=== PATIENT | male | born 1965 | race Caucasian/White ===

== ENCOUNTER 2016-02-05 10:47 | Inpatient (IN) | payer SELFPAY ==
[2016-02-05] VITALS (11 sets, daily range): BP systolic 125; BP diastolic 84; PULSE 79–94; RESP 16; TEMP 99.9; O2SAT 90–100
[~2016-02-05] VITALS: Ht 182.9 cm; Wt 100.5 kg
[2016-02-05] MEDS ORDERED: LORazepam 2 MG/ML VIAL ONE (10:49)
[2016-02-05] MEDS ORDERED: DIPHTH/TETANUS/ACEL PERTUSSIS (BOOSTER) 0.5 ML VIAL/PFS IM ONE (10:49)
[2016-02-05] MEDS ORDERED: ceFAZolin 2 GM PREMIX 50 ML ONE (10:50)
[2016-02-05] MEDS ORDERED: LIDOCAINE HCL 2% 100 MG/5 ML SYRINGE IV PUSH ONE (11:11)
[2016-02-05] MEDS ORDERED: ETOMIDATE 20 MG/10 ML VIAL IV PUSH ONE ×2 (11:11)
[2016-02-05] MEDS ORDERED: SUCCINYLCHOLINE CHLORIDE 200 MG/10 ML VIAL IVP ONE (11:11)
[2016-02-05 11:17] LABS: I-STAT POTASSIUM 3.9 MMOL/L (3.5-4.9); I-STAT SODIUM 141 MMOL/L (138-146)
[2016-02-05 11:19] LABS: AUTOMATED NEUTROPHIL # 12.1 TH/MM3 (1.8-7.7); BASOPHIL # 0.1 TH/MM3 (0-0.2); BASOPHIL % 0.4 % (0.0-2.0); EOSINOPHIL # 0.4 TH/MM3 (0-0.4); EOSINOPHIL % 2.4 % (0.0-4.0); HEMATOCRIT 40.2 % (39.0-51.0); HEMO FLAGS DIFF FINAL; LYMPH % 10.9 % (9.0-44.0); LYMPHOCYTE # 1.6 TH/MM3 (1.0-4.8); MEAN CELL VOLUME 87.2 FL (80.0-100.0); MEAN CORPUSCULAR HEMOGLOBIN 28.5 PG (27.0-34.0); MEAN CORPUSCULAR HGB CONC 32.7 % (32.0-36.0); MONO % 4.7 % (0.0-8.0); NEUT % 81.6 % (16.0-70.0); PLATELET COUNT 270 TH/MM3 (150-450); RED BLOOD COUNT 4.62 MIL/MM3 (4.50-5.90); RED CELL DISTRIBUTION WIDTH 14.1 % (11.6-17.2); WHITE BLOOD COUNT 14.8 TH/MM3 (4.0-11.0)
--- NOTE | 2016-02-05 11:20 | RADRPT ---
EXAM DATE/TIME: 02/05/2016 10:38 [facility] COMPARISON: No previous studies available for comparison. INDICATIONS : Trauma alert, fell off of the roof. MEDICAL HISTORY : None. SURGICAL HISTORY : None. ENCOUNTER: Initial ACUITY: 1 day PAIN SCORE: Non-responsive. LOCATION: Left wrist FINDINGS: There is a comminuted fracture of the distal radius with intra-articular extension. Fracture of the d istal ulna is also present. There is possible fracture of the waist of navicular as well as abnormal alignment involving the proximal carpal row. A true lateral view is not included. CONCLUSION: 1. Comminuted distal radius fracture with possible scaphoid fracture. Possible disruption of the radi ocarpal row. 2. CT scan is recommended for further evaluation if clinically indicated. Kristian Ewing MD on February 05, 2016 at 11:16 Board Certified Radiologist. This report was verified electronically.
--- NOTE | 2016-02-05 11:25 | RADRPT ---
EXAM DATE/TIME: 02/05/2016 10:38 [facility] COMPARISON: No previous studies available for comparison. INDICATIONS: Trauma alert, fell off of a roof. MEDICAL HISTORY: None. SURGICAL HISTORY: None. ENCOUNTER: Initial ACUITY: 1 day PAIN SCORE: Non-responsive. LOCATION: Bilateral chest FINDINGS: ET tube is in good position. Cardiac silhouette is prominent. There is no pneumothorax. Portion of bony skeleton visualized is unremarkable. There is no nasogastric tube. CONCLUSION: 1. ET tube in good position. 2. Prominent cardiac silhouette. Yordy Arias MD FACR on February 05, 2016 at 11:18 Board Certified Radiologist. This report was verified electronically.
[2016-02-05 11:28] LABS: APTT (PATIENT) 23.6 SEC (24.3-30.1); INTERNATIONAL NORMALIZED RATIO 1.1 RATIO; PROTHROMBIN TIME - PATIENT 11.7 SEC (9.8-11.6)
--- NOTE | 2016-02-05 11:28 | RADRPT ---
EXAM DATE/TIME: 02/05/2016 10:38 [facility] COMPARISON: No previous studies available for comparison. INDICATIONS: Trauma alert, fell off of a roof MEDICAL HISTORY: None. SURGICAL HISTORY: None. ENCOUNTER: Initial ACUITY: 1 day PAIN SCORE: Non-responsive. LOCATION: Bilateral pelvis FINDINGS: There is fracture roof of the acetabulum on the left. Anterior and posterior columns are fractured a s well. There is fracture across the inferior aspect of the left pubic symphysis. Femoral neck appears intact. Right ash-pelvis is intact. CONCLUSION: Fractures left side of the pelvis as described above. CT scan is pending. Yordy Arias MD FACR on February 05, 2016 at 11:23 Board Certified Radiologist. This report was verified electronically.
--- NOTE | 2016-02-05 11:32 | PD ---
HPI Chief Complaint: trauma Time Seen by Provider: 11:09 Travel History International Travel<30 days: No Contact w/Intl Traveler<30days: No History of Present Illness HPI Patient is Eagle Jackson who presents to the emergency room from [facility]. 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 As reported, patient had loss of consciousness while on scene. Patient has obvious deformities to his left wrist. Patient was confused and combative on scene. Patient required multiple doses of ativan for sedation. Pt was then intubated with 7.5ETT for airway protection and for transfer to trauma facility. Patient was airlifted to [facility] for trauma evaluation. No hx could be obtained from patient [facility] Past Medical History Medical History: Unable to Obtain (unable to obtain) Past Surgical History Surgical History: Unable to Obtain (unable to obtain) Social History Narrative Social History unknown, pt intubated Allergies-Medications (Allergen,Severity, Reaction): Coded Allergies: UNOBTAINABLE (Unverified , 02/05/16) Review of Systems ROS Limitations: Intubated Physical Exam Narrative GENERAL: Patient intubated, VSS on initial evaluation SKIN: Warm and dry. HEAD: Normocephalic. Pt with hematoma and laceration above left eye brow EYES: Pupils 3, equal and round and reactive to light. No scleral icterus. No injection or drainage. ENT: ETT in place NECK: Trachea midline. No JVD. CARDIOVASCULAR: Regular rate and rhythm. No murmur appreciated. RESPIRATORY: No accessory muscle use. Clear to auscultation. Breath sounds equal bilaterally. GASTROINTESTINAL: Abdomen soft, non-tender, nondistended. Hepatic and splenic margins not palpable. MUSCULOSKELETAL: pt with obvious deformity to left wrist, open fracture, bleeding to lateral wrist, pt with abrasion to left knee, back with no stepoff to t and l spine NEUROLOGICAL: intubuted with purposeful movement Data Data Last Documented VS Vital Signs Date Time Temp Pulse Resp B/P Pulse Ox O2 Delivery O2 Flow Rate FiO2 02/05/16 11:40 99 100 02/05/16 10:50 15.00 02/05/16 10:50 [facility] Orders Lorazepam Inj (Ativan Inj) (02/05/16 10:49) Nffm-Onc-Gjmyfi (Booster) Inj (Boostrix (02/05/16 10:49) Cefazolin 2 Gm Premix (Ancef 2 Gm Premix (02/05/16 10:50) I-Stat Profile (02/05/16 11:07) I-Stat Creatinine (02/05/16 11:07) Complete Blood Count With Diff (02/05/16 11:07) Prothrombin Time / Inr (Pt) (02/05/16 11:07) Act Partial Throm Time (Ptt) (02/05/16 11:07) Type And Screen (02/05/16 11:07) Alcohol (Ethanol) (02/05/16 11:07) Urinalysis - C+S If Indicated (02/05/16 11:07) Drug Screen, Random Urine (02/05/16 11:07) Chest, Single Ap (02/05/16 11:07) Pelvis, Ap Only (Routine) (02/05/16 11:07) Ct Brain W/O Iv Contrast(Rout) (02/05/16 11:07) Ct Cerv Spine W/O Contrast (02/05/16 11:07) Ct Abd/Pel W Iv Contrast(Rout) (02/05/16 11:07) Ct Thorax/ Chest W Iv Contrast (02/05/16 11:07) Ct Facial Bones W/O Iv Cont (02/05/16 11:07) Iv Access Insert/Monitor (02/05/16 11:07) Ecg Monitoring (02/05/16 11:07) Oximetry (02/05/16 11:07) Oxygen Administration (02/05/16 11:07) Wrist, Limited (Ap&Lat) (02/05/16 ) Ct Wrist W/O Contrast (02/05/16 11:27) Midazolam Inj (Versed Inj) (02/05/16 11:37) Iohexol 350 Inj (Omnipaque 350 Inj) (02/05/16 11:43) Admit To Inpatient (02/05/16 ) Vital Signs (Adult) TERE.QSHIFT (02/05/16 11:42) Intake + Output TERE.Q8H (02/05/16 11:42) Neuro Checks TERE.Q1H (02/05/16 11:42) Activity Bed Rest (02/05/16 11:42) Diet Npo (02/05/16 Lunch) Urinary Catheter Management TERE.Q8H (02/05/16 11:42) Scd / Yeison / Foot Pump TERE.QSHIFT (02/05/16 11:42) ^ Cervical Collar (02/05/16 11:42) ^ Instruction (02/05/16 11:42) Complete Blood Count With Diff (02/06/16 06:00) Comprehensive Metabolic Panel (02/06/16 06:00) Chest, Single Ap (02/06/16 ) Sodium Chlor 0.9% 1000 Ml Inj (Ns 1000 M (02/05/16 12:00) Sodium Chloride 0.9% Flush (Ns Flush) (02/05/16 11:45) Enalaprilat Inj (Vasotec Inj) (02/05/16 11:45) Ondansetron Inj (Zofran Inj) (02/05/16 11:45) Pantoprazole Inj (Protonix Inj) (02/05/16 13:00) Docusate Sodium (Colace) (02/05/16 21:00) Magnesium Hydroxide Liq (Milk Of Magnesi (02/05/16 11:45) Consult Orthopedic (02/05/16 ) Consult Neurosurgery (02/05/16 ) Consult Target Protection Specialist (02/05/16 ) ^ Initiate Protocol (02/05/16 11:42) ^ Instruction (02/05/16 11:42) Misc Nursing Information (02/05/16 11:45) Chlorhexidine 2% Cloth (Chlorhexidine 2% (02/06/16 04:00) Chlorhexidine 2% Cloth (Chlorhexidine 2% (02/05/16 11:45) Mrsa Pcr Surveillance (02/05/16 11:42) Inpatient Certification (02/05/16 ) Consult Polly Gts (02/05/16 ) Admit Order (Ed Use Only) (02/05/16 11:50) Labs Laboratory Tests Test 02/05/16 11:00 White Blood Count 14.8 TH/MM3 Red Blood Count 4.62 MIL/MM3 Hemoglobin 13.2 GM/DL Bedside Hemoglobin 13.6 G/DL Hematocrit 40.2 % Bedside Hematocrit 40.0 % Mean Corpuscular Volume 87.2 FL Mean Corpuscular Hemoglobin 28.5 PG Mean Corpuscular Hemoglobin 32.7 % Concent Red Cell Distribution Width 14.1 % Platelet Count 270 TH/MM3 Mean Platelet Volume 9.1 FL Neutrophils (%) (Auto) 81.6 % Lymphocytes (%) (Auto) 10.9 % Monocytes (%) (Auto) 4.7 % Eosinophils (%) (Auto) 2.4 % Basophils (%) (Auto) 0.4 % Neutrophils # (Auto) 12.1 TH/MM3 Lymphocytes # (Auto) 1.6 TH/MM3 Monocytes # (Auto) 0.7 TH/MM3 Eosinophils # (Auto) 0.4 TH/MM3 Basophils # (Auto) 0.1 TH/MM3 CBC Comment DIFF FINAL Differential Comment Prothrombin Time 11.7 SEC Prothromb Time International 1.1 RATIO Ratio Activated Partial 23.6 SEC Thromboplast Time Bedside Sodium 141 MMOL/L Bedside Potassium 3.9 MMOL/L Bedside Chloride 106 MMOL/L Bedside Blood Urea Nitrogen 16 MG/DL Bedside Creatinine 1.0 MG/DL Bedside Glucose 118 MG/DL Ethyl Alcohol Level LESS THAN 3 MG/DL Blood Type A POSITIVE Antibody Screen NEGATIVE MDM Medical Screen Exam Complete: Yes Emergency Medical Condition: Yes Interpretation(s) Vital Signs Date Time Temp Pulse Resp B/P Pulse Ox O2 Delivery O2 Flow Rate FiO2 02/05/16 11:40 99 100 02/05/16 11:08 98 100 02/05/16 10:50 98 15.00 100 02/05/16 10:50 98 100 02/05/16 10:50 90 AMBU 15.00 100 Differential Diagnosis Intracranial hemorrhage, wrist fracture, facial laceration, pneumothorax, pneumoperitoneum, cervical versus thoracic versus lumbar spine fracture, pelvis fracture, splenic laceration Narrative Course pt is a eagle jackson, presents to ER after he fell off a 10 foot roof top. Pt was confused and combative on scene. Patient required multiple doses of medication for sedation. Patient ultimately required intubation prior to transport to ER. Patient was transported via helicopter to [facility]. Trauma alert called overhead. Trauma assessment performed on patient. VSS upon initial presentation to ER. Pt attempting to pull ETT - pt was given medication for sedation, pt was bolused with propofol and gtt started Once patient stabilized - pt brought to CT for ct facial bones, head, neck, chest, abd and pelvis Please see trauma paperwork for full workup of pt. pt went from CT to the trauma ICU - care was handed off to Dr Méndez Trauma Alert - Level One Trauma Alert Level One: Full trauma team activate, Patient evaluated, Trauma surgeon summoned Time Surgeon Summoned: 10:02 Time Anesthesiologist Summoned: 10:[address] Méndez will admit pt to his service Diagnosis Diagnosis: Primary Impression: VDRF Additional Impressions: Wrist fracture, open Qualified Code: S62.102B - Wrist fracture, open, left, initial encounter Facial laceration Qualified Code: S01.81XA - Facial laceration, initial encounter Trauma Admitting Physician Requests: Admit aMnjula Bautista DO Feb 05, 2016 11:32
[2016-02-05] MEDS ORDERED: MIDAZOLAM HCL 5 MG/ML VIAL (1 ML) ONE (11:37)
--- NOTE | 2016-02-05 11:39 | RADRPT ---
EXAM DATE/TIME: 02/05/2016 11:11 [facility] COMPARISON: No previous studies available for comparison. INDICATIONS: Trauma alert. Fall from roof. RADIATION DOSE: 56.35 CTDIvol (mGy) MEDICAL HISTORY: Non-responsive. SURGICAL HISTORY: Non-responsive. ENCOUNTER: Initial ACUITY: 1 day PAIN SCALE: Non-responsive LOCATION: Cranial TECHNIQUE: Multiple contiguous axial images were obtained of the head. Using automated exposure control and adj ustment of the mA and/or kV according to patient size, radiation dose was kept as low as reasonably a chievable to obtain optimal diagnostic quality images. FINDINGS: There is marked soft tissue swelling of the calvarium without fracture. There is moderate central and cortical atrophy with dilatation of ventricular and sulcal spaces. There is a very small focal contusion high in the left centrum semiovale. No other parenchymal hemor rhage or extraaxial fluid is evident. CONCLUSION: 1. Negative for skull fracture. 2. Probable small cortical hemorrhage in the left centrum semiovale. Yordy Arias MD FACR on February 05, 2016 at 11:24 Board Certified Radiologist. This report was verified electronically.
[2016-02-05] MEDS ORDERED: IOHEXOL 350 MG/ML 10 ML VIAL (for RAD DIAG) IV ONE (11:43)
[2016-02-05] MEDS ORDERED: MISCELLANEOUS NURSING INFORMATION XX SCH (11:45)
[2016-02-05] MEDS ORDERED: SODIUM CHLORIDE 0.9% FLUSH 5 ML FLUSH IVF PRN (11:45)
[2016-02-05] MEDS ORDERED: CHLORHEXIDINE GLUCONATE 2 % 1 PACK (2 CLOTHS) TOP PRN (11:45)
[2016-02-05] MEDS ORDERED: ENALAPRILAT 1.25 MG/ML VIAL IV PRN (11:45)
--- NOTE | 2016-02-05 11:47 | RADRPT ---
EXAM DATE/TIME: 02/05/2016 11:11 [facility] COMPARISON: No previous studies available for comparison. INDICATIONS: Trauma alert. Fall from roof. IV CONTRAST: 98 cc Omnipaque 350 (iohexol) IV ; Cumulative dose for multiple exams. RADIATION DOSE: 14.33 CTDIvol (mGy) ; Combined studies - Thorax/Abdomen/Pelvis MEDICAL HISTORY: Non-responsive. SURGICAL HISTORY: Non-responsive. ENCOUNTER: Initial ACUITY: 1 day PAIN SCALE: Non-responsive LOCATION: Chest TECHNIQUE: Volumetric scanning of the chest was performed. Using automated exposure control and adjustment of t he mA and/or kV according to patient size, radiation dose was kept as low as reasonably achievable to obtain optimal diagnostic quality images. FINDINGS: Minimal bibasilar parenchymal changes are noted. There is no pneumothorax. There is no pericardial e ffusion. There is no significant coronary artery calcifications. There is no axillary adenopathy. There is no mediastinal adenopathy. Great vessels are intact. Nasogastric tube is across the GE junction. Review of bone windows reveals degenerative changes in the lower cervical spine. Clavicle and scapula appear grossly intact. There are degenerative changes present in the thoracic spine. I do not see an obvious rib fracture o r thoracic spine fracture. CONCLUSION: 1. Negative CT scan of the chest for an acute traumatic injury. 2. Minimal bibasilar parenchymal changes without pneumothorax. Yordy Arias MD FACR on February 05, 2016 at 11:34 Board Certified Radiologist. This report was verified electronically.
[2016-02-05] MEDS ORDERED: LIDOCAINE 1%/EPINEPHrine 1:100,000 SOLN 50 ML VIAL ONE (11:58)
[2016-02-05] MEDS: SODIUM CHLOR 0.9% 1000 ML INJ 1,000 ML IV SCH ×2 (12:00→21:17)
[2016-02-05] MEDS ORDERED: SODIUM PHOSPHATE INJ 30 MMOL in SODIUM CHLOR 0.9% 250 ML INJ 240 ML IV PRN (12:15)
[2016-02-05] MEDS ORDERED: MAGNESIUM SULFATE INJ 2 GM in SODIUM CHLORIDE 0.9% INJ 96 ML IV PRN (12:15)
[2016-02-05] MEDS ORDERED: POTASSIUM CHLOR 40 MEQ PREMIX 100 ML IV PRN ×2 (12:15)
[2016-02-05] MEDS ORDERED: POTASSIUM CHLOR 20 MEQ PREMIX 100 ML IV PRN (12:15)
[2016-02-05] MEDS ORDERED: POTASSIUM PHOSPHATE MONOBASIC 500 MG TAB PO/TUBE PRN (12:15)
[2016-02-05] MEDS ORDERED: DEXTROSE 50% IN WATER 50 ML VIAL(D50) IV PUSH PRN (12:15)
[2016-02-05] MEDS ORDERED: POTASSIUM CL 40 MEQ/30 ML LIQ UDC PO/TUBE PRN ×2 (12:15→13:00)
[2016-02-05] MEDS ORDERED: POTASSIUM PHOSPHATE INJ 30 MMOL in SODIUM CHLOR 0.9% 250 ML INJ 250 ML IV PRN (12:15)
[2016-02-05] MEDS ORDERED: MAGNESIUM SULFATE INJ 4 GM in SODIUM CHLORIDE 0.9% INJ 92 ML IV PRN (12:15)
[2016-02-05] MEDS ORDERED: oxyCODONE HCL ORAL CONC 20 MG/ML SYRINGE PO PRN (12:15)
[2016-02-05] MEDS ORDERED: MAGNESIUM OXIDE 400 MG TAB PO PRN (12:15)
[2016-02-05] MEDS ORDERED: POTASSIUM PHOSPHATE MONOBASIC 500 MG TAB PO PRN (12:15)
--- NOTE | 2016-02-05 12:19 | PD.CONS ---
[facility] Service Critical Care Medicine Consult Requested By De. Méndez Reason for Consult multi trauma Primary Care Physician unknown History of Present Illness adult male presented after falling 10 feet off roof. 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 purposeful in the trauma bay. Traumatic Injuries: - small left cortical contusion - left wrist/distal radius fx - left acetabular fx, anterior/posterior column fx - inferior left pubic symphysis fx Review of Systems ROS Limitations: Clinical Condition, Intubated, Altered Mental Status, Unresponsive, Combative Past Family Social History Allergies: Coded Allergies: UNOBTAINABLE (Unverified , 02/05/16) Past Medical History unknown secondary to clinical condition, intubated, unresponsive. Past Surgical History unknown secondary to clinical condition, intubated, unresponsive. Reported Medications unknown secondary to clinical condition, intubated, unresponsive. Active Ordered Medications See APR. Family History unknown secondary to clinical condition, intubated, unresponsive. Social History unknown secondary to clinical condition, intubated, unresponsive. Physical Exam Vital Signs Vital Signs Date Time Temp Pulse Resp B/P Pulse Ox O2 Delivery O2 Flow Rate FiO2 02/05/16 11:08 98 100 02/05/16 10:50 98 15.00 100 02/05/16 10:50 98 100 02/05/16 10:50 90 AMBU 15.00 100 Physical Exam GENERAL: Adult male, lying in bed, intubated, sedated. HEENT: Laceration over left eyebrow. NECK: C-collar in place. The Endotracheal tube in place. Trachea is midline. CHEST: No abrasions over her anterior chest. Equal chest rise. Clear to auscultation. CARDIOVASCULAR: Tachycardic rate, regular rhythm. No appreciable murmurs. ABDOMEN: Soft, nontender, nondistended. No guarding. MUSCULOSKELETAL: Left upper extremity is wrapped in Josiah bandage. Distal pulses 2+. NEUROLOGICAL: RASS -4. Purposeful in all 4 extremities. Pupils 3 mm, reactive , conjugate. Positive cough. Positive gag. Positive corneals. Laboratory Laboratory Tests Test 02/05/16 11:00 White Blood Count 14.8 Red Blood Count 4.62 Hemoglobin 13.2 Bedside Hemoglobin 13.6 Hematocrit 40.2 Bedside Hematocrit 40.0 Mean Corpuscular Volume 87.2 Mean Corpuscular Hemoglobin 28.5 Mean Corpuscular Hemoglobin 32.7 Concent Red Cell Distribution Width 14.1 Platelet Count 270 Mean Platelet Volume 9.1 Neutrophils (%) (Auto) 81.6 Lymphocytes (%) (Auto) 10.9 Monocytes (%) (Auto) 4.7 Eosinophils (%) (Auto) 2.4 Basophils (%) (Auto) 0.4 Neutrophils # (Auto) 12.1 Lymphocytes # (Auto) 1.6 Monocytes # (Auto) 0.7 Eosinophils # (Auto) 0.4 Basophils # (Auto) 0.1 CBC Comment DIFF FINAL Differential Comment Prothrombin Time 11.7 Prothromb Time International 1.1 Ratio Activated Partial 23.6 Thromboplast Time Bedside Sodium 141 Bedside Potassium 3.9 Bedside Chloride 106 Bedside Blood Urea Nitrogen 16 Bedside Creatinine 1.0 Bedside Glucose 118 Ethyl Alcohol Level LESS THAN 3 Blood Type A POSITIVE Antibody Screen NEGATIVE Result Diagram: 02/05/16 1100 Assessment and Plan Assessment and Plan Assessment: Adult male status post fall from approximately 10 feet with muscle skeletal injuries including left wrist fracture, left acetabular fracture, tiny left cortical contusion. Plan by systems: Neurologic: Traumatic cerebral contusion Agitated delirium Propofol for goal RASS -1 Neurosurgery following Holding anticoagulation Head of bed at 30 Total, oxycodone, Dilaudid as needed for pain hold Long-acting sedating meds Respiratory: Acute hypoxic respiratory failure Wean FiO2 for goal SPO2 greater than 90% Nebs every 6 and every 2 when necessary Does not meet criteria for SBT today Head of bed at 30 Low tidal volume ventilation targeting 6 cc/kg ideal body weight Cardiovascular: Sinus tachycardia Likely secondary to acute polytrauma Renal: Garces for accurate I's and O's -- Strict I/Os FEN/GI: Nothing by mouth We will place orogastric tube and start tube feeds ICU electrolyte protocol Daily BMP Heme/ID: Anemia acute blood loss Daily CBC no Infectious etiology suspected this time Endocrine: Hyperglycemia of critical illness -- SSI, every 6 hours, medium scale Musculoskeletal: Acetabular Fracture Wrist Fracture Consult orthopedics. Operative plan pending. Prophylaxis: GI Prophylaxis Protonix 40 mg IV daily 24 hours DVT Prophylaxis -- SCDs Holding pharmacologic DVT prophylaxis in the setting of cerebral contusion. Lines: Peripheral IVs We'll place Garces catheter No indication for central access at this time. We will reevaluate Dispo: Admit to the ICU. He remains critically ill. This patient remains critically ill with one or more organ systems which are or may become a threat to life. I have spent in excess of 32 minutes discontinuously in the care and management of this patient. This time is exclusive of procedures, and includes, but is not limited to, evaluation of the patient, review of the medical record, discussions with family, consultants, nursing staff, or respiratory therapy, and documentation in the medical record. Code Status Full code Zenon Yen MD Feb 05, 2016 12:19
[2016-02-05] MEDS ORDERED: PROPOFOL 200 MG/20 ML AMP IV ONE (12:27)
--- NOTE | 2016-02-05 12:28 | RADRPT ---
EXAM DATE/TIME: 02/05/2016 11:11 [facility] COMPARISON: No previous studies available for comparison. INDICATIONS : Trauma alert. Fall from roof. IV CONTRAST: 98 cc Omnipaque 350 (iohexol) IV ; Cumulative dose for multiple exams. ORAL CONTRAST: No oral contrast ingested. RADIATION DOSE: 14.33 CTDIvol (mGy) ; Combined studies - Thorax/Abdomen/Pelvis MEDICAL HISTORY : Non-responsive. SURGICAL HISTORY : Non-responsive. ENCOUNTER: Initial ACUITY: 1 day PAIN SCALE: Non-responsive LOCATION: abdomen TECHNIQUE: Volumetric scanning of the abdomen and pelvis was performed. Using automated exposure control and ad justment of the mA and/or kV according to patient size, radiation dose was kept as low as reasonably achievable to obtain optimal diagnostic quality images. FINDINGS: There is subsegmental atelectasis in the both bases. The liver and spleen are free of focal defects. The gallbladder and pancreas demonstrate no abnormality. The adrenal glands are normal. The kidneys demonstrate no evidence of solid renal mass or hydronephrosis. No free fluid or abdominal masses are identified. No para-aortic adenopathy is seen. There is a single simple cyst in the left kidney stan uring 2 cm in the upper pole. Examination of the pelvis demonstrates no evidence of free fluid or pelvic mass. No abnormally enlarg ed inguinal or retroperitoneal lymph nodes are present. The bladder is unremarkable. There is hematom a in left side of his pelvis with a comminuted fracture of the acetabulum and extending superiorly th rough the iliac wing. The femur is intact. There also fractures of the left superior and inferior pub ic ramus as well as a transverse process fracture L 2 on the left CONCLUSION: 1. No evidence of acute abdominal or pelvic process. No masses are identified. 2. Multiple pelvic fractures including the left acetabulum and pubic rami Kristian Ewing MD on February 05, 2016 at 12:07 Board Certified Radiologist. This report was verified electronically.
--- NOTE | 2016-02-05 12:30 | RADRPT ---
EXAM DATE/TIME: 02/05/2016 11:14 [facility] COMPARISON: No previous studies available for comparison. INDICATIONS : Trauma alert. Fall from roof. RADIATION DOSE: 29.7 CTDIvol (mGy) MEDICAL HISTORY : Non-responsive. SURGICAL HISTORY : Non-responsive. ENCOUNTER: Initial ACUITY: 1 day PAIN SCALE: Non-responsive LOCATION: neck TECHNIQUE: Volumetric scanning of the cervical spine was performed. Multiplanar reconstructions in the sagittal, coronal and oblique axial planes were performed. Using automated exposure control and adjustment o f the mA and/or kV according to patient size, radiation dose was kept as low as reasonably achievable to obtain optimal diagnostic quality images. FINDINGS: Sagittal images demonstrate normal vertebral body alignment and curvature. The odontoid is intact. Th e occipital condyles and lateral masses of C1 are intact. Axial images were performed from C2-C3 to C7-T1. There is multilevel disc space narrowing and marginal osteophyte formation maximal at C5-C6. C2-C3: No significant abnormalities identified. C3-C4: There is osteophytic ridging along the posterior aspect of vertebral body. There is no significant sp inal canal stenosis. C4-C5: There is central osteophytic spur. There is no significant spinal canal stenosis. The neural foramina are clear bilaterally. C5-C6: There is osteophytic ridging along the posterior aspect of vertebral body. There is no significant sp inal canal stenosis. The facet joints are intact. C6-C7: No significant abnormalities identified. C7-T1: No significant abnormalities identified. CONCLUSION: 1. Moderate degenerative changes as described above. There is no evidence of acute fracture. Kristian Ewing MD on February 05, 2016 at 12:26 Board Certified Radiologist. This report was verified electronically.
--- NOTE | 2016-02-05 12:32 | RADRPT ---
EXAM DATE/TIME: 02/05/2016 11:14 [facility] COMPARISON: No previous studies available for comparison. INDICATIONS : Trauma alert. Fall from roof. RADIATION DOSE: 21.96 CTDIvol (mGy) MEDICAL HISTORY : Non-responsive. SURGICAL HISTORY : Non-responsive. ENCOUNTER: Initial ACUITY: 1 day PAIN SCORE: Non-responsive LOCATION: facial TECHNIQUE: Volumetric scanning of the facial bones was performed. Using automated exposure control and adjustme nt of the mA and/or kV according to patient size, radiation dose was kept as low as reasonably achiev able to obtain optimal diagnostic quality images. FINDINGS: ORBITS: There is no evidence of acute fracture. NASAL BONE: The nasal bone and maxillary spine are intact ZYGOMATIC ARCHES: Symmetric without evidence of fracture. SINUSES: There is benign-appearing mucosal disease in the maxillary antra bilaterally. There is also mucosal d isease in the nasal cavity and the ethmoid air cells. NASAL CAVITY: The nasal septum is mildly deviated to the left.The lacrimal ducts are intact. SOFT TISSUES: No radiopaque foreign bodies seen. No soft-tissue swelling is seen. INTRACRANIAL: No intracranial air seen. CRIBIFORM PLATE: Grossly intact. CONCLUSION: 1. There is no evidence of acute fracture. Kristian Ewing MD on February 05, 2016 at 12:28 Board Certified Radiologist. This report was verified electronically.
--- NOTE | 2016-02-05 12:34 | RADRPT ---
EXAM DATE/TIME: 02/05/2016 11:27 [place] COMPARISON: No previous studies available for comparison. INDICATIONS : Trauma alert, fall from roof. RADIATION DOSE: 41.45 CTDIvol (mGy) MEDICAL HISTORY : Non-responsive. SURGICAL HISTORY : Non-responsive. ENCOUNTER: Initial ACUITY: 1 day PAIN SCALE: Non-responsive LOCATION: Left wrist TECHNIQUE: Volumetric scanning of the wrist was performed. Using automated exposure control and adjustment of t he mA and/or kV according to patient size, radiation dose was kept as low as reasonably achievable to obtain optimal diagnostic quality images. FINDINGS: There is a comminuted fracture of the distal radius with intra-articular extension as well as a fract ure of the distal ulna and ulnar styloid. There is no widening of the scapholunate ligament or disloc ation. The scaphoid itself is not fractured. The remainder of the carpus is intact. CONCLUSION: 1. Comminuted fracture of the distal radius with intra-articular extension. 2. Carpal bones are intact. Kristian Ewing MD on February 05, 2016 at 12:30 Board Certified Radiologist. This report was verified electronically.
--- NOTE | 2016-02-05 12:37 | PD.CONS ---
(Dax Murphy MD) HPI Consult Requested By Primary Care Physician (Dax Murphy MD) Service NRS Consult Requested By Trauma Team Dr. Méndez Reason for Consult TBI, cerebral contusion History of Present Illness This patient is a middle age male who was brought [facility] as a trauma alert after falling off his roof at a height of around 10 feet this morning. There was loss of consciousness. He was reported to be agitated and intubated at the scene. [place] Coma Scale was noted [address] of the brain shows a left high frontoparietal contusion. He was reported to have moved his extremities purposefully but does not follow commands. His sedation was lightened in ISC, he continues not to follow commands, he does not track. A forehead laceration was repaired by the trauma team. Neurosurgical evaluation was requested. (Cherry Lucas) Review of Systems ROS Limitations: Intubated, Altered Mental Status (Cherry Lucas) Past Family Social History Allergies: Coded Allergies: UNOBTAINABLE (Unverified , 02/05/16) Past Medical History Unable to obtain, no family at bedside Past Surgical History Unable to obtain, no family at bedside Reported Medications Unable to obtain, no family at bedside Active Ordered Medications Current Medications Medications (Trade) Dose Ordered Sig/Medardo Route PRN Reason Start Time Stop Time Status Last Admin Dose Admin Sodium Chloride (NS 1000 ml Inj) 1,000 ml @ 100 mls/hr Q10H IV 02/05/16 12:00 IV Flush (NS Flush) 2 ml UNSCH PRN IVF FLUSH AFTER USING IV ACCESS 02/05/16 11:45 Ondansetron HCl (Zofran Inj) 4 mg Q6H PRN IV NAUSEA OR VOMITING 02/05/16 11:45 Pantoprazole Sodium (Protonix Inj) 40 mg Q24H IVP 02/05/16 13:00 Docusate Sodium (Colace) 100 mg BID PO 02/05/16 21:00 Magnesium Hydroxide (Milk Of Magnesia Liq) 30 ml Q6H PRN PO CONSTIPATION 02/05/16 11:45 Miscellaneous Information 1 Q361D XX 02/05/16 11:45 Chlorhexidine Gluconate (Chlorhexidine 2% Cloth) 3 pack Taper DAILY@04 TOP 02/06/16 04:00 02/01/17 03:59 Chlorhexidine Gluconate (Chlorhexidine 2% Cloth) 3 pack UNSCH PRN TOP HYGIENIC CARE 02/05/16 11:45 Hydromorphone HCl (Dilaudid Pf Inj) 0.5 mg Q4H PRN IV PUSH pain 8-10 or not taking po 02/05/16 12:15 Acetaminophen (Tylenol 650 Mg/ 20 ml Liq) 650 mg Q6H PO 02/05/16 13:00 Oxycodone HCl (Roxicodone Intensol Liq) 5 mg Q4H PRN PO pain 1-7 02/05/16 12:15 Magnesium Oxide 800 mg 800 mg UNSCH PRN PO For Magnesium 1.2 - 1.6 mg/dL 02/05/16 12:15 Magnesium Sulfate 4 gm/Sodium Chloride 100 ml @ 50 mls/hr UNSCH PRN IV For Magnesium 0.9 - 1.1 mg/dL 02/05/16 12:15 Magnesium Sulfate 2 gm/Sodium Chloride 100 ml @ 50 mls/hr UNSCH PRN IV For Magnesium 1.2 - 1.6 mg/dL 02/05/16 12:15 Potassium Chloride 100 ml @ 50 mls/hr Q2H PRN IV For Potassium 2.8 - 3.2 mEq/L 02/05/16 12:15 Potassium Chloride 100 ml @ 50 mls/hr Q2H PRN IV For Potassium 3.3 - 3.5 mEq/L 02/05/16 12:15 Potassium Chloride 100 ml @ 50 mls/hr Q2H PRN IV For Potassium 2.8 - 3.2 mEq/L 02/05/16 12:15 Potassium Chloride (KCl 40 Meq Premix Inj) 100 ml @ 25 mls/hr UNSCH PRN IV For Potassium 3.3 - 3.5 mEq/L 02/05/16 12:15 Potassium Chloride (KCl 40 Meq/30 ml Liq) 40 meq UNSCH PRN PO/TUBE For Potassium 3.3 - 3.5 mEq/L 02/05/16 12:15 Potassium Chloride (KCl 40 Meq/30 ml Liq) 40 meq UNSCH PRN PO/TUBE SEE LABEL COMMENTS 02/05/16 13:00 Potassium Phosphate (K-Phos) 2,000 mg Q4H PRN PO For Phosphorus < 2.5 mg/dL 02/05/16 12:15 Potassium Phosphate 2000 mg 2,000 mg UNSCH PRN PO/TUBE SEE LABEL COMMENTS 02/05/16 12:15 Potassium Phosphate 30 mmol/ Sodium Chloride 260 ml @ 42 mls/hr UNSCH PRN IV SEE LABEL COMMENTS 02/05/16 12:15 Sodium Phosphate/ Sodium Chloride (Sodium Phosphate Inj/NS 250 ml Inj) 250 ml @ 42 mls/hr UNSCH PRN IV For Phosphorus < 2.5 mg/dL 02/05/16 12:15 Dextrose (D50w (Vial) Inj) 25 ml UNSCH PRN IV PUSH HYPOGLYCEMIA-SEE COMMENTS 02/05/16 12:15 Insulin Human Regular (NovoLIN R SUPPLEMENTAL SCALE) 1 Q6HR SQ 02/05/16 18:00 Family History Unable to obtain Social History Unable to obtain (Cherry Lucas) Physical Exam Vital Signs Vital Signs Date Time Temp Pulse Resp B/P Pulse Ox O2 Delivery O2 Flow Rate FiO2 02/05/16 11:40 99 100 02/05/16 11:08 98 100 02/05/16 10:50 98 15.00 100 02/05/16 10:50 98 100 02/05/16 10:50 90 AMBU 15.00 100 Physical Exam He is intubated and sedated. He has generalized shivering. Left forehead laceration that is being repaired by Dr. Méndez. Cranial Nerves: Pupils 3 mm equal, round, sluggishly reactive to light. Eyes appear conjugated. Face sensation, olfaction, visual seymour, and hearing cannot be adequately assessed due to his neurological condition. Cervical Spine: immobilized by hard collar Motor: His muscle tone and bulk are normal. Not following commands to testing. Reflexes: Deep tendon reflexes are 1+ and symmetrical in the biceps, triceps, and brachioradialis, bilaterally, in the upper extremities. In the lower extremities, the patellar and ankles are 1+, bilaterally. There is a bilateral plantar flexion response. Cerebellar examination not possible due to his condition Laboratory Laboratory Tests Test 02/05/16 11:00 White Blood Count 14.8 Red Blood Count 4.62 Hemoglobin 13.2 Bedside Hemoglobin 13.6 Hematocrit 40.2 Bedside Hematocrit 40.0 Mean Corpuscular Volume 87.2 Mean Corpuscular Hemoglobin 28.5 Mean Corpuscular Hemoglobin 32.7 Concent Red Cell Distribution Width 14.1 Platelet Count 270 Mean Platelet Volume 9.1 Neutrophils (%) (Auto) 81.6 Lymphocytes (%) (Auto) 10.9 Monocytes (%) (Auto) 4.7 Eosinophils (%) (Auto) 2.4 Basophils (%) (Auto) 0.4 Neutrophils # (Auto) 12.1 Lymphocytes # (Auto) 1.6 Monocytes # (Auto) 0.7 Eosinophils # (Auto) 0.4 Basophils # (Auto) 0.1 CBC Comment DIFF FINAL Differential Comment Prothrombin Time 11.7 Prothromb Time International 1.1 Ratio Activated Partial 23.6 Thromboplast Time Bedside Sodium 141 Bedside Potassium 3.9 Bedside Chloride 106 Bedside Blood Urea Nitrogen 16 Bedside Creatinine 1.0 Bedside Glucose 118 Ethyl Alcohol Level LESS THAN 3 Blood Type A POSITIVE Antibody Screen NEGATIVE (Dax Murphy MD) Physical Exam The patient is intubated and sedated. He has generalized shivering. Left forehead laceration that is being repaired by Dr. Méndez. Cranial Nerves: Pupils 3 mm equal, round, sluggishly reactive to light. Eyes appear conjugated. Face sensation, olfaction, visual seymour, and hearing cannot be adequately assessed due to his neurological condition. Cervical Spine: immobilized by hard collar Motor: His muscle tone and bulk are normal. Not following commands to testing. Reflexes: Deep tendon reflexes are 1+ and symmetrical in the biceps, triceps, and brachioradialis, bilaterally, in the upper extremities. In the lower extremities, the patellar and ankles are 1+, bilaterally. There is a bilateral plantar flexion response. Sensory: On examination there is minimal response to painful stimuli, localizing with both upper and lower extremities. Cerebellar: Examination cannot be adequately assessed due to the patient's neurological condition. (Cherry Lucas) Result Diagram: 02/05/16 1100 Imaging Last Impressions Upper Extremity CT 02/05/16 1127 Signed Impressions: Service Date/Time: Friday, February 05, 2016 11:27 - CONCLUSION: 1. Comminuted fracture of the distal radius with intra-articular extension. 2. Carpal bones are intact. Kristian Ewing MD Maxillofacial CT 02/05/16 1107 Signed Impressions: Service Date/Time: Friday, February 05, 2016 11:14 - CONCLUSION: 1. There is no evidence of acute fracture. Kristian Ewing MD Cervical Spine CT 02/05/16 1107 Signed Impressions: Service Date/Time: Friday, February 05, 2016 11:14 - CONCLUSION: 1. Moderate degenerative changes as described above. There is no evidence of acute fracture. Kristian Ewing MD Abdomen/Pelvis CT 02/05/16 110 Signed Impressions: Service Date/Time: Friday, February 05, 2016 11:11 - CONCLUSION: 1. No evidence of acute abdominal or pelvic process. No masses are identified. 2. Multiple pelvic fractures including the left acetabulum and pubic rami Kristian Ewing MD Wrist X-Ray 02/05/16 0000 Signed Impressions: Service Date/Time: Friday, February 05, 2016 10:38 - CONCLUSION: 1. Comminuted distal radius fracture with possible scaphoid fracture. Possible disruption of the radiocarpal row. 2. CT scan is recommended for further evaluation if clinically indicated. Kristian Ewing MD (Cherry Lucas) Attending Statement Neuro. I have reviewed his clinical and radiological findings. Start neuro checks in a serial fashion. A placement of a ICP monitoring is indicated at this time as recommend by the AANS if no clinical improvementRecommend to repeat the CT of the brain in 24 hours to determining changes in the hemorrhage Respiratory. On full mechanical ventilation. Aggressive pulmonary toilette, nasotracheal suction, and breathing treatments with nebulizers. PT and OT evaluation Open wrist fracture. Recommend consult orthopedics. To the OR for debridement Acetabular fracture. Recommend consult orthopedics for management. Nutrition. NPO Renal. monitor closely urine output, BUN and creatinine Endocrine. Monitor serial Acu checks and SSI as needed in detail ID monitor for signs of infection Protonix for stress ulcer prophylaxis Yeison hose and SCD's for DVT prophylaxis (Dax Murphy MD) Dax Murphy MD Feb 05, 2016 12:37 Cherry Lucas Feb 05, 2016 13:49 Cherry Lucas Feb 05, 2016 13:49
[2016-02-05 12:54] LABS: BLOOD GAS BASE EXCESS -1.5 mmol/L (-2-2); BLOOD GAS CARBOXYHEMOGLOBIN 0.7 % (0-4); BLOOD GAS HCO3 22 mmol/L (22-26); BLOOD GAS O2 HGB SATURATION 98 % (90-100); BLOOD GAS OXYGEN CONTENT 17.7 Vol % (12.0-20.0); BLOOD GAS PCO2 35 mmHg (38-42); BLOOD GAS PO2 311 mmHg (61-120); BLOOD GAS TOTAL HGB 12.3 G/DL (12.0-16.0); CRITICAL VALUE NO; OXYGEN DEVICE VENTILATOR; TEMP CORR TO 98.6; VENT SETTINGS AC16/550/PEEP10
[2016-02-05 12:55] LABS: FIO2 100 %; NUMBER OF ARTERIAL PUNCTURES 1; STAT NO; ULNAR PULSE PRESENT
[2016-02-05] MEDS: PANTOPRAZOLE SODIUM 40 MG VIAL IVP SCH (13:00)
[2016-02-05] MEDS: ACETAMINOPHEN 650 MG/20.3 ML UDC PO SCH ×2 (13:00→18:36)
[2016-02-05] MEDS ORDERED: PROPOFOL 1000 MG/100 ML INJ 100 ML ONE (13:11)
[2016-02-05] MEDS ORDERED: ceFAZolin 2 GM PREMIX 50 ML IV SCH (14:00)
--- NOTE | 2016-02-05 14:21 | PD.OP ---
Operative Report Date of Surgery: Feb 05, 2016 Preoperative Diagnosis: Trauma alert.Traumatic brain injury Postoperative Diagnosis: Trauma alert.Traumatic brain injury Procedure: Right6 frontal warren hole with placement of an intracranial pressure Anesthesia: local Surgeon: Dax Murphy Hand Tufter(s): MICHAELLE Resident Surgeon: Intracranial pressures of 5 mmHg. INDICATIONS FOR THE PROCEDURE The patient is an adult male who was brought to [facility] as a trauma alert with a severe traumatic brain injury He had a GCS of 7t. CT of the brain showed a cerebral hemorrhagic contusion. Placement of ICP monitor was indicated as recommended by the Tra[employer] of [employer] DETAILS OF THE SURGICAL PROCEDURE The right frontal area was shaved, prepped and draped in the usual sterile fashion. An entry point was selected behind the hairline, approximately 30 mm lateral to the midline. The incision was infiltrated with 1% lidocaine with epinephrine 1:100,000 dilution. A small incision was made with a 15 blade down to the level of the periosteum. Using a twist drill a warren hole was made. The dura was opened with a blunt stylet, and a Jose Raul bolt was secured to the bone. A fiberoptic transducer was calibrated according to the sales route driver helper's instructions, and advanced into the parenchyma of the frontal lobe through the bolt. An intracranial pressure of 5 mmHg was achieved with a good waveform. A Betadine sterile dressing was applied. The patient tolerated the procedure well. There were no intraoperative complications. Blood loss was minimal. Dax Murphy MD Feb 05, 2016 14:21
--- NOTE | 2016-02-05 14:38 | HHI.CCPN ---
Subjective Brief History Patient fell off 10 foot the roof during house building process. Sustained multiple injuries and was brought in as a priority 1 trauma alert Loss of consciousness [place] Coma Scale of 8 and small subcortical bleed on the left brain hemisphere Left acetabular fracture consisting of anterior and posterior column fractures as well as superior inferior rami fractures on the left Left humerus and ulna fracture Some swelling over the left thigh soft tissues but no signs of facial fractures The remainder of exam is negative Patient is intubated and ventilated and the ICP bolt is placed revealing intercranial pressure around 5 mmHg Patient will undergo left acetabular fracture fixation as well as arm fixation Objective Vital Signs Date Time Temp Pulse Resp B/P Pulse Ox O2 Delivery O2 Flow Rate FiO2 02/05/16 11:40 99 100 02/05/16 10:50 15.00 02/05/16 10:50 AMBU Result Diagram: 02/05/16 1100 Other Results Laboratory Tests Test 02/05/16 12:30 Blood Gas Puncture Site DRAWN BY DR MOREL Blood Gas Patient Temperature 98.6 Blood Gas HCO3 22 mmol/L (22-26) Blood Gas Base Excess -1.5 mmol/L (-2-2) Blood Gas Oxygen Saturation 98 % (90-100) Arterial Blood pH 7.42 (7.380-7.420) Arterial Blood Partial 35 mmHg (38-42) Pressure CO2 Arterial Blood Partial 311 mmHg Pressure O2 (61-120) Arterial Blood Oxygen Content 17.7 Vol % (12.0-20.0) Arterial Blood 0.7 % (0-4) Carboxyhemoglobin Arterial Blood Methemoglobin 1.0 % (0-2) Blood Gas Hemoglobin 12.3 G/DL (12.0-16.0) Oxygen Delivery Device VENTILATOR Blood Gas Ventilator Setting AC16/550/PEEP10 Blood Gas Inspired Oxygen 100 % Imaging Last 24 hours Impressions Upper Extremity CT 02/05/16 1127 Signed Impressions: Service Date/Time: Friday, February 05, 2016 11:27 - CONCLUSION: 1. Comminuted fracture of the distal radius with intra-articular extension. 2. Carpal bones are intact. Kristian Ewing MD Maxillofacial CT 02/05/16 1105 Signed Impressions: Service Date/Time: Friday, February 05, 2016 11:14 - CONCLUSION: 1. There is no evidence of acute fracture. Kristian Ewing MD Cervical Spine CT 02/05/16 1107 Signed Impressions: Service Date/Time: Friday, February 05, 2016 11:14 - CONCLUSION: 1. Moderate degenerative changes as described above. There is no evidence of acute fracture. Kristian Ewing MD Abdomen/Pelvis CT 02/05/16 1107 Signed Impressions: Service Date/Time: Friday, February 05, 2016 11:11 - CONCLUSION: 1. No evidence of acute abdominal or pelvic process. No masses are identified. 2. Multiple pelvic fractures including the left acetabulum and pubic rami Kristian Ewing MD Wrist X-Ray 02/05/16 0000 Signed Impressions: Service Date/Time: Friday, February 05, 2016 10:38 - CONCLUSION: 1. Comminuted distal radius fracture with possible scaphoid fracture. Possible disruption of the radiocarpal row. 2. CT scan is recommended for further evaluation if clinically indicated. Kristian Ewing MD Exam [id number] Intubated ventilated Hemodynamic/Cardiac Hemodynamically stable Pulmonary/Respiratory Bilateral breath sounds patient is on the ventilator on 35% FiO2 Bilateral good expansion No signs of chest injuries Abdomen/GI Nutrition Abdomen is soft no rebound or guarding no masses no signs of trauma to the abdomen Left pelvic fracture as stated above Assessment and Plan Attestation Patient the fell off about 10 feet, and sustained the intracranial hemorrhage and contusion of the brain Patient remains ventilated It'll take a while for patient to recover from this however the likelihood is he will not require intracranial pressure monitoring much longer considering that the ICPs remained very low Further care per neurosurgical advice Once patient is awake and alert enough to maintain his upper airway will extubate the patient The exam, history, and the medical decision-making described in the above note were completed with the assistance of the mid-level provider. I reviewed and agree with the findings presented. I attest that I had a [id number] encounter with the patient on the same day, and personally performed and documented my assessment and findings in the medical record. Critical care time 50 minutes. Lucinda Kidd MD Feb 05, 2016 14:38
--- NOTE | 2016-02-05 15:58 | PD.CONS ---
cc: Neal Clark MD HPI Service Orthopedic Surgeons Consult Requested By Trauma service Reason for Consult Evaluation of open left wrist fracture and acetabular fracture Primary Care Physician Admission Diagnosis VDRF- Trauma Diagnoses: (1) Left acetabular fracture (2) Fracture of left superior pubic ramus (3) Fracture of left inferior pubic ramus (4) Open Colles' fracture of left radius Chief Complaint: Trauma alert History of Present Illness This patient is brought as a trauma alert to [facility]. He fell off a roof. Patient currently is intubated. The history is obtained from the medical record. He had an obvious deformity of his left wrist with puncture wounds in the vicinity of the fracture consistent with an open fracture. X- rays and the CT scans have been completed which revealed a comminuted intra- articular displaced fracture of distal radius and ulna. In addition the patient was noted to have an acetabulum fracture extending into the ileum as well as the superior and inferior pubic rami. They are minimally displaced. Orthopedic consultation was requested for management of the wrist and pelvis. Review of Systems Unobtainable Past Family Social History Past Medical History Unobtainable Past Surgical History Unobtainable Allergies: Coded Allergies: UNOBTAINABLE (Unverified , 02/05/16) Active Ordered Medications Current Medications Medications (Trade) Dose Ordered Sig/Medardo Route Start Time Stop Time Status Last Admin (NS 1000 ml Inj) 1,000 ml @ 100 mls/hr Q10H IV 02/05/16 12:00 (NS Flush) 2 ml UNSCH PRN IVF 02/05/16 11:45 (Zofran Inj) 4 mg Q6H PRN IV 02/05/16 11:45 (Protonix Inj) 40 mg Q24H IVP 02/05/16 13:00 (Colace) 100 mg BID PO 02/05/16 21:00 (Milk Of Magnesia Liq) 30 ml Q6H PRN PO 02/05/16 11:45 Miscellaneous Information 1 Q361D XX 02/05/16 11:45 (Chlorhexidine 2% Cloth) 3 pack Taper DAILY@04 TOP 02/06/16 04:00 02/01/17 03:59 (Chlorhexidine 2% Cloth) 3 pack UNSCH PRN TOP 02/05/16 11:45 (Dilaudid Pf Inj) 0.5 mg Q4H PRN IV PUSH 02/05/16 12:15 (Tylenol 650 Mg/ 20 ml Liq) 650 mg Q6H PO 02/05/16 13:00 (Roxicodone Intensol Liq) 5 mg Q4H PRN PO 02/05/16 12:15 Magnesium Oxide 800 mg 800 mg UNSCH PRN PO 02/05/16 12:15 Magnesium Sulfate 4 gm/Sodium Chloride 100 ml @ 50 mls/hr UNSCH PRN IV 02/05/16 12:15 Magnesium Sulfate 2 gm/Sodium Chloride 100 ml @ 50 mls/hr UNSCH PRN IV 02/05/16 12:15 Potassium Chloride 100 ml @ 50 mls/hr Q2H PRN IV 02/05/16 12:15 Potassium Chloride 100 ml @ 50 mls/hr Q2H PRN IV 02/05/16 12:15 Potassium Chloride 100 ml @ 50 mls/hr Q2H PRN IV 02/05/16 12:15 (KCl 40 Meq Premix Inj) 100 ml @ 25 mls/hr UNSCH PRN IV 02/05/16 12:15 (KCl 40 Meq/30 ml Liq) 40 meq UNSCH PRN PO/TUBE 02/05/16 12:15 (KCl 40 Meq/30 ml Liq) 40 meq UNSCH PRN PO/TUBE 02/05/16 13:00 (K-Phos) 2,000 mg Q4H PRN PO 02/05/16 12:15 Potassium Phosphate 2000 mg 2,000 mg UNSCH PRN PO/TUBE 02/05/16 12:15 Potassium Phosphate 30 mmol/ Sodium Chloride 260 ml @ 42 mls/hr UNSCH PRN IV 02/05/16 12:15 (Sodium Phosphate Inj/NS 250 ml Inj) 250 ml @ 42 mls/hr UNSCH PRN IV 02/05/16 12:15 (D50w (Vial) Inj) 25 ml UNSCH PRN IV PUSH 02/05/16 12:15 (NovoLIN R SUPPLEMENTAL SCALE) 1 Q6HR SQ 02/05/16 18:00 Family History Unobtainable Social History Unobtainable Physical Exam Vital Signs Vital Signs Date Time Temp Pulse Resp B/P Pulse Ox O2 Delivery O2 Flow Rate FiO2 02/05/16 11:40 99 100 02/05/16 11:08 98 100 02/05/16 10:50 98 15.00 100 02/05/16 10:50 98 100 02/05/16 10:50 90 AMBU 15.00 100 Physical Exam The patient is intubated and sedated. He has an intra cranial pressure monitor in place. He has a sutured laceration over the left voodoo. He has periorbital ecchymosis and swelling. The left upper extremity is in a long-arm splint. It is bloody drainage noted. It was left intact until further evaluation in the operating room setting. There are no other localizing signs of extremity deformity. His examination is very limited secondary to his current status. Laboratory Laboratory Tests Test 02/05/16 02/05/16 11:00 12:30 White Blood Count 14.8 Red Blood Count 4.62 Hemoglobin 13.2 Bedside Hemoglobin 13.6 Hematocrit 40.2 Bedside Hematocrit 40.0 Mean Corpuscular Volume 87.2 Mean Corpuscular Hemoglobin 28.5 Mean Corpuscular Hemoglobin 32.7 Concent Red Cell Distribution Width 14.1 Platelet Count 270 Mean Platelet Volume 9.1 Neutrophils (%) (Auto) 81.6 Lymphocytes (%) (Auto) 10.9 Monocytes (%) (Auto) 4.7 Eosinophils (%) (Auto) 2.4 Basophils (%) (Auto) 0.4 Neutrophils # (Auto) 12.1 Lymphocytes # (Auto) 1.6 Monocytes # (Auto) 0.7 Eosinophils # (Auto) 0.4 Basophils # (Auto) 0.1 CBC Comment DIFF FINAL Differential Comment Prothrombin Time 11.7 Prothromb Time International 1.1 Ratio Activated Partial 23.6 Thromboplast Time Bedside Sodium 141 Bedside Potassium 3.9 Bedside Chloride 106 Bedside Blood Urea Nitrogen 16 Bedside Creatinine 1.0 Bedside Glucose 118 Ethyl Alcohol Level LESS THAN 3 Blood Type A POSITIVE Antibody Screen NEGATIVE Blood Gas Puncture Site DRAWN BY DR MOREL Blood Gas Patient Temperature 98.6 Blood Gas HCO3 22 Blood Gas Base Excess -1.5 Blood Gas Oxygen Saturation 98 Arterial Blood pH 7.42 Arterial Blood Partial 35 Pressure CO2 Arterial Blood Partial 311 Pressure O2 Arterial Blood Oxygen Content 17.7 Arterial Blood 0.7 Carboxyhemoglobin Arterial Blood Methemoglobin 1.0 Blood Gas Hemoglobin 12.3 Oxygen Delivery Device VENTILATOR Blood Gas Ventilator Setting AC16/550/PEEP10 Blood Gas Inspired Oxygen 100 Result Diagram: 02/05/16 1100 Imaging Last 24 hours Impressions Upper Extremity CT 02/05/16 1127 Signed Impressions: Service Date/Time: Friday, February 05, 2016 11:27 - CONCLUSION: 1. Comminuted fracture of the distal radius with intra-articular extension. 2. Carpal bones are intact. Kristian Ewing MD Maxillofacial CT 02/05/16 1107 Signed Impressions: Service Date/Time: Friday, February 05, 2016 11:14 - CONCLUSION: 1. There is no evidence of acute fracture. Kristian Ewing MD Cervical Spine CT 02/05/16 1107 Signed Impressions: Service Date/Time: Friday, February 05, 2016 11:14 - CONCLUSION: 1. Moderate degenerative changes as described above. There is no evidence of acute fracture. Kristian Ewing MD Abdomen/Pelvis CT 02/05/16 1107 Signed Impressions: Service Date/Time: Friday, February 05, 2016 11:11 - CONCLUSION: 1. No evidence of acute abdominal or pelvic process. No masses are identified. 2. Multiple pelvic fractures including the left acetabulum and pubic rami Kristian Ewing MD Wrist X-Ray 02/05/16 0000 Signed Impressions: Service Date/Time: Friday, February 05, 2016 10:38 - CONCLUSION: 1. Comminuted distal radius fracture with possible scaphoid fracture. Possible disruption of the radiocarpal row. 2. CT scan is recommended for further evaluation if clinically indicated. Kristian Ewing MD Assessment & Plan Problem List: (1) Open Colles' fracture of left radius (2) Left acetabular fracture (3) Fracture of left superior pubic ramus (4) Fracture of left inferior pubic ramus (5) Closed head injury (6) Respiratory failure after trauma Assessment and Plan Recommendation is given for irrigation debridement with internal versus external fixation of the left wrist. The possibility of requiring internal fixation of the acetabulum fracture was discussed with the family. His x-rays regarding same will be discussed with Dr. Watt. He has a very comminuted intra-articular distal radius fracture which may not be amenable to plate fixation. Depending on the soft tissues he may also be a candidate for temporary versus definitive external fixation for treatment of the fracture. The nature of the procedure, the risks, expected benefits, as well as the postoperative expectations were discussed with the patient's family. They acknowledged full understanding and consent to it. Neal Clark MD Feb 05, 2016 15:58
[2016-02-05] MEDS: RESP: ALBUTEROL 2.5 MG/IPRATROPIUM 0.5 MG NEB (SCH) INH ×2 (16:00→20:15)
[2016-02-05] MEDS: PROPOFOL 1000 MG/100 ML IV SCH ×3 (16:00→21:16)
[2016-02-05] MEDS: INSULIN NovoLIN REGULAR SUPPLEMENTAL SCALE SQ SCH (18:00)
--- NOTE | 2016-02-05 18:34 | MH ---
cc: DANIELLE PEREIRA DATE OF ADMISSION 02/05/2016 HISTORY OF THE PRESENT ILLNESS This is a patient who was brought in as a trauma alert after falling off of a roof approximately 10 feet high. The patient by report was combative at the scene, as a result he was intubated with a 7.5 ET tube. He was brought in on a backboard in C-collar, immobilized. On arrival the patient was moving all extremities, combatively but not following commands. As a result all past medical history, review of systems, allergies, unobtainable. PHYSICAL EXAMINATION HEENT: His pupils are 3, equal and reactive. He had laceration 5 cm around his left eye brow. NECK: His neck is in a C collar. Trachea is midline. No JVD. LUNGS: Respirations are clear. CARDIOVASCULAR: Regular. GASTROINTESTINAL: Soft and nondistended. MUSCULOSKELETAL: He has swelling and deformity to his left wrist with three punctures in the medial aspect. NEUROLOGICAL: Moving all extremities. LABORATORY DATA Blood work the patient's hemoglobin 13, hematocrit 40. Electrolytes within normal limits. IMAGING Radiological images CT of the head negative for fracture. He has a small cortical hemorrhage. CT of the maxillofacial bones revealed no acute fractures. CT of cervical spine, no acute fractures. CT of the thorax negative for traumatic injury. CT of the abdomen and pelvis, no visceral injury. The patient has pelvic fracture involving the left acetabulum and pubic rami. X-ray of the left wrist revealed a comminuted distal radius fracture, questionable scaphoid fracture. ASSESSMENT This is a patient following a fall with closed head injury, open wrist fracture, pelvic fracture. The patient is being admitted to [facility]. He has been consulted as well as orthopedics and neurosurgery. We will monitor his neurological status, support his hemodynamics. His laceration was sutured in the [facility] by myself. MD HEATH Etienne/MARILY /5:35 PM /6:16 PM [id number]
[2016-02-05] MEDS: DOCUSATE SODIUM 100 MG CAP PO SCH (21:17)
[2016-02-05] MEDS ORDERED: GENTAMICIN SULFATE 80 MG/2 ML VIAL ONE (22:04)
[2016-02-05] MEDS ORDERED: ceFAZolin INJ 1,000 MG VIAL IV ONE (23:59)
[2016-02-06] VITALS (18 sets, daily range): BP systolic 115–134; BP diastolic 54–73; PULSE 73–90; RESP 16–17; TEMP 98.2–99.5; O2SAT 100
--- NOTE | 2016-02-06 00:57 | PD.OP ---
cc: Neal Clark MD Operative Report Date of Surgery: Feb 06, 2016 Preoperative Diagnosis: (1) Open Colles' fracture of left radius (2) Open fracture of distal ulna Postoperative Diagnosis: (1) Open Colles' fracture of left radius (2) Open fracture of distal ulna Procedure: Irrigation debridement with external fixation and percutaneous pinning left open distal radius and ulna fractures Implants: Synthes Anesthesia: General Surgeon: Neal Clark Printing Machinist(s): Cierra Ferrell PA-C (Ashley) The surgical procedure was assisted by my physician's care management assistant. Her presence was necessary throughout the case for manipulation and positioning of the surgical extremity. My PA was assisting me throughout the duration of this procedure. The skill set of the physician care management assistant was medically necessary to complete this procedure. During the surgical case the security system technician was working at the back table and the physician care management assistant was directly assisting me. Operation and Findings: Indications: This patient was brought to [facility] today as a trauma alert. He fell from a roof. His orthopedic injuries included an open left wrist fracture and a left acetabular fracture. Given the nature of the open fracture he presents for irrigation and debridement with external fixation. The patient had a markedly comminuted intra-articular fracture of the distal radius and a comminuted fracture of the distal ulna. Procedure and findings: The patient was taken to the operative suite and after undergoing an adequate level of general anesthesia was kept supine on the operating table. Preoperative antibiotics consisted of Ancef 2 g IV. The left upper extremity was then prepped and draped in usual sterile fashion with ChloraPrep. The patient had 3 puncture wounds over the ulnar aspect of the wrist. There was moderate swelling. The wrist was very unstable. Given the open nature of the injury and the marked comminution was elected to proceed with irrigation and debridement with external fixation which may be temporary. The 3 puncture wounds or thoroughly irrigated with antibiotic irrigant. They did communicate with each other and with the fracture site. Closed manipulation of the wrist was performed. The ulnar articular surface of the distal radius was markedly comminuted with several small fragments. With traction, there was reasonably good alignment of the radius. A large radial styloid fragment was displaced. A Percodan his incision was made at the base of the second metacarpal. Position was checked with the C-arm. A threaded pin was advanced bicortical. The position was checked in both the AP and lateral planes with the C-arm. An additional pin was placed distal to the first in a parallel fashion. 2 pins were also placed proximal to the fracture site in the radius. The external fixation construct was assembled and applied. Traction, volar manipulation and ulnar manipulation was performed and the clamps tightened. The radial styloid fragment was percutaneously pinned for distal fixation. The ulna remained unstable. Once this was completed the wounds were again thoroughly irrigated. Loose sutures were placed in the percutaneous sites. Sterile dressings were applied, the patient was transferred to the hospital bed and taken back to the intensive care unit in stable condition. Estimated blood loss: Minimal Complications: None Neal Clark MD Feb 06, 2016 00:57
[2016-02-06] MEDS ORDERED: fentaNYL CITRATE 250 MCG/5 ML AMP ONE (01:26)
[2016-02-06] MEDS: ACETAMINOPHEN 650 MG/20.3 ML UDC PO SCH ×5 (01:47→23:47)
[2016-02-06] MEDS: PROPOFOL 1000 MG/100 ML IV SCH ×7 (02:10→21:29)
[2016-02-06] MEDS: RESP: ALBUTEROL 2.5 MG/IPRATROPIUM 0.5 MG NEB (SCH) INH ×4 (03:33→19:52)
--- NOTE | 2016-02-06 03:39 | RADRPT ---
EXAM DATE/TIME: 02/06/2016 00:32 [facility] COMPARISON: WRIST LEFT LIMITED (AP & LAT), February 05, 2016, 10:38. INDICATIONS : External fixation with wire placement of left wrist fracture MEDICAL HISTORY : None. SURGICAL HISTORY : None. ENCOUNTER: Initial ACUITY: 1 day PAIN SCORE: Non-responsive. LOCATION: Left wrist FINDINGS: There is a surgical wire through the comminuted distal radial fracture. External fixtures in place se cured at the second metacarpal and the distal radius. There severely comminuted distal radial and uln ar fractures. CONCLUSION: Placement of an external fixation device and wire through the radius as described above. Renaldo Gomez MD on February 06, 2016 at 3:37 Board Certified Radiologist. This report was verified electronically.
[2016-02-06] MEDS: CHLORHEXIDINE GLUCONATE 2 % 1 PACK (2 CLOTHS) TOP SCH (04:00)
[2016-02-06 04:18] LABS: AUTOMATED NEUTROPHIL # 6.5 TH/MM3 (1.8-7.7); BASOPHIL % 0.3 % (0.0-2.0); EOSINOPHIL # 0.3 TH/MM3 (0-0.4); EOSINOPHIL % 3.3 % (0.0-4.0); HEMO FLAGS DIFF FINAL; LYMPH % 11.8 % (9.0-44.0); MEAN CELL VOLUME 87.6 FL (80.0-100.0); MEAN CORPUSCULAR HEMOGLOBIN 28.5 PG (27.0-34.0); MEAN CORPUSCULAR HGB CONC 32.6 % (32.0-36.0); NEUT % 75.6 % (16.0-70.0); PLATELET COUNT 197 TH/MM3 (150-450); RED BLOOD COUNT 4.22 MIL/MM3 (4.50-5.90); RED CELL DISTRIBUTION WIDTH 14.2 % (11.6-17.2); WHITE BLOOD COUNT 8.7 TH/MM3 (4.0-11.0)
[2016-02-06 04:40] LABS: ALT (GPT) 30 U/L (12-78); ANION GAP 10 MEQ/L (5-15); AST (GOT) 35 U/L (15-37); BICARBONATE 22.9 MEQ/L (21.0-32.0); BLOOD UREA NITROGEN 13 MG/DL (7-18); CHLORIDE 108 MEQ/L (98-107); GLOMERULAR FILTRATION RATE 59 ML/MIN (>89); SODIUM (NA) 141 MEQ/L (136-145)
[2016-02-06 04:43] LABS: ALKALINE PHOSPHATASE 76 U/L (45-117); TOTAL BILIRUBIN ADULT 0.5 MG/DL (0.2-1.0)
[2016-02-06] MEDS: INSULIN NovoLIN REGULAR SUPPLEMENTAL SCALE SQ SCH ×4 (05:06→17:15)
--- NOTE | 2016-02-06 05:41 | RADRPT ---
EXAM DATE/TIME: 02/06/2016 04:52 [facility] COMPARISON: CHEST SINGLE AP, February 05, 2016, 10:38. INDICATIONS : Trauma to chest from fall off of roof yesterday MEDICAL HISTORY : None. SURGICAL HISTORY : None. ENCOUNTER: Subsequent ACUITY: 1 day PAIN SCORE: Non-responsive. LOCATION: Bilateral chest FINDINGS: The ET tube and NG tube will place. The heart size is normal. The lungs are clear. CONCLUSION: No acute disease. Renaldo Gomez MD on February 06, 2016 at 5:39 Board Certified Radiologist. This report was verified electronically.
[2016-02-06] MEDS: SODIUM CHLORIDE 0.9% FLUSH 5 ML FLUSH IVF SCH ×2 (07:52→21:28)
[2016-02-06] MEDS: SODIUM CHLOR 0.9% 1000 ML INJ 1,000 ML IV SCH ×2 (07:53→17:15)
--- NOTE | 2016-02-06 08:00 | PD.ORT.PN ---
Subjective Subjective Remarks s/p fall from ladder of approx 10ft. s/p I&D with exfix left wrist. s/p left acetabulum fx -intubated. bolt in head. Objective Vitals Vital Signs Date Time Temp Pulse Resp B/P Pulse Ox O2 Delivery O2 Flow Rate FiO2 02/06/16 06:00 89 02/06/16 04:23 100 35 02/06/16 04:00 35 02/06/16 04:00 98.8 87 16 134/73 100 02/06/16 04:00 87 02/06/16 02:00 84 02/06/16 01:15 100 35 02/05/16 22:00 94 02/05/16 20:13 100 35 02/05/16 20:00 35 02/05/16 20:00 35 02/05/16 20:00 88 02/05/16 20:00 99.9 80 16 125/84 100 02/05/16 18:00 85 02/05/16 16:00 35 02/05/16 16:00 79 02/05/16 15:48 100 35 02/05/16 14:00 79 02/05/16 12:30 50 02/05/16 12:00 80 02/05/16 11:45 100 02/05/16 11:40 99 100 02/05/16 11:08 98 100 02/05/16 10:50 98 15.00 100 02/05/16 10:50 98 100 02/05/16 10:50 90 AMBU 15.00 100 I/O 02/05/16 02/05/16 02/05/16 02/06/16 02/06/16 02/06/16 06:59 14:59 22:59 06:59 14:59 22:59 Intake Total 1218 ml 731 ml Output Total 675 ml 1200 ml Balance 543 ml -469 ml Intake IV Total 1218 ml 731 ml Output Urine Total 550 ml 1075 ml Gastric Drainage Total 125 ml 125 ml # Bowel Movements 0 0 Result Diagram: 02/06/16 0335 02/06/16 0335 Other Results Laboratory Tests Test 02/05/16 11:00 Prothrombin Time 11.7 SEC (9.8-11.6) Prothromb Time International 1.1 RATIO Ratio Imaging Last 24 hours Impressions Wrist X-Ray 02/06/16 0000 Signed Impressions: Service Date/Time: January 00:32 - CONCLUSION: Placement of an external fixation device and wire through the radius as described above. Renaldo Gomez MD Chest X-Ray 02/06/16 0000 Signed Impressions: Service Date/Time: January 04:52 - CONCLUSION: No acute disease. Renaldo Gomez MD Upper Extremity CT 02/05/16 1127 Signed Impressions: Service Date/Time: Friday, February 05, 2016 11:27 - CONCLUSION: 1. Comminuted fracture of the distal radius with intra-articular extension. 2. Carpal bones are intact. Kristian Ewing MD Pelvis X-Ray 02/05/16 110 Signed Impressions: Service Date/Time: Friday, February 05, 2016 10:38 - CONCLUSION: Fractures left side of the pelvis as described above. CT scan is pending. Yordy Arias MD FACR Maxillofacial CT 02/05/16 110 Signed Impressions: Service Date/Time: Friday, February 05, 2016 11:14 - CONCLUSION: 1. There is no evidence of acute fracture. Kristian Ewing MD Head CT 02/05/16 110 Signed Impressions: Service Date/Time: Friday, February 05, 2016 11:11 - CONCLUSION: 1. Negative for skull fracture. 2. Probable small cortical hemorrhage in the left centrum semiovale. Yordy Arias MD FACR Chest X-Ray 02/05/161106 Signed Impressions: Service Date/Time: Friday, February 05, 2016 10:38 - CONCLUSION: 1. ET tube in good position. 2. Prominent cardiac silhouette. Yordy Arias MD FACR Chest CT 02/05/16 1107 Signed Impressions: Service Date/Time: Friday, February 05, 2016 11:11 - CONCLUSION: 1. Negative CT scan of the chest for an acute traumatic injury. 2. Minimal bibasilar parenchymal changes without pneumothorax. Yordy Arias MD FACR Cervical Spine CT 02/05/16 1107 Signed Impressions: Service Date/Time: Friday, February 05, 2016 11:14 - CONCLUSION: 1. Moderate degenerative changes as described above. There is no evidence of acute fracture. Kristian Ewing MD Abdomen/Pelvis CT 02/05/16 1107 Signed Impressions: Service Date/Time: Friday, February 05, 2016 11:11 - CONCLUSION: 1. No evidence of acute abdominal or pelvic process. No masses are identified. 2. Multiple pelvic fractures including the left acetabulum and pubic rami Kristian Ewing MD Objective Remarks LUE: +exfix of wrist. pin sites clean .no drainage. good cap refill LLE: mild swelling of thigh. good cap refill distally Assessment & Plan Problem List: (1) Open Colles' fracture of left radius (2) Left acetabular fracture (3) Fracture of left superior pubic ramus (4) Fracture of left inferior pubic ramus (5) Closed head injury (6) Respiratory failure after trauma Assessment and Plan 1) Left Distal Radius Fx s/p exfix - POD 1 -maintain dressings -npo after MN -plan for surgery tomorrow 2) Left Acetabulum fx with Sup/Inf Rami fxs -NWB -potential ORIF tomorrow Zain Lei Feb 06, 2016 08:00
[2016-02-06] MEDS: DOCUSATE SODIUM 100 MG CAP PO SCH (08:14)
--- NOTE | 2016-02-06 08:32 | HHI.CCPN ---
Subjective Brief History Patient fell off 10 foot the roof during house building process. Sustained multiple injuries and was brought in as a priority 1 trauma alert Loss of consciousness Juju Coma Scale of 8 and small subcortical bleed on the left brain hemisphere Left acetabular fracture consisting of anterior and posterior column fractures as well as superior inferior rami fractures on the left Left humerus and ulna fracture Some swelling over the left thigh soft tissues but no signs of facial fractures The remainder of exam is negative Patient is intubated and ventilated and the ICP bolt is placed revealing intracranial pressure around 5 mmHg Patient will undergo left acetabular fracture fixation as well as arm fixation 24 Hour Review/Hospital Course 02/06/2016 S/P RIGHT temporoparietal bolt placement with Dr Murphy Stable ICPs overnight Not following commands (Shay Goldstein) Objective Vital Signs Date Time Temp Pulse Resp B/P Pulse Ox O2 Delivery O2 Flow Rate FiO2 02/06/16 06:00 89 02/06/16 04:23 100 35 02/06/16 04:00 98.8 16 134/73 02/05/16 10:50 15.00 02/05/16 10:50 AMBU Intake and Output 02/05/16 02/05/16 02/06/16 08:00 16:00 00:00 Intake Total 1218 ml Output Total 675 ml Balance 543 ml (Shay Goldstein) Result Diagram: 02/06/16 0335 02/06/16 0335 Other Results Laboratory Tests Test 02/05/16 12:30 Blood Gas Puncture Site DRAWN BY DR MOREL Blood Gas Patient Temperature 98.6 Blood Gas HCO3 22 mmol/L (22-26) Blood Gas Base Excess -1.5 mmol/L (-2-2) Blood Gas Oxygen Saturation 98 % (90-100) Arterial Blood pH 7.42 (7.380-7.420) Arterial Blood Partial 35 mmHg (38-42) Pressure CO2 Arterial Blood Partial 311 mmHg Pressure O2 (61-120) Arterial Blood Oxygen Content 17.7 Vol % (12.0-20.0) Arterial Blood 0.7 % (0-4) Carboxyhemoglobin Arterial Blood Methemoglobin 1.0 % (0-2) Blood Gas Hemoglobin 12.3 G/DL (12.0-16.0) Oxygen Delivery Device VENTILATOR Blood Gas Ventilator Setting AC16/550/PEEP10 Blood Gas Inspired Oxygen 100 % Imaging Last 24 hours Impressions Wrist X-Ray 02/06/16 0000 Signed Impressions: Service Date/Time: January 00:32 - CONCLUSION: Placement of an external fixation device and wire through the radius as described above. Renaldo Gomez MD Chest X-Ray 02/06/16 0000 Signed Impressions: Service Date/Time: January 04:52 - CONCLUSION: No acute disease. Renaldo Gomez MD Upper Extremity CT 02/05/16 1127 Signed Impressions: Service Date/Time: Friday, February 05, 2016 11:27 - CONCLUSION: 1. Comminuted fracture of the distal radius with intra-articular extension. 2. Carpal bones are intact. Kristian Ewing MD Pelvis X-Ray 02/05/16 110 Signed Impressions: Service Date/Time: Friday, February 05, 2016 10:38 - CONCLUSION: Fractures left side of the pelvis as described above. CT scan is pending. Yordy Arias MD FACR Maxillofacial CT 02/05/161106 Signed Impressions: Service Date/Time: Friday, February 05, 2016 11:14 - CONCLUSION: 1. There is no evidence of acute fracture. Kristian Ewing MD Head CT 02/05/161106 Signed Impressions: Service Date/Time: Friday, February 05, 2016 11:11 - CONCLUSION: 1. Negative for skull fracture. 2. Probable small cortical hemorrhage in the left centrum semiovale. Yordy Arias MD FACR Chest X-Ray 02/05/161106 Signed Impressions: Service Date/Time: Friday, February 05, 2016 10:38 - CONCLUSION: 1. ET tube in good position. 2. Prominent cardiac silhouette. Yordy Arias MD FACR Chest CT 02/05/16 110 Signed Impressions: Service Date/Time: Friday, February 05, 2016 11:11 - CONCLUSION: 1. Negative CT scan of the chest for an acute traumatic injury. 2. Minimal bibasilar parenchymal changes without pneumothorax. Yordy Arias MD FACR Cervical Spine CT 02/05/161106 Signed Impressions: Service Date/Time: Friday, February 05, 2016 11:14 - CONCLUSION: 1. Moderate degenerative changes as described above. There is no evidence of acute fracture. Kristian Ewing MD Abdomen/Pelvis CT 02/05/16 1107 Signed Impressions: Service Date/Time: Friday, February 05, 2016 11:11 - CONCLUSION: 1. No evidence of acute abdominal or pelvic process. No masses are identified. 2. 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 SKIN: Warm and dry. Ecchymosis to LEFT eye, sutures at LEFT eyebrow. Abrasion to LEFT knee, drsg c/d/i. HEAD: Normocephalic. RIGHT temporoparietal bolt in place. EYES: PERRL. ENT: ETT - OGT. No nasal bleeding or discharge. Mucous membranes pink and moist. NECK: Trachea midline. No JVD. CARDIOVASCULAR: Regular rate and rhythm. CM shows sinus rhythm. HR = 80's- 90' s. RESPIRATORY: No accessory muscle use. Rhonchi auscultated throughout lung seymour. Breath sounds equal bilaterally. GASTROINTESTINAL: Abdomen soft, non-tender, nondistended. Hypoactive bowel sounds. F/C in place draining clear yellow urine. MUSCULOSKELETAL: Extremities without cyanosis, or edema. LEFT wrist ex-fix in place, fingers warm, good cap refill. NEUROLOGICAL: Sedated and mechanically ventilated. (Shay Goldstein [facility]) Assessment and Plan Plan INJURIES: Small cortical hemorrhage (frontoparietal) w/ bolt placement LEFT open distal radius & fx LEFT acetabular & pubic rami fx LEFT eye brow lac with sutures * S/P I&D with external fixation and percutaneous pinning LEFT radius and ulna ( 02/04) ASSESSMENT AND PLAN: NEUROLOGICAL: Sedated with Propofol. Sedation lightened, not tracking, not following. Purposeful movement with RUE and BLE. RIGHT temporoparietal bolt in place. ICP = 2-6 mmHg overnight. Begin sedation vacations daily to assess weaning capability and neuro status. Pt is sedated with a RASS score of -2. No seizure activity noted, started on Keppra prophylactically. HOB elevated 30 degrees CARDIOVASCULAR: HR = 80's-90's. BP stable. MAP 80's. IVF: NS @ 100mL/H Continually monitor for hemodynamic instability (shock and hypotension) Follow CMP Electrolyte protocol RESPIRATORY: Vent settings PRVC/AC 16 /550 / 35/ 0.90/ +5 O2 Sats Monitor for hypoxemia Follow ABGs - SALES PROJECT COORDINATOR unable to obtain ABG this AM. Will place an A-line. Pulmonary toilet L&S as needed. Bronchodilators - Duonebs. Chest X-Ray results - Lungs clear, no acute disease. VAP protocol in place Labs in AM GASTROINTESTINAL: Diet Start trickle feeds, Jevity 1.5 @ 30mL/H today. NPO after midnight for OR in AM with Ortho. Bowel regimen Colace, MOM. No BM yet. RENAL / URINARY: I&O +74 BUN / creat 13/1.[address] draining clear yellow urine. ENDOCRINE: BGM WNL HEMATOLOGY: H&H 12.0/37.0 PLT 197 Continue to monitor for signs and symptoms of bleeding Transfuse for < 7.0 INFECTIOUS DISEASE: Follow CBC WBC - 8.7 Fevers - low grade. T-max 99.9 Administer antipyretics for temp as needed. Maintain vigorous aseptic care of IVs to avoid blood stream infection. PROPHYLAXIS: VAP in place GI Protonix IV. DVT - SCD's. Chemical management contraindicated due to ICH. SKIN: Warm / Dry Superficial abrasions to LEFT knee and LEFT face. Skin treatment Bacitracin ACTIVITY: Status - BR PT and OT evaluating. CASE MANAGEMENT: Consulted for assist with DC planning. Placement - disposition. Discussed with RN and patient's mother at bedside. Pt remains critically ill in the ICU. Trauma surgery will round and evaluate patient and treatment plan on a daily basis. (Shay Goldstein [facility]) Attestation Patient with brain contusion intracranial hemorrhage as well as left arm fracture with ex-fix Patient is slowly improving and neurologic function will likely eventually return but for the time being patient does require ventilatory support due to level of consciousness and Juju Coma Scale about 7 as well as inability to keep up her airway The exam, history, and the medical decision-making described in the above note were completed with the assistance of the mid-level provider. I reviewed and agree with the findings presented. I attest that I had a [id number] encounter with the patient on the same day, and personally performed and documented my assessment and findings in the medical record. Critical care time 45 minutes. (Lucinda Kidd MD) Shay Goldstein Feb 06, 2016 08:32 Lucinda Kidd MD Feb 08, 2016 12:27
[2016-02-06] MEDS: HYDROmorphone HCL PF 1 MG/ML VIAL IV PUSH PRN ×2 (09:35→14:34)
[2016-02-06] MEDS: levETIRAcetam INJ 500 MG in SODIUM CHLORIDE 0.9% INJ 100 ML IV SCH ×2 (10:52→21:28)
[2016-02-06] MEDS: DOCUSATE SODIUM 100 MG CAP OG SCH ×2 (10:53→21:28)
[2016-02-06] MEDS: BACITRACIN TOP OINT 15 GM TUBE TOP SCH ×2 (10:54→21:00)
--- NOTE | 2016-02-06 11:48 | HHI.NSPN ---
Note Status Status: Progress Note Interval History Diagnosis Trauma alert Interval History his patient is a middle age male who was brought to [place] ED as a trauma alert after falling off his roof at a height of around 10 feet this morning. There was loss of consciousness. He was reported to be agitated and intubated at the scene. [place] Coma Scale was noted [address] of the brain shows a left high frontoparietal contusion. He was reported to have moved his extremities purposefully but does not follow commands. His sedation was lightened in ISC, he continues not to follow commands, he does not track. A forehead laceration was repaired by the trauma team. Neurosurgical evaluation was requested. 02/06. Neurologically stable. ICP monitor has been placed. ICP stable overnight. Went to OR for debridement and external fixator of wrist He is intubated and sedated. He has generalized shivering. Left forehead laceration that is being repaired by Dr. Méndez. Cranial Nerves: Pupils 3 mm equal, round, sluggishly reactive to light. Eyes appear conjugated. Face sensation, olfaction, visual seymour, and hearing cannot be adequately assessed due to his neurological condition. Cervical Spine: immobilized by hard collar Motor: His muscle tone and bulk are normal. Not following commands to testing. Reflexes: Deep tendon reflexes are 1+ and symmetrical in the biceps, triceps, and brachioradialis, bilaterally, in the upper extremities. In the lower extremities, the patellar and ankles are 1+, bilaterally. There is a bilateral plantar flexion response. Sensory: On examination there is minimal response to painful stimuli, localizing with both upper and lower extremities. Cerebellar: Examination cannot be adequately assessed due to the patient's neurological condition. Labs, Micro, & Vital Signs Results Date Time Temp Pulse Resp B/P Pulse Ox O2 Delivery O2 Flow Rate FiO2 02/06/16 10:21 100 35 02/06/16 10:00 85 02/06/16 08:00 87 02/06/16 08:00 99.0 87 16 121/72 100 02/06/16 08:00 35 02/06/16 06:00 89 02/06/16 04:23 100 35 02/06/16 04:00 35 02/06/16 04:00 98.8 87 16 134/73 100 02/06/16 04:00 87 02/06/16 02:00 84 02/06/16 01:15 100 35 02/05/16 22:00 94 02/05/16 20:13 100 35 02/05/16 20:00 35 02/05/16 20:00 35 02/05/16 20:00 88 02/05/16 20:00 99.9 80 16 125/84 100 02/05/16 18:00 85 02/05/16 16:00 35 02/05/16 16:00 79 02/05/16 15:48 100 35 02/05/16 14:00 79 02/05/16 12:30 50 02/05/16 12:00 80 02/05/16 11:45 100 02/06/16 07:00 Intake Total 1949 ml Output Total 1875 ml Balance 74 ml Constitutional Vital Signs Date Time Temp Pulse Resp B/P Pulse Ox O2 Delivery O2 Flow Rate FiO2 02/06/16 10:21 100 35 02/06/16 10:00 85 02/06/16 08:00 87 02/06/16 08:00 99.0 87 16 121/72 100 02/06/16 08:00 35 02/06/16 06:00 89 02/06/16 04:23 100 35 02/06/16 04:00 35 02/06/16 04:00 98.8 87 16 134/73 100 02/06/16 04:00 87 02/06/16 02:00 84 02/06/16 01:15 100 35 02/05/16 22:00 94 02/05/16 20:13 100 35 02/05/16 20:00 35 02/05/16 20:00 35 02/05/16 20:00 88 02/05/16 20:00 99.9 80 16 125/84 100 02/05/16 18:00 85 02/05/16 16:00 35 02/05/16 16:00 79 02/05/16 15:48 100 35 02/05/16 14:00 79 02/05/16 12:30 50 02/05/16 12:00 80 02/05/16 11:45 100 02/06/16 07:00 Intake Total 1949 ml Output Total 1875 ml Balance 74 ml Medications Current Medications Current Medications Lorazepam (Ativan Inj) 2 mg STK-MED ONCE .ROUTE ; Start 02/05/16 at 10:49; Stop 02/05/16 at 10:50; Status DC Diphtheria/ Tetanus/Acell Pertussis 0.5 ml 0.5 ml STK-MED ONCE IM Last administered on 02/05/16at 12:00; Start 02/05/16 at 10:49; Stop 02/05/16 at 10 :50; Status DC Cefazolin Sodium/ Dextrose (Ancef 2 Gm Premix) 50 ml @ As Directed STK-MED ONCE .ROUTE ; Start 02/05/16 at 10:50; Stop 02/05/16 at 10:51; Status DC Midazolam HCl (Versed Inj) 5 mg STK-MED ONCE .ROUTE ; Start 02/05/16 at 11:37; Stop 02/05/16 at 11:38; Status DC Iohexol 98 ml 98 ml STK-MED ONCE IV Last administered on 02/05/16at 11:43; Start 02/05/16 at 11:43; Stop 02/05/16 at 11:44; Status DC Sodium Chloride (NS 1000 ml Inj) 1,000 ml @ 100 mls/hr Q10H IV Last administered on 02/06/16at 07:53; Start 02/05/16 at 12:00 IV Flush (NS Flush) 2 ml UNSCH PRN IVF FLUSH AFTER USING IV ACCESS; Start at 11:45; Stop 02/06/16 at 01:04; Status DC Enalaprilat (Vasotec Inj) 1.25 mg Q8H PRN IV SBP>180, DBP>95; Start 02/05/16 at 11:45; Stop 02/05/16 at 12:16; Status DC Ondansetron HCl (Zofran Inj) 4 mg Q6H PRN IV NAUSEA OR VOMITING; Start at 11:45 Pantoprazole Sodium (Protonix Inj) 40 mg Q24H IVP Last administered on at 13:00; Start 02/05/16 at 13:00 Docusate Sodium (Colace) 100 mg BID PO Last administered on 02/06/16at 08:14; Start 02/05/16 at 21:00; Stop 02/06/16 at 10:19; Status DC Magnesium Hydroxide (Milk Of Magnesia Liq) 30 ml Q6H PRN PO CONSTIPATION; Start 02/05/16 at 11:45 Miscellaneous Information 1 Q361D XX ; Start 02/05/16 at 11:45 Chlorhexidine Gluconate (Chlorhexidine 2% Cloth) 3 pack Taper DAILY@04 TOP Last administered on 02/06/16at 04:00; Start 02/06/16 at 04:00; Stop 02/01/17 at 03:59 Chlorhexidine Gluconate (Chlorhexidine 2% Cloth) 3 pack UNSCH PRN TOP HYGIENIC CARE; Start 02/05/16 at 11:45 Lidocaine/ Epinephrine (Xylocaine-Epi 1%-1:100,000 Inj) 50 ml STK-MED ONCE .ROUTE ; Start 02/05/16 at 11:58; Stop 02/05/16 at 11:59; Status DC Fentanyl Citrate (fentaNYL INJ) 100 mcg STK-MED ONCE .ROUTE Last administered on 02/05/16at 12:03; Start 02/05/16 at 12:03; Stop 02/05/16 at 12:04; Status DC Hydromorphone HCl (Dilaudid Pf Inj) 0.5 mg Q4H PRN IV PUSH pain 8-10 or not taking po Last administered on 02/06/16at 09:35; Start 02/05/16 at 12:15 Acetaminophen (Tylenol 650 Mg/ 20 ml Liq) 650 mg Q6H PO Last administered on at 07:51; Start 02/05/16 at 13:00 Oxycodone HCl (Roxicodone Intensol Liq) 5 mg Q4H PRN PO pain 1-7; Start at 12:15 Magnesium Oxide 800 mg 800 mg UNSCH PRN PO For Magnesium 1.2 - 1.6 mg/dL; Start 02/05/16 at 12:15 Magnesium Sulfate 4 gm/Sodium Chloride 100 ml @ 50 mls/hr UNSCH PRN IV For Magnesium 0.9 - 1.1 mg/dL; Start 02/05/16 at 12:15 Magnesium Sulfate 2 gm/Sodium Chloride 100 ml @ 50 mls/hr UNSCH PRN IV For Magnesium 1.2 - 1.6 mg/dL; Start 02/05/16 at 12:15 Potassium Chloride 100 ml @ 50 mls/hr Q2H PRN IV For Potassium 2.8 - 3.2 mEq/L ; Start 02/05/16 at 12:15 Potassium Chloride 100 ml @ 50 mls/hr Q2H PRN IV For Potassium 3.3 - 3.5 mEq/L ; Start 02/05/16 at 12:15 Potassium Chloride 100 ml @ 50 mls/hr Q2H PRN IV For Potassium 2.8 - 3.2 mEq/L ; Start 02/05/16 at 12:15 Potassium Chloride (KCl 40 Meq Premix Inj) 100 ml @ 25 mls/hr UNSCH PRN IV For Potassium 3.3 - 3.5 mEq/L; Start 02/05/16 at 12:15 Potassium Chloride (KCl 40 Meq/30 ml Liq) 40 meq UNSCH PRN PO/TUBE For Potassium 3.3 - 3.5 mEq/L; Start 02/05/16 at 12:15 Potassium Chloride (KCl 40 Meq/30 ml Liq) 40 meq UNSCH PRN PO/TUBE SEE LABEL COMMENTS; Start 02/05/16 at 13:00 Potassium Phosphate (K-Phos) 2,000 mg Q4H PRN PO For Phosphorus < 2.5 mg/dL; Start 02/05/16 at 12:15 Potassium Phosphate 2000 mg 2,000 mg UNSCH PRN PO/TUBE SEE LABEL COMMENTS; Start 02/05/16 at 12:15 Potassium Phosphate 30 mmol/ Sodium Chloride 260 ml @ 42 mls/hr UNSCH PRN IV SEE LABEL COMMENTS; Start 02/05/16 at 12:15 Sodium Phosphate/ Sodium Chloride (Sodium Phosphate Inj/NS 250 ml Inj) 250 ml @ 42 mls/hr UNSCH PRN IV For Phosphorus < 2.5 mg/dL; Start 02/05/16 at 12:15 Dextrose (D50w (Vial) Inj) 25 ml UNSCH PRN IV PUSH HYPOGLYCEMIA-SEE COMMENTS; Start 02/05/16 at 12:15 Insulin Human Regular (NovoLIN R SUPPLEMENTAL SCALE) 1 Q6HR SQ ; Start at 18:00 Albuterol/ Ipratropium (Duoneb Neb) 1 ampule Q6HR NEB INH Last administered on 02/06/16at 10:21; Start 02/05/16 at 16:00 Albuterol/ Ipratropium 1 ampule 1 ampule Q2HR NEB PRN INH WHEEZING; Start at 12:15 Propofol 100 ml @ As Directed STK-MED ONCE .ROUTE Last administered on at 13:11; Start 02/05/16 at 13:11; Stop 02/05/16 at 13:12; Status DC Cefazolin Sodium/ Dextrose 50 ml @ 150 mls/hr COATER ASSOCIATE IV ; Start 02/05/16 at 14:00; Stop 02/09/16 at 13:59 Propofol (Diprivan 1000 Mg/100ml Inj) 100 ml @ 0 mls/hr TITRATE IV Last administered on 02/06/16at 10:52; Start 02/05/16 at 16:15 Gentamicin Sulfate (Gentamicin Inj) 240 mg STK-MED ONCE .ROUTE Last administered on 02/06/16at 00:07; Start 02/05/16 at 22:04; Stop 02/05/16 at 22 :05; Status DC Cefazolin Sodium (Ancef Inj) 2,000 mg STK-MED ONCE IV Last administered on at 23:59; Start 02/05/16 at 23:59; Stop 02/06/16 at 00:09; Status DC IV Flush (NS Flush) 2 ml UNSCH PRN IVF FLUSH AFTER USING IV ACCESS; Start at 01:00 IV Flush 2 ml 2 ml BID IVF Last administered on 02/06/16at 07:52; Start at 09:00 Cefazolin Sodium/ Sodium Chloride (Ancef Inj/NS Inj) 100 ml @ 200 mls/hr Q6H IV Last administered on 02/06/16at 10:53; Start 02/06/16 at 06:00 Fentanyl Citrate 250 mcg 250 mcg STK-MED ONCE .ROUTE ; Start 02/06/16 at 01:26 ; Stop 02/06/16 at 01:27; Status DC Levetriacetam/ Sodium Chloride (Keppra Inj/NS Inj) 105 ml @ 420 mls/hr Q12HR IV Last administered on 02/06/16at 10:52; Start 02/06/16 at 09:15 Docusate Sodium (Colace) 100 mg BID OG ; Start 02/06/16 at 11:00 Bacitracin (Baciguent Oint) 1 applic Q12HR TOP ; Start 02/06/16 at 11:00 Medical Decision Making MDM Remarks Last Impressions Wrist X-Ray 02/06/16 0000 Signed Impressions: Service Date/Time: January 00:32 - CONCLUSION: Placement of an external fixation device and wire through the radius as described above. Renaldo Gomez MD Chest X-Ray 02/06/16 0000 Signed Impressions: Service Date/Time: January 04:52 - CONCLUSION: No acute disease. Renaldo Gomez MD Upper Extremity CT 02/05/16 1127 Signed Impressions: Service Date/Time: Friday, February 05, 2016 11:27 - CONCLUSION: 1. Comminuted fracture of the distal radius with intra-articular extension. 2. Carpal bones are intact. Kristian Ewing MD Pelvis X-Ray 02/05/16 110 Signed Impressions: Service Date/Time: Friday, February 05, 2016 10:38 - CONCLUSION: Fractures left side of the pelvis as described above. CT scan is pending. Yordy Arias MD FACR Maxillofacial CT 02/05/16 110 Signed Impressions: Service Date/Time: Friday, February 05, 2016 11:14 - CONCLUSION: 1. There is no evidence of acute fracture. Kristian Ewing MD Head CT 02/05/16 110 Signed Impressions: Service Date/Time: Friday, February 05, 2016 11:11 - CONCLUSION: 1. Negative for skull fracture. 2. Probable small cortical hemorrhage in the left centrum semiovale. Yordy Arias MD FACR Chest CT 02/05/16 1107 Signed Impressions: Service Date/Time: Friday, February 05, 2016 11:11 - CONCLUSION: 1. Negative CT scan of the chest for an acute traumatic injury. 2. Minimal bibasilar parenchymal changes without pneumothorax. Yordy Arias MD FACR Cervical Spine CT 02/05/16 1107 Signed Impressions: Service Date/Time: Friday, February 05, 2016 11:14 - CONCLUSION: 1. Moderate degenerative changes as described above. There is no evidence of acute fracture. Kristian Ewing MD Abdomen/Pelvis CT 02/05/16 1107 Signed Impressions: Service Date/Time: Friday, February 05, 2016 11:11 - CONCLUSION: 1. No evidence of acute abdominal or pelvic process. No masses are identified. 2. Multiple pelvic fractures including the left acetabulum and pubic rami Kristian Ewing MD Attending Statement Neuro. Continue neuro checks in a serial fashion. Status post placement of placement of a ICP monitor Recommend to repeat the CT of the brain in 24 hours to determining changes in the hemorrhage Respiratory. On full mechanical ventilation. Aggressive pulmonary toilette, nasotracheal suction, and breathing treatments with nebulizers. PT and OT Open wrist fracture. Consult orthopedics. Status post debridement and external fixator Acetabular fracture. Possible surgery tomorrow Nutrition. Start tube feedings Renal. monitor closely urine output, BUN and creatinine Endocrine. Monitor serial Acu checks and SSI as needed in detail ID continue to monitor for signs of infection Continue Protonix for stress ulcer prophylaxis Continue Yeison shin and SCD's for DVT prophylaxis Dax Murphy MD Feb 06, 2016 11:48
[2016-02-06] MEDS: PANTOPRAZOLE SODIUM 40 MG VIAL IVP SCH (12:50)
--- NOTE | 2016-02-06 14:29 | EKG ---
Date Performed: 02/05/2016 Time Performed: 21:44:16 PTAGE: 89 years EKG: Sinus rhythm . Normal ECG NO PREVIOUS TRACING DOCTOR: Senthil Lindo Interpretating Date/Time 02/06/2016 14:25:46
[2016-02-06] MEDS: fentaNYL 2,500 MCG/NS 250 ML IV SCH (14:34)
--- NOTE | 2016-02-06 19:36 | PD.PROCEDR ---
Procedure Note Procedure Procedure: Arterial Line Placement Right radial arterial line Diagnosis: Cerebral contusion Indications: For beat to beat hemodynamic monitoring Consent: Consent is deemed emergent or medically necessary Description of the Procedure: The right wrist was prepped and draped sterilely. 1% lidocaine was used for local anesthesia. The pulse was located and a needle was advanced into the artery. A 20 gauge, 12 cm catheter was advanced into the artery using a modified Seldinger technique. The catheter was sutured to the skin and a sterile dressing was applied. The catheter was connected to a pressure transducer and an arterial waveform was noted. There were no immediate complications noted. There was minimal EBL. I personally performed the procedure. Zenon Yen MD Feb 06, 2016 19:35
[2016-02-07] VITALS (19 sets, daily range): BP systolic 105–143; BP diastolic 46–59; PULSE 78–99; RESP 16; TEMP 97.8–99.5; O2SAT 96–100
[2016-02-07] MEDS: PROPOFOL 1000 MG/100 ML IV SCH ×5 (00:41→21:36)
[2016-02-07] MEDS: RESP: ALBUTEROL 2.5 MG/IPRATROPIUM 0.5 MG NEB (SCH) INH ×4 (03:12→19:19)
[2016-02-07] MEDS ORDERED: EPINEPHrine HCL (1:10,000) 1 MG/10 ML SYRINGE ONE (03:33)
[2016-02-07] MEDS ORDERED: ATROPINE SULFATE 1 MG/10 ML SYRINGE ONE (03:33)
[2016-02-07 03:41] LABS: HEMATOCRIT 29.9 % (39.0-51.0); MEAN CELL VOLUME 87.9 FL (80.0-100.0); MEAN CORPUSCULAR HEMOGLOBIN 29.3 PG (27.0-34.0); MEAN CORPUSCULAR HGB CONC 33.3 % (32.0-36.0); PLATELET COUNT 169 TH/MM3 (150-450); RED CELL DISTRIBUTION WIDTH 14.4 % (11.6-17.2); REVIEW FLAG FINAL; WHITE BLOOD COUNT 7.7 TH/MM3 (4.0-11.0)
[2016-02-07] MEDS: fentaNYL 2,500 MCG/NS 250 ML IV SCH ×2 (03:41→16:21)
[2016-02-07 04:14] LABS: BICARBONATE 24.6 MEQ/L (21.0-32.0); POTASSIUM 3.6 MEQ/L (3.5-5.1)
[2016-02-07 04:26] LABS: CALCIUM-PROTEIN CORRECTED 8.3 MG/DL (8.5-10.1)
--- NOTE | 2016-02-07 04:26 | RADRPT ---
EXAM DATE/TIME: 02/07/2016 04:11 [facility] COMPARISON: CT BRAIN W/O CONTRAST, February 05, 2016, 11:11. INDICATIONS : Follow up trauma. RADIATION DOSE: 55.99 CTDIvol (mGy) MEDICAL HISTORY : Non-responsive. SURGICAL HISTORY : Non-responsive. ENCOUNTER: Subsequent ACUITY: 2 days PAIN SCALE: Non-responsive LOCATION: cranial TECHNIQUE: Multiple contiguous axial images were obtained of the head. Using automated exposure control and adjustment of the mA and/or kV according to patient size, radiation dose was kept as low as reasonably achievable to obtain optimal diagnostic quality images. FINDINGS: There is mild motion artifact. CEREBRUM: The ventricles are normal for age. No evidence of midline shift, mass lesion, or acute infarction. There is a small high density hemorrhage along the anterior medial left frontal lobe be st seen on image #19. This measures approximately 8 x 4 mm in diameter. There is no mass effect or mi dline shift. No extra-axial fluid collections are seen. POSTERIOR FOSSA: The cerebellum and brainstem are intact. The 4th ventricle is midline. The cer ebellopontine angle is unremarkable. EXTRACRANIAL: The visualized portion of the orbits is intact. There is mucosal thickening in the ethmoidal air cells and maxillary sinuses. SKULL: The calvaria is intact. No evidence of skull fracture. CONCLUSION: Small high density hemorrhage in the anterior medial left frontal lobe. Manohar Gardiner MD on February 07, 2016 at 4:22 Board Certified Radiologist. This report was verified electronically.
[2016-02-07] MEDS: SODIUM CHLOR 0.9% 1000 ML INJ 1,000 ML IV SCH ×2 (05:06→14:00)
[2016-02-07] MEDS: CHLORHEXIDINE GLUCONATE 2 % 1 PACK (2 CLOTHS) TOP SCH (05:07)
[2016-02-07 05:19] LABS: BLOOD GAS BASE EXCESS -1.9 mmol/L (-2-2); BLOOD GAS HCO3 23 mmol/L (22-26); BLOOD GAS METHEMOGLOBIN 0.9 % (0-2); BLOOD GAS O2 HGB SATURATION 96 % (90-100); BLOOD GAS OXYGEN CONTENT 13.5 Vol % (12.0-20.0); BLOOD GAS PCO2 40 mmHg (38-42); BLOOD GAS PO2 103 mmHg (61-120); BLOOD GAS TOTAL HGB 9.9 G/DL (12.0-16.0); CRITICAL VALUE NO; OXYGEN DEVICE VENTILATOR; TEMP CORR TO 98.6; VENT SETTINGS PRVC/AC
[2016-02-07 05:20] LABS: DRAW SITE ART LINE; FIO2 35 %; STAT NO
[2016-02-07] MEDS: INSULIN NovoLIN REGULAR SUPPLEMENTAL SCALE SQ SCH ×4 (06:00→18:00)
[2016-02-07] MEDS: ACETAMINOPHEN 650 MG/20.3 ML UDC PO SCH ×4 (06:40→23:54)
--- NOTE | 2016-02-07 07:03 | PD.ORT.PN ---
Subjective Subjective Remarks s/p fall from ladder of approx 10ft. s/p I&D with exfix left wrist. s/p left acetabulum fx -intubated. bolt in head. Objective Vitals Vital Signs Date Time Temp Pulse Resp B/P Pulse Ox O2 Delivery O2 Flow Rate FiO2 02/07/16 06:00 84 02/07/16 04:30 100 35 02/07/16 04:00 35 02/07/16 04:00 99 100 02/07/16 04:00 99.2 98 16 100 143/59 02/07/16 04:00 98 02/07/16 02:00 78 02/07/16 01:13 100 35 02/07/16 00:00 98.7 78 16 100 122/54 02/07/16 00:00 35 02/07/16 00:00 78 02/06/16 22:13 100 35 02/06/16 22:00 76 02/06/16 20:00 98.2 74 17 100 122/54 02/06/16 20:00 74 02/06/16 20:00 35 02/06/16 19:46 100 35 02/06/16 18:00 73 02/06/16 16:33 100 35 02/06/16 16:00 99.0 81 16 115/59 100 127/58 02/06/16 16:00 35 02/06/16 16:00 81 02/06/16 14:15 100 35 02/06/16 14:00 90 02/06/16 12:00 85 02/06/16 12:00 35 02/06/16 12:00 99.5 85 16 125/71 100 02/06/16 10:21 100 35 02/06/16 10:00 85 02/06/16 08:00 87 02/06/16 08:00 99.0 87 16 121/72 100 02/06/16 08:00 35 I/O 02/06/16 02/06/16 02/06/16 02/07/16 02/07/16 02/07/16 07:00 15:00 23:00 07:00 15:00 23:00 Intake Total 731 ml 1230 ml 1162 ml 1323 ml Output Total 1200 ml 1650 ml 275 ml 275 ml Balance -469 ml -420 ml 887 ml 1048 ml Intake IV Total 731 ml 1095 ml 1162 ml 1323 ml Tube Feeding 75 ml Other 60 ml Output Urine Total 1075 ml 1650 ml 275 ml 275 ml Gastric Drainage Total 125 ml 0 ml # Bowel Movements 0 0 Result Diagram: 02/07/16 0330 02/07/16 0330 Imaging Last 24 hours Impressions Wrist X-Ray 02/06/16 0000 Signed Impressions: Service Date/Time: January 00:32 - CONCLUSION: Placement of an external fixation device and wire through the radius as described above. Renaldo Gomez MD Chest X-Ray 02/06/16 0000 Signed Impressions: Service Date/Time: January 04:52 - CONCLUSION: No acute disease. Renaldo Gomez MD Upper Extremity CT 02/05/16 1127 Signed Impressions: Service Date/Time: Friday, February 05, 2016 11:27 - CONCLUSION: 1. Comminuted fracture of the distal radius with intra-articular extension. 2. Carpal bones are intact. Kristian Ewing MD Pelvis X-Ray 02/05/161106 Signed Impressions: Service Date/Time: Friday, February 05, 2016 10:38 - CONCLUSION: Fractures left side of the pelvis as described above. CT scan is pending. Yordy Arias MD FACR Maxillofacial CT 02/05/161106 Signed Impressions: Service Date/Time: Friday, February 05, 2016 11:14 - CONCLUSION: 1. There is no evidence of acute fracture. Kristian Ewing MD Head CT 02/05/161106 Signed Impressions: Service Date/Time: Friday, February 05, 2016 11:11 - CONCLUSION: 1. Negative for skull fracture. 2. Probable small cortical hemorrhage in the left centrum semiovale. Yordy Arias MD FACR Chest X-Ray 02/05/161106 Signed Impressions: Service Date/Time: Friday, February 05, 2016 10:38 - CONCLUSION: 1. ET tube in good position. 2. Prominent cardiac silhouette. Yordy Arias MD FACR Chest CT 02/05/161106 Signed Impressions: Service Date/Time: Friday, February 05, 2016 11:11 - CONCLUSION: 1. Negative CT scan of the chest for an acute traumatic injury. 2. Minimal bibasilar parenchymal changes without pneumothorax. Yordy Arias MD FACR Cervical Spine CT 02/05/16 1107 Signed Impressions: Service Date/Time: Friday, February 05, 2016 11:14 - CONCLUSION: 1. Moderate degenerative changes as described above. There is no evidence of acute fracture. Kristian Ewing MD Abdomen/Pelvis CT 02/05/16 1107 Signed Impressions: Service Date/Time: Friday, February 05, 2016 11:11 - CONCLUSION: 1. No evidence of acute abdominal or pelvic process. No masses are identified. 2. Multiple pelvic fractures including the left acetabulum and pubic rami Kristian Ewing MD Objective Remarks LUE: +exfix of wrist. pin sites clean .no drainage. good cap refill LLE: mild swelling of thigh. good cap refill distally Assessment & Plan Problem List: (1) Open Colles' fracture of left radius (2) Left acetabular fracture (3) Fracture of left superior pubic ramus (4) Fracture of left inferior pubic ramus (5) Closed head injury (6) Respiratory failure after trauma Assessment and Plan 1) Left Distal Radius Fx s/p exfix - POD 2 2) Left Acetabulum fx with Sup/Inf Rami fxs -patient still having issues with ICPs. cannot lay flat. may try to proceed with ORIF of wrist today. however, will not be able to fix pelvis due to ICP issue. Zain Lei Feb 07, 2016 07:03
[2016-02-07] MEDS ORDERED: HYDR-3288 PO (07:06)
[2016-02-07] MEDS ORDERED: XARE10TA PO (07:06)
[2016-02-07] MEDS ORDERED: PLATMIS3 (07:06)
--- NOTE | 2016-02-07 08:27 | RADRPT ---
EXAM DATE/TIME: 02/05/2016 11:15 [place] COMPARISON: No previous studies available for comparison. INDICATIONS : Trauma. ; Reconstructed from previous dataset MEDICAL HISTORY : Unobtainable. SURGICAL HISTORY : Unobtainable. ENCOUNTER: Initial ACUITY: 1 day PAIN SCALE: Non-responsive LOCATION: Left pelvis TECHNIQUE: 3D reconstructions of the left hip were performed. FINDINGS: 3-D volume rendering of the left hip was performed. The comminuted fracture of the acetabulum involvi ng the anterior and posterior columns demonstrates close apposition of the fracture fragments. Acetabular rim fracture is also noted. There is slight widening of the hip joint which is slightly distracted laterally. The femoral head ot herwise remains well seated within the acetabulum. Fractures involving the pubic rami and ischii and are also well delineated. Significant soft tissue swelling is identified surrounding the hip joint and acetabulum. CONCLUSION: Comminuted fracture of the left acetabulum, pubic rami in addition are well depicted on 3-D volume re ndering as described above. Subhash Coello MD on February 07, 2016 at 8:19 Board Certified Radiologist. This report was verified electronically.
--- NOTE | 2016-02-07 08:33 | MR ---
cc: DANIELLE PEREIRA KAYLEN Macario [email or web address] DATE 02/05/2016 PREPROCEDURE DIAGNOSIS Laceration of the left eyebrow PROCEDURE At the patient's bedside, the wound was irrigated with saline. It was then prepped and draped sterilely. 1% lidocaine with epinephrine was used to anesthetize the skin and subcutaneous tissue. Using 5-0 Prolene sutures, the skin edges were approximated in a simple interrupted manner. The patient tolerated the procedure well. MD HEATH Etienne/DJL /5:39 PM /8:17 AM
--- NOTE | 2016-02-07 08:46 | HHI.NSPN ---
Note Status Status: Progress Note Interval History Diagnosis Trauma alert Interval History This patient is a middle age male who was brought to [facility] as a trauma alert after falling off his roof at a height of around 10 feet this morning. There was loss of consciousness. He was reported to be agitated and intubated at the scene. Juju Coma Scale was noted [address] of the brain shows a left high frontoparietal contusion. He was reported to have moved his extremities purposefully but does not follow commands. His sedation was lightened in ISC, he continues not to follow commands, he does not track. A forehead laceration was repaired by the trauma team. Neurosurgical evaluation was requested. 02/05. Neurologically stable. ICP monitor has been placed. ICP stable overnight. Went to OR for debridement and external fixator of wrist . ICP's have been stable. CT of the brain was done. Neurologically stable Labs, Micro, & Vital Signs Results Date Time Temp Pulse Resp B/P Pulse Ox O2 Delivery O2 Flow Rate FiO2 02/07/16 06:00 84 02/07/16 04:30 100 35 02/07/16 04:00 35 02/07/16 04:00 99 100 02/07/16 04:00 99.2 98 16 100 143/59 02/07/16 04:00 98 02/07/16 02:00 78 02/07/16 01:13 100 35 02/07/16 00:00 98.7 78 16 100 122/54 02/07/16 00:00 35 02/07/16 00:00 78 02/06/16 22:13 100 35 02/06/16 22:00 76 02/06/16 20:00 98.2 74 17 100 122/54 02/06/16 20:00 74 02/06/16 20:00 35 02/06/16 19:46 100 35 02/06/16 18:00 73 02/06/16 16:33 100 35 02/06/16 16:00 99.0 81 16 115/59 100 127/58 02/06/16 16:00 35 02/06/16 16:00 81 12/15/16 14:15 100 35 02/06/16 14:00 90 02/06/16 12:00 85 02/06/16 12:00 35 02/06/16 12:00 99.5 85 16 125/71 100 02/06/16 10:21 100 35 02/06/16 10:00 85 02/07/16 06:59 Intake Total 3715 ml Output Total 2200 ml Balance 1515 ml Constitutional Vital Signs Date Time Temp Pulse Resp B/P Pulse Ox O2 Delivery O2 Flow Rate FiO2 02/07/16 06:00 84 02/07/16 04:30 100 35 02/07/16 04:00 35 02/07/16 04:00 99 100 02/07/16 04:00 99.2 98 16 100 143/59 02/07/16 04:00 98 02/07/16 02:00 78 02/07/16 01:13 100 35 02/07/16 00:00 98.7 78 16 100 122/54 02/07/16 00:00 35 02/07/16 00:00 78 02/06/16 22:13 100 35 02/06/16 22:00 76 02/06/16 20:00 98.2 74 17 100 122/54 02/06/16 20:00 74 02/06/16 20:00 35 02/06/16 19:46 100 35 02/06/16 18:00 73 02/06/16 16:33 100 35 02/06/16 16:00 99.0 81 16 115/59 100 127/58 02/06/16 16:00 35 02/06/16 16:00 81 02/06/16 14:15 100 35 02/06/16 14:00 90 02/06/16 12:00 85 02/06/16 12:00 35 02/06/16 12:00 99.5 85 16 125/71 100 02/06/16 10:21 100 35 02/06/16 10:00 85 02/07/16 06:59 Intake Total 3715 ml Output Total 2200 ml Balance 1515 ml Review of Systems/Exam Exam Mr Gross is intubated and sedated. Localizes to painful stimulii with all 4 extremities. Cranial Nerves: Pupils equal, round, reactive to light. Eyes appear conjugated. There was no nystagmus, no papilledema. Face musculature appeared symmetrical at rest. Face sensation, olfaction, visual seymour, and hearing cannot be adequately assessed due to his neurological condition. The patient has a corneal reflex. He has a gag reflex. The sternocleidomastoid and trapezius are symmetrical. Cervical Spine: His neck is soft, supple Motor: His muscle tone and bulk are normal. He moves purposefully all 4 extremities symmetrically. Reflexes: Deep tendon reflexes are 1+ and symmetrical in the biceps, triceps, and brachioradialis, bilaterally, in the upper extremities. In the lower extremities, the patellar and ankles are 1+, bilaterally. There is a bilateral plantar flexion response. There is no clonus or other abnormal reflexes noted. Sensory: On examination there is response to painful stimuli, localizing with both upper and lower extremities. Cerebellar: Examination cannot be adequately assessed due to the patient's neurological condition. Medications Current Medications Current Medications Lorazepam (Ativan Inj) 2 mg STK-MED ONCE .ROUTE ; Start 02/05/16 at 10:49; Stop 02/05/16 at 10:50; Status DC Diphtheria/ Tetanus/Acell Pertussis 0.5 ml 0.5 ml STK-MED ONCE IM Last administered on 02/05/16at 12:00; Start 02/05/16 at 10:49; Stop 02/05/16 at 10 :50; Status DC Cefazolin Sodium/ Dextrose (Ancef 2 Gm Premix) 50 ml @ As Directed STK-MED ONCE .ROUTE ; Start 02/05/16 at 10:50; Stop 02/05/16 at 10:51; Status DC Midazolam HCl (Versed Inj) 5 mg STK-MED ONCE .ROUTE ; Start 02/05/16 at 11:37; Stop 02/05/16 at 11:38; Status DC Iohexol 98 ml 98 ml STK-MED ONCE IV Last administered on 02/05/16at 11:43; Start 02/05/16 at 11:43; Stop 02/05/16 at 11:44; Status DC Sodium Chloride (NS 1000 ml Inj) 1,000 ml @ 100 mls/hr Q10H IV Last administered on 02/07/16at 05:06; Start 02/05/16 at 12:00 IV Flush (NS Flush) 2 ml UNSCH PRN IVF FLUSH AFTER USING IV ACCESS; Start at 11:45; Stop 02/06/16 at 01:04; Status DC Enalaprilat (Vasotec Inj) 1.25 mg Q8H PRN IV SBP>180, DBP>95; Start 02/05/16 at 11:45; Stop 02/05/16 at 12:16; Status DC Ondansetron HCl (Zofran Inj) 4 mg Q6H PRN IV NAUSEA OR VOMITING; Start at 11:45 Pantoprazole Sodium (Protonix Inj) 40 mg Q24H IVP Last administered on at 12:50; Start 02/05/16 at 13:00 Docusate Sodium (Colace) 100 mg BID PO Last administered on 02/06/16at 08:14; Start 02/05/16 at 21:00; Stop 02/06/16 at 10:19; Status DC Magnesium Hydroxide (Milk Of Magnesia Liq) 30 ml Q6H PRN PO CONSTIPATION; Start 02/05/16 at 11:45 Miscellaneous Information 1 Q361D XX ; Start 02/05/16 at 11:45 Chlorhexidine Gluconate (Chlorhexidine 2% Cloth) 3 pack Taper DAILY@04 TOP Last administered on 02/07/16at 05:07; Start 02/06/16 at 04:00; Stop 02/01/17 at 03:59 Chlorhexidine Gluconate (Chlorhexidine 2% Cloth) 3 pack UNSCH PRN TOP HYGIENIC CARE; Start 02/05/16 at 11:45 Lidocaine/ Epinephrine (Xylocaine-Epi 1%-1:100,000 Inj) 50 ml STK-MED ONCE .ROUTE ; Start 02/05/16 at 11:58; Stop 02/05/16 at 11:59; Status DC Fentanyl Citrate (fentaNYL INJ) 100 mcg STK-MED ONCE .ROUTE Last administered on 02/05/16at 12:03; Start 02/05/16 at 12:03; Stop 02/05/16 at 12:04; Status DC Hydromorphone HCl (Dilaudid Pf Inj) 0.5 mg Q4H PRN IV PUSH pain 8-10 or not taking po Last administered on 02/06/16at 14:34; Start 12/14/16 at 12:15 Acetaminophen (Tylenol 650 Mg/ 20 ml Liq) 650 mg Q6H PO Last administered on at 23:47; Start 02/05/16 at 13:00 Oxycodone HCl (Roxicodone Intensol Liq) 5 mg Q4H PRN PO pain 1-7; Start at 12:15 Magnesium Oxide 800 mg 800 mg UNSCH PRN PO For Magnesium 1.2 - 1.6 mg/dL; Start 02/05/16 at 12:15 Magnesium Sulfate 4 gm/Sodium Chloride 100 ml @ 50 mls/hr UNSCH PRN IV For Magnesium 0.9 - 1.1 mg/dL; Start 02/05/16 at 12:15 Magnesium Sulfate 2 gm/Sodium Chloride 100 ml @ 50 mls/hr UNSCH PRN IV For Magnesium 1.2 - 1.6 mg/dL; Start 02/05/16 at 12:15 Potassium Chloride 100 ml @ 50 mls/hr Q2H PRN IV For Potassium 2.8 - 3.2 mEq/L ; Start 02/05/16 at 12:15 Potassium Chloride 100 ml @ 50 mls/hr Q2H PRN IV For Potassium 3.3 - 3.5 mEq/L ; Start 02/05/16 at 12:15 Potassium Chloride 100 ml @ 50 mls/hr Q2H PRN IV For Potassium 2.8 - 3.2 mEq/L ; Start 02/05/16 at 12:15 Potassium Chloride (KCl 40 Meq Premix Inj) 100 ml @ 25 mls/hr UNSCH PRN IV For Potassium 3.3 - 3.5 mEq/L; Start 02/05/16 at 12:15 Potassium Chloride (KCl 40 Meq/30 ml Liq) 40 meq UNSCH PRN PO/TUBE For Potassium 3.3 - 3.5 mEq/L; Start 02/05/16 at 12:15 Potassium Chloride (KCl 40 Meq/30 ml Liq) 40 meq UNSCH PRN PO/TUBE SEE LABEL COMMENTS; Start 02/05/16 at 13:00 Potassium Phosphate (K-Phos) 2,000 mg Q4H PRN PO For Phosphorus < 2.5 mg/dL; Start 02/05/16 at 12:15 Potassium Phosphate 2000 mg 2,000 mg UNSCH PRN PO/TUBE SEE LABEL COMMENTS; Start 02/05/16 at 12:15 Potassium Phosphate 30 mmol/ Sodium Chloride 260 ml @ 42 mls/hr UNSCH PRN IV SEE LABEL COMMENTS; Start 02/05/16 at 12:15 Sodium Phosphate/ Sodium Chloride (Sodium Phosphate Inj/NS 250 ml Inj) 250 ml @ 42 mls/hr UNSCH PRN IV For Phosphorus < 2.5 mg/dL; Start 02/05/16 at 12:15 Dextrose (D50w (Vial) Inj) 25 ml UNSCH PRN IV PUSH HYPOGLYCEMIA-SEE COMMENTS; Start 02/05/16 at 12:15 Insulin Human Regular (NovoLIN R SUPPLEMENTAL SCALE) 1 Q6HR SQ ; Start at 18:00 Albuterol/ Ipratropium (Duoneb Neb) 1 ampule Q6HR NEB INH Last administered on 02/07/16at 08:39; Start 02/05/16 at 16:00 Albuterol/ Ipratropium 1 ampule 1 ampule Q2HR NEB PRN INH WHEEZING; Start at 12:15 Propofol 100 ml @ As Directed STK-MED ONCE .ROUTE Last administered on at 13:11; Start 02/05/16 at 13:11; Stop 02/05/16 at 13:12; Status DC Cefazolin Sodium/ Dextrose 50 ml @ 150 mls/hr GALLERY OR MUSEUM ATTENDANT IV ; Start 02/05/16 at 14:00; Stop 02/09/16 at 13:59 Propofol (Diprivan 1000 Mg/100ml Inj) 100 ml @ 0 mls/hr TITRATE IV Last administered on 02/07/16at 03:41; Start 02/05/16 at 16:15 Gentamicin Sulfate (Gentamicin Inj) 240 mg STK-MED ONCE .ROUTE Last administered on 02/06/16at 00:07; Start 02/05/16 at 22:04; Stop 02/05/16 at 22 :05; Status DC Cefazolin Sodium (Ancef Inj) 2,000 mg STK-MED ONCE IV Last administered on at 23:59; Start 02/05/16 at 23:59; Stop 02/06/16 at 00:09; Status DC IV Flush (NS Flush) 2 ml UNSCH PRN IVF FLUSH AFTER USING IV ACCESS; Start at 01:00 IV Flush 2 ml 2 ml BID IVF Last administered on 02/06/16at 21:28; Start at 09:00 Cefazolin Sodium/ Sodium Chloride (Ancef Inj/NS Inj) 100 ml @ 200 mls/hr Q6H IV Last administered on 02/07/16at 05:08; Start 02/06/16 at 06:00 Fentanyl Citrate 250 mcg 250 mcg STK-MED ONCE .ROUTE ; Start 02/06/16 at 01:26 ; Stop 02/06/16 at 01:27; Status DC Levetriacetam/ Sodium Chloride (Keppra Inj/NS Inj) 105 ml @ 420 mls/hr Q12HR IV Last administered on 02/06/16at 21:28; Start 02/06/16 at 09:15 Docusate Sodium (Colace) 100 mg BID OG Last administered on 02/06/16at 21:28; Start 02/06/16 at 11:00 Bacitracin (Baciguent Oint) 1 applic Q12HR TOP ; Start 02/06/16 at 11:00 Propofol 200 mg 200 mg STK-MED ONCE IV ; Start 02/05/16 at 12:27; Stop at 12:27; Status DC Fentanyl Citrate (fentaNYL DRIP) 250 ml @ 0 mls/hr TITRATE IV Last administered on 02/07/16at 03:41; Start 02/06/16 at 14:30 Epinephrine HCl (EPINEPHrine (1:10,000) INJ) 1 mg STK-MED ONCE .ROUTE ; Start 02/07/16 at 03:33; Stop 02/07/16 at 03:34; Status DC Atropine Sulfate (Atropine Inj) 1 mg STK-MED ONCE .ROUTE ; Start 02/07/16 at 03 :33; Stop 02/07/16 at 03:34; Status DC Medical Decision Making MDM Remarks Last Impressions Head CT 02/07/16 0600 Signed Impressions: Service Date/Time: Sunday, February 07, 2016 04:11 - CONCLUSION: Small high density hemorrhage in the anterior medial left frontal lobe. Manohar Gardiner MD Multiplanar Reconstruction 02/07/16 0000 Signed Impressions: Service Date/Time: Friday, February 05, 2016 11:15 - CONCLUSION: Comminuted fracture of the left acetabulum, pubic rami in addition are well depicted on 3- D volume rendering as described above. Subhash Coello MD Wrist X-Ray 02/06/16 0000 Signed Impressions: Service Date/Time: January 00:32 - CONCLUSION: Placement of an external fixation device and wire through the radius as described above. Renaldo Gomez MD Chest X-Ray 02/06/16 0000 Signed Impressions: Service Date/Time: January 04:52 - CONCLUSION: No acute disease. Renaldo Gomez MD Upper Extremity CT 02/05/16 1127 Signed Impressions: Service Date/Time: Friday, February 05, 2016 11:27 - CONCLUSION: 1. Comminuted fracture of the distal radius with intra-articular extension. 2. Carpal bones are intact. Kristian Ewing MD Pelvis X-Ray 02/05/16 110 Signed Impressions: Service Date/Time: Friday, February 05, 2016 10:38 - CONCLUSION: Fractures left side of the pelvis as described above. CT scan is pending. Yordy Arias MD FACR Maxillofacial CT 02/05/16 110 Signed Impressions: Service Date/Time: Friday, February 05, 2016 11:14 - CONCLUSION: 1. There is no evidence of acute fracture. Kristian Ewing MD Chest CT 02/05/161106 Signed Impressions: Service Date/Time: Friday, February 05, 2016 11:11 - CONCLUSION: 1. Negative CT scan of the chest for an acute traumatic injury. 2. Minimal bibasilar parenchymal changes without pneumothorax. Yordy Arias MD FACR Cervical Spine CT 02/05/161106 Signed Impressions: Service Date/Time: Friday, February 05, 2016 11:14 - CONCLUSION: 1. Moderate degenerative changes as described above. There is no evidence of acute fracture. Kristian Ewing MD Abdomen/Pelvis CT 02/05/161106 Signed Impressions: Service Date/Time: Friday, February 05, 2016 11:11 - CONCLUSION: 1. No evidence of acute abdominal or pelvic process. No masses are identified. 2. Multiple pelvic fractures including the left acetabulum and pubic rami Kristian Ewing MD Last Impressions Wrist X-Ray 02/06/16 0000 Signed Impressions: Service Date/Time: January 00:32 - CONCLUSION: Placement of an external fixation device and wire through the radius as described above. Renaldo Gomez MD Chest X-Ray 02/06/16 0000 Signed Impressions: Service Date/Time: January 04:52 - CONCLUSION: No acute disease. Renaldo Gomez MD Upper Extremity CT 02/05/16 1127 Signed Impressions: Service Date/Time: Friday, February 05, 2016 11:27 - CONCLUSION: 1. Comminuted fracture of the distal radius with intra-articular extension. 2. Carpal bones are intact. Kristian Ewing MD Pelvis X-Ray 02/05/16 110 Signed Impressions: Service Date/Time: Friday, February 05, 2016 10:38 - CONCLUSION: Fractures left side of the pelvis as described above. CT scan is pending. Yordy Arias MD FACR Maxillofacial CT 02/05/16 110 Signed Impressions: Service Date/Time: Friday, February 05, 2016 11:14 - CONCLUSION: 1. There is no evidence of acute fracture. Kristian Ewing MD Head CT 02/05/161106 Signed Impressions: Service Date/Time: Friday, February 05, 2016 11:11 - CONCLUSION: 1. Negative for skull fracture. 2. Probable small cortical hemorrhage in the left centrum semiovale. Yordy Arias MD FACR Chest CT 02/05/16 110 Signed Impressions: Service Date/Time: Friday, February 05, 2016 11:11 - CONCLUSION: 1. Negative CT scan of the chest for an acute traumatic injury. 2. Minimal bibasilar parenchymal changes without pneumothorax. Yordy Arias MD FACR Cervical Spine CT 02/05/16 110 Signed Impressions: Service Date/Time: Friday, February 05, 2016 11:14 - CONCLUSION: 1. Moderate degenerative changes as described above. There is no evidence of acute fracture. Kristian Ewing MD Abdomen/Pelvis CT 02/05/161106 Signed Impressions: Service Date/Time: Friday, February 05, 2016 11:11 - CONCLUSION: 1. No evidence of acute abdominal or pelvic process. No masses are identified. 2. Multiple pelvic fractures including the left acetabulum and pubic rami Kristian Ewing MD Attending Statement Neuro. Continue neuro checks in a serial fashion. DC ICP monitor I reviewed repeat the CT of the brain Respiratory. On full mechanical ventilation. Aggressive pulmonary toilette, nasotracheal suction, and breathing treatments with nebulizers. PT and OT Open wrist fracture. Consult orthopedics. Status post debridement and external fixator Acetabular fracture. Possible surgery. Cleared per neurosurgical standpoint Nutrition. Start tube feedings Renal. monitor closely urine output, BUN and creatinine Endocrine. Monitor serial Acu checks and SSI as needed in detail ID continue to monitor for signs of infection Continue Protonix for stress ulcer prophylaxis Continue Yeison hose and SCD's for DVT prophylaxis Dax Murphy MD Feb 07, 2016 08:46
--- NOTE | 2016-02-07 09:24 | HHI.CCPN ---
Subjective Brief History Patient fell off 10 foot the roof during house building process. Sustained multiple injuries and was brought in as a priority 1 trauma alert Loss of consciousness Mittie Coma Scale of 8 and small subcortical bleed on the left brain hemisphere Left acetabular fracture consisting of anterior and posterior column fractures as well as superior inferior rami fractures on the left Left humerus and ulna fracture Some swelling over the left thigh soft tissues but no signs of facial fractures The remainder of exam is negative Patient is intubated and ventilated and the ICP bolt is placed revealing intracranial pressure around 5 mmHg Patient will undergo left acetabular fracture fixation as well as arm fixation 24 Hour Review/Hospital Course 02/06/2016 S/P RIGHT temporoparietal bolt placement with Dr Murpyh Stable ICPs overnight Not following commands 02/07/2016 [place] DC'd by NS. Clear for OR today with Ortho for left wrist and possible pelvis repair. Purposeful, RODRÍGUEZ spontaneously. Not following commands. (Shay Goldstein ) Objective Vital Signs Date Time Temp Pulse Resp B/P Pulse Ox O2 Delivery O2 Flow Rate FiO2 02/07/16 08:39 100 35 02/07/16 06:00 84 02/07/16 04:00 99.2 16 143/59 02/05/16 10:50 15.00 02/05/16 10:50 AMBU Intake and Output 02/06/16 02/06/16 02/07/16 08:00 16:00 00:00 Intake Total 731 ml 1230 ml 1162 ml Output Total 1200 ml 1650 ml 275 ml Balance -469 ml -420 ml 887 ml (Shay Goldstein) Result Diagram: 02/07/16 0330 02/07/16 0330 Other Results Laboratory Tests Test 02/07/16 05:05 Blood Gas Puncture Site ART LINE Blood Gas Patient Temperature 98.6 Blood Gas HCO3 23 mmol/L (22-26) Blood Gas Base Excess -1.9 mmol/L (-2-2) Blood Gas Oxygen Saturation 96 % (90-100) Arterial Blood pH 7.37 (7.380-7.420) Arterial Blood Partial 40 mmHg (38-42) Pressure CO2 Arterial Blood Partial 103 mmHg Pressure O2 (61-120) Arterial Blood Oxygen Content 13.5 Vol % (12.0-20.0) Arterial Blood 1.0 % (0-4) Carboxyhemoglobin Arterial Blood Methemoglobin 0.9 % (0-2) Blood Gas Hemoglobin 9.9 G/DL (12.0-16.0) Oxygen Delivery Device VENTILATOR Blood Gas Ventilator Setting PRVC/AC Blood Gas Inspired Oxygen 35 % Imaging Last [address] 02/07/16 0600 Signed Impressions: Service Date/Time: Sunday, February 07, 2016 04:11 - CONCLUSION: Small high density hemorrhage in the anterior medial left frontal lobe. Manohar Gardiner MD Multiplanar Reconstruction 02/07/16 0000 Signed Impressions: Service Date/Time: Friday, February 05, 2016 11:15 - CONCLUSION: Comminuted fracture of the left acetabulum, pubic rami in addition are well depicted on 3- D volume rendering as described above. 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 SKIN: Warm and dry. Ecchymosis to LEFT eye, sutures at LEFT eyebrow. Abrasion to LEFT knee, drsg c/d/i. HEAD: Normocephalic. EYES: PERRL. ENT: ETT - OGT. No nasal bleeding or discharge. Mucous membranes pink and moist. NECK: Trachea midline. No JVD. CARDIOVASCULAR: Regular rate and rhythm. CM shows sinus rhythm. RESPIRATORY: No accessory muscle use. Rhonchi auscultated throughout lung seymour. Breath sounds equal bilaterally. GASTROINTESTINAL: Abdomen soft, non-tender, nondistended. + BS. F/C in place draining clear yellow urine. MUSCULOSKELETAL: Extremities without cyanosis, or edema. LEFT wrist ex-fix in place, fingers warm, good cap refill. NEUROLOGICAL: Sedated and mechanically ventilated. (Shay Goldstein) Assessment and Plan Plan INJURIES: Small cortical hemorrhage (frontoparietal) w/ bolt placement LEFT open distal radius & fx LEFT acetabular & pubic rami fx LEFT eye brow lac with sutures * S/P I&D with external fixation and percutaneous pinning LEFT radius and ulna ( 02/04) F/U CT Head 02/06: Small high density hemorrhage in the anterior medial LEFT frontal lobe ASSESSMENT AND PLAN: NEUROLOGICAL: Sedated with Propofol and Fentanyl. Sedation lightened, not following. RODRÍGUEZ, purposeful movement with RUE and BLE. Begin sedation vacations daily to assess weaning capability and neuro status. Goal RASS score of -1 to -2. No seizure activity noted, on Keppra prophylactically. HOB elevated 30 degrees CARDIOVASCULAR: HR = 70's-90's. BP stable. MAP 70's to 80's. IVF: NS @ 100mL/H Continually monitor for hemodynamic instability (shock and hypotension) Follow CMP Electrolyte protocol RESPIRATORY: Vent settings PRVC/AC 16 /550 / 35/ 0.90/ +5 O2 Sats Monitor for hypoxemia Follow ABGs - Pulmonary toilet L&S as needed. Bronchodilators - Duonebs. Chest X-Ray results - Lungs clear, no acute disease. VAP protocol in place Labs in AM GASTROINTESTINAL: Diet NPO for OR today. Resume TF's after OR. Bowel regimen Colace, MOM. No BM yet. RENAL / URINARY: I&O +1515 BUN / creat 12/0.[address] draining clear yellow urine. ENDOCRINE: Accu checks q6H, on sliding scale insulin HEMATOLOGY: H&H 10.0/29.9 PLT 169 Continue to monitor for signs and symptoms of bleeding Transfuse for < 7.0 INFECTIOUS DISEASE: Follow CBC WBC - 7.7 Fevers - low grade. T-max 99.5 IV Abx- Ancef Administer antipyretics for temp as needed. Maintain vigorous aseptic care of IVs to avoid blood stream infection. Lines: PIV's & RIGHT radial arterial line PROPHYLAXIS: VAP in place GI Protonix IV. DVT - SCD's. Chemical management contraindicated due to ICH. SKIN: Warm / Dry Superficial abrasions to LEFT knee and LEFT face. Skin treatment Bacitracin ACTIVITY: Status - BR PT and OT evaluating. CASE MANAGEMENT: Consulted for assist with DC planning. Placement - disposition. Unknown insurance status at this time. Discussed with RN at bedside. No family at bedside during visit. Pt remains critically ill in the ICU. Trauma surgery will round and evaluate patient and treatment plan on a daily basis. (Shay Goldstein) Attestation Patient neurologically improving however not ready for extubation yet for he follows some commands intermittently and Mittie Coma Scale hovering around 8-9 at best The exam, history, and the medical decision-making described in the above note were completed with the assistance of the mid-level provider. I reviewed and agree with the findings presented. I attest that I had a [id number] encounter with the patient on the same day, and personally performed and documented my assessment and findings in the medical record. Critical care time 40minutes. (Lucinda Kidd MD) Shay Goldstein Feb 07, 2016 09:24 Lucinda Kidd MD Feb 08, 2016 12:46
[2016-02-07] MEDS: DOCUSATE SODIUM 100 MG CAP OG SCH (09:35)
[2016-02-07] MEDS: levETIRAcetam INJ 500 MG in SODIUM CHLORIDE 0.9% INJ 100 ML IV SCH ×2 (09:46→20:38)
[2016-02-07] MEDS: BACITRACIN TOP OINT 15 GM TUBE TOP SCH ×2 (09:47→20:39)
[2016-02-07] MEDS: HYDROmorphone HCL PF 1 MG/ML VIAL IV PUSH PRN (09:47)
[2016-02-07] MEDS: SODIUM CHLORIDE 0.9% FLUSH 5 ML FLUSH IVF SCH ×2 (09:47→20:38)
[2016-02-07] MEDS ORDERED: SODIUM CHLORIDE 0.9% IV SCH (10:00)
[2016-02-07] MEDS ORDERED: TRANEXAMIC ACID IV SCH (10:00)
[2016-02-07] MEDS: DOCUSATE SODIUM 100 MG/10 ML UDC OG SCH ×2 (11:47→20:38)
[2016-02-07] MEDS: PANTOPRAZOLE SODIUM 40 MG VIAL IVP SCH (12:03)
[2016-02-07] MEDS ORDERED: VANCOMYCIN HCL 1000 MG VIAL ONE (12:19)
[2016-02-07] MEDS ORDERED: GENTAMICIN SULFATE 80 MG/2 ML VIAL ONE (12:20)
[2016-02-07] MEDS ORDERED: SODIUM CHLOR 0.9% 250 ML INJ 250 ML ONE (12:20)
[2016-02-07] MEDS ORDERED: NORMOSOL R INJ 2,000 ML IV ONE (12:35)
[2016-02-07] MEDS ORDERED: HEPARIN SODIUM - SQ 10,000 UNITS/ML VIAL ONE (13:58)
[2016-02-07] MEDS ORDERED: fentaNYL CITRATE 250 MCG/5 ML AMP ONE ×2 (14:58)
--- NOTE | 2016-02-07 15:38 | HHI.PR ---
cc: Gerald Saavedra MD Immediate Post Op Note Procedure Date: Feb 07, 2016 Pre Op Diagnosis: Comminuted left acetabular fracture Post Op Diagnosis: Surgeon: Gerald Saavedra Shafting Cleaner(s): MOHAN Sanchez PA-C The surgical procedure was assisted by my physician pier master assistant. My P.A. presence was necessary throughout this case for the manipulation and positioning of the surgical extremity. My P.A. was assisting me throughout the duration of this procedure. The skill set of a physician pier master assistant was medically necessary to complete this procedure. During the surgical case the surgical scheduler was working at the back table and the physician pier master assistant was directly assisting me. Procedure: Open reduction internal fixation of left acetabular fracture Estimated blood loss: 1000 mL Anesthesia: General Drains: ZACKARY Patient [facility]: [facility] Gerald Saavedra MD Feb 07, 2016 15:37
[2016-02-07] MEDS: LACTATED RINGER'S 1000 ML INJ 1,000 ML IV SCH (16:00)
--- NOTE | 2016-02-07 16:01 | RADRPT ---
EXAM DATE/TIME: 02/07/2016 15:07 [place] COMPARISON: No previous studies available for comparison. INDICATIONS : ORIF left acetabulum. MEDICAL HISTORY : Unobtainable. SURGICAL HISTORY : Unobtainable. ENCOUNTER: Initial ACUITY: 1 day PAIN SCORE: Non-responsive. LOCATION: Left acetabulum. FINDINGS: Plate with screws is seen bridging the left acetabular fracture. Alignment is anatomic CONCLUSION: Anatomic alignment. Yordy Arias MD FACR on February 07, 2016 at 15:54 Board Certified Radiologist. This report was verified electronically.
[2016-02-07 18:49] LABS: REVIEW FLAG FINAL
[2016-02-07] MEDS: ceFAZolin 2 GM PREMIX 50 ML IV SCH (20:38)
[2016-02-07] MEDS: VANCOMYCIN INJ 1,000 MG in SODIUM CHLOR 0.9% 250 ML INJ 250 ML IV SCH (23:54)
[2016-02-08] VITALS (19 sets, daily range): BP systolic 104–123; BP diastolic 45–58; PULSE 85–118; RESP 16; TEMP 98.6–100.7; O2SAT 99–100
[2016-02-08] MEDS: SODIUM CHLOR 0.9% 1000 ML INJ 1,000 ML IV SCH ×2 (00:02→10:00)
[2016-02-08] MEDS: PROPOFOL 1000 MG/100 ML IV SCH ×2 (00:41→03:27)
[2016-02-08] MEDS: LACTATED RINGER'S 1000 ML INJ 1,000 ML IV SCH (02:00)
[2016-02-08] MEDS: RESP: ALBUTEROL 2.5 MG/IPRATROPIUM 0.5 MG NEB (SCH) INH ×4 (03:09→20:19)
[2016-02-08 04:07] LABS: AUTOMATED NEUTROPHIL # 4.4 TH/MM3 (1.8-7.7); BASOPHIL % 0.3 % (0.0-2.0); EOSINOPHIL # 0.4 TH/MM3 (0-0.4); EOSINOPHIL % 6.9 % (0.0-4.0); HEMATOCRIT 24.4 % (39.0-51.0); HEMO FLAGS DIFF FINAL; LYMPH % 14.8 % (9.0-44.0); LYMPHOCYTE # 0.9 TH/MM3 (1.0-4.8); MEAN CELL VOLUME 87.6 FL (80.0-100.0); MEAN CORPUSCULAR HEMOGLOBIN 29.1 PG (27.0-34.0); MEAN CORPUSCULAR HGB CONC 33.2 % (32.0-36.0); MONO % 7.9 % (0.0-8.0); NEUT % 70.1 % (16.0-70.0); PLATELET COUNT 180 TH/MM3 (150-450); RED BLOOD COUNT 2.78 MIL/MM3 (4.50-5.90); WHITE BLOOD COUNT 6.3 TH/MM3 (4.0-11.0)
[2016-02-08 04:56] LABS: BICARBONATE 22.4 MEQ/L (21.0-32.0); POTASSIUM 4.1 MEQ/L (3.5-5.1)
[2016-02-08] MEDS: CHLORHEXIDINE GLUCONATE 2 % 1 PACK (2 CLOTHS) TOP SCH (05:03)
[2016-02-08] MEDS: ceFAZolin 2 GM PREMIX 50 ML IV SCH ×3 (05:03→20:07)
[2016-02-08 05:31] LABS: CALCIUM-PROTEIN CORRECTED 8.2 MG/DL (8.5-10.1)
[2016-02-08] MEDS: INSULIN NovoLIN REGULAR SUPPLEMENTAL SCALE SQ SCH ×4 (05:51→18:00)
[2016-02-08] MEDS: ACETAMINOPHEN 650 MG/20.3 ML UDC PO SCH ×3 (06:47→18:01)
[2016-02-08] MEDS: levETIRAcetam INJ 500 MG in SODIUM CHLORIDE 0.9% INJ 100 ML IV SCH ×2 (08:39→20:08)
[2016-02-08] MEDS: DOCUSATE SODIUM 100 MG/10 ML UDC OG SCH ×2 (08:39→20:08)
[2016-02-08] MEDS: SODIUM CHLORIDE 0.9% FLUSH 5 ML FLUSH IVF SCH ×2 (08:40→20:08)
[2016-02-08] MEDS: BACITRACIN TOP OINT 15 GM TUBE TOP SCH ×2 (08:40→20:08)
--- NOTE | 2016-02-08 09:25 | HHI.CCPN ---
Subjective Brief History Patient fell off 10 foot the roof during house building process. Sustained multiple injuries and was brought in as a priority 1 trauma alert Loss of consciousness [place] Coma Scale of 8 and small subcortical bleed on the left brain hemisphere Left acetabular fracture consisting of anterior and posterior column fractures as well as superior inferior rami fractures on the left Left humerus and ulna fracture Some swelling over the left thigh soft tissues but no signs of facial fractures The remainder of exam is negative Patient is intubated and ventilated and the ICP bolt is placed revealing intracranial pressure around 5 mmHg Patient will undergo left acetabular fracture fixation as well as arm fixation 24 Hour Review/Hospital Course 02/06/2016 S/P RIGHT temporoparietal bolt placement with Dr Murphy Stable ICPs overnight Not following commands 02/07/2016 [place] DC'd by NS. Clear for OR today with Ortho for left wrist and possible pelvis repair. Purposeful, RODRÍGUEZ spontaneously. Not following commands. 02/08/2016 Following commands. CPAP trial today. 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 SKIN: Warm and dry. Ecchymosis to LEFT eye, sutures at LEFT eyebrow. Abrasion to LEFT knee, drsg c/d/i. HEAD: Normocephalic. EYES: PERRL. ENT: ETT - OGT. No nasal bleeding or discharge. Mucous membranes pink and moist. NECK: Trachea midline. No JVD. CARDIOVASCULAR: Regular rate and rhythm. CM shows sinus rhythm. RESPIRATORY: No accessory muscle use. Lungs clear to auscultation throughout lung seymour. Breath sounds equal bilaterally. GASTROINTESTINAL: Abdomen soft, non-tender, nondistended. + BS. F/C in place draining clear yellow urine. MUSCULOSKELETAL: Extremities without cyanosis, or edema. LEFT wrist ex-fix in place, fingers warm, good cap refill. NEUROLOGICAL: Lethargic, arousable to voice. Assessment and Plan Plan INJURIES: Small cortical hemorrhage (frontoparietal) w/ bolt placement LEFT open distal radius & fx LEFT acetabular & pubic rami fx LEFT eye brow lac with sutures * S/P I&D with external fixation and percutaneous pinning LEFT radius and ulna ( 02/04) F/U CT Head 02/06: Small high density hemorrhage in the anterior medial LEFT frontal lobe ASSESSMENT AND PLAN: NEUROLOGICAL: Sedated with Propofol and Fentanyl on hold. Patient following commands during the sedation vacation, remains lethargic. Begin sedation vacations daily to assess weaning capability and neuro status. Goal RASS score of 0 to -1. No seizure activity noted, on Keppra prophylactically. HOB elevated 30 degrees CARDIOVASCULAR: HR = 80's-100's. BP stable. MAP 60's to 70's. IVF: NS decreased to 40mL/H Continually monitor for hemodynamic instability (shock and hypotension) Follow [facility] Electrolyte protocol RESPIRATORY: Vent settings PRVC/AC 16 /550 / 35%/ 0.90/ +5, Currently on CPAP 35% /5 /+5 and tolerating. Extubate when more alert. Daily CPAP trials. O2 Sats Monitor for hypoxemia Follow ABGs - Pulmonary toilet L&S as needed. Bronchodilators - Duonebs. Chest X-Ray results - Lungs clear, no acute disease. VAP protocol in place Labs in AM GASTROINTESTINAL: Diet TF change to Vital high-protein with goal of 60 mL per hour per dietitian recommendations. Bowel regimen Colace, MOM. No BM yet. RENAL / URINARY: I&O +2014 BUN / creat 11/0.[address] draining clear yellow urine. ENDOCRINE: Accu checks q6H, on sliding scale insulin HEMATOLOGY: H&H 8.1/84.4 PLT 180 Continue to monitor for signs and symptoms of bleeding Transfuse for < 7.0 INFECTIOUS DISEASE: Follow CBC WBC - 6.3 Fevers - low grade. T-max 99.6 IV Abx- Ancef Administer antipyretics for temp as needed. Maintain vigorous aseptic care of IVs to avoid blood stream infection. Lines: PIV's & RIGHT radial arterial line PROPHYLAXIS: VAP in place GI Protonix IV. DVT - SCD's. Chemical management contraindicated due to ICH. SKIN: Warm / Dry Superficial abrasions to LEFT knee and LEFT face. Skin treatment Bacitracin ACTIVITY: Status - BR PT and OT evaluating. CASE MANAGEMENT: Consulted for assist with DC planning. Placement - disposition. Unknown insurance status at this time. Discussed with RN and patient's mother at bedside. Pt remains critically ill in the ICU. Trauma surgery will round and evaluate patient and treatment plan on a daily basis. Shay Goldstein Feb 08, 2016 09:25
--- NOTE | 2016-02-08 09:55 | PD.ORT.PN ---
Subjective Subjective Remarks In ISC Mother at bedside intubated Objective Vitals Vital Signs Date Time Temp Pulse Resp B/P Pulse Ox O2 Delivery O2 Flow Rate FiO2 02/08/16 09:08 35 02/08/16 07:21 100 35 02/08/16 06:00 103 02/08/16 04:08 100 35 02/08/16 04:00 35 02/08/16 04:00 99.6 94 16 100 123/51 02/08/16 04:00 94 02/08/16 02:00 85 02/08/16 01:11 100 35 02/08/16 00:00 87 02/08/16 00:00 98.6 87 16 100 112/45 02/08/16 00:00 35 02/07/16 22:05 100 35 02/07/16 22:00 89 02/07/16 20:00 91 02/07/16 20:00 35 02/07/16 20:00 99.2 92 16 100 120/48 02/07/16 19:16 100 35 02/07/16 18:00 98 02/07/16 16:01 96 35 02/07/16 16:00 93 02/07/16 16:00 97.8 93 16 100 124/46 02/07/16 16:00 35 02/07/16 13:00 100 100 02/07/16 12:00 35 02/07/16 12:00 83 02/07/16 12:00 97.8 83 16 100 105/46 02/07/16 11:42 100 35 02/07/16 10:00 93 I/O 02/07/16 02/07/16 02/07/16 02/08/16 02/08/16 02/08/16 07:00 15:00 23:00 07:00 15:00 23:00 Intake Total 1323 ml 1043 ml 1009 ml 1438 ml Output Total 275 ml 500 ml 605 ml 370 ml Balance 1048 ml 543 ml 404 ml 1068 ml Intake IV Total 1323 ml 1013 ml 956 ml 1290 ml Tube Feeding 53 ml 148 ml Other 30 ml Output Urine Total 275 ml 250 ml 575 ml 350 ml Gastric Drainage Total 250 ml Drainage Total 30 ml 20 ml # Bowel Movements 0 Result Diagram: 02/08/16 0335 02/08/16 0335 Imaging Last 24 hours Impressions Wrist X-Ray 02/06/16 0000 Signed Impressions: Service Date/Time: January 00:32 - CONCLUSION: Placement of an external fixation device and wire through the radius as described above. Renaldo Gomez MD Chest X-Ray 02/06/16 0000 Signed Impressions: Service Date/Time: January 04:52 - CONCLUSION: No acute disease. Renaldo Gomez MD Upper Extremity CT 02/05/16 1127 Signed Impressions: Service Date/Time: Friday, February 05, 2016 11:27 - CONCLUSION: 1. Comminuted fracture of the distal radius with intra-articular extension. 2. Carpal bones are intact. Kristian Ewing MD Pelvis X-Ray 02/05/16 110 Signed Impressions: Service Date/Time: Friday, February 05, 2016 10:38 - CONCLUSION: Fractures left side of the pelvis as described above. CT scan is pending. Yordy Arias MD FACR Maxillofacial CT 02/05/161106 Signed Impressions: Service Date/Time: Friday, February 05, 2016 11:14 - CONCLUSION: 1. There is no evidence of acute fracture. Kristian Ewing MD Head CT 02/05/161106 Signed Impressions: Service Date/Time: Friday, February 05, 2016 11:11 - CONCLUSION: 1. Negative for skull fracture. 2. Probable small cortical hemorrhage in the left centrum semiovale. Yordy Arias MD FACR Chest X-Ray 02/05/161106 Signed Impressions: Service Date/Time: Friday, February 05, 2016 10:38 - CONCLUSION: 1. ET tube in good position. 2. Prominent cardiac silhouette. Yordy Arias MD FACR Chest CT 02/05/16 110 Signed Impressions: Service Date/Time: Friday, February 05, 2016 11:11 - CONCLUSION: 1. Negative CT scan of the chest for an acute traumatic injury. 2. Minimal bibasilar parenchymal changes without pneumothorax. Yordy Arias MD FACR Cervical Spine CT 02/05/16 110 Signed Impressions: Service Date/Time: Friday, February 05, 2016 11:14 - CONCLUSION: 1. Moderate degenerative changes as described above. There is no evidence of acute fracture. Kristian Ewing MD Abdomen/Pelvis CT 02/05/16 1107 Signed Impressions: Service Date/Time: Friday, February 05, 2016 11:11 - CONCLUSION: 1. No evidence of acute abdominal or pelvic process. No masses are identified. 2. Multiple pelvic fractures including the left acetabulum and pubic rami Kristian Ewing MD Objective Remarks LUE: +exfix of wrist. pin sites clean .no drainage. good cap refill LLE: mild swelling of thigh. good cap refill distally Assessment & Plan Problem List: (1) Open Colles' fracture of left radius (2) Left acetabular fracture (3) Fracture of left superior pubic ramus (4) Fracture of left inferior pubic ramus (5) Closed head injury (6) Respiratory failure after trauma Assessment and Plan 1) Left Distal Radius Fx s/p exfix - POD #2 2) Left Acetabulum fx with Sup/Inf Rami fxs POD #1 continue overall management consider ORIF wrist when stable Silas Morales MD Feb 08, 2016 09:55
[2016-02-08] MEDS: VANCOMYCIN INJ 1,000 MG in SODIUM CHLOR 0.9% 250 ML INJ 250 ML IV SCH ×2 (13:21→23:55)
--- NOTE | 2016-02-08 13:52 | HHI.NSPN ---
History Interval History 50-year-old male presented to [facility] 02/05/16 after falling approximately 10 feet from a roof with positive loss of consciousness. Intubated at the scene with initial GCS 8. No seizure activity reported. ICP monitor placed with stable ICPs. Exam Results Vital Signs Date Time Temp Pulse Resp B/P Pulse Ox O2 Delivery O2 Flow Rate FiO2 02/08/16 13:06 99 35 02/08/16 06:00 103 02/08/16 04:00 99.6 16 123/51 02/05/16 10:50 15.00 02/05/16 10:50 AMBU Intake and Output 02/07/16 02/07/16 02/08/16 08:00 16:00 00:00 Intake Total 1323 ml 1043 ml 1009 ml Output Total 275 ml 500 ml 605 ml Balance 1048 ml 543 ml 404 ml Physical Examination Mr Juarez is intubated and sedated. Localizes to painful stimulii with all 4 extremities. He opens his right eye to voice. Positive left periorbital edema and ecchymosis. Cranial Nerves: Pupils equal, round, reactive to light. Eyes appear conjugated. There was no nystagmus, no papilledema. Face musculature appeared symmetrical at rest. Face sensation, olfaction, visual seymour, and hearing cannot be adequately assessed due to his neurological condition. The patient has a corneal reflex. He has a gag reflex. The sternocleidomastoid and trapezius are symmetrical. Cervical Spine: His neck is soft, supple Motor: His muscle tone and bulk are normal. He moves purposefully all 4 extremities symmetrically. Moves right upper greater than lower extremity to command. Minimal movement left lower extremity. Left upper extremity and external fixator. Reflexes: Deep tendon reflexes are 1+ and symmetrical in the biceps, triceps, and brachioradialis, bilaterally, in the upper extremities. In the lower extremities, the patellar and ankles are 1+, bilaterally. There is a bilateral plantar flexion response. There is no clonus or other abnormal reflexes noted. Sensory: On examination there is response to painful stimuli, localizing with both upper and lower extremities. Cerebellar: Examination cannot be adequately assessed due to the patient's neurological condition. Lab, Micro, Other Results Laboratory Tests Test 02/07/16 02/08/16 18:14 03:35 Hemoglobin 9.0 GM/DL 8.1 GM/DL Hematocrit 27.0 % 24.4 % White Blood Count 6.3 TH/MM3 Red Blood Count 2.78 MIL/MM3 Mean Corpuscular Volume 87.6 FL Mean Corpuscular Hemoglobin 29.1 PG Mean Corpuscular Hemoglobin 33.2 % Concent Red Cell Distribution Width 14.0 % Platelet Count 180 TH/MM3 Mean Platelet Volume 9.4 FL Neutrophils (%) (Auto) 70.1 % Lymphocytes (%) (Auto) 14.8 % Monocytes (%) (Auto) 7.9 % Eosinophils (%) (Auto) 6.9 % Basophils (%) (Auto) 0.3 % Neutrophils # (Auto) 4.4 TH/MM3 Lymphocytes # (Auto) 0.9 TH/MM3 Monocytes # (Auto) 0.5 TH/MM3 Eosinophils # (Auto) 0.4 TH/MM3 Basophils # (Auto) 0.0 TH/MM3 CBC Comment DIFF FINAL Differential Comment Sodium Level 144 MEQ/L Potassium Level 4.1 MEQ/L Chloride Level 114 MEQ/L Carbon Dioxide Level 22.4 MEQ/L Anion Gap 8 MEQ/L Blood Urea Nitrogen 11 MG/DL Creatinine 0.75 MG/DL Estimat Glomerular Filtration 110 ML/MIN Rate Random Glucose 119 MG/DL Calcium Level 7.0 MG/DL Protein Corrected Calcium 8.2 MG/DL Total Protein 4.8 GM/DL Head CT 02/07/16 0600 Signed Impressions: Service Date/Time: Sunday, February 07, 2016 04:11 - CONCLUSION: Small high density hemorrhage in the anterior medial left frontal lobe. Manohar Gardiner MD Multiplanar Reconstruction 02/07/16 0000 Signed Impressions: Service Date/Time: Friday, February 05, 2016 11:15 - CONCLUSION: Comminuted fracture of the left acetabulum, pubic rami in addition are well depicted on 3- D volume rendering as described above. Subhash Coello MD Hip X-Ray 02/07/16 0000 Signed Impressions: Service Date/Time: Sunday, February 07, 2016 15:07 - CONCLUSION: Anatomic alignment. Yordy Arias MD FACR Medical Decision Making Impression and Plan Impression: 1. Stable neurologic exam following traumatic brain injury. Follow-up CT scan head 02/07/16 stable small frontal hemorrhagic contusion. Plan: Discussed with the patient's family and I SC. Continue close neurologic checks and vital signs May wean the ventilator and decreased sedation from neurosurgery standpoint. Okay for Lovenox from neurosurgery standpoint. Jeffery Christensen MD Feb 08, 2016 13:52
[2016-02-08] MEDS: PANTOPRAZOLE SODIUM 40 MG VIAL IVP SCH (14:08)
[2016-02-08] MEDS: fentaNYL DRIP 250 ML IV SCH (14:08)
[2016-02-08] MEDS: ENOXAPARIN SODIUM 30 MG/0.3 ML SYRINGE SQ SCH (15:16)
[2016-02-08] MEDS: PROPOFOL 1000 MG/100 ML INJ 100 ML IV SCH ×2 (15:24→20:30)
[2016-02-08] MEDS ORDERED: DEXMEDETOMIDINE 200 MCG in NS 50 ML/ ADMIX IV SCH (21:30)
[2016-02-08] MEDS ORDERED: DEXMEDETOMIDINE INJ 50 ML IV SCH (21:30)
[2016-02-08] MEDS ORDERED: DEXMEDETOMIDINE INJ 400 MCG in SODIUM CHLORIDE 0.9% INJ 96 ML IV SCH (23:00)
[2016-02-09] VITALS (19 sets, daily range): BP systolic 88–171; BP diastolic 45–79; PULSE 79–124; RESP 12–28; TEMP 99.1–101; O2SAT 94–100
[2016-02-09] MEDS: ACETAMINOPHEN 650 MG/20.3 ML UDC PO SCH ×4 (00:24→22:16)
[2016-02-09] MEDS: RESP: ALBUTEROL 2.5 MG/IPRATROPIUM 0.5 MG NEB (SCH) INH ×3 (04:51→15:31)
[2016-02-09 04:55] LABS: PLATELET COUNT 198 TH/MM3 (150-450); RED BLOOD COUNT 2.27 MIL/MM3 (4.50-5.90); RED CELL DISTRIBUTION WIDTH 14.1 % (11.6-17.2); WHITE BLOOD COUNT 5.9 TH/MM3 (4.0-11.0)
[2016-02-09 05:09] LABS: REVIEW FLAG FINAL
[2016-02-09 05:10] LABS: HEMATOCRIT 19.9 % (39.0-51.0)
[2016-02-09] MEDS: fentaNYL DRIP 250 ML IV SCH ×2 (05:15→23:20)
[2016-02-09 05:18] LABS: BICARBONATE 24.7 MEQ/L (21.0-32.0)
[2016-02-09 05:33] LABS: CALCIUM-PROTEIN CORRECTED 8.6 MG/DL (8.5-10.1)
[2016-02-09] MEDS: INSULIN NovoLIN REGULAR SUPPLEMENTAL SCALE SQ SCH ×3 (06:00→12:00)
[2016-02-09] MEDS: ceFAZolin 2 GM PREMIX 50 ML IV SCH ×3 (06:01→21:45)
[2016-02-09] MEDS: ENOXAPARIN SODIUM 30 MG/0.3 ML SYRINGE SQ SCH ×2 (06:21→14:12)
[2016-02-09] MEDS: CHLORHEXIDINE GLUCONATE 2 % 1 PACK (2 CLOTHS) TOP SCH (06:22)
--- NOTE | 2016-02-09 08:50 | PD.ORT.PN ---
Subjective Subjective Remarks In ISC intubated Objective Vitals Vital Signs Date Time Temp Pulse Resp B/P Pulse Ox O2 Delivery O2 Flow Rate FiO2 02/09/16 07:57 100 35 02/09/16 06:00 84 02/09/16 04:25 100 35 02/09/16 04:00 79 02/09/16 04:00 99.1 79 12 100 88/45 02/09/16 04:00 35 02/09/16 02:00 83 02/09/16 00:23 100 35 02/09/16 00:00 99.7 84 14 100 103/58 02/09/16 00:00 84 02/09/16 00:00 35 02/08/16 22:00 94 02/08/16 20:19 99 35 02/08/16 20:00 35 02/08/16 20:00 101 02/08/16 20:00 99.9 101 16 99 104/55 02/08/16 18:00 103 02/08/16 16:00 100.2 110 16 99 105/53 02/08/16 16:00 110 02/08/16 16:00 35 02/08/16 15:13 100 35 02/08/16 15:10 35 02/08/16 14:00 112 02/08/16 13:06 99 35 02/08/16 12:00 35 02/08/16 12:00 100.7 118 16 99 116/58 02/08/16 12:00 118 02/08/16 10:09 100 35 02/08/16 10:00 112 02/08/16 09:08 35 02/08/16 09:00 35 I/O 02/08/16 02/08/16 02/08/16 02/09/16 02/09/16 02/09/16 06:59 14:59 22:59 06:59 14:59 22:59 Intake Total 1438 ml 1404 ml 1151 ml 1333 ml Output Total 370 ml 425 ml 340 ml 210 ml Balance 1068 ml 979 ml 811 ml 1123 ml Intake IV Total 1290 ml 1102 ml 739 ml 856 ml Tube Feeding 148 ml 212 ml 412 ml 477 ml Tube Irrigant 90 ml Output Urine Total 350 ml 400 ml 325 ml 200 ml Drainage Total 20 ml 25 ml 15 ml 10 ml # Bowel Movements 0 Result Diagram: 02/09/16 0406 02/09/16 0400 Imaging Last 24 hours Impressions Wrist X-Ray 02/06/16 0000 Signed Impressions: Service Date/Time: January 00:32 - CONCLUSION: Placement of an external fixation device and wire through the radius as described above. Renaldo Gomez MD Chest X-Ray 02/06/16 0000 Signed Impressions: Service Date/Time: January 04:52 - CONCLUSION: No acute disease. Renaldo Gomez MD Upper Extremity CT 02/05/16 112 Signed Impressions: Service Date/Time: Friday, February 05, 2016 11:27 - CONCLUSION: 1. Comminuted fracture of the distal radius with intra-articular extension. 2. Carpal bones are intact. Kristian Ewing MD Pelvis X-Ray 02/05/161106 Signed Impressions: Service Date/Time: Friday, February 05, 2016 10:38 - CONCLUSION: Fractures left side of the pelvis as described above. CT scan is pending. Yordy Arias MD FACR Maxillofacial CT 02/05/161106 Signed Impressions: Service Date/Time: Friday, February 05, 2016 11:14 - CONCLUSION: 1. There is no evidence of acute fracture. Kristian Ewing MD Head CT 02/05/161106 Signed Impressions: Service Date/Time: Friday, February 05, 2016 11:11 - CONCLUSION: 1. Negative for skull fracture. 2. Probable small cortical hemorrhage in the left centrum semiovale. Yordy Arias MD FACR Chest X-Ray 02/05/161106 Signed Impressions: Service Date/Time: Friday, February 05, 2016 10:38 - CONCLUSION: 1. ET tube in good position. 2. Prominent cardiac silhouette. Yordy Arias MD FACR Chest CT 02/05/161106 Signed Impressions: Service Date/Time: Friday, February 05, 2016 11:11 - CONCLUSION: 1. Negative CT scan of the chest for an acute traumatic injury. 2. Minimal bibasilar parenchymal changes without pneumothorax. Yordy Arias MD FACR Cervical Spine CT 02/05/161106 Signed Impressions: Service Date/Time: Friday, February 05, 2016 11:14 - CONCLUSION: 1. Moderate degenerative changes as described above. There is no evidence of acute fracture. Kristian Ewing MD Abdomen/Pelvis CT 02/05/16 1107 Signed Impressions: Service Date/Time: Friday, February 05, 2016 11:11 - CONCLUSION: 1. No evidence of acute abdominal or pelvic process. No masses are identified. 2. Multiple pelvic fractures including the left acetabulum and pubic rami Kristian Ewing MD Objective Remarks LUE: +exfix of wrist. pin sites clean .no drainage. good cap refill LLE: incision dry mild swelling no calf swelling hgb 6.2 Assessment & Plan Problem List: (1) Open Colles' fracture of left radius (2) Left acetabular fracture (3) Fracture of left superior pubic ramus (4) Fracture of left inferior pubic ramus (5) Closed head injury (6) Respiratory failure after trauma Assessment and Plan 1) Left Distal Radius Fx s/p exfix - POD #3 2) Left Acetabulum fx with Sup/Inf Rami fxs POD #2 continue overall management consider ORIF wrist when stable transfuse today watch h/h stable ortho Silas Morales MD Feb 09, 2016 08:50
[2016-02-09] MEDS ORDERED: LACTULOSE SYRUP 20 GM/30 ML CUP PO ONE (09:00)
[2016-02-09] MEDS: DOCUSATE SODIUM 100 MG/10 ML UDC OG SCH ×2 (09:11→21:00)
[2016-02-09] MEDS: SODIUM CHLORIDE 0.9% FLUSH 5 ML FLUSH IVF SCH ×2 (09:12→21:45)
[2016-02-09] MEDS: levETIRAcetam INJ 500 MG in SODIUM CHLORIDE 0.9% INJ 100 ML IV SCH ×2 (09:12→21:45)
[2016-02-09] MEDS: SODIUM CHLOR 0.9% 1000 ML INJ 1,000 ML IV SCH (09:14)
[2016-02-09] MEDS: BACITRACIN TOP OINT 15 GM TUBE TOP SCH ×2 (09:14→21:46)
--- NOTE | 2016-02-09 09:54 | HHI.CCPN ---
Subjective Brief History Patient fell off 10 foot the roof during house building process. Sustained multiple injuries and was brought in as a priority 1 trauma alert Loss of consciousness Juju Coma Scale of 8 and small subcortical bleed on the left brain hemisphere Left acetabular fracture consisting of anterior and posterior column fractures as well as superior inferior rami fractures on the left Left humerus and ulna fracture Some swelling over the left thigh soft tissues but no signs of facial fractures The remainder of exam is negative Patient is intubated and ventilated and the ICP bolt is placed revealing intracranial pressure around 5 mmHg Patient will undergo left acetabular fracture fixation as well as arm fixation 24 Hour Review/Hospital Course 02/06/2016 S/P RIGHT temporoparietal bolt placement with Dr Murphy Stable ICPs overnight Not following commands 02/07/2016 [place] DC'd by NS. Clear for OR today with Ortho for left wrist and possible pelvis repair. Purposeful, RODRÍGUEZ spontaneously. Not following commands. 02/08/2016 Following commands. CPAP trial today. 02/09/2016 Agitated yesterday, on Precedex now. Tolerating CPAP. S/P ORIF LEFT acetabulum with EBL 1L Hgb 6.6 today, getting 1 PRBC (Shay Goldstein [employer] T[employer]AT[employer] TECHNICIAN) Objective Vital Signs Date Time Temp Pulse Resp B/P Pulse Ox O2 Delivery O2 Flow Rate FiO2 02/09/16 07:57 100 35 02/09/16 06:00 84 02/09/16 04:00 99.1 12 88/45 02/05/16 10:50 15.00 02/05/16 10:50 AMBU Intake and Output 02/08/16 02/08/16 02/09/16 08:00 16:00 00:00 Intake Total 1438 ml 1404 ml 1151 ml Output Total 370 ml 425 ml 340 ml Balance 1068 ml 979 ml 811 ml (Shay Goldstein [employer]UST[employer] WASTE TREATMENT TECHNICIAN) Result Diagram: 02/09/16 0406 02/09/16 0400 Imaging Last Impressions Head CT 02/07/16 0600 Signed Impressions: Service Date/Time: Sunday, February 07, 2016 04:11 - CONCLUSION: Small high density hemorrhage in the anterior medial left frontal lobe. Manohar Gardiner MD Multiplanar Reconstruction 02/07/16 0000 Signed Impressions: Service Date/Time: Friday, February 05, 2016 11:15 - CONCLUSION: Comminuted fracture of the left acetabulum, pubic rami in addition are well depicted on 3- D volume rendering as described above. Subhash Coello MD Hip X-Ray 02/07/16 0000 Signed Impressions: Service Date/Time: Sunday, February 07, 2016 15:07 - CONCLUSION: Anatomic alignment. Yordy Arias MD FACR Wrist X-Ray 02/06/16 0000 Signed Impressions: Service Date/Time: January 00:32 - CONCLUSION: Placement of an external fixation device and wire through the radius as described above. Renaldo Gomez MD Chest X-Ray 02/06/16 0000 Signed Impressions: Service Date/Time: January 04:52 - CONCLUSION: No acute disease. Renaldo Gomez MD Upper Extremity CT 02/05/16 1127 Signed Impressions: Service Date/Time: Friday, February 05, 2016 11:27 - CONCLUSION: 1. Comminuted fracture of the distal radius with intra-articular extension. 2. Carpal bones are intact. Kristian Ewing MD Pelvis X-Ray 02/05/16 1107 Signed Impressions: Service Date/Time: Friday, February 05, 2016 10:38 - CONCLUSION: Fractures left side of the pelvis as described above. CT scan is pending. Yordy Arias MD FACR Maxillofacial CT 02/05/16 1107 Signed Impressions: Service Date/Time: Friday, February 05, 2016 11:14 - CONCLUSION: 1. There is no evidence of acute fracture. Kristian Ewing MD Chest CT 02/05/16 1107 Signed Impressions: Service Date/Time: Friday, February 05, 2016 11:11 - CONCLUSION: 1. Negative CT scan of the chest for an acute traumatic injury. 2. Minimal bibasilar parenchymal changes without pneumothorax. Yordy Arias MD FACR Cervical Spine CT 02/05/16 1107 Signed Impressions: Service Date/Time: Friday, February 05, 2016 11:14 - CONCLUSION: 1. Moderate degenerative changes as described above. There is no evidence of acute fracture. Kristian Ewing MD Abdomen/Pelvis CT 02/05/16 1107 Signed Impressions: Service Date/Time: Friday, February 05, 2016 11:11 - CONCLUSION: 1. No evidence of acute abdominal or pelvic process. No masses are identified. 2. Multiple pelvic fractures including the left acetabulum and pubic rami Kristian Ewing MD (Shay Goldstein [facility]) Exam DENTAL ASSOCIATE GENERAL: 49 year old male mechanically ventilated. SKIN: Warm and dry. Ecchymosis to LEFT eye, sutures at LEFT eyebrow. Abrasion to LEFT knee, drsg c/d/i. HEAD: Normocephalic. EYES: PERRL. ENT: ETT - OGT. No nasal bleeding or discharge. Mucous membranes pink and moist. NECK: Trachea midline. No JVD. CARDIOVASCULAR: Regular rate and rhythm. CM shows sinus rhythm. RESPIRATORY: No accessory muscle use. Lungs clear to auscultation throughout lung seymour. Breath sounds equal bilaterally. GASTROINTESTINAL: Abdomen soft, non-tender, nondistended. + BS. F/C in place draining clear ulysses urine. MUSCULOSKELETAL: Extremities without cyanosis, or edema. LEFT wrist ex-fix in place, fingers warm, good cap refill. NEUROLOGICAL: Lethargic, arousable to voice. Withdraws to noxious stimuli on RIGHT, LEFT no response today. (Shay Goldstein [facility]) Assessment and Plan Plan INJURIES: Small cortical hemorrhage (frontoparietal) w/ bolt placement LEFT open distal radius & fx LEFT acetabular & pubic rami fx LEFT eye brow lac with sutures * S/P I&D with external fixation and percutaneous pinning LEFT radius and ulna ( 02/04) * S/P ORIF LEFT acetabulum (02/07) F/U CT Head 02/06: Small high density hemorrhage in the anterior medial LEFT frontal lobe ASSESSMENT AND PLAN: NEUROLOGICAL: Agitated yesterday, now on Precedex. Pain control with IV Fentanyl. Propofol off. Opens eyes to verbal commands. Begin sedation vacations daily to assess weaning capability and neuro status. No seizure activity noted, on Keppra prophylactically. HOB elevated 30 degrees CARDIOVASCULAR: HR = 70-80's. BP low. MAP 60's to 70's. Hgb 6.6 today, 1 unit PRBC ordered. Recheck H&H post transfusion. If Hgb < 8 will transfuse 1 more unit. IVF: NS @40mL/H Continually monitor for hemodynamic instability (shock and hypotension) Follow CMP, CBC Electrolyte protocol RESPIRATORY: Vent settings PRVC/AC 16 /550 / 35%/ 0.90/ +5, Currently on CPAP 35% /5 /+5 and tolerating. Extubate when more alert. Daily CPAP trials. O2 Sats Monitor for hypoxemia Follow ABGs - Pulmonary toilet L&S as needed. Bronchodilators - Duonebs. Chest X-Ray results - Lungs clear, no acute disease. VAP protocol in place Labs in AM GASTROINTESTINAL: Diet Vital high-protein at goal of 60 mL per hour. Add 200mL free water flushes q6H. Bowel regimen Colace, MOM. No BM yet. Laculose x1 today. RENAL / URINARY: I&O +2913 BUN / creat 15/0.[address] draining light ulysses urine. Decrease in UOP overnight, added free water flushes and patient to receive PRBC. ENDOCRINE: Accu checks q6H, on sliding scale insulin HEMATOLOGY: H&H 6.6/19.9, 1 PRBC today and recheck H&H. Transfuse for < 8.0 PLT 198 Continue to monitor for signs and symptoms of bleeding INFECTIOUS DISEASE: Follow CBC WBC - 5.9 Fevers - low grade. T-max 100.2 IV Abx- Ancef & Vanco Administer antipyretics for temp as needed. Maintain vigorous aseptic care of IVs to avoid blood stream infection. Lines: PIV's & RIGHT radial arterial line PROPHYLAXIS: VAP in place GI Protonix IV. DVT - SCD's. Chemical management contraindicated due to ICH. SKIN: Warm / Dry Superficial abrasions to LEFT knee and LEFT face. Skin treatment Bacitracin ACTIVITY: Status - BR PT and OT evaluating. Ortho planning ORIF of LEFT wrist when patient more stable. CASE MANAGEMENT: Consulted for assist with DC planning. Placement - disposition. Unknown insurance status at this time. Discussed with RN and patient's mother at bedside. Pt remains critically ill in the ICU. Trauma surgery will round and evaluate patient and treatment plan on a daily basis. (Shay Goldstein) Attestation The exam, history, and the medical decision-making described in the above note were completed with the assistance of the mid-level provider. I reviewed and agree with the findings presented. I attest that I had a [id number] encounter with the patient on the same day, and personally performed and documented my assessment and findings in the medical record. Critical care time 35 minutes. (Lucinda Kidd MD) Shay Goldstein Feb 09, 2016 09:54 Lucinda Kidd MD Feb 11, 2016 15:39
[2016-02-09] MEDS: PANTOPRAZOLE SODIUM 40 MG VIAL IVP SCH (12:19)
[2016-02-09] MEDS: VANCOMYCIN INJ 1,000 MG in SODIUM CHLOR 0.9% 250 ML INJ 250 ML IV SCH (12:20)
[2016-02-09 13:28] LABS: HEMATOCRIT 21.6 % (39.0-51.0); REVIEW FLAG FINAL
--- NOTE | 2016-02-09 15:22 | HHI.NSPN ---
History Interval History 50-year-old male presented to [facility] 02/05/16 after falling approximately 10 feet from a roof with positive loss of consciousness. Intubated at the scene with initial GCS 8. No seizure activity reported. ICP monitor placed with stable ICPs. Exam Results Vital Signs Date Time Temp Pulse Resp B/P Pulse Ox O2 Delivery O2 Flow Rate FiO2 02/09/16 15:19 95 Nasal Cannula 5.00 02/09/16 11:29 35 02/09/16 08:00 83 02/09/16 08:00 99.7 12 122/56 Intake and Output 02/08/16 02/08/16 02/09/16 08:00 16:00 00:00 Intake Total 1438 ml 1404 ml 1151 ml Output Total 370 ml 425 ml 340 ml Balance 1068 ml 979 ml 811 ml Physical Examination Mr Juarez is intubated and sedated. Localizes to painful stimulii with all 4 extremities. He opens his right eye to voice. Positive left periorbital edema and ecchymosis. Cranial Nerves: Pupils equal, round, reactive to light. Eyes appear conjugated. There was no nystagmus, no papilledema. Face musculature appeared symmetrical at rest. Face sensation, olfaction, visual seymour, and hearing cannot be adequately assessed due to his neurological condition. The patient has a corneal reflex. He has a gag reflex. The sternocleidomastoid and trapezius are symmetrical. Cervical Spine: His neck is soft, supple Motor: . Moves right upper greater than lower extremity to command. Minimal movement left lower extremity. Left upper extremity and external fixator. Reflexes: Deep tendon reflexes are 1+ and symmetrical in the biceps, triceps, and brachioradialis, bilaterally, in the upper extremities. In the lower extremities, the patellar and ankles are 1+, bilaterally. There is a bilateral plantar flexion response. There is no clonus or other abnormal reflexes noted. Sensory: On examination there is response to painful stimuli, localizing with both upper and lower extremities. Cerebellar: Examination cannot be adequately assessed due to the patient's neurological condition. Lab, Micro, Other Results Laboratory Tests Test 02/09/16 02/09/16 02/09/16 02/09/16 04:00 04:06 06:00 12:40 Sodium Level 145 MEQ/L Potassium Level 4.0 MEQ/L Chloride Level 112 MEQ/L Carbon Dioxide Level 24.7 MEQ/L Anion Gap 8 MEQ/L Blood Urea Nitrogen 15 MG/DL Creatinine 0.87 MG/DL Estimat Glomerular Filtration 93 ML/MIN Rate Random Glucose 135 MG/DL Calcium Level 7.4 MG/DL Protein Corrected Calcium 8.6 MG/DL Total Protein 5.0 GM/DL White Blood Count 5.9 TH/MM3 Red Blood Count 2.27 MIL/MM3 Hemoglobin 6.6 GM/DL 7.1 GM/DL Hematocrit 19.9 % 21.6 % Mean Corpuscular Volume 88.0 FL Mean Corpuscular Hemoglobin 29.0 PG Mean Corpuscular Hemoglobin 33.0 % Concent Red Cell Distribution Width 14.1 % Platelet Count 198 TH/MM3 Mean Platelet Volume 9.2 FL Blood Type A POSITIVE Antibody Screen NEGATIVE Crossmatch Leukocyte-Reduced Red Blood Cells Blood Bank Comment Medical Decision Making Impression and Plan Impression: 1. Stable neurologic exam following traumatic brain injury. Follow-up CT scan head 02/07/16 stable small frontal hemorrhagic contusion. Plan: Discussed with nursing staff in ISC Continue close neurologic checks and vital signs May wean the ventilator and decreased sedation from neurosurgery standpoint. Okay for Lovenox from neurosurgery standpoint. Jeffery Christensen MD Feb 09, 2016 15:22
[2016-02-09] MEDS ORDERED: BUMETANIDE INJ 1 MG/4 ML VIAL IV PUSH ONE (15:45)
[2016-02-09] MEDS: MORPHINE SULFATE 4 MG/ML INJ IV PUSH PRN (16:00)
[2016-02-09] MEDS ORDERED: ACETAMINOPHEN 1000 MG/100 ML VIAL IV ONE (17:15)
[2016-02-09] MEDS ORDERED: LORazepam 2 MG/ML VIAL IV ONE (17:15)
[2016-02-09] MEDS ORDERED: LABETALOL HCL 100 MG/20 ML VIAL IV PRN (17:30)
[2016-02-09] MEDS: RESP: ALBUTEROL 2.5 MG/IPRATROPIUM 0.5 MG NEB (PRN) INH (19:53)
[2016-02-10] VITALS (14 sets, daily range): BP systolic 147–162; BP diastolic 73–87; PULSE 105–120; RESP 22–30; TEMP 99–100.3; O2SAT 95–100
[2016-02-10] MEDS: ACETAMINOPHEN 650 MG/20.3 ML UDC PO SCH ×4 (00:49→19:00)
[2016-02-10] MEDS: ENOXAPARIN SODIUM 30 MG/0.3 ML SYRINGE SQ SCH ×2 (03:35→15:11)
[2016-02-10] MEDS: ONDANSETRON HCL 4 MG/2 ML VIAL IV PRN (03:35)
[2016-02-10] MEDS: CHLORHEXIDINE GLUCONATE 2 % 1 PACK (2 CLOTHS) TOP SCH (04:12)
[2016-02-10] MEDS: ceFAZolin 2 GM PREMIX 50 ML IV SCH ×2 (04:13→12:36)
[2016-02-10 04:55] LABS: HEMATOCRIT 27.2 % (39.0-51.0); MEAN CELL VOLUME 84.8 FL (80.0-100.0); MEAN CORPUSCULAR HEMOGLOBIN 28.7 PG (27.0-34.0); MEAN CORPUSCULAR HGB CONC 33.9 % (32.0-36.0); PLATELET COUNT 280 TH/MM3 (150-450); RED BLOOD COUNT 3.21 MIL/MM3 (4.50-5.90); RED CELL DISTRIBUTION WIDTH 15.5 % (11.6-17.2); REVIEW FLAG FINAL; WHITE BLOOD COUNT 9.1 TH/MM3 (4.0-11.0)
[2016-02-10 05:16] LABS: BICARBONATE 27.7 MEQ/L (21.0-32.0); POTASSIUM 3.7 MEQ/L (3.5-5.1)
[2016-02-10] MEDS: INSULIN NovoLIN REGULAR SUPPLEMENTAL SCALE SQ SCH ×4 (05:39→18:00)
--- NOTE | 2016-02-10 06:03 | RADRPT ---
EXAM DATE/TIME: 02/10/2016 05:32 [place] COMPARISON: CHEST SINGLE AP, February 06, 2016, 4:52. INDICATIONS : Shortness of breath. MEDICAL HISTORY : None. SURGICAL HISTORY : None. ENCOUNTER: Subsequent ACUITY: 4 - 6 days PAIN SCORE: Non-responsive. LOCATION: Bilateral chest FINDINGS: Very mild atelectasis seen at both bases. No large effusion seen. No pneumothorax. Heart size stable, upper limits of normal. CONCLUSION: Trace bibasilar atelectasis developing. Renaldo Mata MD on February 10, 2016 at 6:01 Board Certified Radiologist. This report was verified electronically.
[2016-02-10] MEDS ORDERED: BISACODYL 10 MG SUPP RECTAL ONE (08:00)
[2016-02-10] MEDS: DOCUSATE SODIUM 100 MG/10 ML UDC OG SCH ×2 (08:08→20:29)
[2016-02-10] MEDS: SODIUM CHLORIDE 0.9% FLUSH 5 ML FLUSH IVF SCH ×2 (08:59→20:29)
[2016-02-10] MEDS: BACITRACIN TOP OINT 15 GM TUBE TOP SCH ×2 (08:59→20:30)
[2016-02-10] MEDS: levETIRAcetam INJ 500 MG in SODIUM CHLORIDE 0.9% INJ 100 ML IV SCH ×2 (09:02→20:29)
--- NOTE | 2016-02-10 09:10 | MP ---
cc: GERALD INMAN DATE OF SURGERY 02/07/2016. PREOPERATIVE DIAGNOSIS Comminuted left acetabular fracture. POSTOPERATIVE DIAGNOSIS Comminuted left acetabular fracture. SURGEON Gerald Inman MD ASSISTANTS MOHAN Sanchez PA-C The surgical procedure was assisted by my physician assistants. My PA-C's presence was necessary throughout this case for the manipulation and positioning of the surgical extremity. My PA-C's were assisting me throughout the duration of this procedure. The skill set of a physician secretary administrative assistant was medically necessary to complete this procedure. During the surgical case the surgical garment inspector was working at the back table and the physician assistants were directly assisting me. ESTIMATED BLOOD LOSS 1000 mL. PLAN OF ACTIVITY Toe-touch weightbearing. DETAILS OF PROCEDURE Hernando is a 50-year-old male who sustained multiple injuries approximately three days ago. Informed consent was obtained from his family and the operative site was marked. He was brought to the OR and placed on the OR table. He was given IV sedation and GETA. The pelvic region and the left leg were prepped with alcohol, followed by Hibiclens and draped in the usual sterile fashion. Time-out procedure was performed. He received IV antibiotics. The procedure began with a 5-inch Pfannenstiel incision over the lower abdomen. Subcutaneous tissue was dissected with Bovie. The linea alba was split. The bladder was protected throughout the procedure. At this point attention was turned to exposure of the medial aspect the acetabulum. There was a large pyle mortis present. This was ligated with hemoclips. After the nerve was visualized, it was protected throughout the procedure. At this point traction was applied. Attention was turned to reduction. Using fracture tenaculums the fracture was reduced, the fracture keyed into well-aligned position. Steinmann pins resulted in provisional fixation. A Synthes pelvic recon plate was contoured to fit the pelvic brim. The plate was provisionally held to bone with K-wires. There was involvement of both the anterior column as well as the posterior column of the acetabulum. One plate was used to span from the pubic rami around to the posterior column. Multiple 3.5 cortical screws were now placed through the plate. The fractures were held in reduced position while screws were placed. All screws were predilated and premeasured for appropriate length. K-wires were removed. Fluoroscopy confirmed concentrically reduced hip with well-aligned fractures. The incision was thoroughly irrigated. A drain was placed deep. The fascia was closed with #1 Vicryl, the subcutaneous tissue was closed with 3-0 Vicryl. The skin was closed with sarah. Sterile dressings were applied. The patient was transferred to Intensive Care in critical condition. MD JIGNA Bejarano/JOSE /3:41 PM /8:58 AM
[2016-02-10] MEDS: PANTOPRAZOLE SODIUM 40 MG VIAL IVP SCH (12:37)
--- NOTE | 2016-02-10 13:07 | HHI.CCPN ---
Subjective Brief History Patient fell off 10 foot the roof during house building process. Sustained multiple injuries and was brought in as a priority 1 trauma alert Loss of consciousness [place] Coma Scale of 8 and small subcortical bleed on the left brain hemisphere Left acetabular fracture consisting of anterior and posterior column fractures as well as superior inferior rami fractures on the left Left humerus and ulna fracture Some swelling over the left thigh soft tissues but no signs of facial fractures The remainder of exam is negative Patient is intubated and ventilated and the ICP bolt is placed revealing intracranial pressure around 5 mmHg Patient will undergo left acetabular fracture fixation as well as arm fixation 24 Hour Review/Hospital Course 02/06/2016 S/P RIGHT temporoparietal bolt placement with Dr Murphy Stable ICPs overnight Not following commands 02/07/2016 [place] DC'd by NS. Clear for OR today with Ortho for left wrist and possible pelvis repair. Purposeful, RODRÍGUEZ spontaneously. Not following commands. 02/08/2016 Following commands. CPAP trial today. 02/09/2016 Agitated yesterday, on Precedex now. Tolerating CPAP. S/P ORIF LEFT acetabulum with EBL 1L Hgb 6.6 today, getting 1 PRBC 02/10/16 Patient extubated yesterday due to increased level of consciousness However patient still not to the point where he is completely awake. Juju Coma Scale is around 10-11 but improving every day Today patient will undergo swallow evaluation and if successful started on by mouth diet Objective Vital Signs Date Time Temp Pulse Resp B/P Pulse Ox O2 Delivery O2 Flow Rate FiO2 02/10/16 12:00 105 02/10/16 12:00 100.3 28 148/83 99 02/10/16 09:25 Nasal Cannula 2.00 02/09/16 16:00 35 Intake and Output 02/09/16 02/09/16 02/10/16 08:00 16:00 00:00 Intake Total 1333 ml 1627 ml 470 ml Output Total 210 ml 360 ml 2620 ml Balance 1123 ml 1267 ml -2150 ml Result Diagram: 02/10/16 0430 02/10/16 0430 Imaging Last 24 hours Impressions Chest X-Ray 02/10/16 0600 Signed Impressions: Service Date/Time: Wednesday, February 10, 2016 05:32 - CONCLUSION: Trace bibasilar atelectasis developing. 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 Patient the more awake and alert every day and successfully extubated yesterday Hemodynamic/Cardiac Dynamic clear remains stable Pulmonary/Respiratory Bilateral good breath sounds with good inspiratory effort but patient has to be prompted to breathe deeply and with the somewhat decreased [place] Coma Scale of 11 sometimes this is little difficult Chest x-ray reveals slight atelectasis of both bases and the aggressive respiratory therapy will fix this Abdomen/GI Nutrition Abdomen is soft enteral feedings are tolerated Patient will undergo swallow study today Assessment and Plan Plan INJURIES: Small cortical hemorrhage (frontoparietal) w/ bolt placement LEFT open distal radius & fx LEFT acetabular & pubic rami fx LEFT eye brow lac with sutures * S/P I&D with external fixation and percutaneous pinning LEFT radius and ulna ( 02/04) * S/P ORIF LEFT acetabulum (02/07) F/U CT Head 02/06: Small high density hemorrhage in the anterior medial LEFT frontal lobe ASSESSMENT AND PLAN: NEUROLOGICAL: Agitated yesterday, now on Precedex. Pain control with IV Fentanyl. Propofol off. Opens eyes to verbal commands. Begin sedation vacations daily to assess weaning capability and neuro status. No seizure activity noted, on Keppra prophylactically. HOB elevated 30 degrees CARDIOVASCULAR: HR = 70-80's. BP low. MAP 60's to 70's. Hgb 6.6 today, 1 unit PRBC ordered. Recheck H&H post transfusion. If Hgb < 8 will transfuse 1 more unit. IVF: NS @40mL/H Continually monitor for hemodynamic instability (shock and hypotension) Follow CMP, CBC Electrolyte protocol RESPIRATORY: Vent settings PRVC/AC 16 /550 / 35%/ 0.90/ +5, Currently on CPAP 35% /5 /+5 and tolerating. Extubate when more alert. Daily CPAP trials. O2 Sats Monitor for hypoxemia Follow ABGs - Pulmonary toilet L&S as needed. Bronchodilators - Duonebs. Chest X-Ray results - Lungs clear, no acute disease. VAP protocol in place Labs in AM GASTROINTESTINAL: Diet Vital high-protein at goal of 60 mL per hour. Add 200mL free water flushes q6H. Bowel regimen Colace, MOM. No BM yet. Laculose x1 today. RENAL / URINARY: I&O +2913 BUN / creat 15/0.[address] draining light ulysses urine. Decrease in UOP overnight, added free water flushes and patient to receive PRBC. ENDOCRINE: Accu checks q6H, on sliding scale insulin HEMATOLOGY: H&H 6.6/19.9, 1 PRBC today and recheck H&H. Transfuse for < 8.0 PLT 198 Continue to monitor for signs and symptoms of bleeding INFECTIOUS DISEASE: Follow CBC WBC - 5.9 Fevers - low grade. T-max 100.2 IV Abx- Ancef & Vanco Administer antipyretics for temp as needed. Maintain vigorous aseptic care of IVs to avoid blood stream infection. Lines: PIV's & RIGHT radial arterial line PROPHYLAXIS: VAP in place GI Protonix IV. DVT - SCD's. Chemical management contraindicated due to ICH. SKIN: Warm / Dry Superficial abrasions to LEFT knee and LEFT face. Skin treatment Bacitracin ACTIVITY: Status - BR PT and OT evaluating. Ortho planning ORIF of LEFT wrist when patient more stable. CASE MANAGEMENT: Consulted for assist with DC planning. Placement - disposition. Unknown insurance status at this time. Discussed with RN and patient's mother at bedside. Pt remains critically ill in the ICU. Trauma surgery will round and evaluate patient and treatment plan on a daily basis. Attestation The exam, history, and the medical decision-making described in the above note were completed with the assistance of the mid-level provider. I reviewed and agree with the findings presented. I attest that I had a [id number] encounter with the patient on the same day, and personally performed and documented my assessment and findings in the medical record. Critical care time 50 minutes. Lucinda Kidd MD Feb 10, 2016 13:07
[2016-02-10] MEDS: RESP: ALBUTEROL 2.5 MG/IPRATROPIUM 0.5 MG NEB (PRN) INH (14:49)
--- NOTE | 2016-02-10 15:32 | PD.ORT.PN ---
Subjective Subjective Remarks pt has been extubated, I.C.P. bolzari are out seen in the hospital with his girlfriend, Damaris. pt voices no musculoskeletal complaints Objective Vitals Vital Signs Date Time Temp Pulse Resp B/P Pulse Ox O2 Delivery O2 Flow Rate FiO2 02/10/16 14:00 108 02/10/16 12:00 105 02/10/16 12:00 100.3 107 28 148/83 99 02/10/16 10:00 107 02/10/16 09:25 96 Nasal Cannula 2.00 02/10/16 08:00 110 02/10/16 08:00 99.0 113 25 153/80 95 02/10/16 06:00 110 02/10/16 04:00 112 02/10/16 04:00 100.1 112 22 154/77 100 02/10/16 02:00 112 02/10/16 00:00 100.3 120 30 159/73 96 02/10/16 00:00 120 02/09/16 22:00 114 02/09/16 20:00 100.8 120 22 159/75 95 Arterial Line 02/09/16 20:00 121 02/09/16 19:53 94 Nasal Cannula 6.00 02/09/16 18:00 121 02/09/16 16:00 124 02/09/16 16:00 35 02/09/16 16:00 101.0 124 28 97 171/79 I/O 02/09/16 02/09/16 02/09/16 02/10/16 02/10/16 02/10/16 07:00 15:00 23:00 07:00 15:00 23:00 Intake Total 1333 ml 1627 ml 470 ml 582 ml 499 ml Output Total 210 ml 360 ml 2620 ml 615 ml 570 ml Balance 1123 ml 1267 ml -2150 ml -33 ml -71 ml Intake Oral 50 ml IV Total 856 ml 806 ml 220 ml 582 ml 449 ml Tube Feeding 477 ml 451 ml Packed Cells 250 ml 250 ml Tube Irrigant 120 ml Output Urine Total 200 ml 350 ml 2600 ml 600 ml 550 ml Drainage Total 10 ml 10 ml 20 ml 15 ml 20 ml # Bowel Movements 0 3 Result Diagram: 02/10/16 0430 02/10/16 0430 Imaging Last 24 hours Impressions Wrist X-Ray 02/06/16 0000 Signed Impressions: Service Date/Time: January 00:32 - CONCLUSION: Placement of an external fixation device and wire through the radius as described above. Renaldo Gomez MD Chest X-Ray 02/06/16 0000 Signed Impressions: Service Date/Time: January 04:52 - CONCLUSION: No acute disease. Renaldo Gomez MD Upper Extremity CT 02/05/16 1127 Signed Impressions: Service Date/Time: Friday, February 05, 2016 11:27 - CONCLUSION: 1. Comminuted fracture of the distal radius with intra-articular extension. 2. Carpal bones are intact. Kristian Ewing MD Pelvis X-Ray 02/05/16 110 Signed Impressions: Service Date/Time: Friday, February 05, 2016 10:38 - CONCLUSION: Fractures left side of the pelvis as described above. CT scan is pending. Yordy Arias MD FACR Maxillofacial CT 02/05/161106 Signed Impressions: Service Date/Time: Friday, February 05, 2016 11:14 - CONCLUSION: 1. There is no evidence of acute fracture. Kristian Ewing MD Head CT 02/05/16 110 Signed Impressions: Service Date/Time: Friday, February 05, 2016 11:11 - CONCLUSION: 1. Negative for skull fracture. 2. Probable small cortical hemorrhage in the left centrum semiovale. Yordy Arias MD FACR Chest X-Ray 02/05/161106 Signed Impressions: Service Date/Time: Friday, February 05, 2016 10:38 - CONCLUSION: 1. ET tube in good position. 2. Prominent cardiac silhouette. Yordy Arias MD FACR Chest CT 02/05/16 110 Signed Impressions: Service Date/Time: Friday, February 05, 2016 11:11 - CONCLUSION: 1. Negative CT scan of the chest for an acute traumatic injury. 2. Minimal bibasilar parenchymal changes without pneumothorax. Yordy Arias MD FACR Cervical Spine CT 02/05/16 1107 Signed Impressions: Service Date/Time: Friday, February 05, 2016 11:14 - CONCLUSION: 1. Moderate degenerative changes as described above. There is no evidence of acute fracture. Kristian Ewing MD Abdomen/Pelvis CT 02/05/16 1107 Signed Impressions: Service Date/Time: Friday, February 05, 2016 11:11 - CONCLUSION: 1. No evidence of acute abdominal or pelvic process. No masses are identified. 2. Multiple pelvic fractures including the left acetabulum and pubic rami Kristian Ewing MD Objective Remarks seen by Dr. Kane MAYFIELDE: +exfix of wrist. pin sites clean .no drainage. good cap refill LLE: incision dry mild swelling no calf swelling drain pulled this AM Assessment & Plan Problem List: (1) Open Colles' fracture of left radius (2) Left acetabular fracture (3) Fracture of left superior pubic ramus (4) Fracture of left inferior pubic ramus (5) Closed head injury (6) Respiratory failure after trauma Assessment and Plan 1) Left Distal Radius Fx s/p exfix - POD #4 2) Left Acetabulum fx with Sup/Inf Rami fxs POD #3 continue overall management consider ORIF wrist when stable P.T. LLE NWB, platform walker LUE watch h/h stable ortho Flaca Maravilla Feb 10, 2016 15:32
--- NOTE | 2016-02-10 17:06 | HHI.NSPN ---
(Cherry Lucas) Note Status Status: Progress Note (Cherry Lucas) Interval History Interval History 02/09: extubated, oriented to name and bday. follows few simple commands. (Cherry Lucas) Labs, Micro, & Vital Signs Results Date Time Temp Pulse Resp B/P Pulse Ox O2 Delivery O2 Flow Rate FiO2 02/10/16 16:00 110 02/10/16 16:00 100.3 109 26 162/84 98 02/10/16 14:00 108 02/10/16 12:00 105 02/10/16 12:00 100.3 107 28 148/83 99 02/10/16 10:00 107 02/10/16 09:25 96 Nasal Cannula 2.00 02/10/16 08:00 110 02/10/16 08:00 99.0 113 25 153/80 95 02/10/16 06:00 110 02/10/16 04:00 112 02/10/16 04:00 100.1 112 22 154/77 100 02/10/16 02:00 112 02/10/16 00:00 100.3 120 30 159/73 96 02/10/16 00:00 120 02/09/16 22:00 114 02/09/16 20:00 100.8 120 22 159/75 95 Arterial Line 02/09/16 20:00 121 02/09/16 19:53 94 Nasal Cannula 6.00 02/09/16 18:00 121 02/10/16 06:59 Intake Total 2679 ml Output Total 3595 ml Balance -916 ml Constitutional Vital Signs Date Time Temp Pulse Resp B/P Pulse Ox O2 Delivery O2 Flow Rate FiO2 02/10/16 16:00 110 02/10/16 16:00 100.3 109 26 162/84 98 02/10/16 14:00 108 02/10/16 12:00 105 02/10/16 12:00 100.3 107 28 148/83 99 02/10/16 10:00 107 02/10/16 09:25 96 Nasal Cannula 2.00 02/10/16 08:00 110 02/10/16 08:00 99.0 113 25 153/80 95 02/10/16 06:00 110 02/10/16 04:00 112 02/10/16 04:00 100.1 112 22 154/77 100 02/10/16 02:00 112 02/10/16 00:00 100.3 120 30 159/73 96 02/10/16 00:00 120 02/09/16 22:00 114 02/09/16 20:00 100.8 120 22 159/75 95 Arterial Line 02/09/16 20:00 121 02/09/16 19:53 94 Nasal Cannula 6.00 02/09/16 18:00 121 02/10/16 06:59 Intake Total 2679 ml Output Total 3595 ml Balance -916 ml (Cherry Lucas) Review of Systems/Exam Exam Mr Juarez is extubated, awake but drowsy. Confused and oriented to name and bday only. Cranial Nerves: Pupils equal, round, reactive to light. Motor: grossly moves all four extremities, ex-fix to LUE Sensory: localizing with both upper and lower extremities. Plantars equivocal b/l (Cherry Lucas) Medications Current Medications Current Medications Medications (Trade) Dose Ordered Sig/Medardo Route PRN Reason Start Time Stop Time Status Last Admin Dose Admin Ondansetron HCl (Zofran Inj) 4 mg Q6H PRN IV NAUSEA OR VOMITING 02/05/16 11:45 02/10/16 03:35 Pantoprazole Sodium (Protonix Inj) 40 mg Q24H IVP 02/05/16 13:00 02/10/16 12:37 Magnesium Hydroxide (Milk Of Magnesia Liq) 30 ml Q6H PRN PO CONSTIPATION 02/05/16 11:45 Miscellaneous Information 1 Q361D XX 02/05/16 11:45 Chlorhexidine Gluconate (Chlorhexidine 2% Cloth) 3 pack Taper DAILY@04 TOP 02/06/16 04:00 02/01/17 03:59 02/10/16 04:12 Chlorhexidine Gluconate (Chlorhexidine 2% Cloth) 3 pack UNSCH PRN TOP HYGIENIC CARE 02/05/16 11:45 Acetaminophen (Tylenol 650 Mg/ 20 ml Liq) 650 mg Q6H PO 02/05/16 13:00 02/10/16 12:36 Oxycodone HCl (Roxicodone Intensol Liq) 5 mg Q4H PRN PO pain 1-7 02/05/16 12:15 Magnesium Oxide 800 mg 800 mg UNSCH PRN PO For Magnesium 1.2 - 1.6 mg/dL 02/05/16 12:15 Magnesium Sulfate 4 gm/Sodium Chloride 100 ml @ 50 mls/hr UNSCH PRN IV For Magnesium 0.9 - 1.1 mg/dL 02/05/16 12:15 Magnesium Sulfate 2 gm/Sodium Chloride 100 ml @ 50 mls/hr UNSCH PRN IV For Magnesium 1.2 - 1.6 mg/dL 02/05/16 12:15 Potassium Chloride 100 ml @ 50 mls/hr Q2H PRN IV For Potassium 2.8 - 3.2 mEq/L 02/05/16 12:15 Potassium Chloride 100 ml @ 50 mls/hr Q2H PRN IV For Potassium 3.3 - 3.5 mEq/L 02/05/16 12:15 Potassium Chloride 100 ml @ 50 mls/hr Q2H PRN IV For Potassium 2.8 - 3.2 mEq/L 02/05/16 12:15 Potassium Chloride (KCl 40 Meq Premix Inj) 100 ml @ 25 mls/hr UNSCH PRN IV For Potassium 3.3 - 3.5 mEq/L 02/05/16 12:15 Potassium Chloride (KCl 40 Meq/30 ml Liq) 40 meq UNSCH PRN PO/TUBE For Potassium 3.3 - 3.5 mEq/L 02/05/16 12:15 Potassium Chloride (KCl 40 Meq/30 ml Liq) 40 meq UNSCH PRN PO/TUBE SEE LABEL COMMENTS 02/05/16 13:00 Potassium Phosphate (K-Phos) 2,000 mg Q4H PRN PO For Phosphorus < 2.5 mg/dL 02/05/16 12:15 Potassium Phosphate 2000 mg 2,000 mg UNSCH PRN PO/TUBE SEE LABEL COMMENTS 02/05/16 12:15 Potassium Phosphate 30 mmol/ Sodium Chloride 260 ml @ 42 mls/hr UNSCH PRN IV SEE LABEL COMMENTS 02/05/16 12:15 Sodium Phosphate/ Sodium Chloride (Sodium Phosphate Inj/NS 250 ml Inj) 250 ml @ 42 mls/hr UNSCH PRN IV For Phosphorus < 2.5 mg/dL 02/05/16 12:15 Dextrose (D50w (Vial) Inj) 25 ml UNSCH PRN IV PUSH HYPOGLYCEMIA-SEE COMMENTS 02/05/16 12:15 02/07/16 12:05 Insulin Human Regular (NovoLIN R SUPPLEMENTAL SCALE) 1 Q6HR SQ 02/05/16 18:00 IV Flush (NS Flush) 2 ml UNSCH PRN IVF FLUSH AFTER USING IV ACCESS 02/06/16 01:00 IV Flush 2 ml 2 ml BID IVF 02/06/16 09:00 02/10/16 08:59 Levetriacetam/ Sodium Chloride (Keppra Inj/NS Inj) 105 ml @ 420 mls/hr Q12HR IV 02/06/16 09:15 02/10/16 09:02 Bacitracin (Baciguent Oint) 1 applic Q12HR TOP 02/06/16 11:00 02/10/16 08:59 Docusate Sodium (Colace Liq) 100 mg BID OG 02/07/16 10:00 02/09/16 09:11 Enoxaparin Sodium (Lovenox Inj) 30 mg Q12H SQ 02/08/16 15:00 02/10/16 15:11 Morphine Sulfate (Morphine Inj) 3 mg Q3H PRN IV PUSH pain 1-10;if not tolerating po 02/09/16 15:30 02/09/16 16:00 Labetalol HCl (Trandate Inj) 20 mg Q4H PRN IV SBP > 170 02/09/16 17:30 (Cherry Lucas) Medical Decision Making MDM Remarks 50 y/o male traumatic brain injury following fall off 10 feet (Cherry Lucas) Plan Plan Remarks clinically improving, cont serial neuro checks cont therapy, rehab (Cherry Lucas) Attending Statement The exam, history, and the medical decision-making described in the above note were completed with the assistance of the mid-level provider. I reviewed and agree with the findings presented. I attest that I had a [id number] encounter with the patient on the same day, and personally performed and documented my assessment and findings in the medical record. (Dax Murphy MD) Cherry Lucas Feb 10, 2016 17:06 Dax Murphy MD Feb 11, 2016 15:19
[2016-02-10] MEDS: MORPHINE SULFATE 4 MG/ML INJ IV PUSH PRN (19:56)
[2016-02-11] VITALS (14 sets, daily range): BP systolic 130–155; BP diastolic 78–84; PULSE 98–111; RESP 18–26; TEMP 99.3–100.2; O2SAT 93–99
[2016-02-11] MEDS: ACETAMINOPHEN 650 MG/20.3 ML UDC PO SCH ×4 (01:00→19:00)
[2016-02-11] MEDS: MORPHINE SULFATE 4 MG/ML INJ IV PUSH PRN ×2 (02:16→13:19)
[2016-02-11] MEDS: ENOXAPARIN SODIUM 30 MG/0.3 ML SYRINGE SQ SCH ×2 (02:16→15:01)
[2016-02-11] MEDS: CHLORHEXIDINE GLUCONATE 2 % 1 PACK (2 CLOTHS) TOP SCH (04:00)
[2016-02-11 04:24] LABS: HEMATOCRIT 27.8 % (39.0-51.0); MEAN CELL VOLUME 85.2 FL (80.0-100.0); MEAN CORPUSCULAR HEMOGLOBIN 28.8 PG (27.0-34.0); MEAN CORPUSCULAR HGB CONC 33.9 % (32.0-36.0); PLATELET COUNT 321 TH/MM3 (150-450); RED BLOOD COUNT 3.26 MIL/MM3 (4.50-5.90); RED CELL DISTRIBUTION WIDTH 15.4 % (11.6-17.2); REVIEW FLAG FINAL; WHITE BLOOD COUNT 5.8 TH/MM3 (4.0-11.0)
[2016-02-11 04:53] LABS: BICARBONATE 24.9 MEQ/L (21.0-32.0); MAGNESIUM 2.3 MG/DL (1.5-2.5); POTASSIUM 3.4 MEQ/L (3.5-5.1)
[2016-02-11] MEDS: POTASSIUM CHLOR 20 MEQ PREMIX 100 ML IV PRN ×2 (04:59→07:06)
[2016-02-11] MEDS: INSULIN NovoLIN REGULAR SUPPLEMENTAL SCALE SQ SCH ×3 (05:06→11:36)
--- NOTE | 2016-02-11 07:22 | PD.ORT.PN ---
Subjective Subjective Remarks No c/o of pain Pt less confused today Objective Vitals Vital Signs Date Time Temp Pulse Resp B/P Pulse Ox O2 Delivery O2 Flow Rate FiO2 02/11/16 06:00 103 02/11/16 04:00 99 02/11/16 04:00 99.9 99 22 150/80 98 02/11/16 02:00 104 02/11/16 00:00 103 02/11/16 00:00 100.0 103 24 155/78 98 02/10/16 22:00 107 02/10/16 20:26 97 Nasal Cannula 3.00 02/10/16 20:00 99.8 109 24 147/87 98 02/10/16 20:00 109 02/10/16 18:00 108 02/10/16 16:00 110 02/10/16 16:00 100.3 109 26 162/84 98 02/10/16 14:00 108 02/10/16 12:00 105 02/10/16 12:00 100.3 107 28 148/83 99 02/10/16 10:00 107 02/10/16 09:25 96 Nasal Cannula 2.00 02/10/16 08:00 110 02/10/16 08:00 99.0 113 25 153/80 95 I/O 02/10/16 02/10/16 02/10/16 02/11/16 02/11/16 02/11/16 07:00 15:00 23:00 07:00 15:00 23:00 Intake Total 582 ml 499 ml 289 ml 266 ml Output Total 615 ml 570 ml 500 ml 450 ml Balance -33 ml -71 ml -211 ml -184 ml Intake Oral 50 ml 0 ml 0 ml IV Total 582 ml 449 ml 289 ml 266 ml Output Urine Total 600 ml 550 ml 500 ml 450 ml Drainage Total 15 ml 20 ml # Bowel Movements 3 1 1 Result Diagram: 02/11/16 0330 02/11/16 0330 Imaging Last 24 hours Impressions Wrist X-Ray 02/06/16 0000 Signed Impressions: Service Date/Time: January 00:32 - CONCLUSION: Placement of an external fixation device and wire through the radius as described above. Renaldo Gomez MD Chest X-Ray 02/06/16 0000 Signed Impressions: Service Date/Time: January 04:52 - CONCLUSION: No acute disease. Renaldo Gomez MD Upper Extremity CT 02/05/16 1127 Signed Impressions: Service Date/Time: Friday, February 05, 2016 11:27 - CONCLUSION: 1. Comminuted fracture of the distal radius with intra-articular extension. 2. Carpal bones are intact. Kristian Ewing MD Pelvis X-Ray 02/05/16 110 Signed Impressions: Service Date/Time: Friday, February 05, 2016 10:38 - CONCLUSION: Fractures left side of the pelvis as described above. CT scan is pending. Yordy Arias MD FACR Maxillofacial CT 02/05/16 110 Signed Impressions: Service Date/Time: Friday, February 05, 2016 11:14 - CONCLUSION: 1. There is no evidence of acute fracture. Kristian Ewing MD Head CT 02/05/16 110 Signed Impressions: Service Date/Time: Friday, February 05, 2016 11:11 - CONCLUSION: 1. Negative for skull fracture. 2. Probable small cortical hemorrhage in the left centrum semiovale. Yordy Arias MD FACR Chest X-Ray 02/05/16 110 Signed Impressions: Service Date/Time: Friday, February 05, 2016 10:38 - CONCLUSION: 1. ET tube in good position. 2. Prominent cardiac silhouette. Yordy Arias MD FACR Chest CT 02/05/16 1107 Signed Impressions: Service Date/Time: Friday, February 05, 2016 11:11 - CONCLUSION: 1. Negative CT scan of the chest for an acute traumatic injury. 2. Minimal bibasilar parenchymal changes without pneumothorax. Yordy Arias MD FACR Cervical Spine CT 02/05/16 1107 Signed Impressions: Service Date/Time: Friday, February 05, 2016 11:14 - CONCLUSION: 1. Moderate degenerative changes as described above. There is no evidence of acute fracture. Kristian Ewing MD Abdomen/Pelvis CT 02/05/16 1107 Signed Impressions: Service Date/Time: Friday, February 05, 2016 11:11 - CONCLUSION: 1. No evidence of acute abdominal or pelvic process. No masses are identified. 2. Multiple pelvic fractures including the left acetabulum and pubic rami Kristian Ewing MD Objective Remarks LUE: +exfix of wrist. pin sites clean .no drainage. good cap refill LLE: incision dry;N/V intact mild swelling no calf swelling Assessment & Plan Problem List: (1) Open Colles' fracture of left radius (2) Left acetabular fracture (3) Fracture of left superior pubic ramus (4) Fracture of left inferior pubic ramus (5) Closed head injury Assessment and Plan 1) Left Distal Radius Fx s/p exfix - POD #5 2) Left Acetabulum fx with Sup/Inf Rami fxs POD #4 OOB to chair today Overhead frame with trapeze Continue overall management Consider ORIF wrist when stable P.T. LLE NWB, platform walker LUE Ortho stable Kane Morales MD Feb 11, 2016 07:22
[2016-02-11] MEDS: DOCUSATE SODIUM 100 MG/10 ML UDC OG SCH ×2 (09:00→21:00)
[2016-02-11] MEDS: SODIUM CHLORIDE 0.9% FLUSH 5 ML FLUSH IVF SCH ×2 (09:14→21:00)
[2016-02-11] MEDS: BACITRACIN TOP OINT 15 GM TUBE TOP SCH ×2 (09:15→21:58)
[2016-02-11] MEDS: levETIRAcetam INJ 500 MG in SODIUM CHLORIDE 0.9% INJ 100 ML IV SCH ×2 (09:16→21:57)
[2016-02-11] MEDS: PANTOPRAZOLE SODIUM 40 MG VIAL IVP SCH (11:26)
--- NOTE | 2016-02-11 14:59 | HHI.CCPN ---
Subjective Brief History Patient fell off 10 foot the roof during house building process. Sustained multiple injuries and was brought in as a priority 1 trauma alert Loss of consciousness [place] Coma Scale of 8 and small subcortical bleed on the left brain hemisphere Left acetabular fracture consisting of anterior and posterior column fractures as well as superior inferior rami fractures on the left Left humerus and ulna fracture Some swelling over the left thigh soft tissues but no signs of facial fractures The remainder of exam is negative Patient is intubated and ventilated and the ICP bolt is placed revealing intracranial pressure around 5 mmHg Patient will undergo left acetabular fracture fixation as well as arm fixation 24 Hour Review/Hospital Course 02/06/2016 S/P RIGHT temporoparietal bolt placement with Dr Murphy Stable ICPs overnight Not following commands 02/07/2016 [place] DC'd by NS. Clear for OR today with Ortho for left wrist and possible pelvis repair. Purposeful, RODRÍGUEZ spontaneously. Not following commands. 02/08/2016 Following commands. CPAP trial today. 02/09/2016 Agitated yesterday, on Precedex now. Tolerating CPAP. S/P ORIF LEFT acetabulum with EBL 1L Hgb 6.6 today, getting 1 PRBC 02/10/16 Patient extubated yesterday due to increased level of consciousness However patient still not to the point where he is completely awake. [place] Coma Scale is around 10-11 but improving every day Today patient will undergo swallow evaluation and if successful started on by mouth diet 02/11/16 Patient significantly improved since extubation yesterday Neurologically much improved with the ability to communicate verbally Still disoriented in time and space [place] Coma Scale about 12-13 Remains somewhat somnolent Patient moves all 4 extremities Swallow study is negative for aspiration and patient has been started on diet Transfer patient to floor today Objective Vital Signs Date Time Temp Pulse Resp B/P Pulse Ox O2 Delivery O2 Flow Rate FiO2 02/11/16 14:00 111 02/11/16 12:00 100.2 18 130/80 96 02/11/16 07:29 Nasal Cannula 3.00 02/09/16 16:00 35 Intake and Output 02/10/16 02/10/16 02/11/16 08:00 16:00 00:00 Intake Total 582 ml 499 ml 289 ml Output Total 615 ml 570 ml 500 ml Balance -33 ml -71 ml -211 ml Result Diagram: 02/11/16 0330 02/11/16 0330 Exam [employer] Much improved neurologically from yesterday Now communicating verbally although still confused and disoriented in time and space but oriented to person Thinks Paco Fajardo is the president Hemodynamic/Cardiac Hemodynamically stable Pulmonary/Respiratory Bilateral good breath sounds with good inspiratory effort and decreasing secretions Abdomen/GI Nutrition Abdomen is soft active bowel sounds patient started on diet today considering negative swallow study Renal/I&O Good urine output Assessment and Plan Plan INJURIES: Small cortical hemorrhage (frontoparietal) w/ bolt placement LEFT open distal radius & fx LEFT acetabular & pubic rami fx LEFT eye brow lac with sutures * S/P I&D with external fixation and percutaneous pinning LEFT radius and ulna ( 02/04) * S/P ORIF LEFT acetabulum (02/07) F/U CT Head 02/06: Small high density hemorrhage in the anterior medial LEFT frontal lobe ASSESSMENT AND PLAN: NEUROLOGICAL: Agitated yesterday, now on Precedex. Pain control with IV Fentanyl. Propofol off. Opens eyes to verbal commands. Begin sedation vacations daily to assess weaning capability and neuro status. No seizure activity noted, on Keppra prophylactically. HOB elevated 30 degrees CARDIOVASCULAR: HR = 70-80's. BP low. MAP 60's to 70's. Hgb 6.6 today, 1 unit PRBC ordered. Recheck H&H post transfusion. If Hgb < 8 will transfuse 1 more unit. IVF: NS @40mL/H Continually monitor for hemodynamic instability (shock and hypotension) Follow CMP, CBC Electrolyte protocol RESPIRATORY: Vent settings PRVC/AC 16 /550 / 35%/ 0.90/ +5, Currently on CPAP 35% /5 /+5 and tolerating. Extubate when more alert. Daily CPAP trials. O2 Sats Monitor for hypoxemia Follow ABGs - Pulmonary toilet L&S as needed. Bronchodilators - Duonebs. Chest X-Ray results - Lungs clear, no acute disease. VAP protocol in place Labs in AM GASTROINTESTINAL: Diet Vital high-protein at goal of 60 mL per hour. Add 200mL free water flushes q6H. Bowel regimen Colace, MOM. No BM yet. Laculose x1 today. RENAL / URINARY: I&O +2913 BUN / creat 15/0.[address] draining light ulysses urine. Decrease in UOP overnight, added free water flushes and patient to receive PRBC. ENDOCRINE: Accu checks q6H, on sliding scale insulin HEMATOLOGY: H&H 6.6/19.9, 1 PRBC today and recheck H&H. Transfuse for < 8.0 PLT 198 Continue to monitor for signs and symptoms of bleeding INFECTIOUS DISEASE: Follow CBC WBC - 5.9 Fevers - low grade. T-max 100.2 IV Abx- Ancef & Vanco Administer antipyretics for temp as needed. Maintain vigorous aseptic care of IVs to avoid blood stream infection. Lines: PIV's & RIGHT radial arterial line PROPHYLAXIS: VAP in place GI Protonix IV. DVT - SCD's. Chemical management contraindicated due to ICH. SKIN: Warm / Dry Superficial abrasions to LEFT knee and LEFT face. Skin treatment Bacitracin ACTIVITY: Status - BR PT and OT evaluating. Ortho planning ORIF of LEFT wrist when patient more stable. CASE MANAGEMENT: Consulted for assist with DC planning. Placement - disposition. Unknown insurance status at this time. Discussed with RN and patient's mother at bedside. Pt remains critically ill in the ICU. Trauma surgery will round and evaluate patient and treatment plan on a daily basis. Attestation The exam, history, and the medical decision-making described in the above note were completed with the assistance of the mid-level provider. I reviewed and agree with the findings presented. I attest that I had a [id number] encounter with the patient on the same day, and personally performed and documented my assessment and findings in the medical record. Critical care time 35 minutes. Lucinda Kidd MD Feb 11, 2016 14:59
--- NOTE | 2016-02-11 15:17 | PD.CONS ---
HPI Service Rehabilitation Medicine Consult Requested By [facility] trauma service Reason for Consult Comprehensive rehabilitation evaluation. Primary Care Physician Unknown History of Present Illness Hernando Juarez is a 50-year-old [id number] male mid [facility] after fall from a roof 10 feet. Positive loss of consciousness was noted. The [place] Coma Scale was 8. Head CT 02/05/16 show probable small cortical hemorrhage in the left centrum semiovale. Follow-up head CT 02/07/16 shows small hemorrhage in the anterior medial left frontal lobe. He sustained left wrist/distal radius fracture, left acetabular fracture and left inferior pubic symphysis fracture. On 02/06/16 he underwent IND with external fixator placement to the left open radius/ulnar fracture. On a knee and underwent ORIF of left acetabular fracture. He is now nonweightbearing left lower extremity and permitted to use platform walker only for weightbearing through the left upper extremity. He was extubated 02/09/16. Review of Systems Constitutional: DENIES: Change in appetite Eyes: DENIES: Vision loss Ears, nose, mouth, throat: DENIES: Throat pain Respiratory: DENIES: Shortness of breath Cardiovascular: DENIES: Chest pain Gastrointestinal: COMPLAINS OF: Constipation, DENIES: Abdominal pain Genitourinary: DENIES: Urinary incontinence Musculoskeletal: COMPLAINS OF: Joint pain Integumentary: DENIES: Rash Hematologic/lymphatic: COMPLAINS OF: Bruising Neurologic: COMPLAINS OF: Headache (mild) Psychiatric: DENIES: Confusion Past Family Social History Allergies: Coded Allergies: No Known Allergies (Unverified , 10/01/13) Past Medical History Unavailable Past Surgical History Unavailable Current Medications Current Medications Medications (Trade) Dose Ordered Sig/Medardo Route Start Time Stop Time Status Last Admin (Zofran Inj) 4 mg Q6H PRN IV 02/05/16 11:45 02/10/16 03:35 (Protonix Inj) 40 mg Q24H IVP 02/05/16 13:00 02/11/16 11:26 (Milk Of Magnesia Liq) 30 ml Q6H PRN PO 02/05/16 11:45 Miscellaneous Information 1 Q361D XX 02/05/16 11:45 (Chlorhexidine 2% Cloth) Taper DAILY@04 TOP 02/06/16 04:00 02/01/17 03:59 02/10/16 04:12 (Chlorhexidine 2% Cloth) 3 pack UNSCH PRN TOP 02/05/16 11:45 (Tylenol 650 Mg/ 20 ml Liq) 650 mg Q6H PO 02/05/16 13:00 02/11/16 11:26 (Roxicodone Intensol Liq) 5 mg Q4H PRN PO 02/05/16 12:15 Magnesium Oxide 800 mg 800 mg UNSCH PRN PO 02/05/16 12:15 Magnesium Sulfate 4 gm/Sodium Chloride 100 ml @ 50 mls/hr UNSCH PRN IV 02/05/16 12:15 Magnesium Sulfate 2 gm/Sodium Chloride 100 ml @ 50 mls/hr UNSCH PRN IV 02/05/16 12:15 Potassium Chloride 100 ml @ 50 mls/hr Q2H PRN IV 02/05/16 12:15 Potassium Chloride 100 ml @ 50 mls/hr Q2H PRN IV 02/05/16 12:15 02/11/16 07:06 Potassium Chloride 100 ml @ 50 mls/hr Q2H PRN IV 02/05/16 12:15 (KCl 40 Meq Premix Inj) 100 ml @ 25 mls/hr UNSCH PRN IV 02/05/16 12:15 (KCl 40 Meq/30 ml Liq) 40 meq UNSCH PRN PO/TUBE 02/05/16 12:15 (KCl 40 Meq/30 ml Liq) 40 meq UNSCH PRN PO/TUBE 02/05/16 13:00 (K-Phos) 2,000 mg Q4H PRN PO 02/05/16 12:15 Potassium Phosphate 2000 mg 2,000 mg UNSCH PRN PO/TUBE 02/05/16 12:15 Potassium Phosphate 30 mmol/ Sodium Chloride 260 ml @ 42 mls/hr UNSCH PRN IV 02/05/16 12:15 (Sodium Phosphate Inj/NS 250 ml Inj) 250 ml @ 42 mls/hr UNSCH PRN IV 02/05/16 12:15 (D50w (Vial) Inj) 25 ml UNSCH PRN IV PUSH 02/05/16 12:15 02/07/16 12:05 (NovoLIN R SUPPLEMENTAL SCALE) 1 Q6HR SQ 02/05/16 18:00 (NS Flush) 2 ml UNSCH PRN IVF 02/06/16 01:00 IV Flush 2 ml 2 ml BID IVF 02/06/16 09:00 02/11/16 09:14 (Keppra Inj/NS Inj) 105 ml @ 420 mls/hr Q12HR IV 02/06/16 09:15 02/11/16 09:16 (Baciguent Oint) 1 applic Q12HR TOP 02/06/16 11:00 02/11/16 09:15 (Colace Liq) 100 mg BID OG 02/07/16 10:00 02/09/16 09:11 (Lovenox Inj) 30 mg Q12H SQ 02/08/16 15:00 02/11/16 15:01 (Morphine Inj) 3 mg Q3H PRN IV PUSH 02/09/16 15:30 02/11/16 13:19 (Trandate Inj) 20 mg Q4H PRN IV 02/09/16 17:30 Family History Unavailable Social History Prior to admission patient lived in [place], [place] Exam I&O / VS 02/10/16 02/10/16 02/11/16 15:00 23:00 07:00 Intake Total 499 ml 289 ml 266 ml Output Total 570 ml 500 ml 450 ml Balance -71 ml -211 ml -184 ml Intake Oral 50 ml 0 ml 0 ml IV Total 449 ml 289 ml 266 ml Output Urine Total 550 ml 500 ml 450 ml Drainage Total 20 ml # Bowel Movements 3 1 1 Vital Signs Date Time Temp Pulse Resp B/P Pulse Ox O2 Delivery O2 Flow Rate FiO2 02/11/16 14:00 111 02/11/16 12:00 100.2 103 18 130/80 96 02/11/16 12:00 103 02/11/16 10:00 105 02/11/16 08:00 98 02/11/16 08:00 99.3 98 20 138/82 99 02/11/16 07:29 98 Nasal Cannula 3.00 02/11/16 06:00 103 02/11/16 04:00 99 02/11/16 04:00 99.9 99 22 150/80 98 02/11/16 02:00 104 02/11/16 00:00 103 02/11/16 00:00 100.0 103 24 155/78 98 02/10/16 22:00 107 02/10/16 20:26 97 Nasal Cannula 3.00 02/10/16 20:00 99.8 109 24 147/87 98 02/10/16 20:00 109 02/10/16 18:00 108 02/10/16 16:00 110 02/10/16 16:00 100.3 109 26 162/84 98 General: No acute distress Respiratory: Lungs CTA, Non-labored respirations, Coarse breath sounds Gastrointestinal: Positive Bowel Sounds, Non-Distended, Non-Tender Cardiovascular: Normal rate, Normal peripheral perfusion, Regular Rhythm Skin: Other (Left external wrist fixator) Psychiatric: Cooperative Orientation: oriented to Self, oriented to Place (with cues), disoriented to Time, disoriented to Situation Neurologic: Pupils (PERRLA), EOM (intact), Facial Symmetry (symmetric), Speech (intelligible), Other (follows commands to move both upper and lower extremities ; SCDs in place) Sensory Grossly intact to light touch DTRs: Normal (symmetric) Babinski: Negative Clonus: Negative Assessment and Plan Assessment 1. Fall from roof with closed head injury with probable small cortical hemorrhage left centrum semiovale and left frontal lobe with multiple fractures including left distal radius status post external fixator placement, left acetabulum and left pelvis status post ORIF the left acetabulum now nonweightbearing left lower extremity and permitted use platform walker left upper extremity Plan 1. Speech therapy has evaluated swallow and tolerating pured diet 2. Occupational therapy addressing ADLs and currently dependent 3. Physical therapy providing range of motion and beginning to mobilize. Continue to maintain weightbearing as above advancing per orthopedics. Anticipate the patient should progress well with mobility. 4. Given the distribution of injuries, patient will likely need inpatient rehabilitation. Case management is addressing discharge planning/payor source for ongoing rehabilitation care. 5. Referral to [place] [facility] 6. Will follow-up hospitalized and at discharge Thank you for this consult Marcia Neff MD Feb 11, 2016 15:17
--- NOTE | 2016-02-11 15:43 | HHI.NSPN ---
(Cherry Lucas) Note Status Status: Progress Note (Cherry Lucas) Status: Progress Note (Dax Murphy MD) Interval History Interval History 02/09: extubated, oriented to name and bday. follows few simple commands. 02/10: a bit more oriented today, knows he is at [place] (Cherry Lucas) Interval History This patient is a middle age male who was brought to [place] ED as a trauma alert after falling off his roof at a height of around 10 feet this morning. There was loss of consciousness. He was reported to be agitated and intubated at the scene. [place] Coma Scale was noted [address] of the brain shows a left high frontoparietal contusion. He was reported to have moved his extremities purposefully but does not follow commands. His sedation was lightened in ISC, he continues not to follow commands, he does not track. A forehead laceration was repaired by the trauma team. Neurosurgical evaluation was requested. 02/05. Neurologically stable. ICP monitor has been placed. ICP stable overnight. Went to OR for debridement and external fixator of wrist . ICP's have been stable. CT of the brain was done. Neurologically stable 02/10. He is alert, awake, oriented X2. He knows he is at [place] (Dax Murphy MD) Labs, Micro, & Vital Signs Results Date Time Temp Pulse Resp B/P Pulse Ox O2 Delivery O2 Flow Rate FiO2 02/11/16 12:00 100.2 103 18 130/80 96 02/11/16 12:00 103 02/11/16 10:00 105 02/11/16 08:00 98 02/11/16 08:00 99.3 98 20 138/82 99 02/11/16 07:29 98 Nasal Cannula 3.00 02/11/16 06:00 103 02/11/16 04:00 99 02/11/16 04:00 99.9 99 22 150/80 98 02/11/16 02:00 104 02/11/16 00:00 103 02/11/16 00:00 100.0 103 24 155/78 98 02/10/16 22:00 107 02/10/16 20:26 97 Nasal Cannula 3.00 02/10/16 20:00 99.8 109 24 147/87 98 02/10/16 20:00 109 02/10/16 18:00 108 02/10/16 16:00 110 02/10/16 16:00 100.3 109 26 162/84 98 02/11/16 07:00 Intake Total 1054 ml Output Total 1520 ml Balance -466 ml Constitutional Vital Signs Date Time Temp Pulse Resp B/P Pulse Ox O2 Delivery O2 Flow Rate FiO2 02/11/16 12:00 100.2 103 18 130/80 96 02/11/16 12:00 103 02/11/16 10:00 105 02/11/16 08:00 98 02/11/16 08:00 99.3 98 20 138/82 99 02/11/16 07:29 98 Nasal Cannula 3.00 02/11/16 06:00 103 02/11/16 04:00 99 02/11/16 04:00 99.9 99 22 150/80 98 02/11/16 02:00 104 02/11/16 00:00 103 02/11/16 00:00 100.0 103 24 155/78 98 02/10/16 22:00 107 02/10/16 20:26 97 Nasal Cannula 3.00 02/10/16 20:00 99.8 109 24 147/87 98 02/10/16 20:00 109 02/10/16 18:00 108 02/10/16 16:00 110 02/10/16 16:00 100.3 109 26 162/84 98 02/11/16 07:00 Intake Total 1054 ml Output Total 1520 ml Balance -466 ml (Cherry Lucas) Review of Systems/Exam Exam Mr Gross is drowsy but awake and oriented x 2. Cranial Nerves: Pupils equal, round, reactive to light. Facial motor grossly symmetric Motor: grossly moves all four extremities purposefully, ex-fix to LUE Sensory: localizing with both upper and lower extremities. Plantars equivocal b/l (Cherry Lucas) Medications Current Medications Current Medications Medications (Trade) Dose Ordered Sig/Medardo Route PRN Reason Start Time Stop Time Status Last Admin Dose Admin Ondansetron HCl (Zofran Inj) 4 mg Q6H PRN IV NAUSEA OR VOMITING 02/05/16 11:45 02/10/16 03:35 Pantoprazole Sodium (Protonix Inj) 40 mg Q24H IVP 02/05/16 13:00 02/11/16 11:26 Magnesium Hydroxide (Milk Of Magnesia Liq) 30 ml Q6H PRN PO CONSTIPATION 02/05/16 11:45 Miscellaneous Information 1 Q361D XX 02/05/16 11:45 Chlorhexidine Gluconate (Chlorhexidine 2% Cloth) Taper DAILY@04 TOP 02/06/16 04:00 02/01/17 03:59 02/10/16 04:12 Chlorhexidine Gluconate (Chlorhexidine 2% Cloth) 3 pack UNSCH PRN TOP HYGIENIC CARE 02/05/16 11:45 Acetaminophen (Tylenol 650 Mg/ 20 ml Liq) 650 mg Q6H PO 02/05/16 13:00 02/11/16 11:26 Oxycodone HCl (Roxicodone Intensol Liq) 5 mg Q4H PRN PO pain 1-7 02/05/16 12:15 Magnesium Oxide 800 mg 800 mg UNSCH PRN PO For Magnesium 1.2 - 1.6 mg/dL 02/05/16 12:15 Magnesium Sulfate 4 gm/Sodium Chloride 100 ml @ 50 mls/hr UNSCH PRN IV For Magnesium 0.9 - 1.1 mg/dL 02/05/16 12:15 Magnesium Sulfate 2 gm/Sodium Chloride 100 ml @ 50 mls/hr UNSCH PRN IV For Magnesium 1.2 - 1.6 mg/dL 02/05/16 12:15 Potassium Chloride 100 ml @ 50 mls/hr Q2H PRN IV For Potassium 2.8 - 3.2 mEq/L 02/05/16 12:15 Potassium Chloride 100 ml @ 50 mls/hr Q2H PRN IV For Potassium 3.3 - 3.5 mEq/L 02/05/16 12:15 02/11/16 07:06 Potassium Chloride 100 ml @ 50 mls/hr Q2H PRN IV For Potassium 2.8 - 3.2 mEq/L 02/05/16 12:15 Potassium Chloride (KCl 40 Meq Premix Inj) 100 ml @ 25 mls/hr UNSCH PRN IV For Potassium 3.3 - 3.5 mEq/L 02/05/16 12:15 Potassium Chloride (KCl 40 Meq/30 ml Liq) 40 meq UNSCH PRN PO/TUBE For Potassium 3.3 - 3.5 mEq/L 02/05/16 12:15 Potassium Chloride (KCl 40 Meq/30 ml Liq) 40 meq UNSCH PRN PO/TUBE SEE LABEL COMMENTS 02/05/16 13:00 Potassium Phosphate (K-Phos) 2,000 mg Q4H PRN PO For Phosphorus < 2.5 mg/dL 02/05/16 12:15 Potassium Phosphate 2000 mg 2,000 mg UNSCH PRN PO/TUBE SEE LABEL COMMENTS 02/05/16 12:15 Potassium Phosphate 30 mmol/ Sodium Chloride 260 ml @ 42 mls/hr UNSCH PRN IV SEE LABEL COMMENTS 02/05/16 12:15 Sodium Phosphate/ Sodium Chloride (Sodium Phosphate Inj/NS 250 ml Inj) 250 ml @ 42 mls/hr UNSCH PRN IV For Phosphorus < 2.5 mg/dL 02/05/16 12:15 Dextrose (D50w (Vial) Inj) 25 ml UNSCH PRN IV PUSH HYPOGLYCEMIA-SEE COMMENTS 02/05/16 12:15 02/07/16 12:05 Insulin Human Regular (NovoLIN R SUPPLEMENTAL SCALE) 1 Q6HR SQ 02/05/16 18:00 IV Flush (NS Flush) 2 ml UNSCH PRN IVF FLUSH AFTER USING IV ACCESS 02/06/16 01:00 IV Flush 2 ml 2 ml BID IVF 02/06/16 09:00 02/11/16 09:14 Levetriacetam/ Sodium Chloride (Keppra Inj/NS Inj) 105 ml @ 420 mls/hr Q12HR IV 02/06/16 09:15 02/11/16 09:16 Bacitracin (Baciguent Oint) 1 applic Q12HR TOP 02/06/16 11:00 02/11/16 09:15 Docusate Sodium (Colace Liq) 100 mg BID OG 02/07/16 10:00 02/09/16 09:11 Enoxaparin Sodium (Lovenox Inj) 30 mg Q12H SQ 02/08/16 15:00 12/20/16 02:16 Morphine Sulfate (Morphine Inj) 3 mg Q3H PRN IV PUSH pain 1-10;if not tolerating po 02/09/16 15:30 02/11/16 13:19 Labetalol HCl (Trandate Inj) 20 mg Q4H PRN IV SBP > 170 02/09/16 17:30 (Cherry Lucas) Medical Decision Making MDM Remarks 50 y/o male traumatic brain injury following fall off 10 feet, neuro examination stable, mental status improving (Cherry Lucas) Plan Plan Remarks cont current care cont therapy, rehab observe for now and f/u neuro exam (Cherry Lucas) Attending Statement Neuro. Continue neuro checks Respiratory. Continue pulmonary toilette, nasotracheal suction, and breathing treatments with nebulizers. Daily PT and OT Open wrist fracture. orthopedics. Status post debridement and external fixator Acetabular fracture. Cont f/u by ortho Nutrition. COntinue enteral diet ID continue to monitor for signs of infection Continue Protonix for stress ulcer prophylaxis Continue Yeison hose and SCD's for DVT prophylaxis The exam, history, and the medical decision-making described in the above note were completed with the assistance of the mid-level provider. I reviewed and agree with the findings presented. I attest that I had a [id number] encounter with the patient on the same day, and personally performed and documented my assessment and findings in the medical record. (Dax Murphy MD) Cherry Lucas Feb 11, 2016 15:43 Dax Murphy MD Feb 12, 2016 09:43
[2016-02-12] VITALS (8 sets, daily range): BP systolic 139–164; BP diastolic 56–91; PULSE 90–102; RESP 16–20; TEMP 97–100.1; O2SAT 94–98
[2016-02-12] MEDS: ENOXAPARIN SODIUM 30 MG/0.3 ML SYRINGE SQ SCH ×2 (05:00→16:15)
[2016-02-12] MEDS: ACETAMINOPHEN 650 MG/20.3 ML UDC PO SCH ×4 (05:07→17:56)
[2016-02-12 06:53] LABS: HEMATOCRIT 24.6 % (39.0-51.0); MEAN CELL VOLUME 84.5 FL (80.0-100.0); MEAN CORPUSCULAR HGB CONC 34.3 % (32.0-36.0); PLATELET COUNT 362 TH/MM3 (150-450); RED BLOOD COUNT 2.91 MIL/MM3 (4.50-5.90); REVIEW FLAG FINAL
[2016-02-12 07:19] LABS: BICARBONATE 26.9 MEQ/L (21.0-32.0); POTASSIUM 3.3 MEQ/L (3.5-5.1)
[2016-02-12] MEDS ORDERED: POTASSIUM CHLORIDE 20 MEQ CONTROLLED RELEASE TAB PO ONE (08:30)
--- NOTE | 2016-02-12 09:25 | HHI.NSPN ---
(Cherry Lucas) Note Status Status: Progress Note (Cherry Lucas) Status: Progress Note (Dax Murphy MD) Interval History Interval History 02/09: extubated, oriented to name and bday. follows few simple commands. 02/10: a bit more oriented today, knows he is at [place] 02/11: transferred out of unit to , had a fall with right forehead laceration , steri strips in place. (Cherry Lucas) Interval History He suffered a fall with a periorbiltal contusionh/laceratrion (Dax Murphy MD) Labs, Micro, & Vital Signs Results Date Time Temp Pulse Resp B/P Pulse Ox O2 Delivery O2 Flow Rate FiO2 02/12/16 08:00 98.1 95 20 156/90 97 02/12/16 06:30 97.7 96 16 150/ 98 02/12/16 06:30 97.7 96 16 150/88 98 02/12/16 05:30 98.4 102 17 142/85 96 02/12/16 04:30 99.0 90 17 160/91 96 02/12/16 00:00 100.1 96 18 139/80 95 02/11/16 22:00 102 02/11/16 20:02 95 21 02/11/16 20:00 107 02/11/16 20:00 100.0 106 26 143/82 93 02/11/16 18:00 103 02/11/16 16:00 100 02/11/16 16:00 100.2 103 22 139/84 98 02/11/16 14:00 111 02/11/16 12:00 100.2 103 18 130/80 96 02/11/16 12:00 103 02/11/16 10:00 105 02/12/16 07:00 Intake Total 1318 ml Output Total 1402 ml Balance -84 ml Constitutional Vital Signs Date Time Temp Pulse Resp B/P Pulse Ox O2 Delivery O2 Flow Rate FiO2 02/12/16 08:00 98.1 95 20 156/90 97 02/12/16 06:30 97.7 96 16 150/ 98 02/12/16 06:30 97.7 96 16 150/88 98 02/12/16 05:30 98.4 102 17 142/85 96 02/12/16 04:30 99.0 90 17 160/91 96 02/12/16 00:00 100.1 96 18 139/80 95 02/11/16 22:00 102 02/11/16 20:02 95 21 02/11/16 20:00 107 02/11/16 20:00 100.0 106 26 143/82 93 02/11/16 18:00 103 02/11/16 16:00 100 02/11/16 16:00 100.2 103 22 139/84 98 02/11/16 14:00 111 02/11/16 12:00 100.2 103 18 130/80 96 02/11/16 12:00 103 02/11/16 10:00 105 02/12/16 07:00 Intake Total 1318 ml Output Total 1402 ml Balance -84 ml (Cherry Lucas) Review of Systems/Exam Exam Mr Gross is awake and oriented x 2. new right forehead lac with steri-strips in place Cranial Nerves: Pupils 3 mm equal, round, reactive to light. Gross EOMs intact. Facial motor grossly symmetric, tongue midline. Motor: grossly moves all four extremities purposefully, ex-fix to LUE Plantars equivocal b/l (Cherry Lucas) Medications Current Medications Current Medications Medications (Trade) Dose Ordered Sig/Medardo Route PRN Reason Start Time Stop Time Status Last Admin Dose Admin Ondansetron HCl (Zofran Inj) 4 mg Q6H PRN IV NAUSEA OR VOMITING 02/05/16 11:45 02/10/16 03:35 Magnesium Hydroxide (Milk Of Magnesia Liq) 30 ml Q6H PRN PO CONSTIPATION 02/05/16 11:45 Acetaminophen (Tylenol 650 Mg/ 20 ml Liq) 650 mg Q6H PO 02/05/16 13:00 02/12/16 05:07 Oxycodone HCl (Roxicodone Intensol Liq) 5 mg Q4H PRN PO pain 1-7 02/05/16 12:15 IV Flush (NS Flush) 2 ml UNSCH PRN IVF FLUSH AFTER USING IV ACCESS 02/06/16 01:00 IV Flush 2 ml 2 ml BID IVF 02/06/16 09:00 02/11/16 21:00 Levetriacetam/ Sodium Chloride (Keppra Inj/NS Inj) 105 ml @ 420 mls/hr Q12HR IV 02/06/16 09:15 02/11/16 21:57 Bacitracin (Baciguent Oint) 1 applic Q12HR TOP 02/06/16 11:00 02/11/16 21:58 Docusate Sodium (Colace Liq) 100 mg BID OG 02/07/16 10:00 02/09/16 09:11 Enoxaparin Sodium (Lovenox Inj) 30 mg Q12H SQ 02/08/16 15:00 02/12/16 05:00 Morphine Sulfate (Morphine Inj) 3 mg Q3H PRN IV PUSH pain 1-10;if not tolerating po 02/09/16 15:30 02/11/16 13:19 Labetalol HCl (Trandate Inj) 20 mg Q4H PRN IV SBP > 170 02/09/16 17:30 Famotidine (Pepcid) 20 mg BID PO 02/12/16 09:00 (Cherry Lucas) Medical Decision Making MDM Remarks 50 y/o male traumatic brain injury following fall off 10 feet s/p repeat fall 02/10, stable nonfocal neuro examination (Cherry Lucas) Plan Plan Remarks recommend closer observation, currently across from nurse station, cont serial neuro checks, dw nursing and mother at bedside (Cherry Lcuas) Attending Statement Neuro. Continue neuro checks Respiratory. Continue pulmonary toilette, nasotracheal suction, and breathing treatments with nebulizers. Daily PT and OT Open wrist fracture. orthopedics. Status post debridement and external fixator Acetabular fracture. Cont f/u by ortho Nutrition. Continue enteral diet ID continue to monitor for signs of infection Continue Protonix for stress ulcer prophylaxis Continue Yeison hose and SCD's for DVT prophylaxis The exam, history, and the medical decision-making described in the above note were completed with the assistance of the mid-level provider. I reviewed and agree with the findings presented. I attest that I had a [id number] encounter with the patient on the same day, and personally performed and documented my assessment and findings in the medical record. (Dax Murphy MD) Cherry Lucas Feb 12, 2016 09:25 Dax Murphy MD Feb 12, 2016 09:45
[2016-02-12] MEDS: DOCUSATE SODIUM 100 MG/10 ML UDC OG SCH ×2 (09:54→21:11)
[2016-02-12] MEDS: FAMOTIDINE 20 MG TAB PO SCH ×2 (09:54→21:12)
[2016-02-12] MEDS: BACITRACIN TOP OINT 15 GM TUBE TOP SCH (09:55)
[2016-02-12] MEDS: SODIUM CHLORIDE 0.9% FLUSH 5 ML FLUSH IVF SCH ×2 (09:55→21:00)
[2016-02-12] MEDS: levETIRAcetam INJ 500 MG in SODIUM CHLORIDE 0.9% INJ 100 ML IV SCH (10:21)
--- NOTE | 2016-02-12 12:35 | HHI.PR ---
Subjective Subjective Notes PTD: 7 Patient is lying in bed, and answers simple questions with one or 2 words. He states that his pain is "okay." He is taking pain medication. He states that his LEFT wrist hurts the most. His is at the bedside, and she is angry that he fell out of bed last night. Objective Vitals/I&O Vital Signs Date Time Temp Pulse Resp B/P Pulse Ox O2 Delivery O2 Flow Rate FiO2 02/12/16 08:00 98.1 95 20 156/90 97 02/11/16 20:02 21 02/11/16 07:29 Nasal Cannula 3.00 Labs Laboratory Tests Test 02/12/16 06:33 White Blood Count 8.0 Red Blood Count 2.91 Hemoglobin 8.4 Hematocrit 24.6 Mean Corpuscular Volume 84.5 Mean Corpuscular Hemoglobin 29.0 Mean Corpuscular Hemoglobin 34.3 Concent Red Cell Distribution Width 15.0 Platelet Count 362 Mean Platelet Volume 7.9 Sodium Level 143 Potassium Level 3.3 Chloride Level 108 Carbon Dioxide Level 26.9 Anion Gap 8 Blood Urea Nitrogen 22 Creatinine 0.75 Estimat Glomerular Filtration 110 Rate Random Glucose 106 Calcium Level 8.1 Radiology Last 72 hours Impressions Chest X-Ray 02/10/16 0600 Signed Impressions: Service Date/Time: Wednesday, February 10, 2016 05:32 - CONCLUSION: Trace bibasilar atelectasis developing. Renaldo Mata MD Narrative Exam GENERAL: This is a 50-year-old male lying in bed. He is in no distress. SKIN: Warm and dry. HEAD: Normocephalic. Steri-Strips noted to right eyebrow. Left eyebrow with sutures open to air. EYES: PERRLA ENT: No nasal bleeding or discharge. Mucous membranes pink and moist. NECK: Trachea midline. No JVD. CARDIOVASCULAR: Regular rate and rhythm. RESPIRATORY: No accessory muscle use. Lungs are clear to auscultation. Breath sounds equal bilaterally. No distress or dyspnea. GASTROINTESTINAL: BS + x 4 quads. Abdomen soft, non-tender, nondistended. MUSCULOSKELETAL: Extremities without cyanosis, or edema. LEFT wrist ex-fix in place. Pin sites intact without redness or edema . + peripheral pulses x 4 extremities. Warm with good capillary refill and sensation. MAEW. NEUROLOGICAL: Awake and alert. Patient will respond to questions with one or 2 words. A/P Assessment and Plan [place] [facility]: This is a 50-year-old male patient. 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 It was approximately 10 feet in height. Positive LOC. He was combative at the scene and therefore intubated. GCS 8 on arrival. He was originally managed in the ICU on mechanical ventilation and an ICP bolt. He has subsequently has been extubated successfully. He passed his swallow eval with honey thickened liquids . Now he is being managed on the [facility] floor. INJURIES: LEFT eye brow lac (sutures) small cortical hemorrhage (frontoparietal) w/ bolt placement LEFT open distal radius & fx LEFT acetabular & pubic rami fx 02/05/2016 bolt placement 02/05/2016 I&D with external fixation and percutaneous pinning LEFT radius and ulna 02/08/2016 ORIF LEFT acetabulum Patient fell out of bed overnight. He was trying to get out of bed to use the bathroom instead of a bedpan. Small laceration to right eyebrow, and Steri- Strips have been placed. Diet: Regular diet with honey thickened liquids. Tolerating po diet. Encourage good po intake with each meal. Pulmonary: Encourage good pulmonary toileting. IS and acapella at bedside and pt encouraged to use. Rationale for use explained to patient, and verbalized understanding. PAIN Management: Oxycodone by mouth. Tylenol IV. And morphine IV for breakthrough pain. Activity: Out of bed with assistance only. (NWCristhian OSORIO, NWCristhian WHITEE) PT and OT ordered. GI prophylaxis: Changed to Pepcid by mouth. Bowel regimen: Colace and MOM. DVT prophylaxis: Mechanical VTE with SCDs. Chemical management with Lovenox SQ. K=3.3. Potassium 40 MEQ by mouth 1 today. Keppra changed to by mouth administration. Ortho will be taking the patient back to the OR for an ORIF of his left wrist. TBD. DC Planning: Case management consulted for assistance with final discharge disposition. Emotional support provided to patient and family at bedside and plan of care discussed. Patient is hemodynamically stable and being managed on the med/surg floor. However he will be transferred to the neuro floor, with a bed close to the nursing station, for closer monitoring. Attending Statement Patient is doing much better and has improved significantly Still somewhat confused and trying to climb out of bed Will have difficulty ambulating considering left hip and left arm fracture Mom is at the bedside and I've discussed this with her at length Patient will need at least 1 month of 3 have been some sort of a rehabilitation center or home health with active rehabilitation The exam, history, and the medical decision-making described in the above note were completed with the assistance of the mid-level provider. I reviewed and agree with the findings presented. I attest that I had a [id number] encounter with the patient on the same day, and personally performed and documented my assessment and findings in the medical record. Lizbeth Gómez Feb 12, 2016 12:35 Lucinda Kidd MD Feb 15, 2016 11:52
[2016-02-12] MEDS: MORPHINE SULFATE 4 MG/ML INJ IV PUSH PRN ×2 (13:25→16:41)
[2016-02-12] MEDS: SODIUM CHLORIDE 0.9% FLUSH 5 ML FLUSH IVF PRN (13:25)
[2016-02-12] MEDS: levETIRAcetam 500 MG TAB PO SCH (21:12)
[2016-02-12] MEDS: ONDANSETRON HCL 4 MG/2 ML VIAL IV PRN (21:13)
[2016-02-13] VITALS (8 sets, daily range): BP systolic 139–156; BP diastolic 70–82; PULSE 56–97; RESP 16–18; TEMP 97.7–99.9; O2SAT 92–96
[2016-02-13] MEDS: ACETAMINOPHEN 650 MG/20.3 ML UDC PO SCH ×4 (01:00→19:00)
[2016-02-13] MEDS: ENOXAPARIN SODIUM 30 MG/0.3 ML SYRINGE SQ SCH ×2 (03:27→14:01)
--- NOTE | 2016-02-13 09:32 | PD.ORT.PN ---
Subjective Subjective Remarks pt has been transferred to 6N orthopedic floor, fell out of bed on ICU, laceration right eyebrow, steri strips in place has no voiced complaints of maxillofacial pain pt voices no musculoskeletal complaints other than left wrist pain Objective Vitals Vital Signs Date Time Temp Pulse Resp B/P Pulse Ox O2 Delivery O2 Flow Rate FiO2 02/13/16 08:22 97.8 87 16 156/82 95 02/13/16 06:30 97.7 93 18 145/77 96 02/13/16 02:30 99.9 97 18 140/76 92 02/12/16 22:30 99.4 98 18 164/77 94 02/12/16 16:00 97.0 90 18 154/56 95 02/12/16 12:00 98.3 90 20 151/80 95 I/O 02/12/16 02/12/16 02/12/16 02/13/16 02/13/16 02/13/16 07:00 15:00 23:00 07:00 15:00 23:00 Intake Total 120 ml 240 ml 240 ml 949 ml Output Total 350 ml 400 ml 275 ml 400 ml Balance -230 ml -160 ml -35 ml 549 ml Intake Oral 120 ml 240 ml 240 ml 240 ml IV Total 709 ml Output Urine Total 350 ml 400 ml 275 ml 400 ml # Bowel Movements 0 0 0 3 Result Diagram: 02/12/16 0633 02/12/16 0633 Imaging Last 24 hours Impressions Wrist X-Ray 02/06/16 0000 Signed Impressions: Service Date/Time: January 00:32 - CONCLUSION: Placement of an external fixation device and wire through the radius as described above. Renaldo Gomez MD Chest X-Ray 02/06/16 0000 Signed Impressions: Service Date/Time: January 04:52 - CONCLUSION: No acute disease. Renaldo Gomez MD Upper Extremity CT 02/05/16 1127 Signed Impressions: Service Date/Time: Friday, February 05, 2016 11:27 - CONCLUSION: 1. Comminuted fracture of the distal radius with intra-articular extension. 2. Carpal bones are intact. Kristian Ewing MD Pelvis X-Ray 02/05/16 1107 Signed Impressions: Service Date/Time: Friday, February 05, 2016 10:38 - CONCLUSION: Fractures left side of the pelvis as described above. CT scan is pending. Yordy Arias MD FACR Maxillofacial CT 02/05/161106 Signed Impressions: Service Date/Time: Friday, February 05, 2016 11:14 - CONCLUSION: 1. There is no evidence of acute fracture. Kristian Ewing MD Head CT 02/05/161106 Signed Impressions: Service Date/Time: Friday, February 05, 2016 11:11 - CONCLUSION: 1. Negative for skull fracture. 2. Probable small cortical hemorrhage in the left centrum semiovale. Yordy Arias MD FACR Chest X-Ray 02/05/161106 Signed Impressions: Service Date/Time: Friday, February 05, 2016 10:38 - CONCLUSION: 1. ET tube in good position. 2. Prominent cardiac silhouette. Yordy Arias MD FACR Chest CT 02/05/161106 Signed Impressions: Service Date/Time: Friday, February 05, 2016 11:11 - CONCLUSION: 1. Negative CT scan of the chest for an acute traumatic injury. 2. Minimal bibasilar parenchymal changes without pneumothorax. Yordy Arias MD FACR Cervical Spine CT 02/05/161106 Signed Impressions: Service Date/Time: Friday, February 05, 2016 11:14 - CONCLUSION: 1. Moderate degenerative changes as described above. There is no evidence of acute fracture. Kristian Ewing MD Abdomen/Pelvis CT 02/05/161106 Signed Impressions: Service Date/Time: Friday, February 05, 2016 11:11 - CONCLUSION: 1. No evidence of acute abdominal or pelvic process. No masses are identified. 2. Multiple pelvic fractures including the left acetabulum and pubic rami Kristian Ewing MD Objective Remarks seen by Dr. Kane OSORIO: +exfix of wrist. pin sites clean .no drainage. good cap refill LLE: incision dry;N/V intact mild swelling no calf swelling steri strips in place right eyebrow Assessment & Plan Problem List: (1) Open Colles' fracture of left radius (2) Left acetabular fracture (3) Fracture of left superior pubic ramus (4) Fracture of left inferior pubic ramus (5) Closed head injury Assessment and Plan 1) Left Distal Radius Fx s/p exfix - POD #7 2) Left Acetabulum fx with Sup/Inf Rami fxs POD #6 Overhead frame with trapeze Continue overall management Consider ORIF left wrist when stable next week P.T. CAROLYN CONNER, platform walker LUE Ortho stable Flaca Maravilla Feb 13, 2016 09:32
[2016-02-13] MEDS: DOCUSATE SODIUM 100 MG/10 ML UDC OG SCH ×2 (09:40→21:00)
[2016-02-13] MEDS: levETIRAcetam 500 MG TAB PO SCH ×2 (09:40→21:00)
[2016-02-13] MEDS: FAMOTIDINE 20 MG TAB PO SCH ×2 (09:40→21:00)
[2016-02-13] MEDS: SODIUM CHLORIDE 0.9% FLUSH 5 ML FLUSH IVF SCH ×2 (09:43→21:00)
[2016-02-13] MEDS: BACITRACIN TOP OINT 15 GM TUBE TOP SCH ×2 (09:44→21:00)
--- NOTE | 2016-02-13 13:35 | HHI.PR ---
Subjective Subjective Notes PTD: 8 Patient is out of bed sitting in a wheelchair. His mother and a sitter are at the bedside. No complaints offered, but the patient would like more independence, and would like to get out of bed to the bathroom for voiding. Counseled the patient at length in his need for assistance with ambulation due to his left radius fracture and pubic rami fractures, in recent head injury. Patient and his mother verbalized understanding however Hernando will need frequent reminding from staff and family. Objective Vitals/I&O Vital Signs Date Time Temp Pulse Resp B/P Pulse Ox O2 Delivery O2 Flow Rate FiO2 02/13/16 12:14 98.0 81 16 142/76 96 02/11/16 20:02 21 02/11/16 07:29 Nasal Cannula 3.00 Labs Laboratory Tests Test 02/09/16 02/09/16 02/11/16 02/12/16 04:00 06:00 03:30 06:33 Protein Corrected Calcium 8.6 MG/DL Total Protein 5.0 GM/DL Blood Type A POSITIVE Antibody Screen NEGATIVE Crossmatch Leukocyte-Reduced Red Blood Cells Blood Bank Comment Magnesium Level 2.3 MG/DL White Blood Count 8.0 TH/MM3 Red Blood Count 2.91 MIL/MM3 Hemoglobin 8.4 GM/DL Hematocrit 24.6 % Mean Corpuscular Volume 84.5 FL Mean Corpuscular Hemoglobin 29.0 PG Mean Corpuscular Hemoglobin 34.3 % Concent Red Cell Distribution Width 15.0 % Platelet Count 362 TH/MM3 Mean Platelet Volume 7.9 FL Sodium Level 143 MEQ/L Potassium Level 3.3 MEQ/L Chloride Level 108 MEQ/L Carbon Dioxide Level 26.9 MEQ/L Anion Gap 8 MEQ/L Blood Urea Nitrogen 22 MG/DL Creatinine 0.75 MG/DL Estimat Glomerular Filtration 110 ML/MIN Rate Random Glucose 106 MG/DL Calcium Level 8.1 MG/DL Radiology Last 72 hours Impressions Chest X-Ray 02/10/16 0600 Signed Impressions: Service Date/Time: Wednesday, February 10, 2016 05:32 - CONCLUSION: Trace bibasilar atelectasis developing. Renaldo Mata MD Narrative Exam GENERAL: This is a 50-year-old male out of bed in a wheelchair. SKIN: Warm and dry. HEAD: Normocephalic. Steri-Strips noted to right eyebrow. Left eyebrow with sutures open to air. EYES: PERRLA ENT: No nasal bleeding or discharge. Mucous membranes pink and moist. NECK: Trachea midline. No JVD. CARDIOVASCULAR: Regular rate and rhythm. RESPIRATORY: No accessory muscle use. Lungs are clear to auscultation. Breath sounds equal bilaterally. No distress or dyspnea. GASTROINTESTINAL: BS + x 4 quads. Abdomen soft, non-tender, nondistended. MUSCULOSKELETAL: Extremities without cyanosis, or edema. LEFT wrist ex-fix in place. Pin sites intact without redness or edema . + peripheral pulses x 4 extremities. Warm with good capillary refill and sensation. MAEW. NEUROLOGICAL: Awake and alert. A/P Assessment and Plan [place]: This is a 50-year-old male patient. 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 It was approximately 10 feet in height. Positive LOC. He was combative at the scene and therefore intubated. GCS 8 on arrival. He was originally managed in the ICU on mechanical ventilation and an ICP bolt. He has subsequently has been extubated successfully. He passed his swallow eval with honey thickened liquids . Now he is being managed on the [facility] floor. INJURIES: LEFT eye brow lac (sutures) small cortical hemorrhage (frontoparietal) w/ bolt placement LEFT open distal radius & fx LEFT acetabular & pubic rami fx 02/05/2016 bolt placement 02/05/2016 I&D with external fixation and percutaneous pinning LEFT radius and ulna 02/08/2016 ORIF LEFT acetabulum Patient fell out of bed on 02/11/2016. A sitter is currently at the bedside, and he is in a room right across from the nursing station. Sutures to be removed from his left eyebrow area, today. Diet: Regular diet with honey thickened liquids. Tolerating po diet. Encourage good po intake with each meal. Pulmonary: Encourage good pulmonary toileting. IS and acapella at bedside and pt encouraged to use. Rationale for use explained to patient, and verbalized understanding. PAIN Management: Oxycodone po. Tylenol IV. Morphine IV for breakthrough pain. Activity: Out of bed with assistance only. (NWCristhian OSORIO, NWCristhian WHITEE) PT and OT ordered. Counseled the patient and his mother at length regarding his need for assistance with ambulation, and transferring of any kind. Both the patient and his mother verbalized understanding. He will need frequent reminding. GI prophylaxis: Pepcid by mouth. Bowel regimen: Colace and MOM. BM x 3. DVT prophylaxis: Mechanical VTE with SCDs. Chemical management with Lovenox SQ. K=3.3. Potassium 40 MEQ by mouth 1 today. Keppra changed to by mouth administration. Ortho will be taking the patient back to the OR for an ORIF of his left wrist. TBD. DC Planning: Case management consulted for assistance with final discharge disposition. Emotional support provided to patient and family at bedside and plan of care discussed. Patient is hemodynamically stable and being managed on the med/surg floor in a room across from the nursing station, and additionally with a sitter at the bedside. Attending Statement The exam, history, and the medical decision-making described in the above note were completed with the assistance of the mid-level provider. I reviewed and agree with the findings presented. I attest that I had a [id number] encounter with the patient on the same day, and personally performed and documented my assessment and findings in the medical record. multiple orthopedic injuries, extremities neurovascular intact Lizbeth Gómez Feb 13, 2016 13:35 Clint Diaz MD Feb 23, 2016 17:47
[2016-02-13] MEDS: MORPHINE SULFATE 4 MG/ML INJ IV PUSH PRN (13:57)
[2016-02-13] MEDS: SODIUM CHLORIDE 0.9% FLUSH 5 ML FLUSH IVF PRN (13:58)
[2016-02-14] VITALS: BP 129/84; PULSE 93; RESP 18; TEMP 97.7; O2SAT 96
[2016-02-14] MEDS: ACETAMINOPHEN 650 MG/20.3 ML UDC PO SCH (01:20)
[2016-02-14] MEDS: ENOXAPARIN SODIUM 30 MG/0.3 ML SYRINGE SQ SCH ×2 (02:59→14:15)
[2016-02-14] MEDS: ONDANSETRON HCL 4 MG/2 ML VIAL IV PRN (03:00)
[2016-02-14] MEDS: MORPHINE SULFATE 4 MG/ML INJ IV PUSH PRN (03:01)
[2016-02-14 04:00] VITALS: BP 134/75; PULSE 89; RESP 18; TEMP 97.1; O2SAT 96
--- NOTE | 2016-02-14 07:21 | PD.ORT.PN ---
Subjective Subjective Remarks pt has been transferred to 6N orthopedic floor, fell out of bed on ICU, laceration right eyebrow, steri strips in place has no voiced complaints of maxillofacial pain pt voices no musculoskeletal complaints other than left wrist pain pt is able to tell me today the calendar month, year, current president, future president, and current location Objective Vitals Vital Signs Date Time Temp Pulse Resp B/P Pulse Ox O2 Delivery O2 Flow Rate FiO2 02/14/16 04:00 97.1 89 18 134/75 96 02/14/16 03:06 16 02/14/16 00:00 97.7 93 18 129/84 96 02/13/16 20:00 99.0 95 18 139/71 93 02/13/16 16:28 97.9 79 16 139/70 95 02/13/16 12:14 98.0 81 16 142/76 96 02/13/16 08:22 97.8 87 16 156/82 95 02/13/16 08:00 56 I/O 02/13/16 02/13/16 02/13/16 02/14/16 02/14/16 02/14/16 07:00 15:00 23:00 07:00 15:00 23:00 Intake Total 949 ml 480 ml 360 ml 480 ml Output Total 400 ml Balance 549 ml 480 ml 360 ml 480 ml Intake Oral 240 ml 480 ml 360 ml 480 ml IV Total 709 ml Output Urine Total 400 ml # Voids 1 1 # Bowel Movements 3 3 0 3 Result Diagram: 02/12/16 0633 02/12/16 0633 Imaging Last 24 hours Impressions Wrist X-Ray 02/06/16 0000 Signed Impressions: Service Date/Time: January 00:32 - CONCLUSION: Placement of an external fixation device and wire through the radius as described above. Renaldo Gomez MD Chest X-Ray 02/06/16 0000 Signed Impressions: Service Date/Time: January 04:52 - CONCLUSION: No acute disease. Renaldo Gomez MD Upper Extremity CT 02/05/16 1127 Signed Impressions: Service Date/Time: Friday, February 05, 2016 11:27 - CONCLUSION: 1. Comminuted fracture of the distal radius with intra-articular extension. 2. Carpal bones are intact. Kristian Ewing MD Pelvis X-Ray 02/05/161106 Signed Impressions: Service Date/Time: Friday, February 05, 2016 10:38 - CONCLUSION: Fractures left side of the pelvis as described above. CT scan is pending. Yordy Arias MD FACR Maxillofacial CT 02/05/161106 Signed Impressions: Service Date/Time: Friday, February 05, 2016 11:14 - CONCLUSION: 1. There is no evidence of acute fracture. Kristian Ewing MD Head CT 02/05/161106 Signed Impressions: Service Date/Time: Friday, February 05, 2016 11:11 - CONCLUSION: 1. Negative for skull fracture. 2. Probable small cortical hemorrhage in the left centrum semiovale. Yordy Arias MD FACR Chest X-Ray 02/05/161106 Signed Impressions: Service Date/Time: Friday, February 05, 2016 10:38 - CONCLUSION: 1. ET tube in good position. 2. Prominent cardiac silhouette. Yordy Arias MD FACR Chest CT 02/05/161106 Signed Impressions: Service Date/Time: Friday, February 05, 2016 11:11 - CONCLUSION: 1. Negative CT scan of the chest for an acute traumatic injury. 2. Minimal bibasilar parenchymal changes without pneumothorax. Yordy Arias MD FACR Cervical Spine CT 02/05/161106 Signed Impressions: Service Date/Time: Friday, February 05, 2016 11:14 - CONCLUSION: 1. Moderate degenerative changes as described above. There is no evidence of acute fracture. Kristian Ewing MD Abdomen/Pelvis CT 02/05/161106 Signed Impressions: Service Date/Time: Friday, February 05, 2016 11:11 - CONCLUSION: 1. No evidence of acute abdominal or pelvic process. No masses are identified. 2. Multiple pelvic fractures including the left acetabulum and pubic rami Kristian Ewing MD Objective Remarks seen by Dr. Kane OSORIO: +exfix of wrist. pin sites clean .no drainage. good cap refill LLE: incision dry;N/V intact mild swelling no calf swelling steri strips in place right eyebrow Assessment & Plan Problem List: (1) (2) (3) (4) (5) Assessment and Plan 1) Left Distal Radius Fx s/p exfix - POD #8 2) Left Acetabulum fx with Sup/Inf Rami fxs POD #7 Overhead frame with trapeze Continue overall management Consider ORIF left wrist when stable next week P.T. LLE UBALDO, platform walker LUE Ortho stable Flaca Maravilla Feb 14, 2016 07:21
[2016-02-14 08:00] VITALS: BP 156/83; PULSE 93; RESP 24; TEMP 98.8; O2SAT 94
[2016-02-14 10:05] LABS: AUTOMATED NEUTROPHIL # 6.4 TH/MM3 (1.8-7.7); BASOPHIL % 0.4 % (0.0-2.0); EOSINOPHIL # 0.4 TH/MM3 (0-0.4); EOSINOPHIL % 4.6 % (0.0-4.0); HEMATOCRIT 28.4 % (39.0-51.0); LYMPH % 10.3 % (9.0-44.0); LYMPHOCYTE # 0.9 TH/MM3 (1.0-4.8); MEAN CELL VOLUME 84.8 FL (80.0-100.0); NEUT % 76.7 % (16.0-70.0); PLATELET COUNT 491 TH/MM3 (150-450); RED BLOOD COUNT 3.35 MIL/MM3 (4.50-5.90); RED CELL DISTRIBUTION WIDTH 15.1 % (11.6-17.2); WHITE BLOOD COUNT 8.4 TH/MM3 (4.0-11.0)
[2016-02-14 10:08] LABS: HEMO FLAGS AUTO DIFF
[2016-02-14 10:14] LABS: BICARBONATE 26.7 MEQ/L (21.0-32.0); POTASSIUM 3.1 MEQ/L (3.5-5.1)
[2016-02-14] MEDS: FAMOTIDINE 20 MG TAB PO SCH ×2 (10:20→20:01)
[2016-02-14] MEDS: BACITRACIN TOP OINT 15 GM TUBE TOP SCH ×2 (10:20→20:01)
[2016-02-14] MEDS: DOCUSATE SODIUM 100 MG CAP PO SCH ×2 (10:21→20:01)
[2016-02-14] MEDS: SODIUM CHLORIDE 0.9% FLUSH 5 ML FLUSH IVF SCH ×2 (10:21→20:01)
--- NOTE | 2016-02-14 10:48 | HHI.PR ---
Subjective Subjective Notes Lethargic. RN reports patient was up all night. Objective Vitals/I&O Vital Signs Date Time Temp Pulse Resp B/P Pulse Ox O2 Delivery O2 Flow Rate FiO2 02/14/16 08:00 98.8 93 24 156/83 94 02/11/16 20:02 21 02/11/16 07:29 Nasal Cannula 3.00 Labs Laboratory Tests Test 02/14/16 09:17 White Blood Count 8.4 Red Blood Count 3.35 Hemoglobin 9.4 Hematocrit 28.4 Mean Corpuscular Volume 84.8 Mean Corpuscular Hemoglobin 28.0 Mean Corpuscular Hemoglobin 33.0 Concent Red Cell Distribution Width 15.1 Platelet Count 491 Mean Platelet Volume 8.2 Neutrophils (%) (Auto) 76.7 Lymphocytes (%) (Auto) 10.3 Monocytes (%) (Auto) 8.0 Eosinophils (%) (Auto) 4.6 Basophils (%) (Auto) 0.4 Neutrophils # (Auto) 6.4 Lymphocytes # (Auto) 0.9 Monocytes # (Auto) 0.7 Eosinophils # (Auto) 0.4 Basophils # (Auto) 0.0 CBC Comment AUTO DIFF Sodium Level 141 Potassium Level 3.1 Chloride Level 106 Carbon Dioxide Level 26.7 Anion Gap 8 Blood Urea Nitrogen 19 Creatinine 0.70 Estimat Glomerular Filtration 119 Rate Random Glucose 104 Calcium Level 8.8 Radiology Last 72 hours Impressions Chest X-Ray 02/10/16 0600 Signed Impressions: Service Date/Time: Wednesday, February 10, 2016 05:32 - CONCLUSION: Trace bibasilar atelectasis developing. Renaldo Mata MD Narrative Exam GENERAL: 50 year old well-nourished, well-developed male. SKIN: Warm and dry. HEAD: Normocephalic. RIGHT eye with ecchymosis and steri-strips in place. ENT: No nasal bleeding or discharge. Mucous membranes pink and moist. NECK: Trachea midline. No JVD. CARDIOVASCULAR: Regular rate and rhythm. RESPIRATORY: No accessory muscle use. Lungs are clear and diminished to auscultation. Breath sounds equal bilaterally. GASTROINTESTINAL: Abdomen soft, non-tender, nondistended. + BS MUSCULOSKELETAL: Extremities without cyanosis, or edema. LEFT wrist ex-fix in place. + peripheral pulses x 4 with good cap refill. NEUROLOGICAL: Lethargic A/P Assessment and Plan INJURIES: LEFT eye brow lac Small cortical hemorrhage (frontoparietal) w/ bolt placement LEFT open distal radius & fx LEFT acetabular & pubic rami fx 02/05/2016 I&D with external fixation and percutaneous pinning LEFT radius and ulna 02/08/2016 ORIF LEFT acetabulum Diet: Pureed diet with honey thickened liquids. ST evaluating swallow function daily. Advanced to mechanical soft. Pulmonary: IS and acapella, encouraged patient use Pain: Oxycodone, Morphine and scheduled Tylenol DC'd. Patient too sedated. Percocet added PRN. Activity: OOB with assist. (NWB LUE, NWB LLE) PT and OT evaluating. GI prophylaxis: Pepcid Bowel regimen: Colace and MOM. Nursing reporting patient is having diarrhea. 6 BMs yesterday, rule out C. difficile. DVT prophylaxis: SCDs, Lovenox SQ. Labs reviewed. Potassium 3.1 today, Give 80mEq PO KCl x1 Keppra discontinued. No signs of seizures. No further indication to continue Keppra prophylactically. Ortho plans to take patient next week for ORIF of his left wrist. Case management assisted with discharge planning. Patient's mother reports the patient is uninsured. Plan of care discussed with RN and patient's mother at bedside. Patient is in close observation room with a sitter, as he has been impulsive and been getting out of bed without assistance. Attending Statement Patient to remain in the hospital considering his inability to ambulate or be assisted at home sufficiently The exam, history, and the medical decision-making described in the above note were completed with the assistance of the mid-level provider. I reviewed and agree with the findings presented. I attest that I had a [id number] encounter with the patient on the same day, and personally performed and documented my assessment and findings in the medical record. Shay Goldstein Feb 14, 2016 10:48 Lucinda Kidd MD Feb 15, 2016 12:13
[2016-02-14 10:54] LABS: BANDS 5 % (0-6); BASOPHILS 1 % (0-2); EOSINOPHILS 3 % (0-4); METAMYELOCYTES 1 % (0-1); MYELOCYTES 4 % (0-0); NEUTROPHIL # MANUAL DIFF 6.6 TH/MM3 (1.8-7.7); POLYS (SEG NEUTROPHILS) 69 % (16-70); WBC DIFF SAMPLE 100
[2016-02-14 10:56] LABS: PLATELET ESTIMATE SMEAR HIGH (NORMAL); PLATELET MORPHOLOGY NORMAL (NORMAL); POLYCHROMASIA 2.6 % (0.0-1.9); SCAN/DIFF FINAL DIFF MANUAL; TEARDROP RBCS 1+ (NORMAL)
[2016-02-14] MEDS ORDERED: POTASSIUM CHLORIDE 20 MEQ CONTROLLED RELEASE TAB PO ONE (11:30)
[2016-02-14 12:00] VITALS: BP 151/80; PULSE 87; RESP 24; TEMP 98.3; O2SAT 93
--- NOTE | 2016-02-14 12:56 | HHI.NSPN ---
Note Status Status: Progress Note Interval History Diagnosis Trauma alert Interval History Neurologically stable.More alert and appropriated Labs, Micro, & Vital Signs Results Date Time Temp Pulse Resp B/P Pulse Ox O2 Delivery O2 Flow Rate FiO2 02/14/16 08:00 98.8 93 24 156/83 94 02/14/16 04:00 97.1 89 18 134/75 96 02/14/16 03:06 16 02/14/16 00:00 97.7 93 18 129/84 96 02/13/16 20:00 99.0 95 18 139/71 93 02/13/16 16:28 97.9 79 16 139/70 95 02/14/16 07:00 Intake Total 1320 ml Balance 1320 ml Constitutional Vital Signs Date Time Temp Pulse Resp B/P Pulse Ox O2 Delivery O2 Flow Rate FiO2 02/14/16 08:00 98.8 93 24 156/83 94 02/14/16 04:00 97.1 89 18 134/75 96 02/14/16 03:06 16 02/14/16 00:00 97.7 93 18 129/84 96 02/13/16 20:00 99.0 95 18 139/71 93 02/13/16 16:28 97.9 79 16 139/70 95 02/14/16 07:00 Intake Total 1320 ml Balance 1320 ml Review of Systems/Exam Exam Mr Gross is awake and oriented Cranial Nerves: Pupils 3 mm equal, round, reactive to light. Gross EOMs intact. Facial motor grossly symmetric, tongue midline. Motor: grossly moves all four extremities purposefully, ex-fix to LUE Sneosry exam stable DTR symmetrical Medications Current Medications Current Medications Lorazepam (Ativan Inj) 2 mg STK-MED ONCE .ROUTE ; Start 02/05/16 at 10:49; Stop 02/05/16 at 10:50; Status DC Diphtheria/ Tetanus/Acell Pertussis 0.5 ml 0.5 ml STK-MED ONCE IM Last administered on 02/05/16at 12:00; Start 02/05/16 at 10:49; Stop 02/05/16 at 10 :50; Status DC Cefazolin Sodium/ Dextrose (Ancef 2 Gm Premix) 50 ml @ As Directed STK-MED ONCE .ROUTE ; Start 02/05/16 at 10:50; Stop 02/05/16 at 10:51; Status DC Midazolam HCl (Versed Inj) 5 mg STK-MED ONCE .ROUTE ; Start 02/05/16 at 11:37; Stop 02/05/16 at 11:38; Status DC Iohexol 98 ml 98 ml STK-MED ONCE IV Last administered on 02/05/16at 11:43; Start 02/05/16 at 11:43; Stop 02/05/16 at 11:44; Status DC Sodium Chloride (NS 1000 ml Inj) 1,000 ml @ 40 mls/hr Q24H IV Last administered on 02/09/16at 09:14; Start 02/05/16 at 12:00; Stop 02/09/16 at 17 :10; Status DC IV Flush (NS Flush) 2 ml UNSCH PRN IVF FLUSH AFTER USING IV ACCESS; Start at 11:45; Stop 02/06/16 at 01:04; Status DC Enalaprilat (Vasotec Inj) 1.25 mg Q8H PRN IV SBP>180, DBP>95; Start 02/05/16 at 11:45; Stop 02/05/16 at 12:16; Status DC Ondansetron HCl (Zofran Inj) 4 mg Q6H PRN IV NAUSEA OR VOMITING Last administered on 02/14/16at 03:00; Start 02/05/16 at 11:45 Pantoprazole Sodium (Protonix Inj) 40 mg Q24H IVP Last administered on at 11:26; Start 02/05/16 at 13:00; Stop 02/12/16 at 08:16; Status DC Docusate Sodium (Colace) 100 mg BID PO Last administered on 02/06/16at 08:14; Start 02/05/16 at 21:00; Stop 02/06/16 at 10:19; Status DC Magnesium Hydroxide (Milk Of Magnesia Liq) 30 ml Q6H PRN PO CONSTIPATION; Start 02/05/16 at 11:45 Miscellaneous Information 1 Q361D XX ; Start 02/05/16 at 11:45; Stop 02/12/16 at 08:16; Status DC Chlorhexidine Gluconate (Chlorhexidine 2% Cloth) Taper DAILY@04 TOP Last administered on 02/10/16at 04:12; Start 02/06/16 at 04:00; Stop 02/12/16 at 08 :16; Status DC Chlorhexidine Gluconate (Chlorhexidine 2% Cloth) 3 pack UNSCH PRN TOP HYGIENIC CARE; Start 02/05/16 at 11:45; Stop 02/12/16 at 08:16; Status DC Lidocaine/ Epinephrine (Xylocaine-Epi 1%-1:100,000 Inj) 50 ml STK-MED ONCE .ROUTE ; Start 02/05/16 at 11:58; Stop 02/05/16 at 11:59; Status DC Fentanyl Citrate (fentaNYL INJ) 100 mcg STK-MED ONCE .ROUTE Last administered on 02/05/16at 12:03; Start 02/05/16 at 12:03; Stop 02/05/16 at 12:04; Status DC Hydromorphone HCl (Dilaudid Pf Inj) 0.5 mg Q4H PRN IV PUSH pain 8-10 or not taking po Last administered on 02/07/16at 09:47; Start 02/05/16 at 12:15; Stop 02/09/16 at 15:34; Status DC Acetaminophen (Tylenol 650 Mg/ 20 ml Liq) 650 mg Q6H PO Last administered on at 01:20; Start 02/05/16 at 13:00; Stop 02/14/16 at 10:19; Status DC Oxycodone HCl (Roxicodone Intensol Liq) 5 mg Q4H PRN PO pain 1-7 Last administered on 02/13/16at 18:18; Start 02/05/16 at 12:15; Stop 02/14/16 at 10 :19; Status DC Magnesium Oxide 800 mg 800 mg UNSCH PRN PO For Magnesium 1.2 - 1.6 mg/dL; Start 02/05/16 at 12:15; Stop 02/12/16 at 08:16; Status DC Magnesium Sulfate 4 gm/Sodium Chloride 100 ml @ 50 mls/hr UNSCH PRN IV For Magnesium 0.9 - 1.1 mg/dL; Start 02/05/16 at 12:15; Stop 02/12/16 at 08:16; Status DC Magnesium Sulfate 2 gm/Sodium Chloride 100 ml @ 50 mls/hr UNSCH PRN IV For Magnesium 1.2 - 1.6 mg/dL; Start 02/05/16 at 12:15; Stop 02/12/16 at 08:17; Status DC Potassium Chloride 100 ml @ 50 mls/hr Q2H PRN IV For Potassium 2.8 - 3.2 mEq/L ; Start 02/05/16 at 12:15; Stop 02/12/16 at 08:17; Status DC Potassium Chloride 100 ml @ 50 mls/hr Q2H PRN IV For Potassium 3.3 - 3.5 mEq/ L Last administered on 02/11/16at 07:06; Start 02/05/16 at 12:15; Stop at 08:17; Status DC Potassium Chloride 100 ml @ 50 mls/hr Q2H PRN IV For Potassium 2.8 - 3.2 mEq/L ; Start 02/05/16 at 12:15; Stop 02/12/16 at 08:17; Status DC Potassium Chloride (KCl 40 Meq Premix Inj) 100 ml @ 25 mls/hr UNSCH PRN IV For Potassium 3.3 - 3.5 mEq/L; Start 02/05/16 at 12:15; Stop 02/12/16 at 08:18 ; Status DC Potassium Chloride (KCl 40 Meq/30 ml Liq) 40 meq UNSCH PRN PO/TUBE For Potassium 3.3 - 3.5 mEq/L; Start 02/05/16 at 12:15; Stop 02/12/16 at 08:18; Status DC Potassium Chloride (KCl 40 Meq/30 ml Liq) 40 meq UNSCH PRN PO/TUBE SEE LABEL COMMENTS; Start 02/05/16 at 13:00; Stop 02/12/16 at 08:18; Status DC Potassium Phosphate (K-Phos) 2,000 mg Q4H PRN PO For Phosphorus < 2.5 mg/dL; Start 02/05/16 at 12:15; Stop 02/12/16 at 08:18; Status DC Potassium Phosphate 2000 mg 2,000 mg UNSCH PRN PO/TUBE SEE LABEL COMMENTS; Start 02/05/16 at 12:15; Stop 02/12/16 at 08:18; Status DC Potassium Phosphate 30 mmol/ Sodium Chloride 260 ml @ 42 mls/hr UNSCH PRN IV SEE LABEL COMMENTS; Start 02/05/16 at 12:15; Stop 02/12/16 at 08:18; Status DC Sodium Phosphate/ Sodium Chloride (Sodium Phosphate Inj/NS 250 ml Inj) 250 ml @ 42 mls/hr UNSCH PRN IV For Phosphorus < 2.5 mg/dL; Start 02/05/16 at 12:15; Stop 02/12/16 at 08:18; Status DC Dextrose (D50w (Vial) Inj) 25 ml UNSCH PRN IV PUSH HYPOGLYCEMIA-SEE COMMENTS Last administered on 02/07/16at 12:05; Start 02/05/16 at 12:15; Stop 02/11/16 at 15:28; Status DC Insulin Human Regular (NovoLIN R SUPPLEMENTAL SCALE) 1 Q6HR SQ ; Start at 18:00; Stop 02/11/16 at 15:28; Status DC Albuterol/ Ipratropium (Duoneb Neb) 1 ampule Q6HR NEB INH Last administered on 02/09/16at 15:31; Start 02/05/16 at 16:00; Stop 02/09/16 at 16:00; Status DC Albuterol/ Ipratropium 1 ampule 1 ampule Q2HR NEB PRN INH WHEEZING Last administered on 02/10/16at 14:49; Start 02/05/16 at 12:15 Propofol 100 ml @ As Directed STK-MED ONCE .ROUTE Last administered on at 13:11; Start 02/05/16 at 13:11; Stop 02/05/16 at 13:12; Status DC Cefazolin Sodium/ Dextrose 50 ml @ 150 mls/hr ENT SURGEON IV Last administered on 02/07/16at 13:25; Start 02/05/16 at 14:00; Stop 02/09/16 at 13:59; Status DC Propofol (Diprivan 1000 Mg/100ml Inj) 100 ml @ 0 mls/hr TITRATE IV Last administered on 02/08/16at 03:27; Start 02/05/16 at 16:15; Stop 02/08/16 at 11 :30; Status DC Gentamicin Sulfate (Gentamicin Inj) 240 mg STK-MED ONCE .ROUTE Last administered on 02/06/16at 00:07; Start 02/05/16 at 22:04; Stop 02/05/16 at 22 :05; Status DC Cefazolin Sodium (Ancef Inj) 2,000 mg STK-MED ONCE IV Last administered on at 23:59; Start 02/05/16 at 23:59; Stop 02/06/16 at 00:09; Status DC IV Flush (NS Flush) 2 ml UNSCH PRN IVF FLUSH AFTER USING IV ACCESS Last administered on 02/13/16at 13:58; Start 02/06/16 at 01:00 IV Flush 2 ml 2 ml BID IVF Last administered on 02/14/16at 10:21; Start at 09:00 Cefazolin Sodium/ Sodium Chloride (Ancef Inj/NS Inj) 100 ml @ 200 mls/hr Q6H IV Last administered on 02/07/16at 23:55; Start 02/06/16 at 06:00; Stop 02/07 at 04:05; Status DC Fentanyl Citrate 250 mcg 250 mcg STK-MED ONCE .ROUTE ; Start 02/06/16 at 01:26 ; Stop 02/06/16 at 01:27; Status DC Levetriacetam/ Sodium Chloride (Keppra Inj/NS Inj) 105 ml @ 420 mls/hr Q12HR IV Last administered on 02/12/16at 10:21; Start 02/06/16 at 09:15; Stop 02/11 at 12:38; Status DC Docusate Sodium (Colace) 100 mg BID OG Last administered on 02/06/16at 21:28; Start 02/06/16 at 11:00; Stop 02/07/16 at 09:35; Status DC Bacitracin (Baciguent Oint) 1 applic Q12HR TOP Last administered on 02/14/16at 10:20; Start 02/06/16 at 11:00 Propofol 200 mg 200 mg STK-MED ONCE IV ; Start 02/05/16 at 12:27; Stop at 12:27; Status DC Fentanyl Citrate (fentaNYL DRIP) 250 ml @ 0 mls/hr TITRATE IV Last administered on 02/07/16at 16:21; Start 02/06/16 at 14:30; Stop 02/08/16 at 11 :31; Status DC Epinephrine HCl (EPINEPHrine (1:10,000) INJ) 1 mg STK-MED ONCE .ROUTE ; Start 02/07/16 at 03:33; Stop 02/07/16 at 03:34; Status DC Atropine Sulfate (Atropine Inj) 1 mg STK-MED ONCE .ROUTE ; Start 02/07/16 at 03 :33; Stop 02/07/16 at 03:34; Status DC Docusate Sodium 100 mg 100 mg BID OG Last administered on 02/13/16at 09:40; Start 02/07/16 at 10:00; Stop 02/14/16 at 07:51; Status DC Tranexamic Acid/ Sodium Chloride (Cyklokapron Inj/ NS Inj) 119.95 ml @ 200 mls / hr UNSCH IV Last administered on 02/07/16at 13:29; Start 02/07/16 at 10:00; Stop 02/07/16 at 16:00; Status DC Vancomycin HCl (Vancomycin Inj) 1,000 mg STK-MED ONCE .ROUTE Last administered on 02/07/16at 13:28; Start 02/07/16 at 12:19; Stop 02/07/16 at 12:20; Status DC Gentamicin Sulfate 240 mg 240 mg STK-MED ONCE .ROUTE Last administered on 02/06at 13:39; Start 02/07/16 at 12:20; Stop 02/07/16 at 12:21; Status DC Sodium Chloride (NS 250 ml Inj) 250 ml @ As Directed STK-MED ONCE .ROUTE Last administered on 02/07/16at 13:28; Start 02/07/16 at 12:20; Stop 02/07/16 at 12 :21; Status DC Heparin Sodium (Porcine) (Heparin Inj) 30,000 units STK-MED ONCE .ROUTE Last administered on 02/07/16at 13:39; Start 02/07/16 at 13:58; Stop 02/07/16 at 13 :59; Status DC Fentanyl Citrate (fentaNYL INJ) 200 mcg STK-MED ONCE .ROUTE ; Start 02/07/16 at 14:57; Stop 02/07/16 at 14:58; Status DC Fentanyl Citrate (fentaNYL INJ) 250 mcg STK-MED ONCE .ROUTE ; Start 02/07/16 at 14:58; Stop 02/07/16 at 14:59; Status DC Fentanyl Citrate 250 mcg 250 mcg STK-MED ONCE .ROUTE ; Start 02/07/16 at 14:58 ; Stop 02/07/16 at 14:59; Status DC Lactated Ringer's (Lr 1000 ml Inj) 1,000 ml @ 100 mls/hr Q10H IV ; Start 02/06 at 16:00; Stop 02/08/16 at 11:31; Status DC Enoxaparin Sodium 30 mg 30 mg Q12H SQ Last administered on 02/14/16at 02:59; Start 02/08/16 at 15:00 Cefazolin Sodium/ Dextrose 50 ml @ 100 mls/hr Q8H IV Last administered on at 12:36; Start 02/07/16 at 21:00; Stop 02/10/16 at 13:29; Status DC Vancomycin HCl 1000 mg/Sodium Chloride 250 ml @ 250 mls/hr Q12H IV Last administered on 02/09/16at 12:20; Start 02/08/16 at 00:00; Stop 02/09/16 at 12 :59; Status DC Fentanyl Citrate 250 ml @ 0 mls/hr TITRATE IV Last administered on 02/09/16at 23:20; Start 02/08/16 at 12:00; Stop 02/10/16 at 07:46; Status DC Propofol 100 ml @ 0 mls/hr TITRATE IV Last administered on 02/08/16at 20:30; Start 02/08/16 at 12:00; Stop 02/10/16 at 07:47; Status DC Dexmedetomidine HCl 50 ml @ 0 mls/hr TITRATE IV Last administered on at 21:46; Start 02/08/16 at 21:30; Stop 02/08/16 at 22:55; Status DC Dexmedetomidine HCl 200 mcg/ Sodium Chloride 50 ml @ 0 mls/hr TITRATE IV ; Start 02/08/16 at 21:30; Status Cancel Dexmedetomidine HCl/Sodium Chloride (Precedex Inj/NS Inj) 100 ml @ 0 mls/hr TITRATE IV Last administered on 02/09/16at 00:24; Start 02/08/16 at 23:00; Stop 02/09/16 at 17:11; Status DC Lactulose (Lactulose Liq) 30 ml ONCE ONCE PO Last administered on 02/09/16at 09:11; Start 02/09/16 at 09:00; Stop 02/09/16 at 09:01; Status DC Morphine Sulfate (Morphine Inj) 3 mg Q3H PRN IV PUSH pain 1-10;if not tolerating po Last administered on 02/14/16at 03:01; Start 02/09/16 at 15:30; Stop 02/14/16 at 10:19; Status DC Bumetanide (Bumex Inj) 2 mg STAT ONCE IV PUSH Last administered on 02/09/16at 16:00; Start 02/09/16 at 15:45; Stop 02/09/16 at 15:46; Status DC Lorazepam (Ativan Inj) 0.5 mg ONCE ONCE IV Last administered on 02/09/16at 21: 44; Start 02/09/16 at 17:15; Stop 02/09/16 at 17:16; Status DC Acetaminophen (Ofirmev Inj) 1,000 mg NOW ONCE IV Last administered on at 21:45; Start 02/09/16 at 17:15; Stop 02/09/16 at 17:16; Status DC Labetalol HCl (Trandate Inj) 20 mg Q4H PRN IV SBP > 170; Start 02/09/16 at 17: 30; Stop 02/14/16 at 10:19; Status DC Bisacodyl (Dulcolax Supp) 10 mg ONCE ONCE RECTAL ; Start 02/10/16 at 08:00; Stop 02/10/16 at 08:01; Status DC Lidocaine HCl (Xylocaine 2% Inj) 100 mg STK-MED ONCE IV PUSH ; Start 02/05/16 at 11:11; Stop 02/10/16 at 11:00; Status DC Etomidate (Amidate Inj) 20 mg STK-MED ONCE IV PUSH ; Start 02/05/16 at 11:11; Stop 02/10/16 at 11:00; Status DC Succinylcholine Chloride (Quelicin Inj) 120 mg STK-MED ONCE IVP ; Start at 11:11; Stop 02/10/16 at 11:00; Status DC Etomidate 20 mg 20 mg STK-MED ONCE IV PUSH ; Start 02/05/16 at 11:11; Stop at 11:00; Status DC Parenteral Electrolytes (Normosol R Inj) 2,000 ml @ As Directed STK-MED ONCE IV ; Start 02/07/16 at 12:35; Stop 02/10/16 at 12:35; Status DC Famotidine (Pepcid) 20 mg BID PO Last administered on 02/14/16at 10:20; Start 02/12/16 at 09:00 Potassium Chloride (KCl) 40 meq ONCE ONCE PO Last administered on 02/12/16at 09:54; Start 02/12/16 at 08:30; Stop 02/12/16 at 08:31; Status DC Levetriacetam (Keppra) 500 mg Q12HR PO Last administered on 02/13/16at 09:40; Start 02/12/16 at 21:00; Stop 02/14/16 at 10:19; Status DC Docusate Sodium (Colace) 100 mg BID PO Last administered on 02/14/16at 10:21; Start 02/14/16 at 09:00 Oxycodone/ Acetaminophen (Percocet 5-325 Mg) 1 tab Q4H PRN PO pain; Start at 10:30 Potassium Chloride (KCl) 80 meq ONCE ONCE PO Last administered on 02/14/16at 12:45; Start 02/14/16 at 11:30; Stop 02/14/16 at 11:31; Status DC Medical Decision Making MDM Remarks Last Impressions Last Impressions Chest X-Ray 02/10/16 0600 Signed Impressions: Service Date/Time: Wednesday, February 10, 2016 05:32 - CONCLUSION: Trace bibasilar atelectasis developing. Renaldo Mata MD Head CT 02/07/16 0600 Signed Impressions: Service Date/Time: Sunday, February 07, 2016 04:11 - CONCLUSION: Small high density hemorrhage in the anterior medial left frontal lobe. Manohar Gardiner MD Multiplanar Reconstruction 02/07/16 0000 Signed Impressions: Service Date/Time: Friday, February 05, 2016 11:15 - CONCLUSION: Comminuted fracture of the left acetabulum, pubic rami in addition are well depicted on 3- D volume rendering as described above. Subhash Coello MD Hip X-Ray 02/07/16 0000 Signed Impressions: Service Date/Time: Sunday, February 07, 2016 15:07 - CONCLUSION: Anatomic alignment. Yordy Arias MD FACR Wrist X-Ray 02/06/16 0000 Signed Impressions: Service Date/Time: January 00:32 - CONCLUSION: Placement of an external fixation device and wire through the radius as described above. Renaldo Gomez MD Upper Extremity CT 02/05/16 1127 Signed Impressions: Service Date/Time: Friday, February 05, 2016 11:27 - CONCLUSION: 1. Comminuted fracture of the distal radius with intra-articular extension. 2. Carpal bones are intact. Kristian Ewing MD Pelvis X-Ray 02/05/16 110 Signed Impressions: Service Date/Time: Friday, February 05, 2016 10:38 - CONCLUSION: Fractures left side of the pelvis as described above. CT scan is pending. Yordy Arias MD FACR Maxillofacial CT 02/05/16 1107 Signed Impressions: Service Date/Time: Friday, February 05, 2016 11:14 - CONCLUSION: 1. There is no evidence of acute fracture. Kristian Ewing MD Chest CT 02/05/16 110 Signed Impressions: Service Date/Time: Friday, February 05, 2016 11:11 - CONCLUSION: 1. Negative CT scan of the chest for an acute traumatic injury. 2. Minimal bibasilar parenchymal changes without pneumothorax. Yordy Arias MD FACR Cervical Spine CT 02/05/16 110 Signed Impressions: Service Date/Time: Friday, February 05, 2016 11:14 - CONCLUSION: 1. Moderate degenerative changes as described above. There is no evidence of acute fracture. Kristian Ewing MD Abdomen/Pelvis CT 02/05/16 1107 Signed Impressions: Service Date/Time: Friday, February 05, 2016 11:11 - CONCLUSION: 1. No evidence of acute abdominal or pelvic process. No masses are identified. 2. Multiple pelvic fractures including the left acetabulum and pubic rami Kristian Ewing MD Plan Plan Remarks Continue supportive care Follow up by ortho DIscharge planning in progress Dax Murphy MD Feb 14, 2016 12:56
[2016-02-14] MEDS: oxyCODONE/ACETAMINOPHEN 5 MG/325 MG TAB PO PRN ×2 (14:15→20:01)
[2016-02-14 16:00] VITALS: BP 109/52; PULSE 86; RESP 24; TEMP 98.4; O2SAT 93
[2016-02-14 20:00] VITALS: BP 151/79; PULSE 101; RESP 16; TEMP 96.4; O2SAT 96
[2016-02-14] MEDS ORDERED: diphenhydrAMINE HCL 25 MG CAP PO ONE (22:15)
[2016-02-15] VITALS: BP 153/84; PULSE 88; RESP 18; TEMP 99.3; O2SAT 95
[2016-02-15] MEDS: oxyCODONE/ACETAMINOPHEN 5 MG/325 MG TAB PO PRN ×4 (02:29→21:28)
[2016-02-15] MEDS: ENOXAPARIN SODIUM 30 MG/0.3 ML SYRINGE SQ SCH ×2 (02:29→13:39)
[2016-02-15 07:28] VITALS: BP 155/88; PULSE 83; RESP 18; TEMP 98; O2SAT 95
[2016-02-15] MEDS: SODIUM CHLORIDE 0.9% FLUSH 5 ML FLUSH IVF SCH ×2 (07:36→20:45)
[2016-02-15] MEDS: FAMOTIDINE 20 MG TAB PO SCH ×2 (07:36→20:45)
[2016-02-15] MEDS: DOCUSATE SODIUM 100 MG CAP PO SCH ×2 (07:36→20:45)
[2016-02-15] MEDS: BACITRACIN TOP OINT 15 GM TUBE TOP SCH ×2 (07:38→20:45)
--- NOTE | 2016-02-15 08:06 | PD.ORT.PN ---
Subjective Subjective Remarks no new complaints about pelvis or wrist Objective Vitals Vital Signs Date Time Temp Pulse Resp B/P Pulse Ox O2 Delivery O2 Flow Rate FiO2 02/15/16 07:28 98.0 83 18 155/88 95 02/15/16 00:00 99.3 88 18 153/84 95 02/14/16 20:00 96.4 101 16 151/79 96 02/14/16 16:00 98.4 86 24 109/52 93 02/14/16 12:00 98.3 87 24 151/80 93 I/O 02/14/16 02/14/16 02/14/16 02/15/16 02/15/16 02/15/16 06:59 14:59 22:59 06:59 14:59 22:59 Intake Total 480 ml 790 ml 480 ml Output Total 400 ml Balance 480 ml 390 ml 480 ml Intake Oral 480 ml 790 ml 480 ml Output Urine Total 400 ml # Voids 1 4 2 # Bowel Movements 3 2 1 Result Diagram: 02/14/16 0917 02/14/16 0917 Imaging Last 24 hours Impressions Wrist X-Ray 02/06/16 0000 Signed Impressions: Service Date/Time: January 00:32 - CONCLUSION: Placement of an external fixation device and wire through the radius as described above. Renaldo Gomez MD Chest X-Ray 02/06/16 0000 Signed Impressions: Service Date/Time: January 04:52 - CONCLUSION: No acute disease. Renaldo Gomez MD Upper Extremity CT 02/05/16 1127 Signed Impressions: Service Date/Time: Friday, February 05, 2016 11:27 - CONCLUSION: 1. Comminuted fracture of the distal radius with intra-articular extension. 2. Carpal bones are intact. Kristian Ewing MD Pelvis X-Ray 02/05/16 1107 Signed Impressions: Service Date/Time: Friday, February 05, 2016 10:38 - CONCLUSION: Fractures left side of the pelvis as described above. CT scan is pending. Yordy Arias MD FACR Maxillofacial CT 02/05/16 1107 Signed Impressions: Service Date/Time: Friday, February 05, 2016 11:14 - CONCLUSION: 1. There is no evidence of acute fracture. Kristian Ewing MD Head CT 02/05/16 1107 Signed Impressions: Service Date/Time: Friday, February 05, 2016 11:11 - CONCLUSION: 1. Negative for skull fracture. 2. Probable small cortical hemorrhage in the left centrum semiovale. Yordy Arias MD FACR Chest X-Ray 02/05/16 1107 Signed Impressions: Service Date/Time: Friday, February 05, 2016 10:38 - CONCLUSION: 1. ET tube in good position. 2. Prominent cardiac silhouette. Yordy Arias MD FACR Chest CT 02/05/16 1107 Signed Impressions: Service Date/Time: Friday, February 05, 2016 11:11 - CONCLUSION: 1. Negative CT scan of the chest for an acute traumatic injury. 2. Minimal bibasilar parenchymal changes without pneumothorax. Yordy Arias MD FACR Cervical Spine CT 02/05/16 1107 Signed Impressions: Service Date/Time: Friday, February 05, 2016 11:14 - CONCLUSION: 1. Moderate degenerative changes as described above. There is no evidence of acute fracture. Kristian Ewing MD Abdomen/Pelvis CT 02/05/16 1107 Signed Impressions: Service Date/Time: Friday, February 05, 2016 11:11 - CONCLUSION: 1. No evidence of acute abdominal or pelvic process. No masses are identified. 2. Multiple pelvic fractures including the left acetabulum and pubic rami Kristian Ewing MD Objective Remarks LUE: +exfix of wrist. pin sites with min dried drainage. no active drainage mild swelling hand no calf swelling or tenderness B Assessment & Plan Problem List: (1) (2) (3) (4) (5) Assessment and Plan 1) Left Distal Radius Fx s/p exfix - POD #9 2) Left Acetabulum fx with Sup/Inf Rami fxs POD #8 Consider ORIF left wrist when stable next week with Dr. Shukri LEON NWB, platform walker LUE Ortho stable Que Maravilla MD Feb 15, 2016 08:06
--- NOTE | 2016-02-15 10:54 | HHI.PR ---
Subjective Subjective Notes More alert today. Still impulsive with some confusion. Eating well Objective Vitals/I&O Vital Signs Date Time Temp Pulse Resp B/P Pulse Ox O2 Delivery O2 Flow Rate FiO2 02/15/16 07:28 98.0 83 18 155/88 95 02/11/16 20:02 21 02/11/16 07:29 Nasal Cannula 3.00 Labs Laboratory Tests Test 02/11/16 02/14/16 03:30 09:17 Magnesium Level 2.3 MG/DL White Blood Count 8.4 TH/MM3 Red Blood Count 3.35 MIL/MM3 Hemoglobin 9.4 GM/DL Hematocrit 28.4 % Mean Corpuscular Volume 84.8 FL Mean Corpuscular Hemoglobin 28.0 PG Mean Corpuscular Hemoglobin 33.0 % Concent Red Cell Distribution Width 15.1 % Platelet Count 491 TH/MM3 Mean Platelet Volume 8.2 FL Neutrophils (%) (Auto) 76.7 % Lymphocytes (%) (Auto) 10.3 % Monocytes (%) (Auto) 8.0 % Eosinophils (%) (Auto) 4.6 % Basophils (%) (Auto) 0.4 % Neutrophils # (Auto) 6.4 TH/MM3 Lymphocytes # (Auto) 0.9 TH/MM3 Monocytes # (Auto) 0.7 TH/MM3 Eosinophils # (Auto) 0.4 TH/MM3 Basophils # (Auto) 0.0 TH/MM3 CBC Comment AUTO DIFF Differential Total Cells 100 Counted Neutrophils % (Manual) 69 % Band Neutrophils % 5 % Lymphocytes % 12 % Monocytes % 5 % Eosinophils % 3 % Basophils % 1 % Neutrophils # (Manual) 6.6 TH/MM3 Metamyelocytes 1 % Myelocytes 4 % Differential Comment FINAL DIFF MANUAL Platelet Estimate HIGH Platelet Morphology Comment NORMAL Polychromasia 2.6 % Tear Drop Cells 1+ Ovalocytes Sodium Level 141 MEQ/L Potassium Level 3.1 MEQ/L Chloride Level 106 MEQ/L Carbon Dioxide Level 26.7 MEQ/L Anion Gap 8 MEQ/L Blood Urea Nitrogen 19 MG/DL Creatinine 0.70 MG/DL Estimat Glomerular Filtration 119 ML/MIN Rate Random Glucose 104 MG/DL Calcium Level 8.8 MG/DL Radiology Last 72 hours Impressions Chest X-Ray 02/10/16 0600 Signed Impressions: Service Date/Time: Wednesday, February 10, 2016 05:32 - CONCLUSION: Trace bibasilar atelectasis developing. Renaldo Mata MD Narrative Exam GENERAL: 50 year old well-nourished, well-developed male. SKIN: Warm and dry. RIGHT eye with ecchymosis and steri-strips in place. HEAD: Normocephalic. ENT: No nasal bleeding or discharge. Mucous membranes pink and moist. NECK: Trachea midline. No JVD. CARDIOVASCULAR: Regular rate and rhythm. RESPIRATORY: No accessory muscle use. Lungs are clear and diminished to auscultation. Breath sounds equal bilaterally. GASTROINTESTINAL: Abdomen soft, non-tender, nondistended. + BS MUSCULOSKELETAL: Extremities without cyanosis, or edema. LEFT wrist ex-fix in place. + peripheral pulses x 4 with good cap refill. NEUROLOGICAL: Awake, alert, confused A/P Assessment and Plan INJURIES: LEFT eye brow lac Small cortical hemorrhage (frontoparietal) w/ bolt placement LEFT open distal radius & fx LEFT acetabular & pubic rami fx 02/05/2016 I&D with external fixation and percutaneous pinning LEFT radius and ulna 02/08/2016 ORIF LEFT acetabulum Diet: Regular diet, no liquid restrictions. Passed swallow eval with ST yesterday Pulmonary: IS and acapella, encouraged patient use Pain: Percocet Activity: OOB with assist. (NWB LUE, NWB LLE) PT and OT evaluating. GI prophylaxis: Pepcid Bowel regimen: Colace and MOM held. Still with diarrhea, awaiting C. difficile results. DVT prophylaxis: SCDs, Lovenox SQ. Still confused. ST consult for cognitive eval. PT at bedside stating patient is unable to comprehend that he cannot bear weight to LLE or LUE. Ortho plans to take patient next week for ORIF of his left wrist. Case management assisted with discharge planning. Patient's mother reports the patient is uninsured. Plan of care discussed with RN and patient's mother at bedside. Patient is in close observation room with a sitter, as he has been impulsive and been getting out of bed without assistance. Shay Goldstein Feb 15, 2016 10:54
[2016-02-15 12:01] VITALS: BP 138/76; PULSE 87; RESP 18; TEMP 97.8; O2SAT 93
[2016-02-15 15:06] VITALS: BP 144/73; PULSE 95; RESP 18; TEMP 98.8; O2SAT 94
[2016-02-15] MEDS: SODIUM CHLOR 0.9% 1000 ML INJ 1,000 ML IV SCH (15:53)
[2016-02-15 20:00] VITALS: BP 136/80; PULSE 90; RESP 20; TEMP 99.2; O2SAT 95
[2016-02-15] MEDS: LORazepam 2 MG/ML VIAL IV PRN (21:53)
[2016-02-16 00:05] VITALS: BP 142/83; PULSE 90; RESP 20; TEMP 98; O2SAT 93
[2016-02-16] MEDS: ENOXAPARIN SODIUM 30 MG/0.3 ML SYRINGE SQ SCH ×2 (02:01→14:44)
[2016-02-16] MEDS: oxyCODONE/ACETAMINOPHEN 5 MG/325 MG TAB PO PRN ×3 (02:34→21:16)
[2016-02-16 04:00] VITALS: BP 144/77; PULSE 87; RESP 18; TEMP 97.6; O2SAT 96
[2016-02-16] MEDS: LORazepam 2 MG/ML VIAL IV PRN ×2 (06:23→18:32)
[2016-02-16 07:26] VITALS: BP 127/96; PULSE 86; RESP 21; TEMP 98.5; O2SAT 96
[2016-02-16] MEDS: FAMOTIDINE 20 MG TAB PO SCH ×2 (08:30→21:17)
[2016-02-16] MEDS: DOCUSATE SODIUM 100 MG CAP PO SCH ×2 (08:30→21:16)
[2016-02-16] MEDS: SODIUM CHLORIDE 0.9% FLUSH 5 ML FLUSH IVF SCH ×2 (08:32→21:17)
[2016-02-16] MEDS: BACITRACIN TOP OINT 15 GM TUBE TOP SCH ×2 (08:34→21:00)
--- NOTE | 2016-02-16 11:28 | HHI.PR ---
Subjective Subjective Notes 02/16/16 Patient neurologically much improved and the awake most of the day but also most of the night Finally patient was so disoriented that he tried to rip off his ex-Fix At this point patient is given small dose of Ativan to control the outbursts of hyperactivity Tolerating diet very well Normal GI function abdomen is soft Patient will be ready for discharge this week Objective Vitals/I&O Vital Signs Date Time Temp Pulse Resp B/P Pulse Ox O2 Delivery O2 Flow Rate FiO2 02/16/16 07:26 98.5 86 21 127/96 96 Radiology Last 72 hours Impressions Chest X-Ray 02/10/16 0600 Signed Impressions: Service Date/Time: Wednesday, February 10, 2016 05:32 - CONCLUSION: Trace bibasilar atelectasis developing. MD Marti Quintana Slobodan MD Feb 16, 2016 11:28
[2016-02-16] MEDS: SODIUM CHLOR 0.9% 1000 ML INJ 1,000 ML IV SCH (14:44)
--- NOTE | 2016-02-16 15:32 | PD.ORT.PN ---
Subjective Subjective Remarks confused. in restraints. no issues. Objective Vitals Vital Signs Date Time Temp Pulse Resp B/P Pulse Ox O2 Delivery O2 Flow Rate FiO2 02/16/16 07:26 98.5 86 21 127/96 96 02/16/16 04:00 97.6 87 18 144/77 96 02/16/16 00:05 98.0 90 20 142/83 93 02/15/16 20:00 99.2 90 20 136/80 95 I/O 02/15/16 02/15/16 02/15/16 02/16/16 02/16/16 02/16/16 07:00 15:00 23:00 07:00 15:00 23:00 Intake Total 480 ml 660 ml 960 ml 480 ml 120 ml Output Total 5 ml 775 ml 250 ml Balance 480 ml 655 ml 185 ml 230 ml 120 ml Intake Oral 480 ml 660 ml 960 ml 480 ml 120 ml Output Urine Total 5 ml 775 ml 250 ml Bladder Scan Volume Amount 207 ml # Voids 2 1 3 1 2 # Bowel Movements 1 1 1 0 Result Diagram: 02/14/16 0917 02/14/16 0917 Imaging Last 24 hours Impressions Wrist X-Ray 02/06/16 0000 Signed Impressions: Service Date/Time: January 00:32 - CONCLUSION: Placement of an external fixation device and wire through the radius as described above. Renaldo Gomez MD Chest X-Ray 02/06/16 0000 Signed Impressions: Service Date/Time: January 04:52 - CONCLUSION: No acute disease. Renaldo Gomez MD Upper Extremity CT 02/05/16 1127 Signed Impressions: Service Date/Time: Friday, February 05, 2016 11:27 - CONCLUSION: 1. Comminuted fracture of the distal radius with intra-articular extension. 2. Carpal bones are intact. Kristian Ewing MD Pelvis X-Ray 02/05/16 1107 Signed Impressions: Service Date/Time: Friday, February 05, 2016 10:38 - CONCLUSION: Fractures left side of the pelvis as described above. CT scan is pending. Yordy Arias MD FACR Maxillofacial CT 02/05/16 1107 Signed Impressions: Service Date/Time: Friday, February 05, 2016 11:14 - CONCLUSION: 1. There is no evidence of acute fracture. Kristian Ewing MD Head CT 02/05/16 1107 Signed Impressions: Service Date/Time: Friday, February 05, 2016 11:11 - CONCLUSION: 1. Negative for skull fracture. 2. Probable small cortical hemorrhage in the left centrum semiovale. Yordy Arias MD FACR Chest X-Ray 02/05/16 1107 Signed Impressions: Service Date/Time: Friday, February 05, 2016 10:38 - CONCLUSION: 1. ET tube in good position. 2. Prominent cardiac silhouette. Yordy Arias MD FACR Chest CT 02/05/16 1107 Signed Impressions: Service Date/Time: Friday, February 05, 2016 11:11 - CONCLUSION: 1. Negative CT scan of the chest for an acute traumatic injury. 2. Minimal bibasilar parenchymal changes without pneumothorax. Yordy Arias MD FACR Cervical Spine CT 02/05/16 1107 Signed Impressions: Service Date/Time: Friday, February 05, 2016 11:14 - CONCLUSION: 1. Moderate degenerative changes as described above. There is no evidence of acute fracture. Kristian Ewing MD Abdomen/Pelvis CT 02/05/16 1107 Signed Impressions: Service Date/Time: Friday, February 05, 2016 11:11 - CONCLUSION: 1. No evidence of acute abdominal or pelvic process. No masses are identified. 2. Multiple pelvic fractures including the left acetabulum and pubic rami Kristian Ewing MD Objective Remarks LUE: +exfix of wrist. pin sites with min dried drainage. no active drainage, mild swelling dorsum of hand, + wrinkles no calf swelling or tenderness B Assessment & Plan Problem List: (1) (2) (3) (4) (5) Assessment and Plan 1) Left Distal Radius Fx s/p exfix - POD #10 2) Left Acetabulum fx with Sup/Inf Rami fxs POD #9 Consider ORIF left wrist when soft tissue envelope amenable to surgery, likely next week with Dr. Shukri [facility]ON [facility], platform [facility] Luis Marino Jr., MD Feb 16, 2016 15:32
[2016-02-16 15:57] VITALS: BP 156/80; PULSE 84; RESP 18; TEMP 98.7; O2SAT 94
[2016-02-16 19:48] VITALS: BP 146/80; PULSE 87; RESP 20; TEMP 99.3; O2SAT 94
[2016-02-16] MEDS: MAGNESIUM HYDROXIDE SUSP 30 ML CUP PO PRN (21:17)
[2016-02-17] VITALS: BP 150/83; PULSE 88; RESP 22; TEMP 97.7; O2SAT 97
[2016-02-17] MEDS: LORazepam 2 MG/ML VIAL IV PRN ×2 (02:35→21:32)
[2016-02-17] MEDS: ENOXAPARIN SODIUM 30 MG/0.3 ML SYRINGE SQ SCH ×2 (02:35→15:55)
[2016-02-17 04:30] VITALS: BP 152/85; PULSE 86; RESP 17; TEMP 97.6; O2SAT 98
[2016-02-17 07:11] VITALS: BP 150/80; PULSE 89; RESP 20; TEMP 97.8; O2SAT 100
[2016-02-17 08:07] LABS: HEMATOCRIT 29.1 % (39.0-51.0); MEAN CELL VOLUME 85.2 FL (80.0-100.0); MEAN CORPUSCULAR HEMOGLOBIN 27.3 PG (27.0-34.0); PLATELET COUNT 519 TH/MM3 (150-450); RED BLOOD COUNT 3.41 MIL/MM3 (4.50-5.90); RED CELL DISTRIBUTION WIDTH 15.5 % (11.6-17.2); REVIEW FLAG FINAL; WHITE BLOOD COUNT 9.2 TH/MM3 (4.0-11.0)
--- NOTE | 2016-02-17 08:21 | PD.ORT.PN ---
Subjective Subjective Remarks Patient comfortable. Pain controlled. Restraint in place. 1:1 observation Objective Vitals Vital Signs Date Time Temp Pulse Resp B/P Pulse Ox O2 Delivery O2 Flow Rate FiO2 02/17/16 07:11 97.8 89 20 150/80 100 02/17/16 04:30 97.6 86 17 152/85 98 02/17/16 00:00 97.7 88 22 150/83 97 02/16/16 19:48 99.3 87 20 146/80 94 02/16/16 15:57 98.7 84 18 156/80 94 I/O 02/16/16 02/16/16 02/16/16 02/17/16 02/17/16 02/17/16 07:00 15:00 23:00 07:00 15:00 23:00 Intake Total 480 ml 360 ml 240 ml 50 ml Output Total 250 ml 775 ml Balance 230 ml 360 ml -535 ml 50 ml Intake Oral 480 ml 360 ml 240 ml 50 ml Output Urine Total 250 ml 775 ml # Voids 1 4 1 2 # Bowel Movements 0 0 0 Result Diagram: 02/17/16 0741 02/14/16 0917 Imaging Last 24 hours Impressions Wrist X-Ray 02/06/16 0000 Signed Impressions: Service Date/Time: January 00:32 - CONCLUSION: Placement of an external fixation device and wire through the radius as described above. Renaldo Gomez MD Chest X-Ray 02/06/16 0000 Signed Impressions: Service Date/Time: January 04:52 - CONCLUSION: No acute disease. Renaldo Gomez MD Upper Extremity CT 02/05/16 1127 Signed Impressions: Service Date/Time: Friday, February 05, 2016 11:27 - CONCLUSION: 1. Comminuted fracture of the distal radius with intra-articular extension. 2. Carpal bones are intact. Kristian Ewing MD Pelvis X-Ray 02/05/16 1107 Signed Impressions: Service Date/Time: Friday, February 05, 2016 10:38 - CONCLUSION: Fractures left side of the pelvis as described above. CT scan is pending. Yordy Arias MD FACR Maxillofacial CT 02/05/16 1107 Signed Impressions: Service Date/Time: Friday, February 05, 2016 11:14 - CONCLUSION: 1. There is no evidence of acute fracture. Kristian Ewing MD Head CT 02/05/16 1107 Signed Impressions: Service Date/Time: Friday, February 05, 2016 11:11 - CONCLUSION: 1. Negative for skull fracture. 2. Probable small cortical hemorrhage in the left centrum semiovale. Yordy Arias MD FACR Chest X-Ray 02/05/16 1107 Signed Impressions: Service Date/Time: Friday, February 05, 2016 10:38 - CONCLUSION: 1. ET tube in good position. 2. Prominent cardiac silhouette. Yordy Arias MD FACR Chest CT 02/05/16 1107 Signed Impressions: Service Date/Time: Friday, February 05, 2016 11:11 - CONCLUSION: 1. Negative CT scan of the chest for an acute traumatic injury. 2. Minimal bibasilar parenchymal changes without pneumothorax. Yordy Arias MD FACR Cervical Spine CT 02/05/16 1107 Signed Impressions: Service Date/Time: Friday, February 05, 2016 11:14 - CONCLUSION: 1. Moderate degenerative changes as described above. There is no evidence of acute fracture. Kristian Ewing MD Abdomen/Pelvis CT 02/05/16 1107 Signed Impressions: Service Date/Time: Friday, February 05, 2016 11:11 - CONCLUSION: 1. No evidence of acute abdominal or pelvic process. No masses are identified. 2. Multiple pelvic fractures including the left acetabulum and pubic rami Kristian Ewing MD Objective Remarks LUE: +ex fix of wrist. pin sites with min dried drainage. no active drainage, mild swelling dorsum of hand, + wrinkles good movement of digits no calf swelling or tenderness Assessment & Plan Problem List: (1) (2) (3) (4) (5) Assessment and Plan 1) Left Distal Radius Fx s/p exfix - POD #11 2) Left Acetabulum fx with Sup/Inf Rami fxs POD #10 Consider ORIF left wrist when soft tissue envelope amenable to surgery, likely next week with Dr. Shukri LEON NWB, platform walker [facility] Ortho stable Monitor Anders Womack [facility] Feb 17, 2016 08:21
[2016-02-17 08:37] LABS: BICARBONATE 27.4 MEQ/L (21.0-32.0); MAGNESIUM 2.1 MG/DL (1.5-2.5); POTASSIUM 3.2 MEQ/L (3.5-5.1)
[2016-02-17] MEDS: DOCUSATE SODIUM 100 MG CAP PO SCH ×2 (09:06→19:59)
[2016-02-17] MEDS: FAMOTIDINE 20 MG TAB PO SCH ×2 (09:06→19:59)
[2016-02-17] MEDS: BACITRACIN TOP OINT 15 GM TUBE TOP SCH ×2 (09:09→20:03)
[2016-02-17] MEDS: SODIUM CHLORIDE 0.9% FLUSH 5 ML FLUSH IVF SCH ×2 (09:10→19:59)
[2016-02-17 11:36] LABS: C. DIFF EPI 027 PRESUMPTIVE NEGATIVE (NEGATIVE); C. DIFF TOXIN PCR NEGATIVE (NEGATIVE)
--- NOTE | 2016-02-17 11:58 | HHI.PR ---
Subjective Subjective Notes PTD: 12 He is sound asleep. His mother is at the bedside. She states that the patient can be "rowdy and rambunctious." His bedside nurse has just recently medicated him with Ativan due to his extreme restlessness. Discussed his AM potassium level and orders for Potassium IV and PO. Objective Vitals/I&O Vital Signs Date Time Temp Pulse Resp B/P Pulse Ox O2 Delivery O2 Flow Rate FiO2 02/17/16 07:11 97.8 89 20 150/80 100 Labs Laboratory Tests Test 02/17/16 02/17/16 07:41 09:00 White Blood Count 9.2 Red Blood Count 3.41 Hemoglobin 9.3 Hematocrit 29.1 Mean Corpuscular Volume 85.2 Mean Corpuscular Hemoglobin 27.3 Mean Corpuscular Hemoglobin 32.0 Concent Red Cell Distribution Width 15.5 Platelet Count 519 Mean Platelet Volume 8.4 Sodium Level 145 Potassium Level 3.2 Chloride Level 109 Carbon Dioxide Level 27.4 Anion Gap 9 Blood Urea Nitrogen 13 Creatinine 0.86 Estimat Glomerular Filtration 94 Rate Random Glucose 97 Calcium Level 8.5 Magnesium Level 2.1 Stool C. difficile Toxin (PCR) NEGATIVE Stl C. difficile Toxin PRESUMPTIVE Epiderm 027 NEGATIVE Radiology Last 72 hours Impressions Chest X-Ray 02/10/16 0600 Signed Impressions: Service Date/Time: Wednesday, February 10, 2016 05:32 - CONCLUSION: Trace bibasilar atelectasis developing. Renaldo Mata MD Narrative Exam GENERAL: This is a 50-year-old male in bed, sound asleep. SKIN: Warm and dry. HEAD: Normocephalic. EYES: PERRLA ENT: No nasal bleeding or discharge. Mucous membranes pink and moist. NECK: Trachea midline. No JVD. CARDIOVASCULAR: Regular rate and rhythm. RESPIRATORY: No accessory muscle use. Lungs are clear to auscultation. Breath sounds equal bilaterally. No distress or dyspnea. GASTROINTESTINAL: BS + x 4 quads. Abdomen soft, non-tender, nondistended. MUSCULOSKELETAL: Extremities without cyanosis, or edema. LEFT wrist ex-fix in place. Pin sites intact without redness or edema . + peripheral pulses x 4 extremities. Warm with good capillary refill and sensation. MAEW. NEUROLOGICAL: Asleep. A/P Problem List: (1) Trauma (2) Facial laceration (3) Wrist fracture, open (4) Open Colles' fracture of left radius (5) Fracture of left superior pubic ramus (6) Fracture of left inferior pubic ramus (7) Respiratory failure after trauma (8) Left acetabular fracture (9) Open fracture of distal ulna (10) Closed head injury Assessment and Plan EKWOK: This is a 50-year-old male patient. 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 It was approximately 10 feet in height. Positive LOC. He was combative at the scene and therefore intubated. GCS 8 on arrival. He was originally managed in the ICU on mechanical ventilation and an ICP bolt. He has subsequently has been extubated successfully. He passed his swallow eval. Now he is being managed on the [facility] floor. INJURIES: LEFT eye brow lac (sutures) small cortical hemorrhage (frontoparietal) w/ bolt placement LEFT open distal radius & fx LEFT acetabular & pubic rami fx 02/05/2016 bolt placement 02/05/2016 I&D with external fixation and percutaneous pinning LEFT radius and ulna 02/08/2016 ORIF LEFT acetabulum Patient fell out of bed on 02/11/2016. A sitter is currently at the bedside, and he is in a room right across from the nursing station. Diet: Regular diet as no liquid restriction. Tolerating po diet. Encourage good po intake with each meal. Pulmonary: Encourage good pulmonary toileting. IS and acapella at bedside and pt encouraged to use. Rationale for use explained to patient, and verbalized understanding. PAIN Management: Percocet po. Tylenol IV. Ativan IV for restlessness. Activity: Out of bed with assistance only. (UBALDO OSORIO, UBALDO LEON) PT and OT ordered. GI prophylaxis: Pepcid by mouth. Bowel regimen: Colace and MOM. BM x 2. (Stool has finally been collected for C diff.) DVT prophylaxis: Mechanical VTE with SCDs. Chemical management with Lovenox SQ. K=3.2. Potassium 40 MEQ via IV. Potassium 25 effervescent 1 now and 1 dose tonight for a total of 2 doses only. Repeat labs in the morning. Ortho will be taking the patient back to the OR for an ORIF of his left wrist. TBD. DC Planning: Case management consulted for assistance with final discharge disposition. Emotional support provided to patient and family at bedside and plan of care discussed. Patient is hemodynamically stable and being managed on the med/surg floor in a room across from the nursing station, and additionally with a sitter at the bedside. Attending Statement Patient is awake and alert more every day Answering questions appropriately and tolerating by mouth diet and will be ready for discharge soon Discussed at length with patient and his mother The exam, history, and the medical decision-making described in the above note were completed with the assistance of the mid-level provider. I reviewed and agree with the findings presented. I attest that I had a [id number] encounter with the patient on the same day, and personally performed and documented my assessment and findings in the medical record. Problem Qualifiers (1) Facial laceration: Qualified Code: S01.81XA - Facial laceration, initial encounter (2) Wrist fracture, open: Qualified Code: S62.102B - Wrist fracture, open, left, initial encounter (3) Open Colles' fracture of left radius: (4) Fracture of left superior pubic ramus: Qualified Code: S32.512A - Fracture of left superior pubic ramus, closed, initial encounter (5) Fracture of left inferior pubic ramus: Qualified Code: S32.592A - Fracture of left inferior pubic ramus, closed, initial encounter (6) Left acetabular fracture: (7) Open fracture of distal ulna: (8) Closed head injury: Qualified Code: S09.90XA - Closed head injury, initial encounter Lizbeth Gómez Feb 17, 2016 11:58 Lucinda Kidd MD Feb 20, 2016 10:35
[2016-02-17 11:59] VITALS: BP 140/82; PULSE 75; RESP 24; TEMP 96.9; O2SAT 98
[2016-02-17] MEDS: POTASSIUM CHLOR 20 MEQ PREMIX 100 ML IV SCH ×2 (13:15→19:56)
[2016-02-17] MEDS: POTASSIUM CHLORIDE 25 MEQ EFFERVESCENT TAB PO SCH ×2 (13:15→19:58)
[2016-02-17 16:00] VITALS: BP 156/80; PULSE 86; RESP 20; TEMP 97.9; O2SAT 99
[2016-02-17] MEDS: SODIUM CHLOR 0.9% 1000 ML INJ 1,000 ML IV SCH ×2 (16:00→19:59)
[2016-02-17 20:00] VITALS: BP 160/76; PULSE 78; RESP 16; TEMP 98.1; O2SAT 98
[2016-02-17] MEDS: oxyCODONE/ACETAMINOPHEN 5 MG/325 MG TAB PO PRN (21:32)
[2016-02-18 00:20] VITALS: BP 150/85; PULSE 90; RESP 18; TEMP 98.6; O2SAT 96
[2016-02-18] MEDS: ENOXAPARIN SODIUM 30 MG/0.3 ML SYRINGE SQ SCH ×2 (03:14→15:00)
[2016-02-18] MEDS: LORazepam 2 MG/ML VIAL IV PRN (03:14)
[2016-02-18 03:52] VITALS: BP 149/67; PULSE 80; RESP 18; TEMP 97.8; O2SAT 95
[2016-02-18 06:22] LABS: BICARBONATE 24.3 MEQ/L (21.0-32.0); POTASSIUM 3.6 MEQ/L (3.5-5.1)
--- NOTE | 2016-02-18 07:32 | PD.ORT.PN ---
Subjective Subjective Remarks POD 12 s/p I&D with exfix left wrist POD 11 s/p ORIF left acetabulum confused. combative. sitter at bedside. 4 point restraints Objective Vitals Vital Signs Date Time Temp Pulse Resp B/P Pulse Ox O2 Delivery O2 Flow Rate FiO2 02/18/16 03:52 97.8 80 18 149/67 95 02/18/16 00:20 98.6 90 18 150/85 96 02/17/16 20:00 98.1 78 16 160/76 98 02/17/16 16:00 97.9 86 20 156/80 99 02/17/16 11:59 96.9 75 24 140/82 98 I/O 02/17/16 02/17/16 02/17/16 02/18/16 02/18/16 02/18/16 06:59 14:59 22:59 06:59 14:59 22:59 Intake Total 50 ml 904 ml 240 ml Output Total 900 ml 700 ml Balance 50 ml 4 ml -460 ml Intake Oral 50 ml 580 ml 240 ml IV Total 324 ml Output Urine Total 900 ml 700 ml # Voids 2 3 # Bowel Movements 0 5 3 Result Diagram: 02/17/16 0741 02/18/16 0522 Imaging Last 24 hours Impressions Wrist X-Ray 02/06/16 0000 Signed Impressions: Service Date/Time: January 00:32 - CONCLUSION: Placement of an external fixation device and wire through the radius as described above. Renaldo Gomez MD Chest X-Ray 02/06/16 0000 Signed Impressions: Service Date/Time: January 04:52 - CONCLUSION: No acute disease. Renaldo Gomez MD Upper Extremity CT 02/05/16 1127 Signed Impressions: Service Date/Time: Friday, February 05, 2016 11:27 - CONCLUSION: 1. Comminuted fracture of the distal radius with intra-articular extension. 2. Carpal bones are intact. Kristian Ewing MD Pelvis X-Ray 02/05/16 1107 Signed Impressions: Service Date/Time: Friday, February 05, 2016 10:38 - CONCLUSION: Fractures left side of the pelvis as described above. CT scan is pending. Yordy Arias MD FACR Maxillofacial CT 12/14/16 1107 Signed Impressions: Service Date/Time: Friday, February 05, 2016 11:14 - CONCLUSION: 1. There is no evidence of acute fracture. Kristian Ewing MD Head CT 02/05/161106 Signed Impressions: Service Date/Time: Friday, February 05, 2016 11:11 - CONCLUSION: 1. Negative for skull fracture. 2. Probable small cortical hemorrhage in the left centrum semiovale. Yordy Arias MD FACR Chest X-Ray 02/05/161106 Signed Impressions: Service Date/Time: Friday, February 05, 2016 10:38 - CONCLUSION: 1. ET tube in good position. 2. Prominent cardiac silhouette. Yordy Arias MD FACR Chest CT 02/05/161106 Signed Impressions: Service Date/Time: Friday, February 05, 2016 11:11 - CONCLUSION: 1. Negative CT scan of the chest for an acute traumatic injury. 2. Minimal bibasilar parenchymal changes without pneumothorax. Yordy Arias MD FACR Cervical Spine CT 02/05/161106 Signed Impressions: Service Date/Time: Friday, February 05, 2016 11:14 - CONCLUSION: 1. Moderate degenerative changes as described above. There is no evidence of acute fracture. Kristian Ewing MD Abdomen/Pelvis CT 02/05/161106 Signed Impressions: Service Date/Time: Friday, February 05, 2016 11:11 - CONCLUSION: 1. No evidence of acute abdominal or pelvic process. No masses are identified. 2. Multiple pelvic fractures including the left acetabulum and pubic rami Kristian Ewing MD Objective Remarks LUE: +ex fix of wrist. pin sites with min dried drainage. no active drainage, mild swelling dorsum of hand, + wrinkles good movement of digits. dressing mangled. Pelvis: dressing clean and dry. intact. Assessment & Plan Problem List: (1) (2) (3) (4) (5) Assessment and Plan 1) Left Distal Radius Fx s/p exfix - POD #12 2) Left Acetabulum fx with Sup/Inf Rami fxs POD #11 NPO after MN sign consents plan for ORIF of left wrist with removal of exfix tomorrow daily dressing changes of pelvis NWB Zain Walter Feb 18, 2016 07:32
[2016-02-18 08:00] VITALS: BP 151/95; PULSE 76; RESP 20; TEMP 96.7; O2SAT 96
[2016-02-18] MEDS: FAMOTIDINE 20 MG TAB PO SCH ×2 (09:00→20:02)
[2016-02-18] MEDS: DOCUSATE SODIUM 100 MG CAP PO SCH ×2 (09:00→20:02)
--- NOTE | 2016-02-18 10:36 | HHI.PR ---
Subjective Subjective Notes PTD: 13 1100: Sitter is at bedside. Patient currently is asleep in bed. As per bedside nurse, patient had been very restless, and received Ativan. 1200: He is out of bed in a wheelchair at present. His mother is feeding him. Objective Vitals/I&O Vital Signs Date Time Temp Pulse Resp B/P Pulse Ox O2 Delivery O2 Flow Rate FiO2 02/18/16 08:00 96.7 76 20 151/95 96 Labs Laboratory Tests Test 02/18/16 05:22 Sodium Level 143 Potassium Level 3.6 Chloride Level 109 Carbon Dioxide Level 24.3 Anion Gap 10 Blood Urea Nitrogen 14 Creatinine 0.81 Estimat Glomerular Filtration 100 Rate Random Glucose 82 Calcium Level 8.7 Radiology Last 72 hours Impressions Chest X-Ray 02/10/16 0600 Signed Impressions: Service Date/Time: Wednesday, February 10, 2016 05:32 - CONCLUSION: Trace bibasilar atelectasis developing. Renaldo Mata MD Narrative Exam GENERAL: This is a 50-year-old male in bed, sound asleep. SKIN: Warm and dry. HEAD: Normocephalic. EYES: PERRLA ENT: No nasal bleeding or discharge. Mucous membranes pink and moist. NECK: Trachea midline. No JVD. CARDIOVASCULAR: Regular rate and rhythm. RESPIRATORY: No accessory muscle use. Lungs are clear to auscultation. Breath sounds equal bilaterally. No distress or dyspnea. GASTROINTESTINAL: BS + x 4 quads. Abdomen soft, non-tender, nondistended. MUSCULOSKELETAL: Extremities without cyanosis, or edema. LEFT wrist ex-fix in place. Pin sites intact without redness or edema . + peripheral pulses x 4 extremities. Warm with good capillary refill and sensation. MAEW. NEUROLOGICAL: Asleep. A/P Problem List: (1) Trauma (2) Facial laceration (3) Wrist fracture, open (4) Open Colles' fracture of left radius (5) Fracture of left superior pubic ramus (6) Fracture of left inferior pubic ramus (7) Respiratory failure after trauma (8) Left acetabular fracture (9) Open fracture of distal ulna (10) Closed head injury Assessment and Plan CHILKAT: This is a 50-year-old male patient. 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 It was approximately 10 feet in height. Positive LOC. He was combative at the scene and therefore intubated. GCS 8 on arrival. He was originally managed in the ICU on mechanical ventilation and an ICP bolt. He has subsequently has been extubated successfully. He passed his swallow eval. Now he is being managed on the [facility] floor. He is awaiting one final surgery from ortho for removal of his left forearm ex-fix. INJURIES: LEFT eye brow lac (sutures) small cortical hemorrhage (frontoparietal) w/ bolt placement LEFT open distal radius & fx LEFT acetabular & pubic rami fx 02/05/2016 bolt placement 02/05/2016 I&D with external fixation and percutaneous pinning LEFT radius and ulna 02/08/2016 ORIF LEFT acetabulum 02/19/2016 Plan for OR IF of left wrist and removal of ex-fix Patient fell out of bed on 02/11/2016. A sitter is currently at the bedside. Additionally, he is in a room right across from the nursing station. (He becomes very restless and impulsive, and attempts to get out of bed, especially at night. Therefore he requires Ativan for agitation.) Diet: Regular diet / no liquid restriction. Tolerating po diet. Encourage good po intake with each meal. Pulmonary: Encourage good pulmonary toileting. IS and acapella at bedside and pt encouraged to use. Rationale for use explained to patient. PAIN Management: Percocet po. Tylenol IV. Ativan IV for restlessness. Activity: Out of bed with assistance only. (NWCristhian OSORIO, NWCristhian LLE) PT and OT ordered. Need 7 days a week therapy. GI prophylaxis: Pepcid po. Bowel regimen: Colace and MOM. BM x8 overnight. C. difficile is negative. DVT prophylaxis: Mechanical VTE with SCDs. Chemical management with Lovenox SQ. Ortho will be taking the patient back to the OR for an ORIF of his left wrist tomorrow. DC Planning: Case management consulted for assistance with final discharge disposition. Patient does not have insurance, therefore he will be difficult to place upon discharge. Emotional support provided to patient and family at bedside and plan of care discussed. Patient is hemodynamically stable and being managed on the med/surg floor in a room across from the nursing station, and additionally with a sitter at the bedside. The exam, history, and the medical decision-making described in the above note were completed with the assistance of the mid-level provider. I reviewed and agree with the findings presented. I attest that I had a [id number] encounter with the patient on the same day, and personally performed and documented my assessment and findings in the medical record. Problem Qualifiers (1) Facial laceration: Qualified Code: S01.81XA - Facial laceration, initial encounter (2) Wrist fracture, open: Qualified Code: S62.102B - Wrist fracture, open, left, initial encounter (3) Open Colles' fracture of left radius: (4) Fracture of left superior pubic ramus: Qualified Code: S32.512A - Fracture of left superior pubic ramus, closed, initial encounter (5) Fracture of left inferior pubic ramus: Qualified Code: S32.592A - Fracture of left inferior pubic ramus, closed, initial encounter (6) Left acetabular fracture: (7) Open fracture of distal ulna: (8) Closed head injury: Qualified Code: S09.90XA - Closed head injury, initial encounter Lizbeth Gómez Feb 18, 2016 10:35 Ash Manzanares MD Feb 18, 2016 17:38
[2016-02-18 12:00] VITALS: BP 140/74; PULSE 72; RESP 24; TEMP 97.3; O2SAT 100
[2016-02-18 16:00] VITALS: BP 151/78; PULSE 82; RESP 20; TEMP 97.7; O2SAT 97
[2016-02-18] MEDS ORDERED: METOPROLOL TARTRATE 25 MG TAB PO PRN (19:15)
[2016-02-18] MEDS ORDERED: SODIUM CHLORID 0.9% 500 ML IV SCH (19:15)
[2016-02-18] MEDS ORDERED: INSULIN HUMAN REGULAR 1,000 UNITS/10 ML VIAL SQ PRN (19:15)
[2016-02-18] MEDS ORDERED: LACTATED RINGER'S 1000 ML IV SCH (19:15)
[2016-02-18] MEDS: oxyCODONE/ACETAMINOPHEN 5 MG/325 MG TAB PO PRN (19:30)
[2016-02-18 20:00] VITALS: BP 169/69; PULSE 89; RESP 22; TEMP 98.3; O2SAT 96
[2016-02-18] MEDS: SODIUM CHLORIDE 0.9% FLUSH 5 ML FLUSH IVF SCH (20:03)
[2016-02-18] MEDS: BACITRACIN TOP OINT 15 GM TUBE TOP SCH (20:04)
[2016-02-19] VITALS (8 sets, daily range): BP systolic 141–152; BP diastolic 68–87; PULSE 75–113; RESP 17–20; TEMP 96.4–99.3; O2SAT 75–100
[2016-02-19] MEDS: LORazepam 2 MG/ML VIAL IV PRN (02:06)
[2016-02-19] MEDS: oxyCODONE/ACETAMINOPHEN 5 MG/325 MG TAB PO PRN ×3 (02:07→19:58)
[2016-02-19] MEDS: ENOXAPARIN SODIUM 30 MG/0.3 ML SYRINGE SQ SCH (03:00)
--- NOTE | 2016-02-19 06:49 | PD.ORT.PN ---
Subjective Subjective Remarks Confused. No new complaints Objective Vitals Vital Signs Date Time Temp Pulse Resp B/P Pulse Ox O2 Delivery O2 Flow Rate FiO2 02/19/16 04:00 97.7 85 20 146/68 95 02/19/16 00:00 98.4 83 20 151/80 97 02/18/16 20:00 98.3 89 22 169/69 96 02/18/16 16:00 97.7 82 20 151/78 97 02/18/16 12:00 97.3 72 24 140/74 100 02/18/16 08:00 96.7 76 20 151/95 96 I/O 02/18/16 02/18/16 02/18/16 02/19/16 02/19/16 02/19/16 07:00 15:00 23:00 07:00 15:00 23:00 Intake Total 240 ml 480 ml 480 ml 240 ml Output Total 700 ml 600 ml 350 ml Balance -460 ml -120 ml 480 ml -110 ml Intake Oral 240 ml 480 ml 480 ml 240 ml Output Urine Total 700 ml 600 ml 350 ml # Voids 3 4 # Bowel Movements 3 2 1 0 Result Diagram: 02/17/16 0741 02/18/16 0522 Imaging Last 24 hours Impressions Wrist X-Ray 02/06/16 0000 Signed Impressions: Service Date/Time: January 00:32 - CONCLUSION: Placement of an external fixation device and wire through the radius as described above. Renaldo Gomez MD Chest X-Ray 02/06/16 0000 Signed Impressions: Service Date/Time: January 04:52 - CONCLUSION: No acute disease. Renaldo Gomez MD Upper Extremity CT 02/05/16 1127 Signed Impressions: Service Date/Time: Friday, February 05, 2016 11:27 - CONCLUSION: 1. Comminuted fracture of the distal radius with intra-articular extension. 2. Carpal bones are intact. Kristian Ewing MD Pelvis X-Ray 02/05/16 1107 Signed Impressions: Service Date/Time: Friday, February 05, 2016 10:38 - CONCLUSION: Fractures left side of the pelvis as described above. CT scan is pending. Yordy Arias MD FACR Maxillofacial CT 02/05/16 1107 Signed Impressions: Service Date/Time: Friday, February 05, 2016 11:14 - CONCLUSION: 1. There is no evidence of acute fracture. Kristian Ewing MD Head CT 02/05/161106 Signed Impressions: Service Date/Time: Friday, February 05, 2016 11:11 - CONCLUSION: 1. Negative for skull fracture. 2. Probable small cortical hemorrhage in the left centrum semiovale. Yordy Arias MD FACR Chest X-Ray 02/05/161106 Signed Impressions: Service Date/Time: Friday, February 05, 2016 10:38 - CONCLUSION: 1. ET tube in good position. 2. Prominent cardiac silhouette. Yordy Arias MD FACR Chest CT 02/05/161106 Signed Impressions: Service Date/Time: Friday, February 05, 2016 11:11 - CONCLUSION: 1. Negative CT scan of the chest for an acute traumatic injury. 2. Minimal bibasilar parenchymal changes without pneumothorax. Yordy Arias MD FACR Cervical Spine CT 02/05/161106 Signed Impressions: Service Date/Time: Friday, February 05, 2016 11:14 - CONCLUSION: 1. Moderate degenerative changes as described above. There is no evidence of acute fracture. Kristian Ewing MD Abdomen/Pelvis CT 02/05/161106 Signed Impressions: Service Date/Time: Friday, February 05, 2016 11:11 - CONCLUSION: 1. No evidence of acute abdominal or pelvic process. No masses are identified. 2. Multiple pelvic fractures including the left acetabulum and pubic rami Kristian Ewing MD Objective Remarks LUE: +ex fix of wrist. pin sites with min dried drainage. no active drainage, mild swelling dorsum of hand, + wrinkles good movement of digits. Josiah wrap over full extend dermal fixation and wrist Pelvis: dressing clean and dry. intact. Assessment & Plan Problem List: (1) (2) (3) (4) (5) Assessment and Plan 1) Left Distal Radius Fx s/p exfix - POD #13 2) Left Acetabulum fx with Sup/Inf Rami fxs POD #12 NPO sign consents plan for ORIF of left wrist with removal of exfix daily dressing changes of pelvis NWUNIQUE STACK PA-C Feb 19, 2016 06:49
[2016-02-19] MEDS ORDERED: fentaNYL CITRATE 250 MCG/5 ML AMP ONE ×2 (08:44→08:45)
[2016-02-19] MEDS ORDERED: ONDANSETRON HCL 4 MG/2 ML VIAL ONE (08:44)
[2016-02-19] MEDS ORDERED: GENTAMICIN SULFATE 80 MG/2 ML VIAL ONE (08:46)
[2016-02-19] MEDS ORDERED: ceFAZolin 2 GM PREMIX 50 ML ONE (08:56)
[2016-02-19] MEDS ORDERED: VANCOMYCIN HCL 1000 MG VIAL ONE (08:56)
[2016-02-19] MEDS ORDERED: SODIUM CHLOR 0.9% 250 ML INJ 250 ML ONE (08:57)
[2016-02-19] MEDS: LISINOPRIL 10 MG TAB PO SCH (09:00)
[2016-02-19] MEDS: FAMOTIDINE 20 MG TAB PO SCH ×2 (09:00→19:57)
[2016-02-19] MEDS: SODIUM CHLORIDE 0.9% FLUSH 5 ML FLUSH IVF SCH ×2 (09:00→19:57)
[2016-02-19] MEDS: DOCUSATE SODIUM 100 MG CAP PO SCH (09:00)
[2016-02-19] MEDS: BACITRACIN TOP OINT 15 GM TUBE TOP SCH ×2 (09:00→19:58)
[2016-02-19] MEDS ORDERED: HYDROmorphone HCL PF 2 MG/ML VIAL ONE (11:00)
--- NOTE | 2016-02-19 11:09 | PD.OP ---
cc: Gerald Saavedra MD Operative Report Date of Surgery: Feb 19, 2016 Preoperative Diagnosis: Severely comminuted intra-articular left distal radius fracture Left ulna fracture Left scaphoid fracture Postoperative Diagnosis: Procedure: Revision of external fixation Open reduction internal fixation comminuted intra-articular distal radius fracture Close treatment left ulna fracture with manipulation Close treatment left scaphoid fracture Anesthesia: Gen. Surgeon: Gerald Saavedra Director Of Critical Care(s): MOHAN Hernández PA-C The surgical procedure was assisted by my physician orthotics prosthetics assistant. My P.A. presence was necessary throughout this case for the manipulation and positioning of the surgical extremity. My P.A. was assisting me throughout the duration of this procedure. The skill set of a physician orthotics prosthetics assistant was medically necessary to complete this procedure. During the surgical case the surgical services assistant was working at the back table and the physician orthotics prosthetics assistant was directly assisting me. Operation and Findings: Patient was seen and evaluated preoperatively and found to have a displaced distal radius fracture. He previously underwent closed reduction and external fixation by Dr. Clark. Informed consent was obtained after detailed discussion of risk and benefits including bleeding, infection, injury to arteries, nerves, and blood vessels, weakness and numbness of hand, and tendon rupture. Informed consent was obtained. Patient received IV antibiotics prior to incision. Timeout procedure was performed. At this point the external fixator was partially removed. The pins were left in place. The clamps and bars were removed. Operative extremity was prepped with alcohol followed by Hibiclens and draped usual sterile fashion. A standard volar approach to the distal radius was utilized. A 4 inch incision was made over the FCR tendon. Tendon sheath was opened. Pronator quadratus was elevated up. The fracture site was now visualized. The fracture did have intra-articular extension. The articular surface was severely comminuted and displaced. There was also comminution of the metaphyseal region. Traction was applied. At this point attention was turned to revision of the external fixation. Using Synthes excellent fixator parts, an external fixator construct was created using the previously placed pins. Traction was applied and excellent fixator was tightened to hold gross alignment. Next, The articular surface was reduced. Fracture fragments were manipulated to achieve excellent reduction. There was depression and malrotation of the articular fragments. These were carefully reduced. Multiple K wires were used to hold provisional fixation. Fluoroscopy confirmed appropriate alignment of fracture. 2 Synthes fragment specific distal radius plates were selected. Plates were provisionally fixed to bone with K wires. 2.7 and 2.4 cortical screws were used to compress plate to bone. Fluoroscopy confirmed appropriate alignment of fracture with well-placed hardware. Multiple 2.4 locking screws were now placed distally. Screws were predrilled and measured for appropriate length. Additional screws were placed into the shaft. K wires were removed. Final fluoroscopy revealed excellent of fracture with well-placed hardware. The wound was thoroughly irrigated with sterile saline. Subcutaneous tissue was closed with 3-0 Vicryl and skin was closed with 3-0 nylon. At this point the ulna fracture was visualized. During manipulation of the distal radius and ulna fracture reduced relatively well. The distal radial ulnar joint appeared to be reduced. The scaphoid was also visualized. The scaphoid was in near-anatomic alignment. At this point decision was made to treat the ulna and scaphoid fractures nonoperatively. The external fixator was tightened. Sterile dressings were applied. Patient was awakened and transferred to recovery room in stable condition Gerald Saavedra MD Feb 19, 2016 11:09
--- NOTE | 2016-02-19 11:11 | RADRPT ---
EXAM DATE/TIME: 02/19/2016 10:39 [place] COMPARISON: WRIST LEFT LIMITED (AP & LAT), February 06, 2016, 0:32. INDICATIONS : Left wrist fracture, ORIF done in operating room. MEDICAL HISTORY : None. SURGICAL HISTORY : None. ENCOUNTER: Subsequent ACUITY: 1 day PAIN SCORE: Non-responsive. LOCATION: Left wrist. FINDINGS: Matrix views reveal surgical intervention with placement of multiple plates and screws along the vent ral aspect of the distal radius placing the fracture fragments into good alignment and approximation. Distal pin has been removed and traction device remains in place. Ulnar fracture is unchanged and th ere is no evidence of dislocation. CONCLUSION: Postsurgical changes plating distal radial fracture Vinh Matos MD on February 19, 2016 at 11:08 Board Certified Radiologist. This report was verified electronically.
[2016-02-19] MEDS ORDERED: DO NOT ADM ANY ANTICOAGULANT DRUGS XX PRN (11:23)
--- NOTE | 2016-02-19 11:45 | HHI.PR ---
Subjective Subjective Notes OR today with Ortho. Continues to be restless and impulsive. ST following for cognitive eval. Objective Vitals/I&O Vital Signs Date Time Temp Pulse Resp B/P Pulse Ox O2 Delivery O2 Flow Rate FiO2 02/19/16 11:30 78 15 144/87 95 Nasal Cannula 4 02/19/16 11:22 97.7 Radiology Last 72 hours Impressions Chest X-Ray 02/10/16 0600 Signed Impressions: Service Date/Time: Wednesday, February 10, 2016 05:32 - CONCLUSION: Trace bibasilar atelectasis developing. Renaldo Mata MD Narrative Exam GENERAL: 50 year old well-nourished, well-developed male. SKIN: Warm and dry. RIGHT eye with ecchymosis and steri-strips in place. HEAD: Normocephalic. ENT: No nasal bleeding or discharge. Mucous membranes pink and moist. NECK: Trachea midline. No JVD. CARDIOVASCULAR: Regular rate and rhythm. RESPIRATORY: No accessory muscle use. Lungs are clear and diminished to auscultation. Breath sounds equal bilaterally. GASTROINTESTINAL: Abdomen soft, non-tender, nondistended. + BS MUSCULOSKELETAL: Extremities without cyanosis, or edema. LEFT wrist ex-fix in place. + peripheral pulses x 4 with good cap refill. NEUROLOGICAL: Awake, alert, confused A/P Problem List: (1) Trauma (2) Facial laceration (3) Wrist fracture, open (4) Open Colles' fracture of left radius (5) Fracture of left superior pubic ramus (6) Fracture of left inferior pubic ramus (7) Respiratory failure after trauma (8) Left acetabular fracture (9) Open fracture of distal ulna (10) Closed head injury Assessment and Plan INJURIES: LEFT eye brow lac Small cortical hemorrhage (frontoparietal) w/ bolt placement LEFT open distal radius & fx LEFT acetabular & pubic rami fx 02/05/2016 I&D with external fixation and percutaneous pinning LEFT radius and ulna 02/08/2016 ORIF LEFT acetabulum Diet: Regular diet,with Ensure TID, intake has been fair. Ship'S Officer consult for further recommendations on nutrition. Pulmonary: IS and acapella, encouraged patient use Pain: Percocet Activity: OOB with assist. (NWCristhian OSORIO, UBALDO WHITEE) PT and OT evaluating. GI prophylaxis: Pepcid Bowel regimen: Colace and MOM held. LBM 02/18. DVT prophylaxis: SCDs, Lovenox SQ. Still confused. ST following for cognitive eval. Added scheduled Ativan for agitation secondary to TBI and likely anxiety. Case management assisted with discharge planning. Patient will need inpatient rehab vs SNF placement. Attending Statement Patient doing really well awake and alert however gets confused Especially at night patient gets very rowdy and restless tries to climb out of bed and needs sitter 24 7 The exam, history, and the medical decision-making described in the above note were completed with the assistance of the mid-level provider. I reviewed and agree with the findings presented. I attest that I had a [id number] encounter with the patient on the same day, and personally performed and documented my assessment and findings in the medical record. Problem Qualifiers (1) Facial laceration: Qualified Code: S01.81XA - Facial laceration, initial encounter (2) Wrist fracture, open: Qualified Code: S62.102B - Wrist fracture, open, left, initial encounter (3) Open Colles' fracture of left radius: (4) Fracture of left superior pubic ramus: Qualified Code: S32.512A - Fracture of left superior pubic ramus, closed, initial encounter (5) Fracture of left inferior pubic ramus: Qualified Code: S32.592A - Fracture of left inferior pubic ramus, closed, initial encounter (6) Left acetabular fracture: (7) Open fracture of distal ulna: (8) Closed head injury: Qualified Code: S09.90XA - Closed head injury, initial encounter Shay GoldsteinP Feb 19, 2016 11:45 Lucinda Kidd MD Feb 23, 2016 02:03
[2016-02-19] MEDS: LACTATED RINGER'S 1000 ML INJ 1,000 ML IV SCH ×2 (12:00→22:00)
[2016-02-19] MEDS ORDERED: SODIUM CHLOR 0.9% 250 ML INJ 250 ML IV ONE (12:00)
[2016-02-19] MEDS ORDERED: ONDANSETRON HCL 4 MG/2 ML VIAL IV PUSH ONE (12:00)
[2016-02-19] MEDS ORDERED: NEOSTIGMINE 3 MG/3 ML SYR IV ONE (12:00)
[2016-02-19] MEDS ORDERED: PROPOFOL 200 MG/20 ML AMP IV ONE (12:00)
[2016-02-19] MEDS ORDERED: PHENYLEPH/NS 1000 MCG/10 ML SYR IV ONE (12:00)
[2016-02-19] MEDS ORDERED: MORPHINE SULFATE 4 MG/ML INJ IV PUSH PRN (12:30)
[2016-02-19] MEDS: LORazepam 2 MG/ML VIAL IV PUSH PRN (12:56)
[2016-02-19] MEDS: LORazepam 0.5 MG TAB PO SCH ×3 (14:00→22:14)
[2016-02-19] MEDS ORDERED: ceFAZolin 2 GM PREMIX 50 ML IV SCH (17:00)
[2016-02-19] MEDS: ceFAZolin 2 GM PREMIX 50 ML IV SCH (17:59)
[2016-02-19] MEDS: VANCOMYCIN INJ 1,000 MG in SODIUM CHLOR 0.9% 250 ML INJ 250 ML IV SCH (19:56)
[2016-02-20] MEDS: oxyCODONE/ACETAMINOPHEN 5 MG/325 MG TAB PO PRN ×5 (00:21→20:20)
[2016-02-20] MEDS: ceFAZolin 2 GM PREMIX 50 ML IV SCH ×3 (00:21→17:38)
[2016-02-20 03:28] VITALS: BP 129/69; PULSE 102; RESP 19; TEMP 97.5; O2SAT 99
[2016-02-20] MEDS: LORazepam 0.5 MG TAB PO SCH ×4 (05:26→21:55)
[2016-02-20 06:53] LABS: HEMATOCRIT 28.5 % (39.0-51.0); REVIEW FLAG FINAL
--- NOTE | 2016-02-20 07:01 | PD.ORT.PN ---
Subjective Subjective Remarks Confused. No new complaints Objective Vitals Vital Signs Date Time Temp Pulse Resp B/P Pulse Ox O2 Delivery O2 Flow Rate FiO2 02/20/16 03:28 97.5 102 19 129/69 99 02/19/16 23:49 98.4 104 19 142/76 99 02/19/16 19:35 98.7 113 18 141/70 97 02/19/16 17:37 93 Nasal Cannula 3.00 02/19/16 16:00 99.3 111 18 144/79 100 02/19/16 12:50 96.4 102 17 148/87 98 02/19/16 12:30 97.6 78 16 141/87 95 Nasal Cannula 3 02/19/16 12:15 76 15 143/89 93 Nasal Cannula 3 02/19/16 12:00 75 15 142/90 97 Nasal Cannula 4 02/19/16 11:45 74 15 145/82 96 Nasal Cannula 4 02/19/16 11:30 78 15 144/87 95 Nasal Cannula 4 02/19/16 11:22 97.7 77 16 136/81 93 Nasal Cannula 4 02/19/16 07:51 98.1 75 18 152/76 75 I/O 02/19/16 02/19/16 02/19/16 02/20/16 02/20/16 02/20/16 07:00 15:00 23:00 07:00 15:00 23:00 Intake Total 240 ml 1180 ml 500 ml 700 ml Output Total 350 ml 50 ml 400 ml 600 ml Balance -110 ml 1130 ml 100 ml 100 ml Intake Oral 240 ml 480 ml 500 ml 700 ml IV Total 100 ml Other 600 ml Output Urine Total 350 ml 400 ml 600 ml Estimated Blood Loss 50 ml # Voids 2 # Bowel Movements 0 0 Result Diagram: 02/20/16 0607 02/18/16 0522 Imaging Last 24 hours Impressions Wrist X-Ray 02/06/16 0000 Signed Impressions: Service Date/Time: January 00:32 - CONCLUSION: Placement of an external fixation device and wire through the radius as described above. Renaldo Gomez MD Chest X-Ray 02/06/16 0000 Signed Impressions: Service Date/Time: January 04:52 - CONCLUSION: No acute disease. Renaldo Gomez MD Upper Extremity CT 02/05/161126 Signed Impressions: Service Date/Time: Friday, February 05, 2016 11:27 - CONCLUSION: 1. Comminuted fracture of the distal radius with intra-articular extension. 2. Carpal bones are intact. Kristian Ewing MD Pelvis X-Ray 02/05/161106 Signed Impressions: Service Date/Time: Friday, February 05, 2016 10:38 - CONCLUSION: Fractures left side of the pelvis as described above. CT scan is pending. Yordy Arias MD FACR Maxillofacial CT 02/05/161106 Signed Impressions: Service Date/Time: Friday, February 05, 2016 11:14 - CONCLUSION: 1. There is no evidence of acute fracture. Kristian Ewing MD Head CT 02/05/161106 Signed Impressions: Service Date/Time: Friday, February 05, 2016 11:11 - CONCLUSION: 1. Negative for skull fracture. 2. Probable small cortical hemorrhage in the left centrum semiovale. Yordy Arias MD FACR Chest X-Ray 02/05/161106 Signed Impressions: Service Date/Time: Friday, February 05, 2016 10:38 - CONCLUSION: 1. ET tube in good position. 2. Prominent cardiac silhouette. Yordy Arias MD FACR Chest CT 02/05/161106 Signed Impressions: Service Date/Time: Friday, February 05, 2016 11:11 - CONCLUSION: 1. Negative CT scan of the chest for an acute traumatic injury. 2. Minimal bibasilar parenchymal changes without pneumothorax. Yordy Arias MD FACR Cervical Spine CT 02/05/161106 Signed Impressions: Service Date/Time: Friday, February 05, 2016 11:14 - CONCLUSION: 1. Moderate degenerative changes as described above. There is no evidence of acute fracture. Kristian Ewing MD Abdomen/Pelvis CT 02/05/161106 Signed Impressions: Service Date/Time: Friday, February 05, 2016 11:11 - CONCLUSION: 1. No evidence of acute abdominal or pelvic process. No masses are identified. 2. Multiple pelvic fractures including the left acetabulum and pubic rami Kristian Ewing MD Objective Remarks LUE: +ex fix of wrist. pin sites with min dried drainage. no active drainage, mild swelling dorsum of hand, + wrinkles good movement of digits. Josiah wrap over full extend dermal fixation and wrist Pelvis: dressing clean and dry. intact. Assessment & Plan Problem List: (1) (2) (3) (4) (5) Assessment and Plan 1) Left Distal Radius Fx s/p ORIF and revision to exfix - POD #1 2) Left Acetabulum fx with Sup/Inf Rami fxs POD #13 Nonweightbearing left upper extremity. Daily dressing changes beginning POD 2 with pin care twice a day Continue daily dressing changes over pelvis Lovenox Incentive spirometry NWB UNIQUE GAFFNEY PA-C Feb 20, 2016 07:01
[2016-02-20 07:25] VITALS: BP 144/73; PULSE 98; RESP 19; TEMP 95.7; O2SAT 96
[2016-02-20] MEDS: DOCUSATE SODIUM 100 MG CAP PO SCH (09:16)
[2016-02-20] MEDS: ENOXAPARIN SODIUM 30 MG/0.3 ML SYRINGE SQ SCH ×2 (09:17→21:55)
[2016-02-20] MEDS: MAGNESIUM HYDROXIDE SUSP 30 ML CUP PO PRN (09:17)
[2016-02-20] MEDS: LISINOPRIL 10 MG TAB PO SCH (09:17)
[2016-02-20] MEDS: VANCOMYCIN INJ 1,000 MG in SODIUM CHLOR 0.9% 250 ML INJ 250 ML IV SCH (09:18)
[2016-02-20] MEDS: BACITRACIN TOP OINT 15 GM TUBE TOP SCH ×2 (09:18→20:20)
[2016-02-20] MEDS: SODIUM CHLORIDE 0.9% FLUSH 5 ML FLUSH IVF SCH ×2 (09:18→20:20)
[2016-02-20] MEDS: FAMOTIDINE 20 MG TAB PO SCH ×2 (09:18→20:20)
--- NOTE | 2016-02-20 11:38 | HHI.PR ---
Subjective Subjective Notes Restlessness and mentation gradually improving Objective Vitals/I&O Vital Signs Date Time Temp Pulse Resp B/P Pulse Ox O2 Delivery O2 Flow Rate FiO2 02/20/16 07:25 95.7 98 19 144/73 96 02/19/16 17:37 Nasal Cannula 3.00 Labs Laboratory Tests Test 02/20/16 06:07 Hemoglobin 9.4 Hematocrit 28.5 Radiology Last 72 hours Impressions Chest X-Ray 02/10/16 0600 Signed Impressions: Service Date/Time: Wednesday, February 10, 2016 05:32 - CONCLUSION: Trace bibasilar atelectasis developing. Renaldo Mata MD Narrative Exam GENERAL: 50 year old well-nourished, well-developed male OOB in wheelchair. SKIN: Warm and dry. RIGHT eye with ecchymosis and steri-strips in place. HEAD: Normocephalic. ENT: No nasal bleeding or discharge. Mucous membranes pink and moist. NECK: Trachea midline. No JVD. CARDIOVASCULAR: Regular rate and rhythm. RESPIRATORY: No accessory muscle use. Lungs are clear and diminished to auscultation. Breath sounds equal bilaterally. GASTROINTESTINAL: Abdomen soft, non-tender, nondistended. + BS MUSCULOSKELETAL: Extremities without cyanosis, or edema. LEFT wrist ex-fix in place. + sensation, + peripheral pulses x 4 with good cap refill. NEUROLOGICAL: More alert and appropriate today, conversing A/P Problem List: (1) Trauma (2) Facial laceration (3) Wrist fracture, open (4) Open Colles' fracture of left radius (5) Fracture of left superior pubic ramus (6) Fracture of left inferior pubic ramus (7) Respiratory failure after trauma (8) Left acetabular fracture (9) Open fracture of distal ulna (10) Closed head injury Assessment and Plan INJURIES: LEFT eye brow lac Small cortical hemorrhage (frontoparietal) w/ bolt placement LEFT open distal radius & fx LEFT acetabular & pubic rami fx 02/05/2016 I&D with external fixation and percutaneous pinning LEFT radius and ulna 02/08/2016 ORIF LEFT acetabulum Diet: Regular diet with Enlive TID, per deboning team leader recommendations. Pulmonary: IS and acapella, encouraged patient use Pain: Percocet PRN. Pain controlled. Ativan scheduled TID for agitation. Activity: OOB with assist. (NWB LUE, NWB LLE) PT and OT evaluating. Tolerating OOB in wheelchair today. GI prophylaxis: Pepcid Bowel regimen: Colace and MOM held. LBM 02/18. DVT prophylaxis: SCDs, Lovenox SQ. Still confused. ST following for cognitive eval. Patient still requiring sitter for safety and impulsiveness. Plan of care discussed with patient, mother, and girlfriend. Encouraged family to bring in outside food that patient will enjoy. Case management assisted with discharge planning. Patient will need inpatient rehab vs SNF placement. Plan to DC once patient is less impulsive and cleared by Ortho. Problem Qualifiers (1) Facial laceration: Qualified Code: S01.81XA - Facial laceration, initial encounter (2) Wrist fracture, open: Qualified Code: S62.102B - Wrist fracture, open, left, initial encounter (3) Open Colles' fracture of left radius: (4) Fracture of left superior pubic ramus: Qualified Code: S32.512A - Fracture of left superior pubic ramus, closed, initial encounter (5) Fracture of left inferior pubic ramus: Qualified Code: S32.592A - Fracture of left inferior pubic ramus, closed, initial encounter (6) Left acetabular fracture: (7) Open fracture of distal ulna: (8) Closed head injury: Qualified Code: S09.90XA - Closed head injury, initial encounter Shay Goldstein Feb 20, 2016 11:38
[2016-02-20 12:00] VITALS: BP 120/61; PULSE 106; RESP 18; TEMP 95.8; O2SAT 95
[2016-02-20] MEDS: LORazepam 2 MG/ML VIAL IV PUSH PRN ×2 (13:04→20:34)
[2016-02-20 15:57] VITALS: BP 139/60; PULSE 99; RESP 17; TEMP 97.5; O2SAT 97
[2016-02-20 18:22] VITALS: O2SAT 97
[2016-02-20 20:00] VITALS: BP 129/65; PULSE 104; RESP 20; TEMP 97.8; O2SAT 100
[2016-02-21] VITALS (9 sets, daily range): BP systolic 101–137; BP diastolic 50–81; PULSE 75–100; RESP 16–24; TEMP 95.6–98.7; O2SAT 96–99
[2016-02-21] MEDS: ceFAZolin 2 GM PREMIX 50 ML IV SCH ×2 (00:50→08:30)
[2016-02-21] MEDS: LORazepam 2 MG/ML VIAL IV PUSH PRN ×2 (05:37→16:03)
[2016-02-21] MEDS: LORazepam 0.5 MG TAB PO SCH ×3 (05:37→21:20)
[2016-02-21 06:01] LABS: BICARBONATE 25.8 MEQ/L (21.0-32.0); POTASSIUM 3.7 MEQ/L (3.5-5.1)
--- NOTE | 2016-02-21 06:41 | RADRPT ---
EXAM DATE/TIME: 02/21/2016 06:01 [facility] COMPARISON: CHEST SINGLE AP, February 10, 2016, 5:32. INDICATIONS : Short of breath, evaluate atelectasis MEDICAL HISTORY : left wrist fracture, left hip fracture, frontal lobe bleed SURGICAL HISTORY : left wrist, left hip ENCOUNTER: Subsequent ACUITY: 2 weeks PAIN SCORE: Non-responsive. LOCATION: Bilateral chest FINDINGS: A single view of the chest demonstrates diminished lung volumes without evidence of mass, infiltrate or effusion. The cardiomediastinal contours are unremarkable. Osseous structures are intact. CONCLUSION: Diminished lung volumes. Anthony Deluca MD on February 21, 2016 at 6:38 Board Certified Radiologist. This report was verified electronically.
--- NOTE | 2016-02-21 06:49 | PD.ORT.PN ---
Subjective Subjective Remarks POD 2 s/p ORIF left wrist POD 13 s/p ORIF left acetabulum awake. alert. state doing well with minimal pain Objective Vitals Vital Signs Date Time Temp Pulse Resp B/P Pulse Ox O2 Delivery O2 Flow Rate FiO2 02/21/16 04:00 95.6 87 18 137/66 96 02/21/16 00:00 95.7 94 20 114/67 99 02/20/16 20:00 97.8 104 20 129/65 100 02/20/16 18:22 97 21 02/20/16 15:57 97.5 99 17 139/60 97 02/20/16 12:00 95.8 106 18 120/61 95 02/20/16 07:25 95.7 98 19 144/73 96 I/O 02/20/16 02/20/16 02/20/16 02/21/16 02/21/16 02/21/16 07:00 15:00 23:00 07:00 15:00 23:00 Intake Total 700 ml 240 ml 480 ml Output Total 600 ml 900 ml Balance 100 ml -660 ml 480 ml Intake Oral 700 ml 240 ml 480 ml Output Urine Total 600 ml 900 ml # Voids 2 # Bowel Movements 2 Result Diagram: 02/20/16 0607 02/21/16 0430 Imaging Last 24 hours Impressions Wrist X-Ray 02/06/16 0000 Signed Impressions: Service Date/Time: January 00:32 - CONCLUSION: Placement of an external fixation device and wire through the radius as described above. Renaldo Gomez MD Chest X-Ray 02/06/16 0000 Signed Impressions: Service Date/Time: January 04:52 - CONCLUSION: No acute disease. Renaldo Gomez MD Upper Extremity CT 02/05/16 1127 Signed Impressions: Service Date/Time: Friday, February 05, 2016 11:27 - CONCLUSION: 1. Comminuted fracture of the distal radius with intra-articular extension. 2. Carpal bones are intact. Kristian Ewing MD Pelvis X-Ray 02/05/16 1107 Signed Impressions: Service Date/Time: Friday, February 05, 2016 10:38 - CONCLUSION: Fractures left side of the pelvis as described above. CT scan is pending. Yordy Arias MD FACR Maxillofacial CT 02/05/161106 Signed Impressions: Service Date/Time: Friday, February 05, 2016 11:14 - CONCLUSION: 1. There is no evidence of acute fracture. Kristian Ewing MD Head CT 02/05/161106 Signed Impressions: Service Date/Time: Friday, February 05, 2016 11:11 - CONCLUSION: 1. Negative for skull fracture. 2. Probable small cortical hemorrhage in the left centrum semiovale. Yordy Arias MD FACR Chest X-Ray 02/05/161106 Signed Impressions: Service Date/Time: Friday, February 05, 2016 10:38 - CONCLUSION: 1. ET tube in good position. 2. Prominent cardiac silhouette. Yordy Arias MD FACR Chest CT 02/05/161106 Signed Impressions: Service Date/Time: Friday, February 05, 2016 11:11 - CONCLUSION: 1. Negative CT scan of the chest for an acute traumatic injury. 2. Minimal bibasilar parenchymal changes without pneumothorax. Yordy Arias MD FACR Cervical Spine CT 02/05/161106 Signed Impressions: Service Date/Time: Friday, February 05, 2016 11:14 - CONCLUSION: 1. Moderate degenerative changes as described above. There is no evidence of acute fracture. Kristian Ewing MD Abdomen/Pelvis CT 02/05/161106 Signed Impressions: Service Date/Time: Friday, February 05, 2016 11:11 - CONCLUSION: 1. No evidence of acute abdominal or pelvic process. No masses are identified. 2. Multiple pelvic fractures including the left acetabulum and pubic rami Kristian Ewing MD Objective Remarks LUE: +ex fix of wrist. pin sites with min dried drainage. no active drainage, mild swelling dorsum of hand, + wrinkles good movement of digits. Pelvis: dressing clean and dry. intact. Assessment & Plan Problem List: (1) (2) (3) (4) (5) Assessment and Plan 1) Left Distal Radius Fx s/p ORIF and revision to exfix - POD #2 2) Left Acetabulum fx with Sup/Inf Rami fxs POD #13 Nonweightbearing left upper extremity. Daily dressing changes beginning POD 2 with pin care twice a day Continue daily dressing changes over pelvis Lovenox Incentive spirometry NWB BLE will order pelvic xrays today plan for staple removal potentially wednesday or wednesday CM for rehab placement Zain Lei Feb 21, 2016 06:49
[2016-02-21] MEDS: oxyCODONE/ACETAMINOPHEN 5 MG/325 MG TAB PO PRN ×3 (08:29→17:58)
[2016-02-21] MEDS: DOCUSATE SODIUM 100 MG CAP PO SCH (08:29)
[2016-02-21] MEDS: LISINOPRIL 10 MG TAB PO SCH (08:29)
[2016-02-21] MEDS: FAMOTIDINE 20 MG TAB PO SCH ×2 (08:29→21:20)
[2016-02-21] MEDS: ENOXAPARIN SODIUM 30 MG/0.3 ML SYRINGE SQ SCH ×2 (08:29→21:21)
[2016-02-21] MEDS: SODIUM CHLORIDE 0.9% FLUSH 5 ML FLUSH IVF SCH ×2 (08:30→21:21)
[2016-02-21] MEDS: BACITRACIN TOP OINT 15 GM TUBE TOP SCH ×2 (09:00→21:00)
--- NOTE | 2016-02-21 10:40 | RADRPT ---
EXAM DATE/TIME: 02/21/2016 10:20 [facility] COMPARISON: PELVIS AP ONLY, February 05, 2016, 10:38. HIP LEFT (AP&LAT 2/3VWS) WO AP PELVIS, February 07, 2016, 15:07. INDICATIONS : Pain. MEDICAL HISTORY : Fracture. SURGICAL HISTORY : Surgical repair. ENCOUNTER: Subsequent ACUITY: 4 - 6 days PAIN SCORE: 2/10 LOCATION: Bilateral pelvis FINDINGS: Noted is a plate and multiple screws transfixing the left acetabular fracture and excellent alignment and approximation of fragments. Fracture inferior pubic ramus on the left extending into the symphys is is appreciated without displacement and remainder the pelvis is intact. CONCLUSION: Left pelvis fractures as described with plating of the acetabular fracture the fracture alignment and approximation of fragments Vinh Matos MD on February 21, 2016 at 10:37 Board Certified Radiologist. This report was verified electronically.
--- NOTE | 2016-02-21 13:31 | HHI.PR ---
Subjective Subjective Notes Remains confused, still requiring sitter Objective Vitals/I&O Vital Signs Date Time Temp Pulse Resp B/P Pulse Ox O2 Delivery O2 Flow Rate FiO2 02/21/16 09:46 98 02/21/16 07:38 97.6 85 16 129/76 02/20/16 18:22 21 02/19/16 17:37 Nasal Cannula 3.00 Labs Laboratory Tests Test 02/21/16 04:30 Sodium Level 140 Potassium Level 3.7 Chloride Level 104 Carbon Dioxide Level 25.8 Anion Gap 10 Blood Urea Nitrogen 12 Creatinine 0.76 Estimat Glomerular Filtration 108 Rate Random Glucose 93 Calcium Level 8.2 Radiology Last 72 hours Impressions Chest X-Ray 02/10/16 0600 Signed Impressions: Service Date/Time: Wednesday, February 10, 2016 05:32 - CONCLUSION: Trace bibasilar atelectasis developing. Renaldo Mata MD Narrative Exam GENERAL: 50 year old well-nourished, well-developed male OOB in wheelchair. SKIN: Warm and dry. RIGHT eye with ecchymosis and steri-strips in place. HEAD: Normocephalic. ENT: No nasal bleeding or discharge. Mucous membranes pink and moist. NECK: Trachea midline. No JVD. CARDIOVASCULAR: Regular rate and rhythm. RESPIRATORY: No accessory muscle use. Lungs are clear and diminished to auscultation. Breath sounds equal bilaterally. GASTROINTESTINAL: Abdomen soft, non-tender, nondistended. + BS MUSCULOSKELETAL: Extremities without cyanosis, or edema. LEFT wrist ex-fix in place. + sensation, + peripheral pulses x 4 with good cap refill. NEUROLOGICAL: Awake and alert, conversing A/P Problem List: (1) Trauma (2) Facial laceration (3) Wrist fracture, open (4) Open Colles' fracture of left radius (5) Fracture of left superior pubic ramus (6) Fracture of left inferior pubic ramus (7) Respiratory failure after trauma (8) Left acetabular fracture (9) Open fracture of distal ulna (10) Closed head injury Assessment and Plan INJURIES: LEFT eye brow lac Small cortical hemorrhage (frontoparietal) w/ bolt placement LEFT open distal radius & fx LEFT acetabular & pubic rami fx 02/05/2016 I&D with external fixation and percutaneous pinning LEFT radius and ulna 02/08/2016 ORIF LEFT acetabulum Diet: Regular diet with Enlive TID, per pump press operator recommendations. Pulmonary: IS and acapella, encouraged patient use Pain: Percocet PRN. Pain controlled. Ativan scheduled TID for agitation. Activity: OOB with assist. (UBALDO OSORIO, UBALDO LEON) PT and OT evaluating. Tolerating OOB in wheelchair daily. GI prophylaxis: Pepcid Bowel regimen: Colace and MOM held. LBM 02/20. DVT prophylaxis: SCDs, Lovenox SQ. Still confused. ST following for cognitive eval. Patient still requiring sitter for safety and impulsiveness. Plan of care discussed with patient and mother at bedside. Case management assisted with discharge planning. Patient will need inpatient rehab vs SNF placement. [facility] is following, but will not have any [facility] beds until after February. Plan to DC once patient is less impulsive and cleared by Ortho. Attending Statement Patient greatly improved awake and alert oriented in time and space and person Occasionally gets confused but answers simple questions appropriately At night patient becomes restless and the rowdy The exam, history, and the medical decision-making described in the above note were completed with the assistance of the mid-level provider. I reviewed and agree with the findings presented. I attest that I had a [id number] encounter with the patient on the same day, and personally performed and documented my assessment and findings in the medical record. Problem Qualifiers (1) Facial laceration: Qualified Code: S01.81XA - Facial laceration, initial encounter (2) Wrist fracture, open: Qualified Code: S62.102B - Wrist fracture, open, left, initial encounter (3) Open Colles' fracture of left radius: (4) Fracture of left superior pubic ramus: Qualified Code: S32.512A - Fracture of left superior pubic ramus, closed, initial encounter (5) Fracture of left inferior pubic ramus: Qualified Code: S32.592A - Fracture of left inferior pubic ramus, closed, initial encounter (6) Left acetabular fracture: (7) Open fracture of distal ulna: (8) Closed head injury: Qualified Code: S09.90XA - Closed head injury, initial encounter Shay Goldstein Feb 21, 2016 13:31 Lucinda Kidd MD Feb 23, 2016 02:11
--- NOTE | 2016-02-21 16:48 | HHI.PR ---
Subjective Subjective Comments Awake and focusing to voice briefly. Does not appear to be in pain or short of breath. Allergies: Coded Allergies: No Known Allergies (Unverified , 10/01/13) Review of Systems Neurologic: Confusion All other ROS: Unable to obtain Exam I&O / VS 02/20/16 02/20/16 02/21/16 15:00 23:00 07:00 Intake Total 240 ml 480 ml 240 ml Output Total 900 ml Balance -660 ml 480 ml 240 ml Intake Oral 240 ml 480 ml 240 ml Output Urine Total 900 ml # Voids 2 1 # Bowel Movements 2 2 Vital Signs Date Time Temp Pulse Resp B/P Pulse Ox O2 Delivery O2 Flow Rate FiO2 02/21/16 12:15 98.2 90 16 134/70 98 02/21/16 09:46 98 02/21/16 07:38 97.6 85 16 129/76 97 02/21/16 04:00 95.6 87 18 137/66 96 02/21/16 00:00 95.7 94 20 114/67 99 02/20/16 20:00 97.8 104 20 129/65 100 02/20/16 18:22 97 21 General: No acute distress Skin: Other (No rash noted) Psychiatric: Cooperative Orientation: oriented to Self, oriented to Place (With cues) Neurologic: Other (Tracks to voice and movement) Motor: Right Upper Extremity (Follows simple one step command to move), Left Upper Extremity (External fixator in place), Right Lower Extremity (Follows simple one step command to move), Left Lower Extremity (Follows simple one step command to move) Objective Micro and Labs Laboratory Tests Test 02/21/16 04:30 Sodium Level 140 Potassium Level 3.7 Chloride Level 104 Carbon Dioxide Level 25.8 Anion Gap 10 Blood Urea Nitrogen 12 Creatinine 0.76 Estimat Glomerular Filtration 108 Rate Random Glucose 93 Calcium Level 8.2 Assessment and Plan Diagnosis: (1) (2) (3) (4) (5) Assessment 1. Fall from roof with closed head injury with probable small cortical hemorrhage left centrum semiovale and left frontal lobe with multiple fractures including left distal radius status post external fixator placement, left acetabulum and left pelvis status post ORIF the left acetabulum now nonweightbearing left lower extremity and permitted use platform walker left upper extremity Plan 1. Speech therapy has evaluated swallow and tolerating pured diet 2. Occupational therapy addressing ADLs and max assist for upper body dressing 3. Physical therapy providing range of motion and beginning to mobilize. Mod assist of 2 bed mobility and max assist of 2 for transfers 4. Given the distribution of injuries, patient will likely need inpatient rehabilitation. Case management is addressing discharge planning/payor source for ongoing rehabilitation care. 5. Referral to [place] [facility] 6. Will follow while hospitalized and at discharge Marcia Neff MD Feb 21, 2016 16:48
[2016-02-22] VITALS (7 sets, daily range): BP systolic 106–121; BP diastolic 58–74; PULSE 89–97; RESP 16–17; TEMP 96.7–98.5; O2SAT 94–97
[2016-02-22] MEDS: LORazepam 0.5 MG TAB PO SCH ×3 (05:48→21:51)
[2016-02-22] MEDS: BACITRACIN TOP OINT 15 GM TUBE TOP SCH ×2 (09:00→21:00)
[2016-02-22] MEDS: DOCUSATE SODIUM 100 MG CAP PO SCH (09:08)
[2016-02-22] MEDS: ENOXAPARIN SODIUM 30 MG/0.3 ML SYRINGE SQ SCH ×2 (09:08→21:52)
[2016-02-22] MEDS: SODIUM CHLORIDE 0.9% FLUSH 5 ML FLUSH IVF SCH ×2 (09:09→21:52)
[2016-02-22] MEDS: LISINOPRIL 10 MG TAB PO SCH (09:09)
[2016-02-22] MEDS: FAMOTIDINE 20 MG TAB PO SCH ×2 (09:09→21:52)
[2016-02-22] MEDS: oxyCODONE/ACETAMINOPHEN 5 MG/325 MG TAB PO PRN ×2 (09:09→21:51)
--- NOTE | 2016-02-22 10:41 | HHI.PR ---
Subjective Subjective Notes PTD: 16 Pt is found OOB in a wheelchair being wheeled by his mother. Pt offers no complaints and is able to answer simple questions appropriately. His mother states that he can get fidgety and restless, especially at night. Objective Vitals/I&O Vital Signs Date Time Temp Pulse Resp B/P Pulse Ox O2 Delivery O2 Flow Rate FiO2 02/22/16 08:00 96.7 96 16 121/74 97 02/20/16 18:22 21 02/19/16 17:37 Nasal Cannula 3.00 Labs Laboratory Tests Test 02/20/16 02/21/16 06:07 04:30 Hemoglobin 9.4 GM/DL Hematocrit 28.5 % Sodium Level 140 MEQ/L Potassium Level 3.7 MEQ/L Chloride Level 104 MEQ/L Carbon Dioxide Level 25.8 MEQ/L Anion Gap 10 MEQ/L Blood Urea Nitrogen 12 MG/DL Creatinine 0.76 MG/DL Estimat Glomerular Filtration 108 ML/MIN Rate Random Glucose 93 MG/DL Calcium Level 8.2 MG/DL Radiology Last 72 hours Impressions Chest X-Ray 02/10/16 0600 Signed Impressions: Service Date/Time: Wednesday, February 10, 2016 05:32 - CONCLUSION: Trace bibasilar atelectasis developing. Renaldo Mata MD Narrative Exam GENERAL: This is a 50-year-old male found to fit in the wheelchair being we'll plan his mother in the hallway. SKIN: Warm and dry. HEAD: Normocephalic. Atraumatic. EYES: PERRLA ENT: No nasal bleeding or discharge. Mucous membranes pink and moist. NECK: Trachea midline. No JVD. CARDIOVASCULAR: Regular rate and rhythm. RESPIRATORY: No accessory muscle use. Lungs are clear to auscultation. Breath sounds equal bilaterally. No distress or dyspnea. GASTROINTESTINAL: BS + x 4 quads. Abdomen soft, non-tender, nondistended. MUSCULOSKELETAL: Extremities without cyanosis, or edema. LEFT wrist ex-fix in place. Pin sites intact without redness or edema . + peripheral pulses x 4 extremities. Warm with good capillary refill and sensation. MAEW. NEUROLOGICAL: Awake and alert x 2-3. Patient is slow to respond to questions, however he does answer correctly and appropriately. A/P Problem List: (1) Trauma (2) Facial laceration (3) Wrist fracture, open (4) Open Colles' fracture of left radius (5) Fracture of left superior pubic ramus (6) Fracture of left inferior pubic ramus (7) Respiratory failure after trauma (8) Left acetabular fracture (9) Open fracture of distal ulna (10) Closed head injury Assessment and Plan KLUTI KAAH: This is a 50-year-old male patient. 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 It was approximately 10 feet in height. Positive LOC. He was combative at the scene and therefore intubated. GCS 8 on arrival. He was originally managed in the ICU on mechanical ventilation and an ICP bolt. He has subsequently has been extubated successfully. He passed his swallow eval. Now he is being managed on the [facility] floor. He is awaiting one final surgery from [facility] for removal of his left forearm ex-fix. INJURIES: LEFT eye brow lac (sutures) small cortical hemorrhage (frontoparietal) w/ bolt placement LEFT open distal radius & fx LEFT acetabular & pubic rami fx 02/05/2016 bolt placement 02/05/2016 I&D with external fixation and percutaneous pinning LEFT radius and ulna 02/08/2016 ORIF LEFT acetabulum 02/18: ORIF LEFT distal radius fx & ex-fix revision Patient fell out of bed on 02/11/2016. A sitter remains at the bedside. Additionally, he is in a room right across from the nursing station. (He still becomes very restless and impulsive, and attempts to get out of bed, especially at night. Therefore he still is requiring Ativan for agitation.) Diet: Regular diet / no liquid restriction. Tolerating po diet. Encourage good po intake with each meal. Pulmonary: Encourage good pulmonary toileting. IS and acapella at bedside and pt encouraged to use. Rationale for use explained to patient. PAIN Management: Percocet po. Tylenol IV. Ativan IV for restlessness. Activity: Out of bed with assistance only. (UBALDO OSORIO, UBALDO WHITEE) PT and OT ordered. Need 7 days a week therapy. GI prophylaxis: Pepcid po. Bowel regimen: Colace and MOM. BM x4. DVT prophylaxis: Mechanical VTE with SCDs. Chemical management with Lovenox SQ. Awaiting plan from or so for left wrist ex fix removal. DC Planning: Case management consulted for assistance with final discharge disposition. Patient does not have insurance, therefore he will be difficult to place upon discharge. There is a [facility] that [facility] have a [facility] for this patient in February. Emotional support provided to patient and family at bedside and plan of care discussed. Discussed with RN at bedside. Patient is hemodynamically stable and being managed on the med/surg floor in a room across from the nursing station, and additionally with a sitter at the bedside. Problem Qualifiers (1) Facial laceration: Qualified Code: S01.81XA - Facial laceration, initial encounter (2) Wrist fracture, open: Qualified Code: S62.102B - Wrist fracture, open, left, initial encounter (3) Open Colles' fracture of left radius: (4) Fracture of left superior pubic ramus: Qualified Code: S32.512A - Fracture of left superior pubic ramus, closed, initial encounter (5) Fracture of left inferior pubic ramus: Qualified Code: S32.592A - Fracture of left inferior pubic ramus, closed, initial encounter (6) Left acetabular fracture: (7) Open fracture of distal ulna: (8) Closed head injury: Qualified Code: S09.90XA - Closed head injury, initial encounter Lizbeth Gómez Feb 22, 2016 10:41
[2016-02-23] MEDS: LORazepam 0.5 MG TAB PO SCH ×3 (05:13→21:17)
--- NOTE | 2016-02-23 06:56 | PD.ORT.PN ---
Subjective Subjective Remarks POD 4 s/p ORIF left wrist POD 15 s/p ORIF left acetabulum awake. alert. state doing well with minimal pain Objective Vitals Vital Signs Date Time Temp Pulse Resp B/P Pulse Ox O2 Delivery O2 Flow Rate FiO2 02/22/16 23:30 96.9 89 16 114/66 97 02/22/16 19:11 98.5 90 17 117/66 95 02/22/16 18:23 97 21 02/22/16 16:00 97.7 93 16 106/58 97 02/22/16 12:00 97.9 97 16 113/58 94 02/22/16 11:32 94 21 02/22/16 08:00 96.7 96 16 121/74 97 I/O 02/22/16 02/22/16 02/22/16 02/23/16 02/23/16 02/23/16 07:00 15:00 23:00 07:00 15:00 23:00 Intake Total 340 ml 960 ml 480 ml 240 ml Output Total 200 ml 700 ml 300 ml Balance 140 ml 960 ml -220 ml -60 ml Intake Oral 340 ml 960 ml 480 ml 240 ml Output Urine Total 200 ml 700 ml 300 ml # Voids 1 # Bowel Movements 1 2 0 Result Diagram: 02/20/16 0607 02/21/16 0430 Imaging Last 24 hours Impressions Wrist X-Ray 02/06/16 0000 Signed Impressions: Service Date/Time: January 00:32 - CONCLUSION: Placement of an external fixation device and wire through the radius as described above. Renaldo Gomez MD Chest X-Ray 02/06/16 0000 Signed Impressions: Service Date/Time: January 04:52 - CONCLUSION: No acute disease. Renaldo Gomez MD Upper Extremity CT 02/05/16 1127 Signed Impressions: Service Date/Time: Friday, February 05, 2016 11:27 - CONCLUSION: 1. Comminuted fracture of the distal radius with intra-articular extension. 2. Carpal bones are intact. Kristian Ewing MD Pelvis X-Ray 02/05/16 1107 Signed Impressions: Service Date/Time: Friday, February 05, 2016 10:38 - CONCLUSION: Fractures left side of the pelvis as described above. CT scan is pending. Yordy Arias MD FACR Maxillofacial CT 02/05/161106 Signed Impressions: Service Date/Time: Friday, February 05, 2016 11:14 - CONCLUSION: 1. There is no evidence of acute fracture. Kristian Ewing MD Head CT 02/05/161106 Signed Impressions: Service Date/Time: Friday, February 05, 2016 11:11 - CONCLUSION: 1. Negative for skull fracture. 2. Probable small cortical hemorrhage in the left centrum semiovale. Yordy Arias MD FACR Chest X-Ray 02/05/161106 Signed Impressions: Service Date/Time: Friday, February 05, 2016 10:38 - CONCLUSION: 1. ET tube in good position. 2. Prominent cardiac silhouette. Yordy Arias MD FACR Chest CT 02/05/161106 Signed Impressions: Service Date/Time: Friday, February 05, 2016 11:11 - CONCLUSION: 1. Negative CT scan of the chest for an acute traumatic injury. 2. Minimal bibasilar parenchymal changes without pneumothorax. Yordy Arias MD FACR Cervical Spine CT 02/05/161106 Signed Impressions: Service Date/Time: Friday, February 05, 2016 11:14 - CONCLUSION: 1. Moderate degenerative changes as described above. There is no evidence of acute fracture. Kristian Ewing MD Abdomen/Pelvis CT 02/05/161106 Signed Impressions: Service Date/Time: Friday, February 05, 2016 11:11 - CONCLUSION: 1. No evidence of acute abdominal or pelvic process. No masses are identified. 2. Multiple pelvic fractures including the left acetabulum and pubic rami Kristian Ewing MD Objective Remarks LUE: +ex fix of wrist. pin sites with min dried drainage. no active drainage, mild swelling dorsum of hand, + wrinkles good movement of digits. Pelvis: dressing clean and dry. intact. Assessment & Plan Problem List: (1) (2) (3) (4) (5) Assessment and Plan 1) Left Distal Radius Fx s/p ORIF and revision to exfix - POD #4 2) Left Acetabulum fx with Sup/Inf Rami fxs POD #15 Nonweightbearing left upper extremity. Daily dressing changes beginning POD 2 with pin care twice a day Continue daily dressing changes over pelvis Lovenox Incentive spirometry NWB BLE will order pelvic xrays today plan for staple removal potentially wednesday or wednesday CM for rehab placement Zain Lei Feb 23, 2016 06:56
[2016-02-23 07:02] VITALS: BP 123/69; PULSE 89; RESP 17; TEMP 96.4; O2SAT 98
[2016-02-23] MEDS: BACITRACIN TOP OINT 15 GM TUBE TOP SCH ×2 (09:00→21:00)
[2016-02-23 09:52] VITALS: O2SAT 96
[2016-02-23] MEDS: DOCUSATE SODIUM 100 MG CAP PO SCH (10:19)
[2016-02-23] MEDS: FAMOTIDINE 20 MG TAB PO SCH ×2 (10:19→21:17)
[2016-02-23] MEDS: LISINOPRIL 10 MG TAB PO SCH (10:19)
[2016-02-23] MEDS: SODIUM CHLORIDE 0.9% FLUSH 5 ML FLUSH IVF SCH ×2 (10:20→21:00)
[2016-02-23] MEDS: ENOXAPARIN SODIUM 30 MG/0.3 ML SYRINGE SQ SCH ×2 (10:24→21:18)
[2016-02-23 11:30] VITALS: BP 110/66; PULSE 103; RESP 20; TEMP 98.6; O2SAT 97
--- NOTE | 2016-02-23 11:49 | HHI.PR ---
Subjective Subjective Notes PTD: 18 Patient states he is doing. Physical therapy at bedside preparing to assist patient out of bed into a wheelchair. (They state that yesterday he was able to walk a total of 15 feet using a platform walker.) Mother at bedside. She feels he is getting better each day. However he does have episodes of increased restlessness. Objective Vitals/I&O Vital Signs Date Time Temp Pulse Resp B/P Pulse Ox O2 Delivery O2 Flow Rate FiO2 02/23/16 09:52 96 21 02/23/16 07:02 96.4 89 17 123/69 02/19/16 17:37 Nasal Cannula 3.00 Labs Laboratory Tests Test 02/20/16 02/21/16 06:07 04:30 Hemoglobin 9.4 GM/DL Hematocrit 28.5 % Sodium Level 140 MEQ/L Potassium Level 3.7 MEQ/L Chloride Level 104 MEQ/L Carbon Dioxide Level 25.8 MEQ/L Anion Gap 10 MEQ/L Blood Urea Nitrogen 12 MG/DL Creatinine 0.76 MG/DL Estimat Glomerular Filtration 108 ML/MIN Rate Random Glucose 93 MG/DL Calcium Level 8.2 MG/DL Radiology Last 72 hours Impressions Chest X-Ray 02/10/16 0600 Signed Impressions: Service Date/Time: Wednesday, February 10, 2016 05:32 - CONCLUSION: Trace bibasilar atelectasis developing. Renaldo Mata MD Narrative Exam GENERAL: This is a 50-year-old male found in bed in no distress. SKIN: Warm and dry. HEAD: Normocephalic. Atraumatic. EYES: PERRLA ENT: No nasal bleeding or discharge. Mucous membranes pink and moist. NECK: Trachea midline. No JVD. CARDIOVASCULAR: Regular rate and rhythm. RESPIRATORY: No accessory muscle use. Lungs are clear to auscultation. Breath sounds equal bilaterally. No distress or dyspnea. GASTROINTESTINAL: BS + x 4 quads. Abdomen soft, non-tender, nondistended. MUSCULOSKELETAL: Extremities without cyanosis, or edema. LEFT wrist ex-fix in place. Pin sites intact without redness or edema . + peripheral pulses x 4 extremities. Warm with good capillary refill and sensation. MAEW. NEUROLOGICAL: Awake and alert x 2-3. He able to answer questions quicker today. A/P Problem List: (1) Trauma (2) Facial laceration (3) Wrist fracture, open (4) Open Colles' fracture of left radius (5) Fracture of left superior pubic ramus (6) Fracture of left inferior pubic ramus (7) Respiratory failure after trauma (8) Left acetabular fracture (9) Open fracture of distal ulna (10) Closed head injury Assessment and Plan [place]: This is a 50-year-old male patient. 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 It was approximately 10 feet in height. Positive LOC. He was combative at the scene and therefore intubated. GCS 8 on arrival. He was originally managed in the ICU on mechanical ventilation and an ICP bolt. He has subsequently has been extubated successfully. He passed his swallow eval. Now he is being managed on the [facility] floor. He is awaiting one final surgery from [facility] for removal of his left forearm ex-fix. INJURIES: LEFT eye brow lac (sutures) small cortical hemorrhage (frontoparietal) w/ bolt placement LEFT open distal radius & fx LEFT acetabular & pubic rami fx 02/05/2016 bolt placement 02/05/2016 I&D with external fixation and percutaneous pinning LEFT radius and ulna 02/08/2016 ORIF LEFT acetabulum 02/18: ORIF LEFT distal radius fx & ex-fix revision Patient fell out of bed on 02/11/2016. A sitter remains at the bedside. Additionally, he is in a room right across from the nursing station. (He still becomes very restless and impulsive, and attempts to get out of bed, especially at night. Therefore he still is requiring Ativan for agitation.) Diet: Regular diet / no liquid restriction. Tolerating po diet. Encourage good po intake with each meal. Pulmonary: Encourage good pulmonary toileting. IS and acapella at bedside and pt encouraged to use. Rationale for use explained to patient. PAIN Management: Percocet po. Tylenol IV. Ativan IV for restlessness. Activity: Out of bed with assistance only. (NWCristhian OSORIO, UBALDO WHITEE) PT and OT ordered. Need 7 days a week therapy. GI prophylaxis: Pepcid po. Bowel regimen: Colace and MOM. BM x3. DVT prophylaxis: Mechanical VTE with SCDs. Chemical management with Lovenox SQ. Awaiting plan from or so for left wrist ex fix removal. DC Planning: Case management consulted for assistance with final discharge disposition. Patient does not have insurance, therefore he will be difficult to place upon discharge. There is a possibility that [facility] may have a mellisa bed for this patient in the new year. Emotional support provided to patient and mother at bedside and plan of care discussed. Discussed with RN at bedside. Patient is hemodynamically stable and being managed on the med/surg floor in a room across from the nursing station, and additionally with a sitter at the bedside. Attending Statement The exam, history, and the medical decision-making described in the above note were completed with the assistance of the mid-level provider. I reviewed and agree with the findings presented. I attest that I had a [id number] encounter with the patient on the same day, and personally performed and documented my assessment and findings in the medical record. exam: extremities warm, perfused plan rehab placement Problem Qualifiers (1) Facial laceration: Qualified Code: S01.81XA - Facial laceration, initial encounter (2) Wrist fracture, open: Qualified Code: S62.102B - Wrist fracture, open, left, initial encounter (3) Open Colles' fracture of left radius: (4) Fracture of left superior pubic ramus: Qualified Code: S32.512A - Fracture of left superior pubic ramus, closed, initial encounter (5) Fracture of left inferior pubic ramus: Qualified Code: S32.592A - Fracture of left inferior pubic ramus, closed, initial encounter (6) Left acetabular fracture: (7) Open fracture of distal ulna: (8) Closed head injury: Qualified Code: S09.90XA - Closed head injury, initial encounter Lizbeth Gómez Feb 23, 2016 11:49 Clint Diaz MD Feb 23, 2016 18:06
[2016-02-23 16:00] VITALS: BP 103/65; PULSE 87; RESP 16; TEMP 98.4; O2SAT 97
[2016-02-23 19:37] VITALS: BP 107/60; PULSE 92; RESP 17; TEMP 98.1; O2SAT 96
[2016-02-23] MEDS: oxyCODONE/ACETAMINOPHEN 5 MG/325 MG TAB PO PRN (21:17)
[2016-02-24] VITALS (7 sets, daily range): BP systolic 94–111; BP diastolic 55–66; PULSE 77–86; RESP 16–18; TEMP 96–99.6; O2SAT 96–98
[2016-02-24] MEDS: LORazepam 0.5 MG TAB PO SCH ×3 (06:00→21:30)
[2016-02-24 07:39] LABS: MEAN CELL VOLUME 84.6 FL (80.0-100.0); MEAN CORPUSCULAR HEMOGLOBIN 27.6 PG (27.0-34.0); MEAN CORPUSCULAR HGB CONC 32.6 % (32.0-36.0); PLATELET COUNT 676 TH/MM3 (150-450); RED BLOOD COUNT 3.42 MIL/MM3 (4.50-5.90); RED CELL DISTRIBUTION WIDTH 15.3 % (11.6-17.2); REVIEW FLAG FINAL; WHITE BLOOD COUNT 5.4 TH/MM3 (4.0-11.0)
[2016-02-24 08:07] LABS: BICARBONATE 27.7 MEQ/L (21.0-32.0); MAGNESIUM 2.2 MG/DL (1.5-2.5); POTASSIUM 3.9 MEQ/L (3.5-5.1)
[2016-02-24] MEDS: SODIUM CHLORIDE 0.9% FLUSH 5 ML FLUSH IVF SCH ×2 (09:06→19:44)
[2016-02-24] MEDS: FAMOTIDINE 20 MG TAB PO SCH ×2 (09:06→19:44)
[2016-02-24] MEDS: ENOXAPARIN SODIUM 30 MG/0.3 ML SYRINGE SQ SCH ×2 (09:06→21:30)
[2016-02-24] MEDS: oxyCODONE/ACETAMINOPHEN 5 MG/325 MG TAB PO PRN (09:07)
[2016-02-24] MEDS: DOCUSATE SODIUM 100 MG CAP PO SCH (09:07)
[2016-02-24] MEDS: LISINOPRIL 10 MG TAB PO SCH (09:07)
[2016-02-24] MEDS: BACITRACIN TOP OINT 15 GM TUBE TOP SCH ×2 (09:09→19:47)
--- NOTE | 2016-02-24 12:19 | HHI.PR ---
Subjective Subjective Notes PTD: 19 Patient is in a wheelchair being wheeled around the nursing unit. He is awake and alert and offering no complaints. Objective Vitals/I&O Vital Signs Date Time Temp Pulse Resp B/P Pulse Ox O2 Delivery O2 Flow Rate FiO2 02/24/16 11:43 96.0 80 16 95/57 96 02/23/16 09:52 21 Labs Laboratory Tests Test 02/24/16 06:43 White Blood Count 5.4 Red Blood Count 3.42 Hemoglobin 9.4 Hematocrit 29.0 Mean Corpuscular Volume 84.6 Mean Corpuscular Hemoglobin 27.6 Mean Corpuscular Hemoglobin 32.6 Concent Red Cell Distribution Width 15.3 Platelet Count 676 Mean Platelet Volume 8.3 Sodium Level 144 Potassium Level 3.9 Chloride Level 109 Carbon Dioxide Level 27.7 Anion Gap 7 Blood Urea Nitrogen 16 Creatinine 0.93 Estimat Glomerular Filtration 86 Rate Random Glucose 93 Calcium Level 9.2 Magnesium Level 2.2 Radiology Last 72 hours Impressions Chest X-Ray 02/10/16 0600 Signed Impressions: Service Date/Time: Wednesday, February 10, 2016 05:32 - CONCLUSION: Trace bibasilar atelectasis developing. Renaldo Mata MD Narrative Exam GENERAL: This is a 50-year-old male being wheeleded around the nursing unit in a wheelchair.. SKIN: Warm and dry. HEAD: Normocephalic. Atraumatic. EYES: PERRLA ENT: No nasal bleeding or discharge. Mucous membranes pink and moist. NECK: Trachea midline. No JVD. CARDIOVASCULAR: Regular rate and rhythm. RESPIRATORY: No accessory muscle use. Lungs are clear to auscultation. Breath sounds equal bilaterally. No distress or dyspnea. GASTROINTESTINAL: BS + x 4 quads. Abdomen soft, non-tender, nondistended. MUSCULOSKELETAL: Extremities without cyanosis, or edema. LEFT wrist ex-fix in place. Pin sites intact without redness or edema . + peripheral pulses x 4 extremities. Warm with good capillary refill and sensation. MAEW. NEUROLOGICAL: Awake and alert. A/P Problem List: (1) Trauma (2) Facial laceration (3) Wrist fracture, open (4) Open Colles' fracture of left radius (5) Fracture of left superior pubic ramus (6) Fracture of left inferior pubic ramus (7) Respiratory failure after trauma (8) Left acetabular fracture (9) Open fracture of distal ulna (10) Closed head injury Assessment and Plan [place]: This is a 50-year-old male patient. 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 It was approximately 10 feet in height. Positive LOC. He was combative at the scene and therefore intubated. GCS 8 on arrival. He was originally managed in the ICU on mechanical ventilation and an ICP bolt. He has subsequently has been extubated successfully. He passed his swallow eval. Now he is being managed on the [facility] floor. He is awaiting one final surgery from ortho for removal of his left forearm ex-fix. INJURIES: LEFT eye brow lac (sutures) small cortical hemorrhage (frontoparietal) w/ bolt placement LEFT open distal radius & fx LEFT acetabular & pubic rami fx 02/05/2016 bolt placement 02/05/2016 I&D with external fixation and percutaneous pinning LEFT radius and ulna 02/08/2016 ORIF LEFT acetabulum 02/18: ORIF LEFT distal radius fx & ex-fix revision Patient fell out of bed on 02/11/2016. A sitter remains at the bedside. Additionally, he is in a room right across from the nursing station. (He still becomes very restless and impulsive, and attempts to get out of bed, especially at night. Therefore he still is requiring Ativan for agitation.) Diet: Regular diet / no liquid restriction. Tolerating po diet. Encourage good po intake with each meal. Pulmonary: Encourage good pulmonary toileting. IS and acapella at bedside and pt encouraged to use. Rationale for use explained to patient. PAIN Management: Percocet po. Tylenol IV. Ativan IV for restlessness. Activity: Out of bed with assistance only. (UBALDO LUJaime, UBALDO BLE) PT and OT ordered. Needs 7 days a week therapy. GI prophylaxis: Pepcid po. Bowel regimen: Colace and MOM. BM x3. DVT prophylaxis: Mechanical VTE with SCDs. Chemical management with Lovenox SQ. Awaiting plan from ortho for left wrist ex fix removal. DC Planning: Case management consulted for assistance with final discharge disposition. Patient does not have insurance, therefore he will be difficult to place upon discharge. There is a possibility that [facility] may have a mellisa bed for this patient in the new year. Emotional support provided to patient and mother at bedside and plan of care discussed. Discussed with RN at bedside. Patient is hemodynamically stable and being managed on the med/surg floor in a room across from the nursing station, and additionally with a sitter at the bedside. Attending Statement Patient seen and examined with the physician agronomy technician. After performing my own clinical exam and assessment, I agree with the assessment and plan. Problem Qualifiers (1) Facial laceration: Qualified Code: S01.81XA - Facial laceration, initial encounter (2) Wrist fracture, open: Qualified Code: S62.102B - Wrist fracture, open, left, initial encounter (3) Open Colles' fracture of left radius: (4) Fracture of left superior pubic ramus: Qualified Code: S32.512A - Fracture of left superior pubic ramus, closed, initial encounter (5) Fracture of left inferior pubic ramus: Qualified Code: S32.592A - Fracture of left inferior pubic ramus, closed, initial encounter (6) Left acetabular fracture: (7) Open fracture of distal ulna: (8) Closed head injury: Qualified Code: S09.90XA - Closed head injury, initial encounter Lizbeth Gómez Feb 24, 2016 12:19 Eric Andujar MD Feb 28, 2016 14:56
[2016-02-25 01:57] VITALS: BP 115/57; PULSE 87; RESP 15; TEMP 97.1; O2SAT 96
[2016-02-25] MEDS: LORazepam 0.5 MG TAB PO SCH ×3 (06:10→21:03)
[2016-02-25] MEDS: LISINOPRIL 10 MG TAB PO SCH (08:21)
[2016-02-25] MEDS: FAMOTIDINE 20 MG TAB PO SCH ×2 (08:22→21:03)
[2016-02-25] MEDS: BACITRACIN TOP OINT 15 GM TUBE TOP SCH ×2 (08:22→21:00)
[2016-02-25] MEDS: DOCUSATE SODIUM 100 MG CAP PO SCH (08:22)
[2016-02-25] MEDS: SODIUM CHLORIDE 0.9% FLUSH 5 ML FLUSH IVF SCH ×2 (08:25→21:00)
[2016-02-25 09:12] VITALS: BP 113/74; PULSE 88; RESP 18; TEMP 97.9; O2SAT 98
[2016-02-25] MEDS: ENOXAPARIN SODIUM 30 MG/0.3 ML SYRINGE SQ SCH ×2 (10:26→21:03)
[2016-02-25 12:10] VITALS: BP 110/66; PULSE 82; RESP 16; TEMP 97.8; O2SAT 97
--- NOTE | 2016-02-25 14:10 | HHI.PR ---
Subjective Subjective Notes PTD: 20 Pt lying in bed. Increasing in conversation today. His mother is at the bedside and she states that his memory is improving each day. He answers simple questions, however his biggest concern and worry is getting back to work. He asks if he can leave to go to work "just for a few hours. I' ll have someone drive me." Pt is still not fully grasping that he must go to rehab first. Objective Vitals/I&O Vital Signs Date Time Temp Pulse Resp B/P Pulse Ox O2 Delivery O2 Flow Rate FiO2 02/25/16 09:12 97.9 88 18 113/74 98 02/23/16 09:52 21 Labs Laboratory Tests Test 02/24/16 06:43 White Blood Count 5.4 TH/MM3 Red Blood Count 3.42 MIL/MM3 Hemoglobin 9.4 GM/DL Hematocrit 29.0 % Mean Corpuscular Volume 84.6 FL Mean Corpuscular Hemoglobin 27.6 PG Mean Corpuscular Hemoglobin 32.6 % Concent Red Cell Distribution Width 15.3 % Platelet Count 676 TH/MM3 Mean Platelet Volume 8.3 FL Sodium Level 144 MEQ/L Potassium Level 3.9 MEQ/L Chloride Level 109 MEQ/L Carbon Dioxide Level 27.7 MEQ/L Anion Gap 7 MEQ/L Blood Urea Nitrogen 16 MG/DL Creatinine 0.93 MG/DL Estimat Glomerular Filtration 86 ML/MIN Rate Random Glucose 93 MG/DL Calcium Level 9.2 MG/DL Magnesium Level 2.2 MG/DL Radiology Last 72 hours Impressions Chest X-Ray 02/10/16 0600 Signed Impressions: Service Date/Time: Wednesday, February 10, 2016 05:32 - CONCLUSION: Trace bibasilar atelectasis developing. Renaldo Mata MD Narrative Exam GENERAL: This is a 50-year-old male sitting up in bed. No distress. SKIN: Warm and dry. HEAD: Normocephalic. Atraumatic. EYES: PERRLA ENT: No nasal bleeding or discharge. Mucous membranes pink and moist. NECK: Trachea midline. No JVD. CARDIOVASCULAR: Regular rate and rhythm. RESPIRATORY: No accessory muscle use. Lungs are clear to auscultation. Breath sounds equal bilaterally. No distress or dyspnea. GASTROINTESTINAL: BS + x 4 quads. Abdomen soft, non-tender, nondistended. MUSCULOSKELETAL: Extremities without cyanosis, or edema. LEFT wrist ex-fix in place. Pin sites intact without redness or edema . + peripheral pulses x 4 extremities. Warm with good capillary refill and sensation. MAEW. NEUROLOGICAL: Awake and alert. A/P Problem List: (1) Trauma (2) Facial laceration (3) Wrist fracture, open (4) Open Colles' fracture of left radius (5) Fracture of left superior pubic ramus (6) Fracture of left inferior pubic ramus (7) Respiratory failure after trauma (8) Left acetabular fracture (9) Open fracture of distal ulna (10) Closed head injury Assessment and Plan [place]: This is a 50-year-old male patient. 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 It was approximately 10 feet in height. Positive LOC. He was combative at the scene and therefore intubated. GCS 8 on arrival. He was originally managed in the ICU on mechanical ventilation and an ICP bolt. He has subsequently has been extubated successfully. He passed his swallow eval. Now he is being managed on the [facility] floor. [facility]. INJURIES: LEFT eye brow lac (sutures) small cortical hemorrhage (frontoparietal) w/ bolt placement LEFT open distal radius & fx LEFT acetabular & pubic rami fx 02/05/2016 bolt placement 02/05/2016 I&D with external fixation and percutaneous pinning LEFT radius and ulna 02/08/2016 ORIF LEFT acetabulum 02/18: ORIF LEFT distal radius fx & ex-fix revision Patient fell out of bed on 02/11/2016. A sitter remains at the bedside. Additionally, he is in a room right across from the nursing station. ( Discussed with charge nurse - he still becomes very restless and impulsive, and attempts to get out of bed. Sitter is still needed for patient safety.) Diet: Regular diet / no liquid restriction. Tolerating po diet. Encourage good po intake with each meal. Pulmonary: Encourage good pulmonary toileting. IS and acapella at bedside and pt encouraged to use. Rationale for use explained to patient. PAIN Management: Percocet po. Tylenol IV. Ativan IV for restlessness. Activity: Out of bed with assistance only. (NWB LUE, NWB BLE) PT and OT ordered. Needs 7 days a week therapy. GI prophylaxis: Pepcid po. Bowel regimen: Colace and MOM. BM x3. DVT prophylaxis: Mechanical VTE with SCDs. Chemical management with Lovenox SQ. Awaiting plan from ortho for left wrist ex fix removal - TBD DC Planning: Case management consulted for assistance with final discharge disposition. Patient does not have insurance, therefore he will be difficult to place upon discharge. There is a possibility that [facility] may have a mellisa bed for this patient in the new year. Emotional support provided to patient and mother at bedside and plan of care discussed. Discussed with RN at bedside. Patient is hemodynamically stable and being managed on the med/surg floor in a room across from the nursing station, and additionally with a sitter at the bedside. Attending Statement Patient seen and examined with the physician outsole molder. After performing my own clinical exam and assessment, I agree with the assessment and plan. Problem Qualifiers (1) Facial laceration: Qualified Code: S01.81XA - Facial laceration, initial encounter (2) Wrist fracture, open: Qualified Code: S62.102B - Wrist fracture, open, left, initial encounter (3) Open Colles' fracture of left radius: (4) Fracture of left superior pubic ramus: Qualified Code: S32.512A - Fracture of left superior pubic ramus, closed, initial encounter (5) Fracture of left inferior pubic ramus: Qualified Code: S32.592A - Fracture of left inferior pubic ramus, closed, initial encounter (6) Left acetabular fracture: (7) Open fracture of distal ulna: (8) Closed head injury: Qualified Code: S09.90XA - Closed head injury, initial encounter Lizbeth Gómez Feb 25, 2016 14:10 Eric Andujar MD Feb 28, 2016 15:00
[2016-02-25 16:20] VITALS: BP 122/66; PULSE 85; RESP 18; TEMP 98.6; O2SAT 98
[2016-02-25 20:34] VITALS: BP 119/75; PULSE 84; RESP 17; TEMP 98.1; O2SAT 99
[2016-02-26] VITALS: BP 133/66; PULSE 82; RESP 20; TEMP 98.9; O2SAT 99
[2016-02-26 03:53] VITALS: BP 115/75; PULSE 89; RESP 18; TEMP 97.2; O2SAT 98
[2016-02-26] MEDS: LORazepam 0.5 MG TAB PO SCH ×2 (06:02→21:20)
--- NOTE | 2016-02-26 06:52 | PD.ORT.PN ---
Subjective Subjective Remarks Confused. No new complaints Objective Vitals Vital Signs Date Time Temp Pulse Resp B/P Pulse Ox O2 Delivery O2 Flow Rate FiO2 02/26/16 03:53 97.2 89 18 115/75 98 02/26/16 00:00 98.9 82 20 133/66 99 02/25/16 20:34 98.1 84 17 119/75 99 02/25/16 16:20 98.6 85 18 122/66 98 02/25/16 12:10 97.8 82 16 110/66 97 02/25/16 09:12 97.9 88 18 113/74 98 I/O 02/25/16 02/25/16 02/25/16 02/26/16 02/26/16 02/26/16 07:00 15:00 23:00 07:00 15:00 23:00 Intake Total 240 ml 980 ml 480 ml 480 ml Output Total 600 ml Balance 240 ml 980 ml -120 ml 480 ml Intake Oral 240 ml 980 ml 480 ml 480 ml Output Urine Total 600 ml # Voids 2 4 2 # Bowel Movements 0 2 Result Diagram: 02/24/16 0643 02/24/16 0643 Imaging Last 24 hours Impressions Wrist X-Ray 02/06/16 0000 Signed Impressions: Service Date/Time: January 00:32 - CONCLUSION: Placement of an external fixation device and wire through the radius as described above. Renaldo Gomez MD Chest X-Ray 02/06/16 0000 Signed Impressions: Service Date/Time: January 04:52 - CONCLUSION: No acute disease. Renaldo Gomez MD Upper Extremity CT 02/05/16 1127 Signed Impressions: Service Date/Time: Friday, February 05, 2016 11:27 - CONCLUSION: 1. Comminuted fracture of the distal radius with intra-articular extension. 2. Carpal bones are intact. Kristian Ewing MD Pelvis X-Ray 02/05/16 1107 Signed Impressions: Service Date/Time: Friday, February 05, 2016 10:38 - CONCLUSION: Fractures left side of the pelvis as described above. CT scan is pending. Yordy Arias MD FACR Maxillofacial CT 02/05/16 1107 Signed Impressions: Service Date/Time: Friday, February 05, 2016 11:14 - CONCLUSION: 1. There is no evidence of acute fracture. Kristian Ewing MD Head CT 02/05/16 1107 Signed Impressions: Service Date/Time: Friday, February 05, 2016 11:11 - CONCLUSION: 1. Negative for skull fracture. 2. Probable small cortical hemorrhage in the left centrum semiovale. Yordy Arias MD FACR Chest X-Ray 02/05/16 1107 Signed Impressions: Service Date/Time: Friday, February 05, 2016 10:38 - CONCLUSION: 1. ET tube in good position. 2. Prominent cardiac silhouette. Yordy Arias MD FACR Chest CT 02/05/16 1107 Signed Impressions: Service Date/Time: Friday, February 05, 2016 11:11 - CONCLUSION: 1. Negative CT scan of the chest for an acute traumatic injury. 2. Minimal bibasilar parenchymal changes without pneumothorax. Yordy Arias MD FACR Cervical Spine CT 02/05/16 1107 Signed Impressions: Service Date/Time: Friday, February 05, 2016 11:14 - CONCLUSION: 1. Moderate degenerative changes as described above. There is no evidence of acute fracture. Kristian Ewing MD Abdomen/Pelvis CT 02/05/16 1107 Signed Impressions: Service Date/Time: Friday, February 05, 2016 11:11 - CONCLUSION: 1. No evidence of acute abdominal or pelvic process. No masses are identified. 2. Multiple pelvic fractures including the left acetabulum and pubic rami Kristian Ewing MD Objective Remarks LUE: +ex fix of wrist. Clean dry dressings intact. Distally intact sensation over the radial ulnar and median nerve distributions. He has good capillary refills. Is able to extend and flex his fingers Pelvis: Incision healing well. Marcella in place. Left lower extremity: Minimal pain with forward flexion and internal/external rotation of the hip. Distally intact sensation with good capillary refills. He has strong dorsiflexion and plantar flexion of foot Assessment & Plan Problem List: (1) (2) (3) (4) (5) Assessment and Plan 1) Left Distal Radius Fx s/p ORIF and revision to exfix - POD #7 2) Left Acetabulum fx with Sup/Inf Rami fxs POD #18 Nonweightbearing left upper extremity. Daily dressing changes and pin care twice a day Discontinue sarah over anterior pelvis. Continue daily dressing changes over pelvis 3 days with Xeroform then leave to air Lovenox Incentive spirometry Toe-touch weightbearing left lower extremity, weightbearing as tolerated right lower extremity Nonweightbearing left wrist may use platform walker CM for rehab placement UNIQUE JONES PA-C Feb 26, 2016 06:52
[2016-02-26 08:08] VITALS: BP 100/69; PULSE 80; RESP 18; TEMP 97.3; O2SAT 100
[2016-02-26] MEDS: FAMOTIDINE 20 MG TAB PO SCH ×2 (08:26→21:20)
[2016-02-26] MEDS: DOCUSATE SODIUM 100 MG CAP PO SCH (08:26)
[2016-02-26] MEDS: LISINOPRIL 10 MG TAB PO SCH (08:27)
[2016-02-26] MEDS: BACITRACIN TOP OINT 15 GM TUBE TOP SCH ×2 (08:29→21:22)
[2016-02-26] MEDS: SODIUM CHLORIDE 0.9% FLUSH 5 ML FLUSH IVF SCH ×2 (08:30→21:20)
[2016-02-26] MEDS: ENOXAPARIN SODIUM 30 MG/0.3 ML SYRINGE SQ SCH ×2 (10:00→21:20)
[2016-02-26 12:20] VITALS: BP 109/62; PULSE 86; RESP 18; TEMP 97.9; O2SAT 98
--- NOTE | 2016-02-26 12:53 | HHI.PR ---
Subjective Subjective Notes PTD: 20 Patient is sitting up, out of bed and chair. Sitter at bedside. Mother is at bedside visiting the patient. Patient states he is not sleeping well at night, due to the interruptions of staff for vitals.. His mother states that he has been walking the hallways using a platform walker. Patient answers the orientation questions correctly, however he still remains confused. He cannot understand why he cannot be discharged, he is concerned about going back to work, and states that he has friends and coworkers who can pick him up and drive him where he needs to be. Objective Vitals/I&O Vital Signs Date Time Temp Pulse Resp B/P Pulse Ox O2 Delivery O2 Flow Rate FiO2 02/26/16 08:08 97.3 80 18 100/69 100 02/23/16 09:52 21 Labs Laboratory Tests Test 02/24/16 06:43 White Blood Count 5.4 TH/MM3 Red Blood Count 3.42 MIL/MM3 Hemoglobin 9.4 GM/DL Hematocrit 29.0 % Mean Corpuscular Volume 84.6 FL Mean Corpuscular Hemoglobin 27.6 PG Mean Corpuscular Hemoglobin 32.6 % Concent Red Cell Distribution Width 15.3 % Platelet Count 676 TH/MM3 Mean Platelet Volume 8.3 FL Sodium Level 144 MEQ/L Potassium Level 3.9 MEQ/L Chloride Level 109 MEQ/L Carbon Dioxide Level 27.7 MEQ/L Anion Gap 7 MEQ/L Blood Urea Nitrogen 16 MG/DL Creatinine 0.93 MG/DL Estimat Glomerular Filtration 86 ML/MIN Rate Random Glucose 93 MG/DL Calcium Level 9.2 MG/DL Magnesium Level 2.2 MG/DL Radiology Last 72 hours Impressions Chest X-Ray 02/10/16 0600 Signed Impressions: Service Date/Time: Wednesday, February 10, 2016 05:32 - CONCLUSION: Trace bibasilar atelectasis developing. Renaldo Mata MD Narrative Exam GENERAL: This is a 50-year-old male sitting up in a chair. No distress. SKIN: Warm and dry. HEAD: Normocephalic. Atraumatic. EYES: PERRLA ENT: No nasal bleeding or discharge. Mucous membranes pink and moist. NECK: Trachea midline. No JVD. CARDIOVASCULAR: Regular rate and rhythm. RESPIRATORY: No accessory muscle use. Lungs are clear to auscultation. Breath sounds equal bilaterally. No distress or dyspnea. GASTROINTESTINAL: BS + x 4 quads. Abdomen soft, non-tender, nondistended. MUSCULOSKELETAL: Extremities without cyanosis, or edema. LEFT wrist ex-fix in place. Pin sites intact without redness or edema . + peripheral pulses x 4 extremities. Warm with good capillary refill and sensation. MAEW. NEUROLOGICAL: Awake and alert. A/P Problem List: (1) Trauma (2) Facial laceration (3) Wrist fracture, open (4) Open Colles' fracture of left radius (5) Fracture of left superior pubic ramus (6) Fracture of left inferior pubic ramus (7) Respiratory failure after trauma (8) Left acetabular fracture (9) Open fracture of distal ulna (10) Closed head injury Assessment and Plan [place]: This is a 50-year-old male patient. 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 It was approximately 10 feet in height. Positive LOC. He was combative at the scene and therefore intubated. GCS 8 on arrival. He was originally managed in the ICU on mechanical ventilation and an ICP bolt. He has subsequently has been extubated successfully. He passed his swallow eval. Now he is being managed on the [facility] floor. He is awaiting one final surgery from [facility] for removal of his left forearm ex-fix. Additionally, placement has been an issue due to lack of insurance. INJURIES: LEFT eye brow lac (sutures) small cortical hemorrhage (frontoparietal) w/ bolt placement LEFT open distal radius & fx LEFT acetabular & pubic rami fx 02/05/2016 bolt placement 02/05/2016 I&D with external fixation and percutaneous pinning LEFT radius and ulna 02/08/2016 ORIF LEFT acetabulum 02/18: ORIF LEFT distal radius fx & ex-fix revision Patient fell out of bed on 02/11/2016. A sitter remains at the bedside. Additionally, he is in a room right across from the nursing station. (He still becomes very restless and impulsive as per the patient's mother, and attempts to get out of bed, especially at night.) Diet: Regular diet / no liquid restriction. Tolerating po diet. Encourage good po intake with each meal. Pulmonary: Encourage good pulmonary toileting. IS and acapella at bedside and pt encouraged to use. Rationale for use explained to patient. PAIN Management: Percocet po. Tylenol IV. Ativan IV for restlessness. Activity: Out of bed with assistance only. (NWB LUE, WBAT RLE; TTWB LLE) PT and OT ordered. Needs 7 days a week therapy. Ortho has upgraded to his weightbearing status. Requesting no vital signs from 10 PM until 6 AM, to facilitate and uninterrupted sleep pattern for the patient. GI prophylaxis: Pepcid po. Bowel regimen: Colace and MOM. BM x2. DVT prophylaxis: Mechanical VTE with SCDs. Chemical management with Lovenox SQ. Awaiting plan from ortho for left wrist ex fix removal. TBD. DC Planning: Case management consulted for assistance with final discharge disposition. Patient does not have insurance, therefore he will be difficult to place upon discharge. There is a possibility that [facility] may have a mell[facility] bed for this patient in the new year. Additionally, his sister is applying for additional benefits. We will continue to monitor to see if this will assist in facilitating a final placement for him. Emotional support provided to patient and mother at bedside and plan of care discussed. Discussed with RN at bedside. Patient is hemodynamically stable and being managed on the med/surg floor in a room across from the nursing station, and additionally with a sitter at the bedside. Attending Statement Patient seen and examined with the physician corporate wellness coordinator. After performing my own clinical exam and assessment, I agree with the assessment and plan. Problem Qualifiers (1) Facial laceration: Qualified Code: S01.81XA - Facial laceration, initial encounter (2) Wrist fracture, open: Qualified Code: S62.102B - Wrist fracture, open, left, initial encounter (3) Open Colles' fracture of left radius: (4) Fracture of left superior pubic ramus: Qualified Code: S32.512A - Fracture of left superior pubic ramus, closed, initial encounter (5) Fracture of left inferior pubic ramus: Qualified Code: S32.592A - Fracture of left inferior pubic ramus, closed, initial encounter (6) Left acetabular fracture: (7) Open fracture of distal ulna: (8) Closed head injury: Qualified Code: S09.90XA - Closed head injury, initial encounter Lizbeth Gómez Feb 26, 2016 12:53 Eric Andujar MD Feb 28, 2016 15:12
[2016-02-26 17:00] VITALS: BP 108/60; PULSE 92; RESP 16; TEMP 97.2; O2SAT 98
[2016-02-26 20:45] VITALS: BP 126/73; PULSE 93; RESP 16; TEMP 98.2; O2SAT 97
[2016-02-27] MEDS: LORazepam 0.5 MG TAB PO SCH ×3 (06:00→22:00)
[2016-02-27 07:45] VITALS: BP 119/65; PULSE 82; RESP 18; TEMP 96.4; O2SAT 96
[2016-02-27] MEDS: BACITRACIN TOP OINT 15 GM TUBE TOP SCH ×2 (08:34→23:07)
[2016-02-27] MEDS: LISINOPRIL 10 MG TAB PO SCH (08:34)
[2016-02-27] MEDS: DOCUSATE SODIUM 100 MG CAP PO SCH (08:34)
[2016-02-27] MEDS: SODIUM CHLORIDE 0.9% FLUSH 5 ML FLUSH IVF SCH ×2 (08:34→23:08)
[2016-02-27] MEDS: FAMOTIDINE 20 MG TAB PO SCH ×2 (08:34→23:07)
[2016-02-27] MEDS: MAGNESIUM HYDROXIDE SUSP 30 ML CUP PO PRN (08:35)
[2016-02-27 11:44] VITALS: BP 123/71; PULSE 84; RESP 17; TEMP 98.2; O2SAT 97
[2016-02-27] MEDS: ENOXAPARIN SODIUM 30 MG/0.3 ML SYRINGE SQ SCH ×2 (12:30→23:07)
--- NOTE | 2016-02-27 13:29 | HHI.PR ---
Subjective Subjective Notes Wants to be discharged. Still requiring sitter for impulsiveness. Objective Vitals/I&O Vital Signs Date Time Temp Pulse Resp B/P Pulse Ox O2 Delivery O2 Flow Rate FiO2 02/27/16 07:45 96.4 82 18 119/65 96 02/23/16 09:52 21 Labs Laboratory Tests Test 02/24/16 06:43 White Blood Count 5.4 TH/MM3 Red Blood Count 3.42 MIL/MM3 Hemoglobin 9.4 GM/DL Hematocrit 29.0 % Mean Corpuscular Volume 84.6 FL Mean Corpuscular Hemoglobin 27.6 PG Mean Corpuscular Hemoglobin 32.6 % Concent Red Cell Distribution Width 15.3 % Platelet Count 676 TH/MM3 Mean Platelet Volume 8.3 FL Sodium Level 144 MEQ/L Potassium Level 3.9 MEQ/L Chloride Level 109 MEQ/L Carbon Dioxide Level 27.7 MEQ/L Anion Gap 7 MEQ/L Blood Urea Nitrogen 16 MG/DL Creatinine 0.93 MG/DL Estimat Glomerular Filtration 86 ML/MIN Rate Random Glucose 93 MG/DL Calcium Level 9.2 MG/DL Magnesium Level 2.2 MG/DL Radiology Last 72 hours Impressions Chest X-Ray 02/10/16 0600 Signed Impressions: Service Date/Time: Wednesday, February 10, 2016 05:32 - CONCLUSION: Trace bibasilar atelectasis developing. Renaldo Mata MD Narrative Exam GENERAL: 50 year old well-nourished, well-developed male lying in bed. SKIN: Warm and dry. HEAD: Normocephalic. ENT: No nasal bleeding or discharge. Mucous membranes pink and moist. NECK: Trachea midline. No JVD. CARDIOVASCULAR: Regular rate and rhythm. RESPIRATORY: No accessory muscle use. Lungs are clear and diminished to auscultation. Breath sounds equal bilaterally. GASTROINTESTINAL: Abdomen soft, non-tender, nondistended. + BS MUSCULOSKELETAL: Extremities without cyanosis, or edema. LEFT wrist ex-fix in place. + sensation, + peripheral pulses x 4 with good cap refill. NEUROLOGICAL: Awake and alert, conversing A/P Problem List: (1) Trauma (2) Facial laceration (3) Wrist fracture, open (4) Open Colles' fracture of left radius (5) Fracture of left superior pubic ramus (6) Fracture of left inferior pubic ramus (7) Respiratory failure after trauma (8) Left acetabular fracture (9) Open fracture of distal ulna (10) Closed head injury Assessment and Plan INJURIES: LEFT eye brow lac Small cortical hemorrhage (frontoparietal) w/ bolt placement LEFT open distal radius & fx LEFT acetabular & pubic rami fx 02/05/2016 I&D with external fixation and percutaneous pinning LEFT radius and ulna 02/08/2016 ORIF LEFT acetabulum Diet: Regular diet with Enlive TID Pulmonary: IS and acapella, encouraged patient use Pain: Percocet PRN. Pain controlled. Ativan scheduled TID for agitation. Activity: OOB with assist. (UBALDO MAYFIELDE, UBALDO LLE) PT and OT evaluating. Tolerating OOB in wheelchair daily. GI prophylaxis: Pepcid Bowel regimen: Colace stopped due to diarrhea. MOM PRN constipation. LBM 02/26 DVT prophylaxis: SCDs, Lovenox SQ. Still confused. ST following for cognitive eval. Patient still requiring sitter for safety and impulsiveness. Plan of care discussed with patient and mother at bedside. Case management assisted with discharge planning. Patient will need inpatient rehab vs SNF placement. [facility] is following for potential placement. Plan to DC once placement can be established. Attending Statement The exam, history, and the medical decision-making described in the above note were completed with the assistance of the mid-level provider. I reviewed and agree with the findings presented. I attest that I had a [id number] encounter with the patient on the same day, and personally performed and documented my assessment and findings in the medical record. Problem Qualifiers (1) Facial laceration: Qualified Code: S01.81XA - Facial laceration, initial encounter (2) Wrist fracture, open: Qualified Code: S62.102B - Wrist fracture, open, left, initial encounter (3) Open Colles' fracture of left radius: (4) Fracture of left superior pubic ramus: Qualified Code: S32.512A - Fracture of left superior pubic ramus, closed, initial encounter (5) Fracture of left inferior pubic ramus: Qualified Code: S32.592A - Fracture of left inferior pubic ramus, closed, initial encounter (6) Left acetabular fracture: (7) Open fracture of distal ulna: (8) Closed head injury: Qualified Code: S09.90XA - Closed head injury, initial encounter Shay Goldstein Feb 27, 2016 13:29 Lucinda Kidd MD Feb 28, 2016 14:55
[2016-02-27 15:32] VITALS: BP 99/58; PULSE 86; RESP 17; TEMP 97.3; O2SAT 95
[2016-02-27 20:00] VITALS: BP 101/63; PULSE 80; RESP 18; TEMP 97.9; O2SAT 97
[2016-02-28] VITALS: BP 101/63; PULSE 80; RESP 18; TEMP 97.9; O2SAT 97
[2016-02-28] MEDS: LORazepam 0.5 MG TAB PO SCH (06:00)
--- NOTE | 2016-02-28 06:40 | PD.ORT.PN ---
Subjective Subjective Remarks POD 9 s/p ORIF left wrist POD 20 s/p ORIF left acetabulum awake. alert. state doing well with minimal pain. has been ambulating with platform walker Objective Vitals Vital Signs Date Time Temp Pulse Resp B/P Pulse Ox O2 Delivery O2 Flow Rate FiO2 02/28/16 00:00 97.9 80 18 101/63 97 02/27/16 20:00 97.9 80 18 101/63 97 02/27/16 15:32 97.3 86 17 99/58 95 02/27/16 11:44 98.2 84 17 123/71 97 02/27/16 07:45 96.4 82 18 119/65 96 I/O 02/27/16 02/27/16 02/27/16 02/28/16 02/28/16 02/28/16 07:00 15:00 23:00 07:00 15:00 23:00 Intake Total 1200 ml 910 ml Output Total 650 ml Balance 1200 ml 260 ml Intake Oral 1200 ml 910 ml Output Urine Total 650 ml # Voids 1 4 2 # Bowel Movements 1 2 Result Diagram: 02/24/16 0643 02/24/16 0643 Imaging Last 24 hours Impressions Wrist X-Ray 02/06/16 0000 Signed Impressions: Service Date/Time: January 00:32 - CONCLUSION: Placement of an external fixation device and wire through the radius as described above. Renaldo Gomez MD Chest X-Ray 02/06/16 0000 Signed Impressions: Service Date/Time: January 04:52 - CONCLUSION: No acute disease. Renaldo Gomez MD Upper Extremity CT 02/05/16 1127 Signed Impressions: Service Date/Time: Friday, February 05, 2016 11:27 - CONCLUSION: 1. Comminuted fracture of the distal radius with intra-articular extension. 2. Carpal bones are intact. Kristian Ewing MD Pelvis X-Ray 02/05/16 1107 Signed Impressions: Service Date/Time: Friday, February 05, 2016 10:38 - CONCLUSION: Fractures left side of the pelvis as described above. CT scan is pending. Yordy Arias MD FACR Maxillofacial CT 02/05/16 1107 Signed Impressions: Service Date/Time: Friday, February 05, 2016 11:14 - CONCLUSION: 1. There is no evidence of acute fracture. Kristian Ewing MD Head CT 02/05/16 1107 Signed Impressions: Service Date/Time: Friday, February 05, 2016 11:11 - CONCLUSION: 1. Negative for skull fracture. 2. Probable small cortical hemorrhage in the left centrum semiovale. Yordy Arias MD FACR Chest X-Ray 02/05/16 1107 Signed Impressions: Service Date/Time: Friday, February 05, 2016 10:38 - CONCLUSION: 1. ET tube in good position. 2. Prominent cardiac silhouette. Yordy Arias MD FACR Chest CT 02/05/16 1107 Signed Impressions: Service Date/Time: Friday, February 05, 2016 11:11 - CONCLUSION: 1. Negative CT scan of the chest for an acute traumatic injury. 2. Minimal bibasilar parenchymal changes without pneumothorax. Yordy Arias MD FACR Cervical Spine CT 02/05/16 110 Signed Impressions: Service Date/Time: Friday, February 05, 2016 11:14 - CONCLUSION: 1. Moderate degenerative changes as described above. There is no evidence of acute fracture. Kristian Ewing MD Abdomen/Pelvis CT 02/05/16 1107 Signed Impressions: Service Date/Time: Friday, February 05, 2016 11:11 - CONCLUSION: 1. No evidence of acute abdominal or pelvic process. No masses are identified. 2. Multiple pelvic fractures including the left acetabulum and pubic rami Kristian Ewing MD Objective Remarks LUE: +ex fix of wrist. Clean dry dressings intact. Distally intact sensation over the radial ulnar and median nerve distributions. He has good capillary refills. Is able to extend and flex his fingers Pelvis: Incision healing well Left lower extremity: Minimal pain with forward flexion and internal/external rotation of the hip. Distally intact sensation with good capillary refills. He has strong dorsiflexion and plantar flexion of foot Assessment & Plan Problem List: (1) (2) (3) (4) (5) Assessment and Plan 1) Left Distal Radius Fx s/p ORIF and revision to exfix - POD #9 2) Left Acetabulum fx with Sup/Inf Rami fxs POD #20 Nonweightbearing left upper extremity. Daily dressing changes and pin care twice a day Lovenox Incentive spirometry Toe-touch weightbearing left lower extremity, weightbearing as tolerated right lower extremity Nonweightbearing left wrist may use platform walker planning for discharge home today. family member to be educated on pin care and dressing changes f/u with Shukri or [facility] next wednesday or Zain Lei Feb 28, 2016 06:40
[2016-02-28 07:32] VITALS: BP 103/73; PULSE 78; RESP 18; TEMP 97.6; O2SAT 99
[2016-02-28] MEDS: BACITRACIN TOP OINT 15 GM TUBE TOP SCH (09:00)
[2016-02-28] MEDS: FAMOTIDINE 20 MG TAB PO SCH (09:49)
[2016-02-28] MEDS: LISINOPRIL 10 MG TAB PO SCH (09:49)
[2016-02-28] MEDS: SODIUM CHLORIDE 0.9% FLUSH 5 ML FLUSH IVF SCH (09:50)
[2016-02-28] MEDS: ENOXAPARIN SODIUM 30 MG/0.3 ML SYRINGE SQ SCH (09:58)
--- NOTE | 2016-02-28 11:47 | HHI.FF ---
Face to Face Verification Diagnosis: (1) Trauma (2) Open Colles' fracture of left radius (3) Fracture of left superior pubic ramus (4) Fracture of left inferior pubic ramus (5) Left acetabular fracture (6) Open fracture of distal ulna (7) Closed head injury Physical Therapy Order: Evaluate and Treat, Improve ambulation, Strength and gait training Occupational Therapy Order: Evaluate and Treat, Improve ADL, Gross motor coordination, Fine motor coordination Speech Therapy Order: To Improve: Speech and communication skills, Cognitive skills Home Health Nursing Order: Nursing assessment with vital signs I have seen patient Hernando Juarez on 02/28/16. My clinical findings support the need for the requested home health care services because: Ltd mobility - disease progression Deconditioned w/ increased weakness Limited ability to care for self Impaired cognition/judgement High risk of falls I certify that my clinical findings support that this patient is homebound because: Post-op weakness Impaired cognitive ability/safety Unsteady gait/balance Unsafe to leave home unassisted Shay Goldstein Feb 28, 2016 11:47
--- NOTE | 2016-02-28 11:52 | HHI.DS ---
Discharge Summary Admission Date Feb 05, 2016 at 11:53 Discharge Date: Feb 28, 2016 Admitting Diagnosis VDRF- Trauma (1) Trauma (2) Facial laceration (3) Wrist fracture, open (4) Open Colles' fracture of left radius (5) Fracture of left superior pubic ramus (6) Fracture of left inferior pubic ramus (7) Respiratory failure after trauma (8) Left acetabular fracture (9) Open fracture of distal ulna (10) Closed head injury Brief History S/P trauma: Fall off a roof at approximately 10 feet. CBC/BMP: 02/24/16 0643 02/24/16 0643 Imaging Last Impressions Chest X-Ray 02/21/16 0600 Signed Impressions: Service Date/Time: Sunday, February 21, 2016 06:01 - CONCLUSION: Diminished lung volumes. Anthony Deluca MD Pelvis X-Ray 02/21/16 0000 Signed Impressions: Service Date/Time: Sunday, February 21, 2016 10:20 - CONCLUSION: Left pelvis fractures as described with plating of the acetabular fracture the fracture alignment and approximation of fragments Vinh Matos MD Wrist X-Ray 02/19/16 0000 Signed Impressions: Service Date/Time: Friday, February 19, 2016 10:39 - CONCLUSION: Postsurgical changes plating distal radial fracture Vinh Matos MD Head CT 02/07/16 0600 Signed Impressions: Service Date/Time: Sunday, February 07, 2016 04:11 - CONCLUSION: Small high density hemorrhage in the anterior medial left frontal lobe. Manohar Gardiner MD Multiplanar Reconstruction 02/07/16 0000 Signed Impressions: Service Date/Time: Friday, February 05, 2016 11:15 - CONCLUSION: Comminuted fracture of the left acetabulum, pubic rami in addition are well depicted on 3- D volume rendering as described above. Subhash Coello MD Hip X-Ray 02/07/16 0000 Signed Impressions: Service Date/Time: Sunday, February 07, 2016 15:07 - CONCLUSION: Anatomic alignment. Yordy Arias MD FACR Upper Extremity CT 02/05/16 1127 Signed Impressions: Service Date/Time: Friday, February 05, 2016 11:27 - CONCLUSION: 1. Comminuted fracture of the distal radius with intra-articular extension. 2. Carpal bones are intact. Kristian Ewing MD Maxillofacial CT 02/05/16 1107 Signed Impressions: Service Date/Time: Friday, February 05, 2016 11:14 - CONCLUSION: 1. There is no evidence of acute fracture. Kristian Ewing MD Chest CT 02/05/16 1107 Signed Impressions: Service Date/Time: Friday, February 05, 2016 11:11 - CONCLUSION: 1. Negative CT scan of the chest for an acute traumatic injury. 2. Minimal bibasilar parenchymal changes without pneumothorax. Yordy Arias MD FACR Cervical Spine CT 02/05/16 1107 Signed Impressions: Service Date/Time: Friday, February 05, 2016 11:14 - CONCLUSION: 1. Moderate degenerative changes as described above. There is no evidence of acute fracture. Kristian Ewing MD Abdomen/Pelvis CT 02/05/16 1107 Signed Impressions: Service Date/Time: Friday, February 05, 2016 11:11 - CONCLUSION: 1. No evidence of acute abdominal or pelvic process. No masses are identified. 2. Multiple pelvic fractures including the left acetabulum and pubic rami Kristian Ewing MD PE at Discharge GENERAL: 50 year old male dressed and in wheelchair. SKIN: Warm and dry. HEAD: Normocephalic. ENT: No nasal bleeding or discharge. Mucous membranes pink and moist. NECK: Trachea midline. No JVD. CARDIOVASCULAR: Regular rate and rhythm. RESPIRATORY: No accessory muscle use. Lungs are clear and diminished to auscultation. Breath sounds equal bilaterally. GASTROINTESTINAL: Abdomen soft, non-tender, nondistended. + BS MUSCULOSKELETAL: Extremities without cyanosis, or edema. LEFT wrist ex-fix in place. + sensation, + peripheral pulses x 4 with good cap refill. NEUROLOGICAL: Awake and alert, conversing Hospital Course [place]:50-year-old male patient that sustained injuries when he fell off a roof, approximately 10 feet in height. Positive LOC. He was combative at the scene and therefore intubated. GCS 8 on arrival. INJURIES: LEFT eye brow lac Small cortical hemorrhage (frontoparietal) w/ bolt placement LEFT open distal radius & fx LEFT acetabular & pubic rami fx 02/05/2016 I&D with external fixation and percutaneous pinning LEFT radius and ulna 02/08/2016 ORIF LEFT acetabulum Diet: Regular diet with Enlive TID, tolerating well Pulmonary: IS and acapella, encouraged patient use at home Pain: Percocet PRN. Pain controlled. Does not want narcotics at home. Activity: OOB with assist. (NWB LUE, TTWB LLE, WBAT RLE) Tolerating OOB in wheelchair daily. PT/OT/ST at home with [facility]. GI prophylaxis: Pepcid Bowel regimen: LBM 02/26 DVT prophylaxis: SCDs, Lovenox SQ. Confusion improving. Patient's mother feels safe to take him home and provide care with the assistance of her daughter. Advised that the patient should not be left alone or drive until further notice. Mother states she was instructed and shown how to do the dressing change to the LEFT wrist by the nurse today and feels comfortable doing this alone at home. Educated regarding hand hygiene. Mother states she has a wheelchair at home and the hospital is loaning her son a platform walker to use at home. Patient is clear from Trauma surgery standpoint to safely discharge home with [facility] PT/OT/ST into the care of his mother and sister. F/U with Orthopedics as instructed as outpatient. Instructed and aware of WB status: NWB LUE, TTWB LLE, WBAT RLE. Pt Condition on Discharge: Stable Discharge Disposition: Disch w/ Home Health Serv Discharge Instructions DIET: Follow Instructions for: Heart Healthy Diet Activities you can perform: Weight Bearing as Horace, Toe Touch Weight Bearing, Non Weight Bearing Other Activity Instructions: Toe touch weight bearing on LEFT lower leg Weight bearing as tolerated RIGHT lower leg Non weight bearing LEFT upper arm OK for platform walker Shay Goldstein Feb 28, 2016 11:52
== END 2016-02-28 13:37 | disposition home health service (06) | DRG 957 ==
LOC: NEPI 10:47 → MERGE 11:53 → NEDA 11:53 → EDBD 11:53 → N03B 11:57 → N06A 02-11 23:39
PROVIDERS: ADMIT Surgery; ATTEND Surgery
PROC: 5A1955Z Respiratory Ventilation, Greater than 96 Consecutive Hours (ICD-10-PCS; 2016-02-05)
PROC: 0PSJ05Z Reposition Left Radius with External Fixation Device, Open Approach (ICD-10-PCS; 2016-02-05)
PROC: 0PS Upper Bones, Reposition (ICD-10-PCS; 2016-02-05)
PROC: 0HDEXZZ Extraction of Left Lower Arm Skin, External Approach (ICD-10-PCS; 2016-02-05)
PROC: 0HQ1XZZ Repair Face Skin, External Approach (ICD-10-PCS; 2016-02-05)
PROC: 4A103BD Monitoring of Intracranial Pressure, Percutaneous Approach (ICD-10-PCS; principal; 2016-02-05 23:27)
PROC: 03HY32Z Insertion of Monitoring Device into Upper Artery, Percutaneous Approach (ICD-10-PCS; 2016-02-06)
PROC: 0QS504Z Reposition Left Acetabulum with Internal Fixation Device, Open Approach (ICD-10-PCS; 2016-02-07)
PROC: 30233N1 Transfusion of Nonautologous Red Blood Cells into Peripheral Vein, Percutaneous Approach (ICD-10-PCS; 2016-02-09)
PROC: 0PSJ04Z Reposition Left Radius with Internal Fixation Device, Open Approach (ICD-10-PCS; 2016-02-19)
PROC: 0PW Upper Bones, Revision (ICD-10-PCS; 2016-02-19)
PROC: 0PSLXZZ Reposition Left Ulna, External Approach (ICD-10-PCS; 2016-02-19)
DX: S06.339A Contusion and laceration of cerebrum, unspecified, with loss of consciousness of unspecified duration, initial encounter (principal); S52.532B Colles' fracture of left radius, initial encounter for open fracture type I or II; J96.01 Acute respiratory failure with hypoxia; S32.402A Unspecified fracture of left acetabulum, initial encounter for closed fracture; S52.602B Unspecified fracture of lower end of left ulna, initial encounter for open fracture type I or II; D62 Acute posthemorrhagic anemia; S32.592A Other specified fracture of left pubis, initial encounter for closed fracture; S62.002A Unspecified fracture of navicular [scaphoid] bone of left wrist, initial encounter for closed fracture; W13.2XXA Fall from, out of or through roof, initial encounter; R40.2432 Glasgow coma scale score 3-8, at arrival to emergency department; S80.212A Abrasion, left knee, initial encounter; S01.81XA Laceration without foreign body of other part of head, initial encounter; S01.112A Laceration without foreign body of left eyelid and periocular area, initial encounter; Y93.H3 Activity, building and construction; Y92.89 Other specified places as the place of occurrence of the external cause; W06.XXXA Fall from bed, initial encounter
CPT/HCPCS: 36430; 36556; 36600; 43753; 61210; 70450; 70486; 71010; 71260; 72125; 72170; 72190; 73100; 73200; 73502; 74177; 76000; 76377; 76937; 80048; 80053; 80320; 82435; 82565; 82805; 82947; 82948; 83735; 84132; 84155; 84295; 84520; 85007; 85014; 85018; 85025; 85027; 85610; 85730; 86850; 86900; 86901; 86920; 87493; 87641; 90471; 90715; 93005; 94002; 94003; 94150; 94640; 94664; 94667; 94668; 96361; 96365; 96374; 96375; 99291; A0431-QM-SH; A0436-QM-SH; C1713; C9113; C9399; G0390; G0479; J0131; J0171; J0330; J0461; J0690; J1170; J1580; J1644; J1650; J1953; J2060; J2250; J2270; J2370; J2405; J2710; J3010; J3370; J3480; J7030; J7050; J7120; L0150; L0172; P9016; Q9967